=== PATIENT | female | born 1980 | race Caucasian/White ===

== ENCOUNTER 2020-07-17 11:39 | Inpatient (IN) | payer MEDICARE, MEDICAID, SELFPAY ==
[2020-07-17] VITALS (23 sets, daily range): BP systolic 67–113; BP diastolic 31–71; PULSE 68–106; RESP 12–20; TEMP 36.3–37.2; O2SAT 94–100; BMI 20.5; BMI 22.9
--- NOTE | 2020-07-17 | XR_ITS ---
EXAMINATION: XR CHEST CLINICAL INFORMATION: Central line. COMPARISON: 04/04/2019 TECHNIQUE: Frontal view of the chest was obtained. FINDINGS: Right-sided central line, tip projected over the proximal/mid SVC. Cardiac leads overlie the chest. Cardiomediastinal silhouette is stable, normal. Lungs are clear. No focal consolidation, effusion or edema. No pneumothorax is identified. XR/XR chest 1V IMPRESSION: Right-sided central line, tip projected over the proximal/mid SVC. No pneumothorax is identified. No acute process is otherwise seen.
--- NOTE | 2020-07-17 11:54 | ED_ITS ---
HPI - General Adult General Chief complaint: Weakness Stated complaint: weakness Time Seen by Provider: 07/17/20 11:53 Source: patient Mode of arrival: ambulatory Limitations: no limitations History of Present Illness HPI narrative: Patient with vaginal bleeding and weakness, patient on coumadin, Patient with vaginal bleeding for 10 days. patient states she has been changing a pad an hour for the last 4 days. Patient feels like she going to pass out. Denies chest pain or shortness of breath Onset (ago): day(s) Severity: moderate Exacerbating factors: movement Associated symptoms: weakness Related Data Allergies Allergy/AdvReac Type Severity Reaction Status Date / Time No Known Allergies Allergy Verified 07/17/20 11:58 Review of Systems Constitutional: Constitutional: Reports no additional constitutional complaints Eyes: Eyes: Reports no additional eye complaints ENT: Denies dizziness Cardiovascular: Cardiovascular: Reports no additional cardiovascular complaints Respiratory: Respiratory: Reports as per HPI Gastrointestinal: Gastrointestinal: Reports no additional gastrointestinal complaints Genitourinary: Genitourinary: Reports no additional female genitourinary comp laints Musculoskeletal: Musculoskeletal: Reports no additional musculoskeletal complaints Integumentary/Breasts: Skin/Breast: Denies rash Neurologic: Reports system reviewed and no additional complaints, except as documented, Denies dizziness and Denies Sensory deficit (Neuro) Psychiatric: Psychiatric: Denies anxiety [facility] Past Medical History Medical History (Updated 07/17/20 @ 14:14 by Ludmila Moreland MD) Myocardial infarction Social History Social History Advance Directives: No Advance Directives Information Provided: No Physical Exam Vital Signs: Vital Signs: Last Vital Signs Temp 97.6 F 07/17/20 14:23 Pulse 92 07/17/20 14:23 Resp 18 07/17/20 14:23 BP 72/36 L 07/17/20 14:23 Pulse Ox 98 07/17/20 14:23 Body Mass Index 20.5 Const: Other: Pale ill appearing Nutritional Appearance: average body habitus Orientation/consciousness: oriented to person and patient oriented x3 Limitations: no limitations HENMT: Head: Yes normal to inspection Ears: external ears normal General nose exam: Normal external nose present Mouth: Normal oral and palatal mucosa present and oropharynx normal Throat: Yes posterior oropharynx normal Eyes: Other: very pale conjunctiva General: appearance normal, both eyes and all related structures Neck: Other: supple Neck: Yes normal visual inspection Chest: Chest palpation & inspection: normal inspection of the chest Resp: Auscultation: clear to auscultation bilaterally Cardio: Jugular venous distension: no JVD Rate: regular rate Rhythm: reg ular rhythm Heart sounds: S1 normal heart sound present and S2 normal heart sound present GI: Inspection: Yes normal to inspection Palpation (GI): Soft to palpation, nontender and No hepatosplenomegaly present Auscultation: normal bowel sounds : Other: vaginal exam with small clot removed, old lesion to external os, normal vagina General: Yes no CVA tenderness Back/Spine/Pelvis: Back: no CVA tenderness Skin: General skin exam: no rashes or lesions noted Neuro: General: oriented to person and patient oriented x3 Cranial nerves: Yes CN's II-XII intact bilaterally Motor exam (neuro): 5/5 motor strength present throughout Sensory Exam: No Sensory deficit (Neuro) Extrem: General: Yes normal to inspection Psych: Appearance: grossly normal Course Course Course Narrative: Discussed with Dr. Palafox cardiology would not reverse coumadin at this time, discussed with Dr. Moreland personnel coordinator, starting transfusion Reevaluation(s) Reevaluation #1: Dr. Yap at bedside will place central line will admit to ICU Time: 14:30 Medical Decision Making [facility] Narrative Medical decision making narrative: patient is very anemic, with abnormal EKG, will transfuse and consult literacy teacher Lab Data Result diagrams: 07/17/20 12:25 07/17/20 12:25 Labs: Lab Results 07/17/20 07/17/20 07/17/20 Range/Units 12:25 12:25 12:25 WBC 14.2 H (4.8-10.8) X10*3/uL RBC 1.32 L (4.20-5.50) X10*6/uL Hgb 3.1 L* (12.0-16.0) g/dl Hct 10.7 L* (37-47) % MCV 81.1 (80-98) fL MCH 23.5 L (27.0-33.0) pg MCHC 29.0 L (31.0-35.0) g/dl RDW 21.3 H (11.0-16.0) % Plt Count 283 (160-400) X10*3/uL MPV 10.2 (9.4-12.3) fL Immature Gran % (Auto) 0.8 H (0.0-0.4) % Neut % (Auto) 73.4 H (45-73) % Lymph % (Auto) 16.2 L (20-40) % [place] % (Auto) 8.7 (2-11) % Eos % (Auto) 0.8 (0-4) % Baso % (Auto) 0.1 (0-2) % Lymph # (Auto) 2.3 (1.2-4.9) X10*3/uL [place] # (Auto) 1.2 (0.1-1.2) X10*3/uL Eos # (Auto) 0.1 (0.0-0.4) X10*3/uL Baso # (Auto) 0.0 (0.0-0.2) X10*3/uL Abs Immat Gran (auto) 0.12 H (0.00-0.03) X10*3/uL Absolute Neuts (auto) 10.4 H (2.0-8.3) X10*3/uL Absolute Nucleated RBC 0.020 H (0.0-0.012) X10*3/uL Nucleated RBC % (auto) 0.1 (0.0-0.2) /100WBC PT (10.8-13.0) SEC INR (0.9-1.1) Sodium 134 L (135-145) mmol/L Potassium 3.8 (3.3-5.1) mmol/l Chloride 97 (96-108) mmol/L Carbon Dioxide 23 (22-29) mmol/L Anion Gap 18 (12-20) BUN 11 (9-16) mg/dL Creatinine 0.76 (0.5-1.4) mg/dL Estim Creat Clear Calc 92.2 Estimated GFR > 60 Random Glucose 93 (60-115) mg/dL Calcium 7.1 L (8.4-10.2) mg/dL Troponin I High Sens 9.3 (<3.5-17.0) ng/L Blood Type Antibody Screen Crossmatch 07/17/20 07/17/20 Range/Units 12:25 12:38 WBC (4.8-10.8) X10*3/uL RBC (4.20-5.50) X10*6/uL Hgb (12.0-16.0) g/dl Hct (37-47) % MCV (80-98) fL MCH (27.0-33.0) pg MCHC (31.0-35.0) g/dl RDW (11.0-16.0) % Plt Count (160-400) X10*3/uL MPV (9.4-12.3) fL Immature Gran % (Auto) (0.0-0.4) % Neut % (Auto) (45-73) % Lymph % (Auto) (20-40) % [place] % (Auto) (2-11) % Eos % (Auto) (0-4) % Baso % (Auto) (0-2) % Lymph # (Auto) (1.2-4.9) X10*3/uL [place] # (Auto) (0.1-1.2) X10*3/uL Eos # (Auto) (0.0-0.4) X10*3/uL Baso # (Auto) (0.0-0.2) X10*3/uL Abs Immat Gran (auto) (0.00-0.03) X10*3/uL Absolute Neuts (auto) (2.0-8.3) X10*3/uL Absolute Nucleated RBC (0.0-0.012) X10*3/uL Nucleated RBC % (auto) (0.0-0.2) /100WBC PT 21.6 H (10.8-13.0) SEC INR 1.8 H (0.9-1.1) Sodium (135-145) mmol/L Potassium (3.3-5.1) mmol/l Chloride (96-108) mmol/L Carbon Dioxide (22-29) mmol/L Anion Gap (12-20) BUN (9-16) mg/dL Creatinine (0.5-1.4) mg/dL Estim Creat Clear Calc Estimated GFR Random Glucose (60-115) mg/dL Calcium (8.4-10.2) mg/dL Troponin I High Sens (<3.5-17.0) ng/L Blood Type O Positive Antibody Screen NEGATIVE Crossmatch See Detail ECG Data Attestation: I personally reviewed and interpreted this ECG as follows: Interpretation: sinus 90 old anterior wall NJ, st twave changes V5-V6 Critical Care Time Critical Care Time Critical Care Time: Yes Total Critical Care Time: 40 Attestation: I spent 40 minutes of critical care, with interventions, assessments, speaking to patient, consultants, and family. Discharge Plan Discharge Clinical Impression: Abnormal uterine bleeding, Anemia Patient Disposition: Admitted As Inpatient
--- NOTE | 2020-07-17 11:59 | ECG_ITS ---
Test Reason : WEAKNESS Blood Pressure : / mmHG Vent. Rate : 097 BPM Atrial Rate : 097 BPM P-R Int : 126 ms QRS Dur : 078 ms QT Int : 362 ms P-R-T Axes : 078 062 117 degrees QTc Int : 459 ms Normal sinus rhythm Low voltage QRS Cannot rule out Anterior infarct (cited on or before 11-FEB-2019) Lateral ST depressions - consider ischemia Abnormal ECG When compared with ECG of 04-APR-2019 17:28, Criteria for Inferior infarct are no longer Present Lateral ST depressions present. Referred By: Reji Salmon Electronically Signed By:Petey Flores
[2020-07-17] MEDS: 0.9 % Sodium Chloride 1,000 ML 999 ML IVCONT (12:02)
[2020-07-17 12:30] LABS: MANUAL DIFF FLAG NO
[2020-07-17 12:36] LABS: INTERNATIONAL NORM RATIO 1.8 (0.9-1.1); Prothrombin Time 21.6 SEC (10.8-13.0)
[2020-07-17 12:41] LABS: Basophils Percent Auto 0.1 % (0-2); Eosinophils Absolute Auto 0.1 X10*3/uL (0.0-0.4); Eosinophils Percent Auto 0.8 % (0-4); Imm Gran Abs Auto 0.12 X10*3/uL (0.00-0.03); Imm Gran Pct Auto 0.8 % (0.0-0.4); Lymphocytes Absolute Auto 2.3 X10*3/uL (1.2-4.9); Lymphocytes Percent Auto 16.2 % (20-40); Mean Corpuscular Hemoglobin 23.5 pg (27.0-33.0); Mean Corpuscular Volume 81.1 fL (80-98); Mean Platelet Volume 10.2 fL (9.4-12.3); Monocytes Absolute Auto 1.2 X10*3/uL (0.1-1.2); Monocytes Percent Auto 8.7 % (2-11); NRBC Pct Auto 0.1 /100WBC (0.0-0.2); Neutrophils Absolute Auto 10.4 X10*3/uL (2.0-8.3); Neutrophils Percent Auto 73.4 % (45-73); Platelet Count 283 X10*3/uL (160-400); Red Blood Count 1.32 X10*6/uL (4.20-5.50); Red Cell Distribution Width 21.3 % (11.0-16.0); White Blood Count 14.2 X10*3/uL (4.8-10.8)
[2020-07-17 12:47] LABS: Hemoglobin 3.1 g/dl (12.0-16.0)
[2020-07-17 12:48] LABS: Hematocrit 10.7 % (37-47)
[2020-07-17 13:00] LABS: Anion Gap 18 (12-20); Blood Urea Nitrogen 11 mg/dL (9-16); Calcium 7.1 mg/dL (8.4-10.2); Carbon Dioxide 23 mmol/L (22-29); Chloride 97 mmol/L (96-108); Creatinine Clr Calc Pharmacy 92.2; Estimated Glomerular Filt Rate > 60; Glucose Random 93 mg/dL (60-115); Potassium 3.8 mmol/l (3.3-5.1); Sodium 134 mmol/L (135-145)
[2020-07-17 13:01] LABS: Troponin-I High Sensitivity 9.3 ng/L (<3.5-17.0)
--- NOTE | 2020-07-17 13:17 | US_ITS ---
EXAMINATION: PELVIC ULTRASOUND CLINICAL INFORMATION: Heavy vaginal bleeding COMPARISON: CT abdomen pelvis 04/04/2019 TECHNIQUE: Both transabdominal endovaginal scanning was performed. FINDINGS: The anteverted uterus measuring 8.5 x 4.0 x 4.3 cm is present for a volume of 61 mL. A single mural fibroid is present measuring 8 x 6 x 6 mm in size. The endometrium measures 1 cm in thickness and is unremarkable. Nabothian cysts are present in the cervix. Right ovary measures 3.9 x 2.0 x 2.4 cm for a volume of 9.8 mL and contains 2 cysts measuring 1.2 x 1.0 x 1.5 cm 1.8 x 1.0 x 2.3 cm. Left ovary measures 3.2 x 3.1 x 2.7 cm for a volume of 14 mL and contains 2 cysts, one with a septation measuring 2.3 x 1.8 x 2.4 cm and the other exophytic measuring 1.9 x 1.3 x 1.3 cm. No free fluid is present in the cul-de-sac US/US transvaginal IMPRESSION: 1. Single subcentimeter fibroid is present. 2. Bilateral ovarian cysts.
--- NOTE | 2020-07-17 13:23 | PC.NURSE ---
chaperoned dr dietrich during a pelvic exam, pt tolerated the procedure well
--- NOTE | 2020-07-17 13:34 | US_ITS ---
EXAMINATION: PELVIC ULTRASOUND CLINICAL INFORMATION: Heavy vaginal bleeding COMPARISON: CT abdomen pelvis 04/04/2019 TECHNIQUE: Both transabdominal endovaginal scanning was performed. FINDINGS: The anteverted uterus measuring 8.5 x 4.0 x 4.3 cm is present for a volume of 61 mL. A single mural fibroid is present measuring 8 x 6 x 6 mm in size. The endometrium measures 1 cm in thickness and is unremarkable. Nabothian cysts are present in the cervix. Right ovary measures 3.9 x 2.0 x 2.4 cm for a volume of 9.8 mL and contains 2 cysts measuring 1.2 x 1.0 x 1.5 cm 1.8 x 1.0 x 2.3 cm. Left ovary measures 3.2 x 3.1 x 2.7 cm for a volume of 14 mL and contains 2 cysts, one with a septation measuring 2.3 x 1.8 x 2.4 cm and the other exophytic measuring 1.9 x 1.3 x 1.3 cm. No free fluid is present in the cul-de-sac US/US pelvic complete IMPRESSION: 1. Single subcentimeter fibroid is present. 2. Bilateral ovarian cysts.
--- NOTE | 2020-07-17 14:06 | PM.GYNCN ---
WELDING SPECIALIST - CN: [facility] Data of Consult Consult date: 07/17/20 Primary Care Provider: Hiro Mckeon PA-C Consult Narrative Narrative: Willow Bhatt is a 39 year old female with PMH significant for TX at the age of 38-39yrs, currently on anticoagulation. She presents today with weakness in the setting of ten or more days of heavy vaginal bleeding. She presented today due to feeling weak and short of breath. Bleeding is not currently as heavy as it was two days ago. She reports her bleeding had gotten heavier on Thursday (two days ago). Ms. Bhatt reports that she was previously getting an injection, which she is unsure whether was exactly depo-provera but reports that it was helping a lot with her periods and that she did not have a period for two years. However, she does not remember when her last injection was. She has not followed up with her ObGyn (she has been seen at [facility]) since her last hospitalization. She reports that in that time, bleeding has been irregular. She does not bleed for a month but then bleeds for two months straight. Bleeding is at times heavy with clots, although the amount is variable. She does not desire further childbearing and reports that she previously requested a partial hysterectomy but was told that she was too high risk given her anticoagulation. cc:: CC: GUEST SERVICES MANAGER - Review of Systems Review of Systems ROS Unobtainable: Other (Focused review of systems as reported in the HPI) OB PMFSH Past Medical History Medical History (Updated 07/17/20 @ 14:14 by Ludmila Moreland MD) Myocardial infarction Social History Social History Advance Directives: No Advance Directives Information Provided: No Meds Allergies Allergy/AdvReac Type Severity Reaction Status Date / Time No Known Allergies Allergy Verified 07/17/20 11:58 WELDING SPECIALIST Physical Exam Vitals Vital signs: Temp Pulse Resp BP Pulse Ox 97.4 F 103 H 12 67/31 L 100 07/17/20 13:45 07/17/20 13:45 07/17/20 13:45 07/17/20 13:45 07/17/20 11:48 Body Mass Index 20.5 Constitutional General Appearance: Well-nourished, Well-developed and Other (patient pale appearing, no acute distress) Lungs Respiratory Effort: No intercostal retractions and No accessory muscle usage WELDING SPECIALIST - Results Labs CBC & Chem 7: 07/17/20 12:25 07/17/20 12:25 Labs: Short CBC 07/17/20 Range/Units 12:25 WBC 14.2 H (4.8-10.8) X10*3/uL Hgb 3.1 L* (12.0-16.0) g/dl Hct 10.7 L* (37-47) % Plt Count 283 (160-400) X10*3/uL BMP 07/17/20 12:25 Sodium 134 L Potassium 3.8 Chloride 97 Carbon Dioxide 23 BUN 11 Creatinine 0.76 Calcium 7.1 L Antibody Screen Antibody Screen NEGATIVE 07/17/20 12:38 Assessment and Plan (1) Abnormal uterine bleeding: Status: Acute This patient, who is younger than 45, is not obese and has no other risk factors for endometrial cancer with an obvious explanation for her abnormal uterine bleeding (anticoagulation) does not require uterine sampling. On review of the medical eligibility criteria for contraception, ischemic heart disease is a level 4 contraindication to depo-provera. I advised her that depo-provera is not recommended for her given her history of TX. I explained that options to prevent further abnormal bleeding include levenogestrel IUD, nexplanon implant, and hysteroscopy D&C with endometrial ablation. She then reported that she thinks the injection she was getting was not exactly depo provera. She prefers to follow up with her ObGyn at [facility]. I advised her that if she is unable to follow up with them for any reason, she is of course welcome to follow up with us. During her admission for blood, TVUS may help rule out any structural anomalies contributing to bleeding. I recommend a one time dose of 1,000mg tranexamic acid IV. On reviewing the contraindications, I do not see history of TX or active anticoagulation included; even thromboembolic disease is not a contraindication to IV tranexamic acid (although it is for oral). This patient is not a good candidate for hormonal treatment to stop her bleeding, leaving D&C as the only other option should she start having very heavy bleeding. I recommend that she receive at least 4 units of PRBCs if not 5, especially given that she will likely have ongoing bleeding. She should go home on oral ferrous sulfate 325mg BID to help restore her blood volume, as well. This patient needs to follow up with ObGyn after her discharge and reports that she prefers to follow up with the one she has seen previously. Please re-consult if any new concerns or concern for heavier bleeding requiring D&C.
--- NOTE | 2020-07-17 16:50 | PM.CCHP ---
History of Present Illness Date of Service: 07/17/20 Chief Complaint: Malaise and weakness 39-year-old lady with underlying history of myocardial infarction in later delivery thrombosis on anticoagulation with Coumadin admitted on 07/17/2020 for malaise and weakness associated with 9 day history of significant vaginal bleeding. On ER evaluation patient with hemoglobin of 3.1, hypotensive, and tachycardic secondary to hemorrhagic shock. Started on blood product resuscitation. Gynecology has been consulted by an ER physician and secondary to no ongoing bleeding non operative management has been chosen. Patient has had central venous access for appetite resuscitation placed and has been transferred to intensive care unit for further management. Review of Systems Constitutional: Constitutional: Reports malaise and Reports weakness Eyes: Eyes: Denies change in vision and Denies loss of vision ENT: Denies dizziness Cardiovascular: Cardiovascular: Denies chest pain, Reports lightheadedness and Reports dyspnea Respiratory: Respiratory: Reports no additional respiratory complaints and Reports dyspnea Gastrointestinal: Gastrointestinal: Denies constipation and Denies diarrhea Genitourinary: Genitourinary: Reports abnormal vaginal bleeding Musculoskeletal: Musculoskeletal: Denies myalgias and Denies stiffness Integumentary/Breasts: Skin/Breast: Denies rash Neurologic: Reports system reviewed and no additional complaints, except as documented, Denies dizziness, Denies loss of vision, Denies Sensory deficit (Neuro) and Reports weakness Endocrine: Endocrine: Denies cold intolerance and Denies heat intolerance [facility] Past Medical History Medical History Myocardial infarction Family History Family History Mother Myocardial infarct Social History Social History Advance Directives: No Advance Directives Information Provided: No Meds Allergies Allergy/AdvReac Type Severity Reaction Status Date / Time No Known Allergies Allergy Verified 07/17/20 11:58 Home Medications Medication Instructions Recorded Confirmed Type aspirin 1 tab PO DAILY 07/17/20 07/17/20 History digoxin 1 tab PO DAILY 07/17/20 07/17/20 History duloxetine 1 cap PO DAILY 07/17/20 07/17/20 History folic acid 1 tab PO DAILY 07/17/20 07/17/20 History gabapentin 1 cap PO BID 07/17/20 07/17/20 History nicotine 1 patch TOPICAL DAILY 07/17/20 07/17/20 History nicotine (polacrilex) 1 mg PO Q2H PRN 07/17/20 07/17/20 History potassium chloride 1 tab PO BID 07/17/20 07/17/20 History sacubitril-valsartan [Entresto] 1 tab PO BID 07/17/20 07/17/20 History thiamine HCl (vitamin B1) [Vitamin 1 tab PO DAILY 07/17/20 07/17/20 History B-1] warfarin 0 - 2 tab PO BEDTIME 07/17/20 07/17/20 History Physical Exam Vital Signs: Vital Signs: Last Vital Signs Temp 98.0 F 07/17/20 16:48 Pulse 75 07/17/20 16:48 Resp 12 07/17/20 16:48 BP 110/51 L 07/17/20 16:48 Pulse Ox 100 07/17/20 16:48 Body Mass Index 20.5 Const: General: no acute distress, alert, awake and other (Pale) Eyes: Sclerae: sclerae normal EOM: EOMs intact bilaterally Neck: Neck: Yes no lymphadenopathy, Yes trachea midline and Yes supple Resp: Effort & Inspection: normal respiratory effort and no respiratory distress Auscultation: clear to auscultation bilaterally Cardio: Rate: tachycardic Rhythm: regular rhythm Heart sounds: no gallops, no murmurs and no rubs GI: Palpation (GI): Soft to palpation and Other GI palpation findings present ( Nontender) Auscultation: normal bowel sounds Neuro: Sensory Exam: No Sensory deficit (Neuro) Extrem: General: Yes no pedal edema, No clubbing and No cyanosis Results Labs CBC and Chem 7: 07/17/20 12:25 07/17/20 12:25 Labs: Laboratory Results - last 24 hr 07/17/20 07/17/20 07/17/20 12:25 12:25 12:25 MCV 81.1 MCH 23.5 L MCHC 29.0 L RDW 21.3 H Plt Count 283 MPV 10.2 Immature Gran % (Auto) 0.8 H Neut % (Auto) 73.4 H Lymph % (Auto) 16.2 L [place] % (Auto) 8.7 Eos % (Auto) 0.8 Baso % (Auto) 0.1 Lymph # (Auto) 2.3 [place] # (Auto) 1.2 Eos # (Auto) 0.1 Baso # (Auto) 0.0 Abs Immat Gran (auto) 0.12 H Absolute Neuts (auto) 10.4 H Absolute Nucleated RBC 0.020 H Nucleated RBC % (auto) 0.1 PT INR Anion Gap 18 Estim Creat Clear Calc 92.2 Estimated GFR > 60 Random Glucose 93 Calcium 7.1 L Troponin I High Sens 9.3 Blood Type Antibody Screen Crossmatch 07/17/20 07/17/20 12:25 12:38 MCV MCH MCHC RDW Plt Count MPV Immature Gran % (Auto) Neut % (Auto) Lymph % (Auto) [place] % (Auto) Eos % (Auto) Baso % (Auto) Lymph # (Auto) [place] # (Auto) Eos # (Auto) Baso # (Auto) Abs Immat Gran (auto) Absolute Neuts (auto) Absolute Nucleated RBC Nucleated RBC % (auto) PT 21.6 H INR 1.8 H Anion Gap Estim Creat Clear Calc Estimated GFR Random Glucose Calcium Troponin I High Sens Blood Type O Positive Antibody Screen NEGATIVE Crossmatch See Detail Imaging Radiologist's Impressions: Impressions Chest X-Ray 07/17/20 00:00 IMPRESSION: Right-sided central line, tip projected over the proximal/mid SVC. No pneumothorax is identified. No acute process is otherwise seen. Transvaginal US 07/17/20 13:17 IMPRESSION: 1. Single subcentimeter fibroid is present. 2. Bilateral ovarian cysts. Pelvis Ultrasound 07/17/20 13:34 IMPRESSION: 1. Single subcentimeter fibroid is present. 2. Bilateral ovarian cysts. 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 Plan: Neuro: No acute issues. Cardiac: No acute issues. Underlying history of early FL and LV thrombus. Cardiology evaluation requested. Pulmonary: No acute issues. Renal: No acute issues. Endo: No acute issues. GI: No acute issues. ID: No acute issues Heme/Onc: Hemorrhagic shock secondary to acute blood loss anemia secondary to menorrhagia with underlying history of anticoagulation secondary to LV thrombus. Status post 4 units of packed red blood cells, 1 unit of platelets, and 1 unit of FFP with resolution of hemorrhagic shock. Continue to monitor hemoglobin level. Transfusion threshold of 7. Gynecology service care appreciated. No plans for operative intervention at this time unless re-bleeds significantly. Psych: No acute issues. Miscellaneous: No acute issues. Prophylaxis: Intermittent pneumatic compression Diet: Regular Critical care time spent: 60 minutes excluding separately billable procedures (2) Acute blood loss anemia: Status: Acute (3) Abnormal uterine bleeding: Status: Acute Critical Care Time Critical Care Time (minutes): 60
--- NOTE | 2020-07-17 17:00 | W.PM.CCHP ---
Procedures Central Line Placement Right IJ: Central Line Comments: Right internal jugular Cordis sheath introducer emergently placed for resuscitation of hemorrhagic shock under ultrasound guidance and usual sterile conditions with no immediate complications. Line position verified on chest x-ray.
--- NOTE | 2020-07-17 18:34 | PC.NURSE ---
Patient arrived from the ED. A&Ox4. HR in 80s, SBP in the low to mid 90s, aware. Administered ordered 2 units of PRBC, 1 unit of platelets and 1 unit of FFPs. Patient tolerated well. SBP remains in the mid 90s, MD aware. S/p transfusion H&H ordered for around 2100. At 1830 patient saturated one jason pad and passed two small blood clots in the bedside commode, SHOVEL MECHANIC made aware. Patient has not urinated since arriving to the unit at 1630, SHOVEL MECHANIC made aware.
[2020-07-17] MEDS: Calcium Gluconate/NaCl,Iso-Osm 2 GM/100 ML PLAST..BAG IV (18:57)
[2020-07-17 20:05] LABS: MANUAL DIFF FLAG NO
[2020-07-17 20:07] LABS: Basophils Percent Auto 0.2 % (0-2); Eosinophils Absolute Auto 0.1 X10*3/uL (0.0-0.4); Eosinophils Percent Auto 0.9 % (0-4); Hemoglobin 8.9 g/dl (12.0-16.0); Imm Gran Abs Auto 0.05 X10*3/uL (0.00-0.03); Imm Gran Pct Auto 0.4 % (0.0-0.4); Lymphocytes Absolute Auto 1.7 X10*3/uL (1.2-4.9); Lymphocytes Percent Auto 14.5 % (20-40); Mean Corpuscular HGB Conc 34.2 g/dl (31.0-35.0); Mean Corpuscular Hemoglobin 29.5 pg (27.0-33.0); Mean Corpuscular Volume 86.1 fL (80-98); Mean Platelet Volume 9.3 fL (9.4-12.3); Monocytes Absolute Auto 1.1 X10*3/uL (0.1-1.2); Monocytes Percent Auto 9.4 % (2-11); Neutrophils Absolute Auto 8.8 X10*3/uL (2.0-8.3); Neutrophils Percent Auto 74.6 % (45-73); Platelet Count 191 X10*3/uL (160-400); Red Blood Count 3.02 X10*6/uL (4.20-5.50); Red Cell Distribution Width 15.4 % (11.0-16.0); White Blood Count 11.8 X10*3/uL (4.8-10.8)
[2020-07-17 20:41] LABS: Anion Gap 16 (12-20); Blood Urea Nitrogen 10 mg/dL (9-16); Calcium 6.9 mg/dL (8.4-10.2); Carbon Dioxide 22 mmol/L (22-29); Chloride 104 mmol/L (96-108); Creatinine Clr Calc Pharmacy 119.2; Estimated Glomerular Filt Rate > 60; Glucose Random 70 mg/dL (60-115); Potassium 3.7 mmol/l (3.3-5.1); Sodium 138 mmol/L (135-145)
[2020-07-17] MEDS: Dextrose 5 % and Lactated Ring 1,000 ML 100 ML IVCONT (20:48)
[2020-07-17] MEDS: LORazepam 1 MG TABLET PO (20:52)
[2020-07-17] MEDS: Acetaminophen 325 MG TABLET 650 MG PO (23:44)
[2020-07-18] VITALS (14 sets, daily range): BP systolic 90–104; BP diastolic 51–67; PULSE 64–98; RESP 12–20; TEMP 36.8; O2SAT 91–100; BMI 22.6
[2020-07-18] MEDS: Dextrose 5 % and Lactated Ring 1,000 ML 100 ML IVCONT (06:25)
[2020-07-18 06:55] LABS: MANUAL DIFF FLAG NO
[2020-07-18 07:10] LABS: INTERNATIONAL NORM RATIO 1.4 (0.9-1.1); Prothrombin Time 16.7 SEC (10.8-13.0)
[2020-07-18 07:13] LABS: Basophils Percent Auto 0.4 % (0-2); Eosinophils Absolute Auto 0.1 X10*3/uL (0.0-0.4); Eosinophils Percent Auto 1.3 % (0-4); Hematocrit 24.5 % (37-47); Hemoglobin 8.6 g/dl (12.0-16.0); Imm Gran Abs Auto 0.05 X10*3/uL (0.00-0.03); Imm Gran Pct Auto 0.5 % (0.0-0.4); Lymphocytes Absolute Auto 2.4 X10*3/uL (1.2-4.9); Lymphocytes Percent Auto 24.1 % (20-40); Mean Corpuscular HGB Conc 35.1 g/dl (31.0-35.0); Mean Corpuscular Hemoglobin 30.1 pg (27.0-33.0); Mean Corpuscular Volume 85.7 fL (80-98); Mean Platelet Volume 9.7 fL (9.4-12.3); Neutrophils Absolute Auto 6.4 X10*3/uL (2.0-8.3); Neutrophils Percent Auto 63.7 % (45-73); Platelet Count 198 X10*3/uL (160-400); Red Blood Count 2.86 X10*6/uL (4.20-5.50); Red Cell Distribution Width 15.8 % (11.0-16.0)
--- NOTE | 2020-07-18 07:16 | PC.NURSE ---
PT A&O X3. RESTED IN NAPS OVERNIGHT. HAD REPEAT LABS AT 1999. HGB/HCT 8.9/26. VAGINAL BLEEDING SLOWED AND ALMOST STOPPED. PT CHANGED ESTRELLITA PAD X1 OVERNIGHT FOR A SMALL AMT OF BLOOD ON PAD. OOB TO BEDSIDE COMMODE X2 TO VOID 300-400 ML OF DARK GABRIEL URINE. SMALL FORMED BROWN BM NOTED. PT TAKING PO FLUIDS WELL. INSTRUCTED NOT TO GET OOB TO BEDSIDE COMMODE WITHOUT ASSISTANCE DUE TO BORDERLINE BP. MAPS ARE INTERMITTENTLY 55-65. ARSENIO GARCIA AWARE AND IS TRENDING THE BPS. AT THIS TIME, PT IS MENTATING WELL AND ASYMPTOMATIC WITH LOW BP. PT IS RECEIVING D5LR AT 100 ML/HR.
[2020-07-18 07:44] LABS: Alanine Aminotransferase 21 U/L (0-31); Albumin Level 2.3 g/dL (3.5-5.0); Alkaline Phosphatase 113 U/L (39-117); Anion Gap 11 (12-20); Aspartate Amino Transferase 45 U/L (5-31); Bilirubin Total 2.7 mg/dL (0.0-1.0); Blood Urea Nitrogen 7 mg/dL (9-16); Calcium 6.9 mg/dL (8.4-10.2); Carbon Dioxide 25 mmol/L (22-29); Chloride 103 mmol/L (96-108); Creatinine Clr Calc Pharmacy 121.1; Estimated Glomerular Filt Rate > 60; Glucose Random 98 mg/dL (60-115); Magnesium 1.5 mg/dL (1.6-2.6); Phosphorus 2.5 mg/dL (2.7-4.5); Potassium 3.1 mmol/l (3.3-5.1); Sodium 136 mmol/L (135-145); Total Protein 4.8 g/dL (6.5-8.0)
[2020-07-18] MEDS: Magnesium Sulfate/H2O 2 GM/50 ML PIGGYBACK IV (08:26)
[2020-07-18] MEDS: Albumin Human 25 % 100 ML IV (08:27)
[2020-07-18] MEDS: Potassium Phosphate 30 MMOL in 0.9 % Sodium Chloride 500 ML 85 MMOL IV (09:00)
[2020-07-18 09:11] LABS: UPreg QC Valid YES; Urine Pregnancy NEGATIVE (NEGATIVE)
--- NOTE | 2020-07-18 10:53 | MHC.CM.PN ---
Met with pt in ICU. Per MD rounds will [place] [facility] however pt is considering leaving AMA. Spoke to pt at length about staying in hospital to receive proper care. Barriers to staying in hospital per pt include her job and her daughter. 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 Again stressed need for pt to stay in hospital for care. Stressed seriousness of her condition. Also stressed to patient that if she leaves AMA, we cannot provide any discharge services if necessary. Pt understands, but is still considering AMA. IMM reviewed and signed. Transportation home would be by daughter. Pt to arrange transportation home.
--- NOTE | 2020-07-18 11:17 | PM.CNCAR ---
History of Present Illness History of Present Illness Date of Service: 07/18/20 Requesting physician: Mark Anthony Yap Chief complaint: Hemorrhagic shock Narrative: 39-year-old female with background history of anterior wall MS for which she presented late and no intervention was done. She had severely reduced ejection fraction with apical thrombus for which she was started on Coumadin. She has background of genitourinary bleeding in the past and previously had blood transfusions. She is now presenting again with the significant bleeding and hemoglobin of 3. We have been asked to help the management because she was on Coumadin for apical thrombus. Discussing with her she has no chest discomfort shortness of breath. She has been getting blood transfusions and her blood pressure is improving. Last echo was done in 03/2018 which showed EF of 35-40% with akinesis and thinning of the mid to distal inferoseptal anteroseptal wall that and the distal anterior wall that. [place] was aneurysmal and dyskinetic and there was a large apical thrombus. Review of Systems Review of Systems: Weakness Yes all other systems are reviewed and are negative Constitutional: Constitutional: Reports weakness Eyes: Eyes: Denies loss of vision ENT: Denies dizziness Neurologic: Reports system reviewed and no additional complaints, except as documented, Denies dizziness, Denies loss of vision and Reports weakness PMFSH Past Medical History Medical History Myocardial infarction Family History Family History Mother Myocardial infarct Social History Social History Currently Displaying Signs/Symptoms of Drug Intoxication Withdrawal: No Advance Directives: No Advance Directives Information Provided: No Do you have thoughts of harming others: None Do you have a plan to hurt others: No Plan service: No Current occupational status: employed Meds Allergies Allergy/AdvReac Type Severity Reaction Status Date / Time No Known Allergies Allergy Verified 07/17/20 11:58 Home Medications Medication Instructions Recorded Confirmed Type aspirin 1 tab PO DAILY 07/17/20 07/17/20 History digoxin 1 tab PO DAILY 07/17/20 07/17/20 History duloxetine 1 cap PO DAILY 07/17/20 07/17/20 History folic acid 1 tab PO DAILY 07/17/20 07/17/20 History gabapentin 1 cap PO BID 07/17/20 07/17/20 History nicotine 1 patch TOPICAL DAILY 07/17/20 07/17/20 History nicotine (polacrilex) 1 mg PO Q2H PRN 07/17/20 07/17/20 History potassium chloride 1 tab PO BID 07/17/20 07/17/20 History sacubitril-valsartan [Entresto] 1 tab PO BID 07/17/20 07/17/20 History thiamine HCl (vitamin B1) [Vitamin 1 tab PO DAILY 07/17/20 07/17/20 History B-1] warfarin 0 - 2 tab PO BEDTIME 07/17/20 07/17/20 History Physical Exam Vital Signs: Vital Signs: Last Vital Signs Temp 98.3 F 07/18/20 04:00 Pulse 81 07/18/20 11:00 Resp 12 07/18/20 11:00 BP 94/54 L 07/18/20 11:00 Pulse Ox 99 07/18/20 11:00 Body Mass Index 22.6 GENERAL APPEARANCE: in no acute distress, well developed, well nourished. HEENT: unremarkable. HEAD: normocephalic, atraumatic. NECK/THYROID: no carotid bruit, no jugular venous distention. SKIN: no suspicious lesions, warm and dry. HEART: no murmurs, regular rate and rhythm, S1, S2 normal. LUNGS: clear to auscultation bilaterally. ABDOMEN: normal, bowel sounds present, soft, nontender, nondistended. EXTREMITIES: no clubbing, cyanosis, or edema. PERIPHERAL PULSES: equal. NEUROLOGIC: nonfocal, alert and oriented. PSYCH: mood/affect full range. Results Labs and Meds Result diagrams: 07/18/20 06:20 07/18/20 06:20 Lab results: Laboratory Results - last 24 hr 07/17/20 07/17/20 07/17/20 12:25 12:25 12:25 WBC 14.2 H RBC 1.32 L Hgb 3.1 L* Hct 10.7 L* MCV 81.1 MCH 23.5 L MCHC 29.0 L RDW 21.3 H Plt Count 283 MPV 10.2 Immature Gran % (Auto) 0.8 H Neut % (Auto) 73.4 H Lymph % (Auto) 16.2 L [place] % (Auto) 8.7 Eos % (Auto) 0.8 Baso % (Auto) 0.1 Lymph # (Auto) 2.3 [place] # (Auto) 1.2 Eos # (Auto) 0.1 Baso # (Auto) 0.0 Abs Immat Gran (auto) 0.12 H Absolute Neuts (auto) 10.4 H Absolute Nucleated RBC 0.020 H Nucleated RBC % (auto) 0.1 Smear Path Review SEE NOTE PT INR Sodium 134 L Potassium 3.8 Chloride 97 Carbon Dioxide 23 Anion Gap 18 BUN 11 Creatinine 0.76 Estim Creat Clear Calc 92.2 Estimated GFR > 60 Random Glucose 93 Calcium 7.1 L Phosphorus Magnesium Total Bilirubin AST ALT Alkaline Phosphatase Troponin I High Sens 9.3 Total Protein Albumin Urine Test Blood Type Antibody Screen Crossmatch 07/17/20 07/17/20 07/17/20 12:25 12:38 19:56 WBC 11.8 H RBC 3.02 L D Hgb 8.9 L D Hct 26.0 L D MCV 86.1 D MCH 29.5 MCHC 34.2 RDW 15.4 Plt Count 191 D MPV 9.3 L Immature Gran % (Auto) 0.4 Neut % (Auto) 74.6 H Lymph % (Auto) 14.5 L [place] % (Auto) 9.4 Eos % (Auto) 0.9 Baso % (Auto) 0.2 Lymph # (Auto) 1.7 [place] # (Auto) 1.1 Eos # (Auto) 0.1 Baso # (Auto) 0.0 Abs Immat Gran (auto) 0.05 H Absolute Neuts (auto) 8.8 H Absolute Nucleated RBC 0.000 Nucleated RBC % (auto) 0.0 Smear Path Review PT 21.6 H INR 1.8 H Sodium Potassium Chloride Carbon Dioxide Anion Gap BUN Creatinine Estim Creat Clear Calc Estimated GFR Random Glucose Calcium Phosphorus Magnesium Total Bilirubin AST ALT Alkaline Phosphatase Troponin I High Sens Total Protein Albumin Urine Test Blood Type O Positive Antibody Screen NEGATIVE Crossmatch See Detail 07/17/20 07/18/20 07/18/20 19:56 06:20 06:20 WBC 10.0 RBC 2.86 L Hgb 8.6 L Hct 24.5 L MCV 85.7 MCH 30.1 MCHC 35.1 H RDW 15.8 Plt Count 198 MPV 9.7 Immature Gran % (Auto) 0.5 H Neut % (Auto) 63.7 Lymph % (Auto) 24.1 [place] % (Auto) 10.0 Eos % (Auto) 1.3 Baso % (Auto) 0.4 Lymph # (Auto) 2.4 [place] # (Auto) 1.0 Eos # (Auto) 0.1 Baso # (Auto) 0.0 Abs Immat Gran (auto) 0.05 H Absolute Neuts (auto) 6.4 Absolute Nucleated RBC 0.000 Nucleated RBC % (auto) 0.0 Smear Path Review PT 16.7 H D INR 1.4 H Sodium 138 Potassium 3.7 Chloride 104 Carbon Dioxide 22 Anion Gap 16 BUN 10 Creatinine 0.61 Estim Creat Clear Calc 119.2 Estimated GFR > 60 Random Glucose 70 Calcium 6.9 L Phosphorus Magnesium Total Bilirubin AST ALT Alkaline Phosphatase Troponin I High Sens Total Protein Albumin Urine Test Blood Type Antibody Screen Crossmatch 07/18/20 07/18/20 06:20 08:46 WBC RBC Hgb Hct MCV MCH MCHC RDW Plt Count MPV Immature Gran % (Auto) Neut % (Auto) Lymph % (Auto) [place] % (Auto) Eos % (Auto) Baso % (Auto) Lymph # (Auto) [place] # (Auto) Eos # (Auto) Baso # (Auto) Abs Immat Gran (auto) Absolute Neuts (auto) Absolute Nucleated RBC Nucleated RBC % (auto) Smear Path Review PT INR Sodium 136 Potassium 3.1 L Chloride 103 Carbon Dioxide 25 Anion Gap 11 L BUN 7 L Creatinine 0.60 Estim Creat Clear Calc 121.1 Estimated GFR > 60 Random Glucose 98 D Calcium 6.9 L Phosphorus 2.5 L Magnesium 1.5 L Total Bilirubin 2.7 H AST 45 H ALT 21 Alkaline Phosphatase 113 Troponin I High Sens Total Protein 4.8 L Albumin 2.3 L Urine Test NEGATIVE Blood Type Antibody Screen Crossmatch Assessment and Plan (1) Acute blood loss anemia: Status: Acute (2) Hemorrhagic shock: Status: Acute (3) Abnormal uterine bleeding: Status: Acute (4) Apical mural thrombus: Status: Acute (5) Old anterior wall myocardial infarction: Status: Acute (6) Ischemic cardiomyopathy: Status: Acute Pleasant 39-year-old female who is presenting with hemorrhagic shock due to uterine bleeding. She has been transfused and is hemodynamically stable at this point. She has background history of myocardial infarction 2 years ago when she presented late for an anterior wall MS and unfortunately had ischemic cardiomyopathy and apical mural thrombus. She was on aspirin and Coumadin. She has been experiencing uterine bleeding for many years. Previously she discussed about hysterectomy with her lathe sander but she was told that it was not indicated. We will check echocardiogram to assess for the mural thrombus. There is a possibility that will be present. In most cases the thrombus organized his over time and the risk of thromboembolism goes down but obviously the risk does not go way. I think right now this was a right strategy to hold Coumadin and to transfuse her. We will follow along with you. I think the best scenario will be that she gets a definitive treatment for her uterine bleeding. She is open to the idea of hysterectomy because she is perimenopausal by report and she has completed her family. Clinically not in heart failure right now. With blood transfusions please monitor closely and give Lasix as required. Thank you for allowing me to participate in the care of your patient. Please feel free to contact me if you have any questions.
--- NOTE | 2020-07-18 14:42 | P.PNCC_ITS ---
Subjective Subjective Date of Service: 07/18/20 Interval History: 39-year-old lady with underlying history of myocardial infarction in later delivery thrombosis on anticoagulation with Coumadin admitted on 07/17/2020 for malaise and weakness associated with 9 day history of significant vaginal bleeding. On ER evaluation patient with hemoglobin of 3.1, hypotensive, and tachycardic secondary to hemorrhagic shock. Started on blood product resuscitation. Gynecology has been consulted by an ER physician and secondary to no ongoing bleeding non operative management has been chosen. Kourtney ient has had central venous access for appropriate volume resuscitation placed and has been transferred to intensive care unit for further management. No events overnight. Only minor bleeding. Hemoglobin stabilized. Physical Exam Vital Signs: Vital Signs: Last Vital Signs Temp 98.2 F 07/18/20 11:54 Pulse 85 07/18/20 13:00 Resp 19 07/18/20 13:00 BP 94/55 L 07/18/20 13:00 Pulse Ox 91 L 07/18/20 13:00 Body Mass Index 22.6 Const: General: no acute distress, alert and awake Eyes: Sclerae: sclerae normal EOM: EOMs intact bilaterally Neck: Neck: Yes no lymphadenopathy, Yes trachea midline and Yes supple Resp: Effort & Inspection: normal respiratory effort and no respiratory distress Auscultation: clear to auscultation bilaterally Cardio: Rate: regular rate Rhythm: regular rhythm Heart sounds: no gallops, no murmurs and no rubs GI: Palpation (GI): Soft to palpation and Other GI palpation findings present ( Nontender) Auscultation: normal bowel sounds Extrem: General: Yes no pedal edema, No clubbing and No cyanosis Objective Data Labs CBC & Chem 7: 07/18/20 06:20 07/18/20 06:20 Labs: Laboratory Results - last 24 hr 07/17/20 07/17/20 07/17/20 12:25 12:38 19:56 WBC 11.8 H RBC 3.02 L D Hgb 8.9 L D Hct 26.0 L D MCV 86.1 D MCH 29.5 MCHC 34.2 RDW 15.4 Plt Count 191 D MPV 9.3 L Immature Gran % (Auto) 0.4 Neut % (Auto) 74.6 H Lymph % (Auto) 14.5 L [place] % (Auto) 9.4 Eos % (Auto) 0.9 Baso % (Auto) 0.2 Lymph # (Auto) 1.7 [place] # (Auto) 1.1 Eos # (Auto) 0.1 Baso # (Auto) 0.0 Abs Immat Gran (auto) 0.05 H Absolute Neuts (auto) 8.8 H Absolute Nucleated RBC 0.000 Nucleated RBC % (auto) 0.0 Smear Path Review SEE NOTE PT INR Sodium Potassium Chloride Carbon Dioxide Anion Gap BUN Creatinine Estim Creat Clear Calc Estimated GFR Random Glucose Calcium Phosphorus Magnesium Total Bilirubin AST ALT Alkaline Phosphatase Total Protein Albumin Urine Test Blood Type O Positive Antibody Screen NEGATIVE Crossmatch See Detail 07/17/20 07/18/20 07/18/20 19:56 06:20 06:20 WBC 10.0 RBC 2.86 L Hgb 8.6 L Hct 24.5 L MCV 85.7 MCH 30.1 MCHC 35.1 H RDW 15.8 Plt Count 198 MPV 9.7 Immature Gran % (Auto) 0.5 H Neut % (Auto) 63.7 Lymph % (Auto) 24.1 [place] % (Auto) 10.0 Eos % (Auto) 1.3 Baso % (Auto) 0.4 Lymph # (Auto) 2.4 [place] # (Auto) 1.0 Eos # (Auto) 0.1 Baso # (Auto) 0.0 Abs Immat Gran (auto) 0.05 H Absolute Neuts (auto) 6.4 Absolute Nucleated RBC 0.000 Nucleated RBC % (auto) 0.0 Smear Path Review PT 16.7 H D INR 1.4 H Sodium 138 Potassium 3.7 Chloride 104 Carbon Dioxide 22 Anion Gap 16 BUN 10 Creatinine 0.61 Estim Creat Clear Calc 119.2 Estimated GFR > 60 Random Glucose 70 Calcium 6.9 L Phosphorus Magnesium Total Bilirubin AST ALT Alkaline Phosphatase Total Protein Albumin Urine Test Blood Type Antibody Screen Crossmatch 07/18/20 07/18/20 06:20 08:46 WBC RBC Hgb Hct MCV MCH MCHC RDW Plt Count MPV Immature Gran % (Auto) Neut % (Auto) Lymph % (Auto) [place] % (Auto) Eos % (Auto) Baso % (Auto) Lymph # (Auto) [place] # (Auto) Eos # (Auto) Baso # (Auto) Abs Immat Gran (auto) Absolute Neuts (auto) Absolute Nucleated RBC Nucleated RBC % (auto) Smear Path Review PT INR Sodium 136 Potassium 3.1 L Chloride 103 Carbon Dioxide 25 Anion Gap 11 L BUN 7 L Creatinine 0.60 Estim Creat Clear Calc 121.1 Estimated GFR > 60 Random Glucose 98 D Calcium 6.9 L Phosphorus 2.5 L Magnesium 1.5 L Total Bilirubin 2.7 H AST 45 H ALT 21 Alkaline Phosphatase 113 Total Protein 4.8 L Albumin 2.3 L Urine Test NEGATIVE Blood Type Antibody Screen Crossmatch Progress Note: A&P Assessment and plan (1) Acute blood loss anemia: Status: Acute Assessment and Plan: Assessment: 39-year-old lady with underlying history of early MO and LV thrombus anticoagulated with Coumadin presenting with hemorrhagic shock secondary to acute loss anemia secondary to menorrhagia. Plan: Neuro: No acute issues. Cardiac: No acute issues. Underlying history of early MO and LV thrombus. Cardiology service care appreciated. 2D echocardiogram with no evidence of LV thrombus. Discussed with cardiology (Dr. Flores) - secondary to no LV thrombus visualized 80s okay to hold patient Coumadin at this time and continue on aspirin. Patient would need outpatient cardiology follow-up (currently seen at [facility] cardiology). Pulmonary: No acute issues. Renal: No acute issues. Endo: No acute issues. GI: No acute issues. ID: No acute issues Heme/Onc: Hemorrhagic shock secondary to acute blood loss anemia secondary to uterine bleeding with an underlying fibroid and history of anticoagulation secondary to LV thrombus history, resolved. Status post 4 units of packed red blood cells, 1 unit of platelets, and 1 unit of FFP with resolution of hemorrhagic shock. Hemoglobin level stabilized. Psych: No acute issues. Miscellaneous: No acute issues. Prophylaxis: Intermittent pneumatic compression Diet: Regular Critical care time spent: 45 minutes (2) Hemorrhagic shock: Status: Acute (3) Abnormal uterine bleeding: Status: Acute Time Spent With Patient Total time spent with greater than 50% in coordination of care (as documented) at patient's floor/unit and/or counseling patient:: 0 Critical Care Time 45
--- NOTE | 2020-07-18 15:00 | CA_ITS ---
Transthoracic Echocardiogram Patient (Last, First, Middle): Willow Bhatt L Gender: Female Date of : 1980 Age: 39 Procedure Date: 07/18/2020 Procedure Type: Transthoracic Echocardiogram Location: ICU Height: 170.18 cm Weight: 66.23 kg BSA: 1.77 m2 Heart Rate: bpm BP: 100 / 54 mmHg Box Attacher: Referring MD: Mark Anthony Yap MD Symptoms: nstemi, cad, evaluate for LV thrombus Study Quality: Good ECG Rhythm: Sinus Conclusions: - Normal left ventricular cavity size. There is mildly increased left ventricular wall thickness. The left ventricular systolic function is mild to moderately decreased. The visually estimated ejection fraction is between 35-40%. - Normal left ventricular filling pressures. - There is no evidence of apical thrombus. - The apex, apical anterior, mid anterior, apical septum, mid inferoseptal, and mid anteroseptal segments are akinetic. - No significant valvular or pericardial pathology. Findings Procedure Information Contrast agent, definity, is being given per protocol without apparent complications. Left Ventricle Normal left ventricular cavity size. There is mildly increased left ventricular wall thickness. The left ventricular systolic function is mild to moderately decreased. The visually estimated ejection fraction is between 35-40%. There is evidence of regional wall motion abnormalities. Abnormal diastolic function is noted. Spectral Doppler is indicative of a pseudonormal filling pattern. Normal left ventricular filling pressures. There is no evidence of apical thrombus. Wall Motion Rest Echo Findings The apex, apical anterior, mid anterior, apical septum, mid inferoseptal, and mid anteroseptal segments are akinetic. Right Ventricle Normal right ventricular cavity size and systolic function. Atria The left atrium is moderately dilated. Aortic Valve Normal aortic valve structure and function. There is severe aortic valve stenosis. There is no aortic valve regurgitation. Mitral Valve Normal mitral valve structure and function. There is trace mitral valve regurgitation. There is no mitral valve stenosis. Pulmonic Valve Normal pulmonic valve structure and function. There is trace pulmonic valve regurgitation. Tricuspid Valve Normal tricuspid valve structure and function. There is mild tricuspid valve regurgitation. Normal right atrial pressure. There is no evidence of pulmonary hypertension. Great Vessels All visible segments of the aorta are normal in size. The visualized portions of the pulmonary artery and branches are normal. Venous The inferior vena cava is normal in size and collapses greater than 50% with inspiration. Pericardium/Pleural There is no evidence of pericardial effusion. Measurements 2D Linear Measurements IVSd: 0.99 0.6-0.9/0.6-1.0 cm LVIDd: 5.55 3.9-5.3/4.2-5.9 cm LVIDd Index: 3.14 2.4-3.2/2.2-3.1 cm/m2 LVIDs: 4.18 2.0-3.6 cm LVPWd: 0.89 0.7-1.1 cm Ao Root: 2.60 2.1-3.5 cm LA Diam: 3.40 2.7-3.8/3.0-4.0 cm LAIDs Index: 1.92 1.5-2.3 cm/m2 LV Mass: 249.13 67-162/88-224 g LV Mass Index: 140.75 43-95/49-115 g/m2 LVOT Diam: 2.20 3.0+(-)1.3 cm 2D Systolic Function EF 4C: 41.60 >55% EF 2C: 40.20 >55% EF BiP: 39.20 >55% Mitral Valve MV Pk E: 0.83 MV PK A: 0.83 MV Decel Time: 173.00 E/A: 1.00 E'Lateral: 13.80 E'Medial: 9.19 E/E' Med: 9.00 E/E' Lat: 6.00 PHT: 51.00 MVA PHT: 4.31 Decel [place]: 4.81 Aortic Valve AoV Pk Mohinder: 1.26 AoV Mn Mohinder: 0.84 AoV VTI: 0.33 AoV Pk Grad: 6.00 Aov Mn Grad: 3.00 BRITTNEY Cont.VTI: 2.74 LVOT LVOT Pk Mohinder: 1.09 LVOT Mn Mohinder: 0.70 LVOT VTI: 0.24 LVOT Pk Grad: 5.00 LVOT Mn Grad: 2.00 LVOT Diam: 2.20 LVOT Area: 3.80 Diastolic Function MV Pk E: 0.83 MV Pk A: 0.83 E/A: 1.00 E'Medial: 9.19 E/E' Med: 9.00 E' Laterial: 13.80 E/E' Lat: 6.00 Tricuspid Valve TR Pk Mohinder: 2.44 TR Pk Grad: 24.00 RA Press: 3.00 RVSP: 27.00 Great Vessels Aorta Ao Root-2D: 2.60 2.0-3.7 cm Ao Asc: 2.50 2.1-3.4 cm Pulmonary Valve PV Pk Mohinder: 0.81 Peak PV Grad: 3.00 Updated in Other Vendor System with Status of Final Petey Flores MD electronically signed on 07/18/2020 2:29:49 PM with status of Final
--- NOTE | 2020-07-18 15:28 | PC.NURSE ---
Addendum entered by Arti Freire RN 07/18/20 15:42: MD at bedside and discussed with patient risks of leaving AMA - patient instructed to not take coumadin and followup with PCP and ship scraper per. IVs removed. Original Note: Patient requesting to leave AMA - this RN discussed current health status and risks of leaving AMA - patient A&O X3, verbally understands risks of leaving. MD notified. Cortis line removed without complications.
--- NOTE | 2020-07-18 17:01 | PM.EVENT ---
Event Note Date of Service: 07/18/20 Event Note: Pt admitted to ICU for hemorrhagic shock. Was stabilized and plan was for the patient to be transitioned out of ICU. Patient apparently left AMA from the ICU and was not physically transferred to the floor. AMA paperwork completed by ICU team.
--- NOTE | 2020-07-20 15:20 | P.DS_ITS ---
DS: Providers Provider Date of admission: 07/17/20 14:20 Primary care physician: Hiro Mckeon PA-C Consults: 07/17/20 17:01 Consult to Cardiology Routine Consulting Provider: [facility] [place] Cardiovascular Services Reason for consultation: History of LV thrombus, now on anticoagulation, presenting with hemorrhage DS: Diagnosis Discharge Diagnosis (1) Acute blood loss anemia: Status: Acute (2) Hemorrhagic shock: Status: Acute (3) Abnormal uterine bleeding: Status: Acute DS: Medications Discharge Medications Home Medications: Home Medications Medication Instructions Recorded Confirmed aspirin 1 tab PO DAILY 07/17/20 07/17/20 digoxin 1 tab PO DAILY 07/17/20 07/17/20 duloxetine 1 cap PO DAILY 07/17/20 07/17/20 folic acid 1 tab PO DAILY 07/17/20 07/17/20 gabapentin 1 cap PO BID 07/17/20 07/17/20 nicotine 1 patch TOPICAL DAILY 07/17/20 07/17/20 nicotine (polacrilex) 1 mg PO Q2H PRN 07/17/20 07/17/20 potassium chloride 1 tab PO BID 07/17/20 07/17/20 sacubitril-valsartan [Entresto] 1 tab PO BID 07/17/20 07/17/20 thiamine HCl (vitamin B1) [Vitamin 1 tab PO DAILY 07/17/20 07/17/20 B-1] warfarin 0 - 2 tab PO BEDTIME 07/17/20 07/17/20 DS: Summary Hospital Course Hospital Course: 39-year-old lady with underlying history of early OK and LUE thrombus on anticoagulation with Coumadin, and also on aspirin approximately 1 year prior admitted with malaise and weakness secondary to hemorrhagic shock secondary to abnormal uterine bleeding for approximately 9 days prior to ER evaluation. Patient required placement of central venous access for appropriate blood product resuscitation. She has received 4 units of packed red blood cells, 1 unit of fresh frozen plasma, and 1 unit of platelets with resolution of a hemorrhagic shock. Her uterine bleeding has improved. Patient has been evaluated by Cardiology in Gynecology Services. 2D echocardiogram was obtained that showed resolution of her LV thrombus. Patient has been advised to stop using Coumadin and discuss further anticoagulation with her outpatient surgical appliances salesperson at [facility]. Patient signed out against medical advise on day 2 of her hospitalization. Time Spent with Patient Time attestation: Total time spent providing and/or coordinating discharge services: Under 30 minutes, patient left against medical advise Discharge coordination time: Less than 30 minutes Physical Exam Vital Signs: Vital Signs: Last Vital Signs Temp 98.2 F 07/18/20 11:54 Pulse 85 07/18/20 13:00 Resp 19 07/18/20 13:00 BP 94/55 L 07/18/20 13:00 Pulse Ox 91 L 07/18/20 13:00 Body Mass Index 22.6 Const: General: no acute distress, alert and awake Eyes: Sclerae: sclerae normal EOM: EOMs intact bilaterally Neck: Neck: Yes no lymphadenopathy, Yes trachea midline and Yes supple Resp: Effort & Inspection: normal respiratory effort and no respiratory distress Auscultation: clear to auscultation bilaterally Cardio: Rate: regular rate Rhythm: regular rhythm Heart sounds: no gallops, no murmurs and no rubs GI: Palpation (GI): Soft to palpation and Other GI palpation findings present ( Nontender) Auscultation: normal bowel sounds Extrem: General: Yes no pedal edema, No clubbing and No cyanosis DS: Data Data Completed and Pending Completed studies during hospitalization [Text1]: Procedures Insertion of Infusion Device into Right Internal Jugular Vein, Percutaneous Approach (07/17/20) Transfusion of Nonautologous Frozen Plasma into Central Vein, Percutaneous Approach (07/17/20) Transfusion of Nonautologous Platelets into Central Vein, Percutaneous Approach (07/17/20) Transfusion of Nonautologous Red Blood Cells into Central Vein, Percutaneous Approach (07/17/20) Ultrasonography of Right Jugular Veins, Guidance (07/17/20) Labs on day of discharge: 07/17/20 XR chest 1V Stat 07/17/20 06:00 Weight DAILY 07/17/20 11:48 EKG Documentation DIRECTED 07/17/20 11:59 ECG 12 lead EKG Stat EKG Documentation DIRECTED 07/17/20 12:00 0.9 % Sodium Chloride [Ns] 1,000 ml IVCONT 999 mls/hr 07/17/20 12:25 Basic Metabolic Panel Stat Complete Blood Count Auto Diff Stat Prothrombin Time INR Stat Troponin-I High Sensitivity Stat 07/17/20 12:38 Fresh Frozen Plasma Stat Pheresis Platelets Stat Red Blood Cells Stat Type and Screen Stat 07/17/20 13:17 US transvaginal Stat 07/17/20 13:34 US pelvic complete Stat 07/17/20 14:20 Bedrest ONGOING Compression Therapy QSHIFT Cont. Telemetry w/Vital Sign limit ICU Q4HR Continuous pulse oximetry ONCE Head of bed elevation ONGOING Insert/maintain urinary catheter NOW Intake and Output Q8HR Vital Signs Q4HR Code Status Routine 07/17/20 14:23 Transfer Order Routine 07/17/20 14:30 Dextrose 5 % [D5w] 1,000 ml IVCONT 100 mls/hr 07/17/20 16:50 Calcium Gluconate/NaCl,Iso-Osm [Calcium Gluconate] 2 gm in 100 ml IV ONCE 07/17/20 19:15 Dextrose 5 % and Lactated Ring [D5lr] 1,000 ml IVCONT 100 mls/hr 07/17/20 19:56 Basic Metabolic Panel Routine Complete Blood Count Auto Diff Routine 07/17/20 20:03 LORazepam [Ativan] 1 mg PO ONCE ONE 07/17/20 23:05 Acetaminophen [Tylenol] 650 mg PO Q6H PRN 07/18/20 06:20 Complete Blood Count Auto Diff DAILY@0600 Comprehensive Met. Panel DAILY@0600 Magnesium DAILY@0600 Phosphorus DAILY@0600 Prothrombin Time INR DAILY@0600 07/18/20 08:08 Magnesium Sulfate/H2O 2 gm in 50 ml IV ONCE Potassium Phosphate [KPhos] 30 mmol 0.9 % Sodium Chloride [Ns] 500 ml IV ONCE 07/18/20 08:46 Ur Preg Test Stat 07/18/20 09:00 Albumin Human 25 % [Kedbumin 25 %] 100 ml IV Q6H 07/18/20 11:56 Perflutren Lipid Microspheres [Definity] 2.2 mg IVPUSH .STK-MED ONE 07/18/20 15:00 CA echo transthorac w con Routine Laboratory Last Values WBC 10.0 X10*3/uL (4.8-10.8) 07/18/20 06:20 RBC 2.86 X10*6/uL (4.20-5.50) L 07/18/20 06:20 Hgb 8.6 g/dl (12.0-16.0) L 07/18/20 06:20 Hct 24.5 % (37-47) L 07/18/20 06:20 MCV 85.7 fL (80-98) 07/18/20 06:20 MCH 30.1 pg (27.0-33.0) 07/18/20 06:20 MCHC 35.1 g/dl (31.0-35.0) H 07/18/20 06:20 RDW 15.8 % (11.0-16.0) 07/18/20 06:20 Plt Count 198 X10*3/uL (160-400) 07/18/20 06:20 MPV 9.7 fL (9.4-12.3) 07/18/20 06:20 Immature Gran % (Auto) 0.5 % (0.0-0.4) H 07/18/20 06:20 Neut % (Auto) 63.7 % (45-73) 07/18/20 06:20 Lymph % (Auto) 24.1 % (20-40) 07/18/20 06:20 [place] % (Auto) 10.0 % (2-11) 07/18/20 06:20 Eos % (Auto) 1.3 % (0-4) 07/18/20 06:20 Baso % (Auto) 0.4 % (0-2) 07/18/20 06:20 Lymph # (Auto) 2.4 X10*3/uL (1.2-4.9) 07/18/20 06:20 [place] # (Auto) 1.0 X10*3/uL (0.1-1.2) 07/18/20 06:20 Eos # (Auto) 0.1 X10*3/uL (0.0-0.4) 07/18/20 06:20 Baso # (Auto) 0.0 X10*3/uL (0.0-0.2) 07/18/20 06:20 Abs Immat Gran (auto) 0.05 X10*3/uL (0.00-0.03) H 07/18/20 06:20 Absolute Neuts (auto) 6.4 X10*3/uL (2.0-8.3) 07/18/20 06:20 Absolute Nucleated RBC 0.000 X10*3/uL (0.0-0.012) 07/18/20 06:20 Nucleated RBC % (auto) 0.0 /100WBC (0.0-0.2) 07/18/20 06:20 Smear Path Review SEE NOTE 07/17/20 12:25 PT 16.7 SEC (10.8-13.0) H D 07/18/20 06:20 INR 1.4 (0.9-1.1) H 07/18/20 06:20 Sodium 136 mmol/L (135-145) 07/18/20 06:20 Potassium 3.1 mmol/l (3.3-5.1) L 07/18/20 06:20 Chloride 103 mmol/L (96-108) 07/18/20 06:20 Carbon Dioxide 25 mmol/L (22-29) 07/18/20 06:20 Anion Gap 11 (12-20) L 07/18/20 06:20 BUN 7 mg/dL (9-16) L 07/18/20 06:20 Creatinine 0.60 mg/dL (0.5-1.4) 07/18/20 06:20 Estim Creat Clear Calc 121.1 07/18/20 06:20 Estimated GFR > 60 07/18/20 06:20 Random Glucose 98 mg/dL (60-115) D 07/18/20 06:20 Calcium 6.9 mg/dL (8.4-10.2) L 07/18/20 06:20 Phosphorus 2.5 mg/dL (2.7-4.5) L 07/18/20 06:20 Magnesium 1.5 mg/dL (1.6-2.6) L 07/18/20 06:20 Total Bilirubin 2.7 mg/dL (0.0-1.0) H 07/18/20 06:20 AST 45 U/L (5-31) H 07/18/20 06:20 ALT 21 U/L (0-31) 07/18/20 06:20 Alkaline Phosphatase 113 U/L (39-117) 07/18/20 06:20 Troponin I High Sens 9.3 ng/L (<3.5-17.0) 07/17/20 12:25 Total Protein 4.8 g/dL (6.5-8.0) L 07/18/20 06:20 Albumin 2.3 g/dL (3.5-5.0) L 07/18/20 06:20 Urine Test NEGATIVE (NEGATIVE) 07/18/20 08:46 Blood Type O Positive 07/17/20 12:38 Antibody Screen NEGATIVE 07/17/20 12:38 Crossmatch See Detail 07/17/20 12:38 Discharge Plan Discharge Patient Disposition: Left Against Medical Advice Referrals: Hiro Mckeon PA-C [Primary Care Provider] - Discharge Medications: No Action nicotine (polacrilex) 2 mg gum 1 mg PO Q2H PRN (Reason: Nicotine Cravings) RF: 0 thiamine HCl (vitamin B1) [Vitamin B-1] 100 mg tablet 1 tab PO DAILY RF: 0 warfarin 2.5 mg tablet 0 - 2 tab PO BEDTIME RF: 0 aspirin 81 mg tablet,delayed release (DR/EC) 1 tab PO DAILY RF: 0 nicotine 21 mg/24 hr patch 24 hour 1 patch topical DAILY RF: 0 folic acid 1 mg tablet 1 tab PO DAILY RF: 0 digoxin 125 mcg (0.125 mg) tablet 1 tab PO DAILY RF: 0 gabapentin 100 mg capsule 1 cap PO BID RF: 0 duloxetine 20 mg capsule,delayed release(DR/EC) 1 cap PO DAILY RF: 0 potassium chloride 20 mEq tablet extended release 1 tab PO BID RF: 0 Entresto 24-26 mg tablet 1 tab PO BID RF: 0 Discharge Orders: Discharge Order (Routine); Ordered 07/19/20 Ordered By: Mark Anthony Yap Discharge Date/Time: 07/18/20 16:29 Care Plan Goals: Comply with treatment plan Health Concerns: Patient to discuss further anticoagulation with her surgical appliances salesperson. Plan of Treatment: Patient to follow-up with her surgical appliances salesperson within 1 week.
== END 2020-07-18 16:29 | disposition left against medical advice (07) | DRG 760 ==
LOC: HO.ED 14:33 → HO.ICU 15:00
PROVIDERS: Admitting Provider Internal Medicine Pulmonary Disease; Emergency Provider Emergency Medicine; PCP Registered Nurse; Visit Provider Family Medicine
DX: N92.1 Excessive and frequent menstruation with irregular cycle (principal); R57.8 Other shock; D62 Acute posthemorrhagic anemia; I25.2 Old myocardial infarction; Z79.01 Long term (current) use of anticoagulants; Z79.82 Long term (current) use of aspirin; Z79.899 Other long term (current) drug therapy
CPT/HCPCS: 36415; 36430; 71045; 76830; 76856; 80048; 80053; 81025; 83735; 84100; 84484; 85025; 85060; 85610; 86850; 86900; 86901; 86920; 86923; 93005; 93306; 96360; 99283; 99285; 99291; J0610; J3475; P9016; P9017; P9035; P9047

== ENCOUNTER 2020-11-12 16:26 | Inpatient (IN) | payer MEDICARE, MEDICAID, SELFPAY ==
[2020-11-12] VITALS (21 sets, daily range): BP systolic 66–111; BP diastolic 30–63; PULSE 84–116; RESP 11–21; TEMP 36.8–37.2; O2SAT 97–100; BMI 18.7
--- NOTE | ~2020-11-12 | XR_ITS ---
EXAMINATION: XR CHEST CLINICAL INFORMATION: Weakness COMPARISON: 07/17/2020 TECHNIQUE: Frontal view of the chest was obtained. FINDINGS: No significant abnormality is noted involving the heart, lungs, mediastinum, bony thorax or soft tissues. XR/XR chest 1V IMPRESSION: Unremarkable examination.
--- NOTE | ~2020-11-12 | XR_ITS ---
EXAMINATION: XR CHEST CLINICAL INFORMATION: Newly intubated, TLC an OG place. COMPARISON: Chest 11/12/2020 TECHNIQUE: Frontal view of the chest was obtained. FINDINGS: There is a new right subclavian catheter tip in the proximal SVC. There is a new endotracheal tube with its tip 1.8 cm above the lance. The enteric tube tip is in the fundus and the sidehole above the GE junction junction. It needs be advanced at least by 10 cm. The lung are hypoexpanded with patchy airspace opacity in both lower lobes and left upper lobe likely developing infiltrates. Size and the great vessels are normal caliber. No gross bony abnormality seen. XR/XR chest 1V IMPRESSION: New support lines and catheters as described above. Advanced enteric tube by 10 cm. No change in bilateral infiltrates.
--- NOTE | ~2020-11-12 | XR_ITS ---
EXAMINATION: XR CHEST CLINICAL INFORMATION: Leukocytosis, hypoxemia COMPARISON: Chest 11/12/2020 TECHNIQUE: Frontal view of the chest was obtained. FINDINGS: The lungs are well-expanded with bibasilar and left upper lobe patchy haziness question developing infiltrate. Heart size and vascularity appears normal. No gross bony abnormality. XR/XR chest 1V IMPRESSION: New likely developing infiltrates in both lung bases and left upper lobe.
--- NOTE | ~2020-11-12 | CT_ITS ---
EXAMINATION: CT ABDOMEN AND PELVIS WITHOUT CONTRAST CLINICAL INFORMATION: Shock with question of ischemic bowel COMPARISON: 04/04/2019 TECHNIQUE: Multidetector volumetric imaging was performed from the superior aspect of the liver through the pubic symphysis. Sagittal and coronal reformatted images were obtained on the technologist's workstation. This CT examination was performed using dose optimization techniques as appropriate, variously including the following: *Automated exposure control *Adjustment of mA and/or kV according to patient size (this includes techniques or standardized protocols for targeted exams where dose is matched to indication/reason for exam; i.e. extremities or head) *Use of iterative reconstruction technique DLP: 704 mGy-cm FINDINGS: LUNG BASES: Bilateral lower lobe atelectasis/collapse is present effusions. Similar findings were present previously LIVER, GALLBLADDER, AND BILIARY TREE: The liver is enlarged and demonstrates hepatic steatosis. Maximal AP dimension on the right is about 18 cm with maximal dimension of the left lobe just over 16 cm. No definite focal liver mass is seen on this noncontrast CT scan no bile duct dilatation is seen. Status post cholecystectomy. PERITONEUM: Ascites is present with most fluid in the pelvis. At the time of the prior study, significantly more ascites is present. PANCREAS: Unremarkable. SPLEEN: Unremarkable. ADRENAL GLANDS: The adrenal glands appear thickened thickened since the prior study with some surrounding stranding and the possibility of an adrenal hemorrhage with adrenal insufficiency should be considered. KIDNEYS AND URETERS: The kidneys are normal in size, shape, and attenuation. No hydronephrosis, hydroureter, or calculi seen. No perinephric stranding. BLADDER: A Hernandez catheter is present in the decompressed bladder. GASTROINTESTINAL TRACT: Mucosal edema is seen involving a large portion of the colon suggesting colitis. This finding appears worse on the current study when compared to the prior exam. Again seen is subcutaneous mucosal fat infiltration in the ascending colon which can be indicative of prior inflammation. No evidence of bowel obstruction is seen.The small bowel and appendix appear unremarkable. ABDOMINAL WALL: No significant hernia is appreciated. LYMPH NODES: Small shotty retroperitoneal lymph nodes are again seen but there is no adenopathy. VASCULAR: A right-sided femoral arterial line is present. PELVIC VISCERA: An anteverted retroflexed uterus is present. An abnormal adnexal mass is not seen. OSSEOUS STRUCTURES: Degenerative changes present at L4-L5. CT/CT abdomen pelvis wo con IMPRESSION: 1. Enlarged fatty liver 2. Abnormal colon with mucosal thickening throughout suggesting colitis, possibly C. difficile. This findings appears worse than at the time of the prior study. 3. A small to moderate amount of ascites is present, decreased in amount when compared to the prior exam. 4. New thickening of adrenal glands. Could this patient have adrenal hemorrhage and adrenal insufficiency? This critical result was discussed with Galdino Cueva MD@8:08pm and it was ascertained that the content and urgency of the report was understood at the time of direct communication.
--- NOTE | 2020-11-12 16:35 | ECG_ITS ---
Test Reason : HYPOTENSION Blood Pressure : / mmHG Vent. Rate : 106 BPM Atrial Rate : 106 BPM P-R Int : 122 ms QRS Dur : 080 ms QT Int : 394 ms P-R-T Axes : 087 072 060 degrees QTc Int : 523 ms Sinus tachycardia with occasional Premature ventricular complexes Anterior infarct (cited on or before 11-FEB-2019) Prolonged QT Abnormal ECG When compared with ECG of 17-JUL-2020 11:47, Premature ventricular complexes are now Present QT has lengthened Referred By: Laura Simpson Electronically Signed By:CHARLEY SCALES
[2020-11-12 16:40] LABS: Glucose, Whole Blood 80 mg/dL (60-115)
[2020-11-12] MEDS: SODIUM CHLORIDE 1629 ML IVCONT (17:00)
--- NOTE | 2020-11-12 17:09 | ED.WEAKNESS ---
HPI - Weakness General Chief complaint: Weakness Stated complaint: weakness Time Seen by Provider: 11/12/20 17:04 Source: patient and EMS Mode of arrival: EMS Limitations: no limitations History of Present Illness HPI Narrative: 39-year-old female came in with complaint of generalized weakness, decreased p.o. intake, and vomiting. Patient emergency department declined any abdominal pain, no diarrhea. Also had a history of NV at age of 39, patient declined any chest pain at this point. Patient also had a recent ICU admission for hemorrhagic shock due to vaginal excessive bleeding and patient was on Coumadin and bag than (Coumadin has been held). patient found to be hypotensive and tachycardic in the emergency department. Related Data Home Medications Medication Instructions Recorded Confirmed aspirin 1 tab PO DAILY 07/17/20 11/12/20 digoxin 1 tab PO DAILY 07/17/20 11/12/20 folic acid 1 tab PO DAILY 07/17/20 11/12/20 gabapentin 1 cap PO BID 07/17/20 11/12/20 potassium chloride 1 tab PO BID 07/17/20 11/12/20 sacubitril-valsartan [Entresto] 1 tab PO BID 07/17/20 11/12/20 thiamine HCl (vitamin B1) [Vitamin 1 tab PO DAILY 07/17/20 11/12/20 B-1] Allergies Allergy/AdvReac Type Severity Reaction Status Date / Time No Known Allergies Allergy Verified 11/12/20 16:36 Review of Systems Review of Systems: All other systems are reviewed and are negative Constitutional: Reports as per HPI and Reports no additional constitutional complaints Eyes: Reports as per HPI and Reports no additional eye complaints Reports system reviewed and no additional complaints, except as documented Cardiovascular: Reports as per HPI and Reports no additional cardiovascular complaints Respiratory: Reports as per HPI and Reports no additional respiratory complaints Gastrointestinal: Reports as per HPI and Reports no additional gastrointestinal complaints Genitourinary: Reports no additional female genitourinary complaints Musculoskeletal: Reports no additional musculoskeletal complaints Skin/Breast: Reports system reviewed and no additional complaints, except as docu Psychiatric: Reports no additional psychiatric complaints Endocrine: Reports no additional endocrine complaints Hematologic/Lymphatic: Reports no additional hematologic/lymphatic complaints Allergic/Immunologic: Reports no additional allergic/immunologic complaints Reports system reviewed and no additional complaints, except as documented and Reports Abnormal speech present [facility] Past Medical History Medical History Ischemic cardiomyopathy Myocardial infarction Old anterior wall myocardial infarction Surgical History History of cholecystectomy Family History Family History Mother Myocardial infarct Social History Social History Alcohol intake: current Smoking Status: Heavy tobacco smoker Use of substances other than those prescribed or required for medical reasons: No Advance Directives: No Advance Directives Information Provided: Yes service: No Current occupational status: employed Physical Exam Vital Signs: Vital Signs: Last Vital Signs Temp 98.4 F 11/12/20 20:48 Pulse 90 11/12/20 20:48 Resp 15 11/12/20 20:48 BP 76/43 L 11/12/20 20:48 Pulse Ox 100 11/12/20 20:38 Body Mass Index 18.7 Vital signs have been reviewed as appeared to be correct. Blood pressure is low. Heart rate is elevated. Respiration rate normal. Temperature normal. Oxygen saturation normal. Appearance: Scattered ectatic, pale, no acute distress. Head: Normal external exam. Normocephalic. Atraumatic. No Lopes signs noted. No raccoon eyes noted Eyes: PERRLA. EOMI. Conjunctiva and sclera normal. Eyelids normal. ENT: TM's Normal. Pharynx normal. Uvula midline. Dry mucous membranes. No trismus noted. No drooling noted. No muffled voice noted. Neck: Normal inspection. Neck supple. FROM. No adenopathy. Thyroid Normal. No meningeal signs. No neck mass noted. CVS: Normal heart rate and rhythm. Heart sound normal. No murmurs noted. Pulses normal throughout. Respiratory: No respiratory distress. Painless inspiration. Breath sounds normal. No wheezes/rales/rhonchi noted. Chest nontender. No accessory muscle usage noted or decreased air movement noted. Abdomen: Soft and nontender. Bowel sounds normal in all 4 quadrants. No distention noted. No organomegaly noted. No visible injury noted. Rectal: Good rectal tone, stool is brown and negative for blood. Back: No CVA tenderness. Full range of motion noted. Skin: Skin warm and dry. Normal skin color. Normal skin turgor. No rashes/lesions/lacerations noted. Extremities: No lower extremity edema. Extremities exhibit normal range of motion. Extremities nontender. Neuro: Oriented X 3. No motor deficit. No sensory deficit. Reflexes normal. Course Course Course Narrative: Assessment and plan. 39-year-old female came in with decreased p.o. intake and vomiting for the last few days, patient was initially hypotensive and dehydrated with Yony, patient received multiple L of IV fluid which improved patient condition and blood pressure. Lactic acidosis is due to severe and prolonged dehydration, no source of infection as of yet, awaiting for patient to give urine. We will cover with empirical broad-spectrum antibiotics ceftriaxone. Anemia with no source of bleeding will transfuse 1 unit of blood to help keep intravascular volume and blood pressure. Reevaluation(s) Reevaluation #1: Because the persistence of hypotension the case discussed with ICU team Dr. morse patient was accepted to ICU for further intravascular resuscitation fluids. Time: 20:56 MDM - Weakness Lab Data Attestation: I reviewed the patient's lab results. Result diagrams: 11/12/20 17:41 11/12/20 17:41 Labs: Lab Results 11/12/20 11/12/20 11/12/20 Range/Units 16:37 17:03 17:41 WBC 13.6 H (4.8-10.8) X10*3/uL RBC 2.13 L D (4.20-5.50) X10*6/uL Hgb 7.8 L (12.0-16.0) g/dl Hct 23.4 L (37-47) % MCV 109.9 H (80-98) fL MCH 36.6 H (27.0-33.0) pg MCHC 33.3 (31.0-35.0) g/dl RDW 17.1 H (11.0-16.0) % Plt Count 195 (160-400) X10*3/uL MPV 10.6 (9.4-12.3) fL Immature Gran % (Auto) 0.6 H (0.0-0.4) % Neut % (Auto) 70.6 (45-73) % Lymph % (Auto) 18.9 L (20-40) % Granite % (Auto) 7.8 (2-11) % Eos % (Auto) 1.8 (0-4) % Baso % (Auto) 0.3 (0-2) % Lymph # (Auto) 2.6 (1.2-4.9) X10*3/uL Granite # (Auto) 1.1 (0.1-1.2) X10*3/uL Eos # (Auto) 0.2 (0.0-0.4) X10*3/uL Baso # (Auto) 0.0 (0.0-0.2) X10*3/uL Abs Immat Gran (auto) 0.08 H (0.00-0.03) X10*3/uL Absolute Neuts (auto) 9.6 H (2.0-8.3) X10*3/uL Absolute Nucleated RBC 0.000 (0.0-0.012) X10*3/uL Nucleated RBC % (auto) 0.0 (0.0-0.2) /100WBC PT INR APTT (24.1-38.0) SEC Sodium Potassium Chloride Carbon Dioxide Anion Gap BUN Creatinine Estim Creat Clear Calc Estimated GFR POC Glucose 80 (60-115) mg/dL Random Glucose Lactic Acid 6.2 H* (0.5-2.0) mmol/L Calcium Total Bilirubin (0.0-1.0) mg/dL Direct Bilirubin (0.0-0.5) mg/dL AST (5-31) U/L ALT (0-31) U/L Alkaline Phosphatase (39-117) U/L Troponin I High Sens (<3.5-17.0) ng/L B-Natriuretic Peptide (<100) pg/mL Total Protein (6.5-8.0) g/dL Albumin (3.5-5.0) g/dL Lipase (8-78) U/L Stool Occult Blood (NEGATIVE) COVID-19 (SJ) (Negative) COVID-19 Clin Com Blood Type Antibody Screen Crossmatch 11/12/20 11/12/20 11/12/20 Range/Units 17:41 17:41 17:42 WBC (4.8-10.8) X10*3/uL RBC (4.20-5.50) X10*6/uL Hgb (12.0-16.0) g/dl Hct (37-47) % MCV (80-98) fL MCH (27.0-33.0) pg MCHC (31.0-35.0) g/dl RDW (11.0-16.0) % Plt Count (160-400) X10*3/uL MPV (9.4-12.3) fL Immature Gran % (Auto) (0.0-0.4) % Neut % (Auto) (45-73) % Lymph % (Auto) (20-40) % Granite % (Auto) (2-11) % Eos % (Auto) (0-4) % Baso % (Auto) (0-2) % Lymph # (Auto) (1.2-4.9) X10*3/uL Granite # (Auto) (0.1-1.2) X10*3/uL Eos # (Auto) (0.0-0.4) X10*3/uL Baso # (Auto) (0.0-0.2) X10*3/uL Abs Immat Gran (auto) (0.00-0.03) X10*3/uL Absolute Neuts (auto) (2.0-8.3) X10*3/uL Absolute Nucleated RBC (0.0-0.012) X10*3/uL Nucleated RBC % (auto) (0.0-0.2) /100WBC PT INR APTT (24.1-38.0) SEC Sodium Cancelled 141 Potassium Cancelled 2.8 L Chloride Cancelled 90 L Carbon Dioxide Cancelled 28 Anion Gap Cancelled 26 H BUN Cancelled 33 H D Creatinine Cancelled 3.76 H Estim Creat Clear Calc Cancelled 17.0 Estimated GFR Cancelled 13 POC Glucose (60-115) mg/dL Random Glucose Cancelled 69 Lactic Acid (0.5-2.0) mmol/L Calcium Cancelled 7.6 L D Total Bilirubin 2.3 H (0.0-1.0) mg/dL Direct Bilirubin 1.4 H (0.0-0.5) mg/dL AST 73 H (5-31) U/L ALT 26 (0-31) U/L Alkaline Phosphatase 199 H D (39-117) U/L Troponin I High Sens (<3.5-17.0) ng/L B-Natriuretic Peptide (<100) pg/mL Total Protein 6.8 D (6.5-8.0) g/dL Albumin 2.1 L (3.5-5.0) g/dL Lipase 27 (8-78) U/L Stool Occult Blood (NEGATIVE) COVID-19 (SJ) Negative (Negative) COVID-19 Clin Com See Note Blood Type Antibody Screen Crossmatch 11/12/20 11/12/20 11/12/20 Range/Units 18:08 18:08 18:08 WBC (4.8-10.8) X10*3/uL RBC (4.20-5.50) X10*6/uL Hgb (12.0-16.0) g/dl Hct (37-47) % MCV (80-98) fL MCH (27.0-33.0) pg MCHC (31.0-35.0) g/dl RDW (11.0-16.0) % Plt Count (160-400) X10*3/uL MPV (9.4-12.3) fL Immature Gran % (Auto) (0.0-0.4) % Neut % (Auto) (45-73) % Lymph % (Auto) (20-40) % Granite % (Auto) (2-11) % Eos % (Auto) (0-4) % Baso % (Auto) (0-2) % Lymph # (Auto) (1.2-4.9) X10*3/uL Granite # (Auto) (0.1-1.2) X10*3/uL Eos # (Auto) (0.0-0.4) X10*3/uL Baso # (Auto) (0.0-0.2) X10*3/uL Abs Immat Gran (auto) (0.00-0.03) X10*3/uL Absolute Neuts (auto) (2.0-8.3) X10*3/uL Absolute Nucleated RBC (0.0-0.012) X10*3/uL Nucleated RBC % (auto) (0.0-0.2) /100WBC PT Cancelled 20.7 H D INR Cancelled 1.7 H APTT 37.0 (24.1-38.0) SEC Sodium Potassium Chloride Carbon Dioxide Anion Gap BUN Creatinine Estim Creat Clear Calc Estimated GFR POC Glucose (60-115) mg/dL Random Glucose Lactic Acid (0.5-2.0) mmol/L Calcium Total Bilirubin 2.3 H (0.0-1.0) mg/dL Direct Bilirubin (0.0-0.5) mg/dL AST (5-31) U/L ALT (0-31) U/L Alkaline Phosphatase (39-117) U/L Troponin I High Sens (<3.5-17.0) ng/L B-Natriuretic Peptide (<100) pg/mL Total Protein (6.5-8.0) g/dL Albumin (3.5-5.0) g/dL Lipase (8-78) U/L Stool Occult Blood (NEGATIVE) COVID-19 (SJ) (Negative) COVID-19 Clin Com Blood Type Antibody Screen Crossmatch 11/12/20 11/12/20 11/12/20 Range/Units 18:08 18:54 19:47 WBC (4.8-10.8) X10*3/uL RBC (4.20-5.50) X10*6/uL Hgb (12.0-16.0) g/dl Hct (37-47) % MCV (80-98) fL MCH (27.0-33.0) pg MCHC (31.0-35.0) g/dl RDW (11.0-16.0) % Plt Count (160-400) X10*3/uL MPV (9.4-12.3) fL Immature Gran % (Auto) (0.0-0.4) % Neut % (Auto) (45-73) % Lymph % (Auto) (20-40) % Granite % (Auto) (2-11) % Eos % (Auto) (0-4) % Baso % (Auto) (0-2) % Lymph # (Auto) (1.2-4.9) X10*3/uL Granite # (Auto) (0.1-1.2) X10*3/uL Eos # (Auto) (0.0-0.4) X10*3/uL Baso # (Auto) (0.0-0.2) X10*3/uL Abs Immat Gran (auto) (0.00-0.03) X10*3/uL Absolute Neuts (auto) (2.0-8.3) X10*3/uL Absolute Nucleated RBC (0.0-0.012) X10*3/uL Nucleated RBC % (auto) (0.0-0.2) /100WBC PT INR APTT (24.1-38.0) SEC Sodium Potassium Chloride Carbon Dioxide Anion Gap BUN Creatinine Estim Creat Clear Calc Estimated GFR POC Glucose (60-115) mg/dL Random Glucose Lactic Acid (0.5-2.0) mmol/L Calcium Total Bilirubin (0.0-1.0) mg/dL Direct Bilirubin (0.0-0.5) mg/dL AST (5-31) U/L ALT (0-31) U/L Alkaline Phosphatase (39-117) U/L Troponin I High Sens 25.0 H D (<3.5-17.0) ng/L B-Natriuretic Peptide 109 H (<100) pg/mL Total Protein (6.5-8.0) g/dL Albumin (3.5-5.0) g/dL Lipase (8-78) U/L Stool Occult Blood NEGATIVE (NEGATIVE) COVID-19 (SJ) (Negative) COVID-19 Clin Com Blood Type O Positive Antibody Screen NEGATIVE Crossmatch See Detail Imaging Data Chest x-ray: Radiologist's impression: Unremarkable chest x-ray. Critical Care Time Critical Care Time Critical Care Time: Yes Total Critical Care Time: 60 Attestation: I spent 60 minutes providing critical care service to the patient, this including time spent at the bedside to evaluate the patient, reassess the patient, monitoring vital signs, review labs, and radiographic studies, counseling the patient/family, discussing the case with consultants, disposition the patient. Discharge Plan Discharge Clinical Impression: Acute dehydration, Anemia, Acute renal injury, Acute hypokalemia Patient Disposition: Admitted As Inpatient
--- NOTE | 2020-11-12 17:29 | PC.NURSE ---
mentation waxes and wanes. pt answers questions with inconsistency, is vomiting/dry heaving on and off. remains alert and able to follow commands but confuse at times mult failed attempts for 2nd iv acess. md to attempt EJ.
[2020-11-12 17:34] LABS: Lactic Acid 6.2 mmol/L (0.5-2.0)
[2020-11-12 17:47] LABS: MANUAL DIFF FLAG NO
[2020-11-12] MEDS: ondansetron HCL 4 MG/2 ML VIAL IVPUSH (18:09)
[2020-11-12 18:13] LABS: COVID-19 Test Negative (Negative); IDNOW Serial# 9DD0AD1C
[2020-11-12 18:15] LABS: Basophils Percent Auto 0.3 % (0-2); Eosinophils Absolute Auto 0.2 X10*3/uL (0.0-0.4); Eosinophils Percent Auto 1.8 % (0-4); Hematocrit 23.4 % (37-47); Hemoglobin 7.8 g/dl (12.0-16.0); Imm Gran Abs Auto 0.08 X10*3/uL (0.00-0.03); Imm Gran Pct Auto 0.6 % (0.0-0.4); Lymphocytes Absolute Auto 2.6 X10*3/uL (1.2-4.9); Lymphocytes Percent Auto 18.9 % (20-40); Mean Corpuscular HGB Conc 33.3 g/dl (31.0-35.0); Mean Corpuscular Hemoglobin 36.6 pg (27.0-33.0); Mean Corpuscular Volume 109.9 fL (80-98); Mean Platelet Volume 10.6 fL (9.4-12.3); Monocytes Absolute Auto 1.1 X10*3/uL (0.1-1.2); Monocytes Percent Auto 7.8 % (2-11); Neutrophils Absolute Auto 9.6 X10*3/uL (2.0-8.3); Neutrophils Percent Auto 70.6 % (45-73); Platelet Count 195 X10*3/uL (160-400); Red Blood Count 2.13 X10*6/uL (4.20-5.50); Red Cell Distribution Width 17.1 % (11.0-16.0); White Blood Count 13.6 X10*3/uL (4.8-10.8)
[2020-11-12 18:21] LABS: Alanine Aminotransferase 26 U/L (0-31); Albumin Level 2.1 g/dL (3.5-5.0); Alkaline Phosphatase 199 U/L (39-117); Anion Gap 26 (12-20); Aspartate Amino Transferase 73 U/L (5-31); Bilirubin Direct 1.4 mg/dL (0.0-0.5); Bilirubin Total 2.3 mg/dL (0.0-1.0); Blood Urea Nitrogen 33 mg/dL (9-16); Calcium 7.6 mg/dL (8.4-10.2); Carbon Dioxide 28 mmol/L (22-29); Chloride 90 mmol/L (96-108); Estimated Glomerular Filt Rate 13; Glucose Random 69 mg/dL (60-115); Lipase 27 U/L (8-78); Potassium 2.8 mmol/L (3.3-5.1); Sodium 141 mmol/L (135-145); Total Protein 6.8 g/dL (6.5-8.0)
[2020-11-12 18:42] LABS: INTERNATIONAL NORM RATIO 1.7 (0.9-1.1); Prothrombin Time 20.7 SEC (10.8-13.0)
[2020-11-12 18:44] LABS: Bilirubin Total 2.3 mg/dL (0.0-1.0)
--- NOTE | 2020-11-12 19:04 | PC.NURSE ---
mother calling with info. states she had period 2 weeks ago, increased weakness and falls, slurred speech at times, pt has been encouraged to get help but has been resistant. erratic behaviour and irritable. [phone]
[2020-11-12 19:06] LABS: B Type Natriuretic Peptide 109 pg/mL (<100)
[2020-11-12 19:09] LABS: Reflex Lactate? Lactic Acid Added
--- NOTE | 2020-11-12 19:31 | PC.NURSE ---
Pt requesting an antacid or something . Aware of plan for repeat lactic acid level, urine collection, and blood transfusion when ready.
[2020-11-12 19:57] LABS: OBS Int Ctl Valid YES; OBS1 NEGATIVE (NEGATIVE)
[2020-11-12] MEDS: cefTRIAXone sodium 1 GM in 0.9 % Sodium Chloride 50 ML IV (19:58)
[2020-11-12] MEDS: Pantoprazole Sodium 40 MG/10 ML VIAL IVPUSH (19:58)
[2020-11-12] MEDS: Potassium Chloride Packet 20 MEQ PACKET 40 MEQ PO (19:58)
--- NOTE | 2020-11-12 20:03 | PM.IMHP ---
History of Present Illness Date of Service: 11/12/20 Chief Complaint: Generalized weakness 39-year-old female with a past medical history of coronary artery disease/ischemic cardiomyopathy, history of anemia, history of hemorrhagic shock secondary to menorrhagia in July of 2020; presented to the hospital today with a chief complaint of generalized weakness. Per family patient has not been eating or drinking for the past 3-4 days. Patient denies any abdominal pain chest pain. Denies any numbness tingling fever chills cough. Denies any blood in the stool. Review of all other systems is negative except mentioned above ER course: Per ER team patient was initially noted to be mildly confused and severely dehydrated. Patient's blood pressure on presentation was 66/30-> lactic acid elevated to 6.5; hemoglobin of 7.8; patient was given IV fluids at 30 cc/kg body weight with improvement in blood pressure to 101/48. On the last patient also noted to have AK of 3.6. Stool guaiac was negative. Empirically given ceftriaxone. Urinalysis pending. Admitted to the hospital for further management. ER physician mentioned that patient's mental status significantly improved and patient is more coherent [facility] Medical History Ischemic cardiomyopathy Myocardial infarction Old anterior wall myocardial infarction Family History Mother Myocardial infarct Surgical History History of cholecystectomy Social History Alcohol intake: current Smoking Status: Heavy tobacco smoker Use of substances other than those prescribed or required for medical reasons: No Advance Directives: No Advance Directives Information Provided: Yes service: No Current occupational status: employed Meds Allergies Allergy/AdvReac Type Severity Reaction Status Date / Time No Known Allergies Allergy Verified 11/12/20 16:36 Active Medications: Current Medications Generic Name Dose Route Start Last Admin Trade Name Freq PRN Reason Stop Dose Admin Acetaminophen 650 mg 11/12/20 19:57 Acetaminophen 325 Mg Tablet PO Q6H PRN Pain, Mild (Pain Scale 1-3) Digoxin mg 11/13/20 09:00 Digoxin 0.125 Mg Tablet PO DAILY LOC Folic Acid 1 mg 11/13/20 09:00 Folic Acid 1 Mg Tablet PO DAILY [facility] Gabapentin 100 mg 11/12/20 21:00 Gabapentin 100 Mg Capsule PO BID [facility] Sodium Chloride 1,000 mls @ 100 mls/hr 11/12/20 20:00 Ns IVCONT .Q10H [facility] Pharmacy Consult 1 each 11/12/20 17:06 Consult Rx Perform Med Rec MISCELLANE ONCE PRN Consult order Sodium Chloride 3 ml 11/13/20 00:00 0.9 % Sodium Chloride Flush 3 Ml Syringe IVFLUSH QSHIFT [facility] Thiamine HCl 100 mg 11/13/20 09:00 Thiamine Hcl 100 Mg Tablet PO DAILY [facility] Home Medications Medication Instructions Recorded Confirmed Last Taken Type aspirin 1 tab PO DAILY 07/17/20 11/12/20 Unknown History digoxin 1 tab PO DAILY 07/17/20 11/12/20 Unknown History folic acid 1 tab PO DAILY 07/17/20 11/12/20 Unknown History gabapentin 1 cap PO BID 07/17/20 11/12/20 Unknown History potassium chloride 1 tab PO BID 07/17/20 11/12/20 Unknown History sacubitril-valsartan [Entresto] 1 tab PO BID 07/17/20 11/12/20 Unknown History thiamine HCl (vitamin B1) [Vitamin 1 tab PO DAILY 07/17/20 11/12/20 Unknown History B-1] Physical Exam Vital Signs and Narrative: Vital Signs: Last Vital Signs Temp 98.8 F 11/12/20 16:43 Pulse 92 11/12/20 19:24 Resp 14 11/12/20 19:24 BP 101/48 L 11/12/20 19:24 Pulse Ox 100 11/12/20 19:24 Body Mass Index 18.7 Gen: Appears be in no acute distress HEENT: NCAT, Moist mucosa. Pulmonary: Vesicular breath sounds, fair air entry CVS: Normal S1-S2 Abdomen: BS+, Soft, Nontender Extremities: Warm well perfused Neuro: Alert and awake. Results Labs CBC and Chem 7: 11/12/20 17:41 11/12/20 17:41 Labs: Laboratory Results - last 24 hr 11/12/20 11/12/20 11/12/20 16:37 17:03 17:41 MCV 109.9 H MCH 36.6 H MCHC 33.3 RDW 17.1 H Plt Count 195 MPV 10.6 Immature Gran % (Auto) 0.6 H Neut % (Auto) 70.6 Lymph % (Auto) 18.9 L Sebastian % (Auto) 7.8 Eos % (Auto) 1.8 Baso % (Auto) 0.3 Lymph # (Auto) 2.6 Sebastian # (Auto) 1.1 Eos # (Auto) 0.2 Baso # (Auto) 0.0 Abs Immat Gran (auto) 0.08 H Absolute Neuts (auto) 9.6 H Absolute Nucleated RBC 0.000 Nucleated RBC % (auto) 0.0 PT INR APTT Anion Gap Estim Creat Clear Calc Estimated GFR POC Glucose 80 Random Glucose Lactic Acid 6.2 H* Calcium Total Bilirubin Direct Bilirubin AST ALT Alkaline Phosphatase Troponin I High Sens B-Natriuretic Peptide Total Protein Albumin Lipase Stool Occult Blood COVID-19 ([facility]) COVID-[facility] Blood Type Antibody Screen Crossmatch 11/12/20 11/12/20 11/12/20 17:41 17:41 17:42 MCV MCH MCHC RDW Plt Count MPV Immature Gran % (Auto) Neut % (Auto) Lymph % (Auto) Sebastian % (Auto) Eos % (Auto) Baso % (Auto) Lymph # (Auto) Sebastian # (Auto) Eos # (Auto) Baso # (Auto) Abs Immat Gran (auto) Absolute Neuts (auto) Absolute Nucleated RBC Nucleated RBC % (auto) PT INR APTT Anion Gap Cancelled 26 H Estim Creat Clear Calc Cancelled 17.0 Estimated GFR Cancelled 13 POC Glucose Random Glucose Cancelled 69 Lactic Acid Calcium Cancelled 7.6 L D Total Bilirubin 2.3 H Direct Bilirubin 1.4 H AST 73 H ALT 26 Alkaline Phosphatase 199 H D Troponin I High Sens B-Natriuretic Peptide Total Protein 6.8 D Albumin 2.1 L Lipase 27 Stool Occult Blood COVID-19 ([facility]) Negative COVID-[facility] See Note Blood Type Antibody Screen Crossmatch 11/12/20 11/12/20 11/12/20 18:08 18:08 18:08 MCV MCH MCHC RDW Plt Count MPV Immature Gran % (Auto) Neut % (Auto) Lymph % (Auto) Sebastian % (Auto) Eos % (Auto) Baso % (Auto) Lymph # (Auto) Sebastian # (Auto) Eos # (Auto) Baso # (Auto) Abs Immat Gran (auto) Absolute Neuts (auto) Absolute Nucleated RBC Nucleated RBC % (auto) PT Cancelled 20.7 H D INR Cancelled 1.7 H APTT 37.0 Anion Gap Estim Creat Clear Calc Estimated GFR POC Glucose Random Glucose Lactic Acid Calcium Total Bilirubin 2.3 H Direct Bilirubin AST ALT Alkaline Phosphatase Troponin I High Sens B-Natriuretic Peptide Total Protein Albumin Lipase Stool Occult Blood COVID-19 ([facility]) COVID-19 Clin Com Blood Type Antibody Screen Crossmatch 11/12/20 11/12/20 11/12/20 18:08 18:54 19:47 MCV MCH MCHC RDW Plt Count MPV Immature Gran % (Auto) Neut % (Auto) Lymph % (Auto) Sebastian % (Auto) Eos % (Auto) Baso % (Auto) Lymph # (Auto) Sebastian # (Auto) Eos # (Auto) Baso # (Auto) Abs Immat Gran (auto) Absolute Neuts (auto) Absolute Nucleated RBC Nucleated RBC % (auto) PT INR APTT Anion Gap Estim Creat Clear Calc Estimated GFR POC Glucose Random Glucose Lactic Acid Calcium Total Bilirubin Direct Bilirubin AST ALT Alkaline Phosphatase Troponin I High Sens 25.0 H D B-Natriuretic Peptide 109 H Total Protein Albumin Lipase Stool Occult Blood NEGATIVE COVID-19 ([facility]) COVID-19 Clin Com Blood Type O Positive Antibody Screen NEGATIVE Crossmatch See Detail Imaging Radiologist's Impressions: Impressions Chest X-Ray 11/12/20 17:10 IMPRESSION: Unremarkable examination. Assessment and Plan (1) Acute renal injury: Status: Acute 39-year-old female with a past medical history of coronary artery disease, ischemic cardiomyopathy, history of anemia presented to the hospital with a chief complaint of generalized weakness and poor oral intake. Initially noted to be confused but improving mental status. Toxic metabolic encephalopathy: Mental status improving. CANDICE: Likely in the setting of dehydration/ATN from low blood pressure. Patient was given IV fluids. Will repeat chemistry. Nephrology consult. Avoid nephrotoxins. Hold home digoxin for now. Will also hold home Entresto. Hypotension: In the setting of dehydration. Improving. Will continue maintenance IV fluids. Lactic acidosis: In the setting of dehydration. Urinalysis pending. Patient empirically given ceftriaxone. Blood cultures have been sent. History of left upper extremity DVT: Patient had hemorrhagic shock in July 2020. Coumadin has been discontinued. Anemia: Patient hemoglobin on presentation was 7.6. Close to her baseline. Patient being transfused 1 unit of blood in the ER. Will follow up hemoglobin levels. Stool guaiac was negative per ER team. DVT prophylaxis: SCD boots Code status: Full code
[2020-11-12 20:29] LABS: ~Lactic Acid-LAB USE ONLY 1.7 mmol/L (0.5-2.0)
--- NOTE | 2020-11-12 21:04 | P.CONCC_ITS ---
History of Present Illness Data of Consult Service Date: 11/12/20 Requesting physician: Jacob Barnett Primary Care Provider: Unknown Physician HPI Reason for consult: Hypovolemic shock /CANDICE HPI: Patient is a 39-year-old female with underlying history of abnormal uterine bleeding, coronary artery disease status post STEMI 2018; post cath but no stents known to me; without any surgical intervention, echo from 2019 revealed ischemic cardiomyopathy and an apical thrombi, she was treated with Coumadin, reportedly in July of last year, while on Coumadin she had abnormal uterine bleeding therefore this was discontinued, chronic hypotension, chronic anemia looks macrocytic, alcohol consumption and abuse without given diagnosis of cirrhosis. Patient presented to the emergency room with weakness, confusion, nausea and vomit x several days. Patient states that sometimes she will get nauseous mostly retching and then acid reflux will promote further retching. Patient is not sure of why she is in the hospital. According to emergency records, patient was confused, appear to be significantly volume depleted, her initial workup reveal a blood pressure of 70/40, lactic acid of 6.0, H&H of 7.8 and 23 respectively. No signs of infection although her white count was slightly elevated at 13,000 thousand, patient is anuric, chest x-ray was negative. Her creatinine is 3.7 and her baseline 0.6. It is known that the patient is taking losartan at home. Patient was given 30 mL/kilos of crystalloids, given her anemia stool guaiac was done and was negative. COVID negative. Patient's blood pressure improved slightly but subsequently continued to decr ease, for a quick period of time, reportedly patient's mental status improved but during my interview the patient is not able to give appropriate answers to my questions. Given that the patient's improvement was transient, the patient was initially admitted to the hospitalist service but quickly transferred to the ICU given the ongoing hypovolemic shock and risk of deterioration. She was treated empirically with Rocephin given the lack of urine output however she is not febrile, repeat lactic acid is 1.7, she is no longer tachycardic and chest x-rays negative, I doubt that she has sepsis. ROS: Unable to obtain, patient clearly confused Past Medical History: Abnormal Uterine Bleeding Chronic Hypotension Chronic Macrocytic anemia Past Surgical History: Appendectomy Cholecystectomy Family history: Noncontributory Social History: Lives at home with her daughter ; Devices: None Smoker: Half pack a day ? years ; Etoh hx: Heavy drinker in the past, admits to recent alcohol ingestion, not clear when, beer and hard liquor, unable to quantify, Drug hx: Denies CODE STATUS: FULL CODE Allergies: NKDA Home Medications: Please see Med Rec PHYSICAL EXAM: Dedicated sepsis exam done at 9:00 p.m. VS: 70/30 ; 93; 21; 96 % ?General: Alert oriented x1; unable to determine the time or place, clearly confused; no acute distress, . Speaking full sentences. Speech is well articulated. Following all commands. ?Skin: Pale ? slightly jaundice but no icteric. Intact, no lesions, edema, er ythema, clubbing or cyanosis. No ulcers. ?HEENT: Head is normocephalic, atraumatic, pupils equal round reactive to light accommodation bilaterally. Extraocular movements appear intact. Buccal mucosa is dry, Neck is supple without lymphadenopathy. ?Cardiac: Clear S1-S2, no murmurs rubs or gallops. ?Pulmonary: Clear to auscultation, no wheezes, rales or rhonchi. ?Abdomen: Protuberant, positive bowel sounds in all 4 quadrants. Soft, nontender, no rebound or guarding. ?Musculoskeletal: Moving all 4 extremities upon request a major joints, there is no crepitus or tenderness. The strength is 5/5 bilaterally and throughout all 4 extremities. Gait not assessed at this point. ?Neurologic: As above, cranial nerves 2-12 are grossly intact. No focal deficits noted. Motor strength as above. ?Vascular: 2+ pulses upper and lower extremities distally. SIGNIFICANT LABORATORY DATA: as above REVIEW OF IMAGES: CXR NAD Echo review from 02/17/2019 revealed [id number] LV systolic dysfunction with regional wall motion abnormality in LAD territory with the layered apical thrombi out as. The apical anterior, mid anterior and apical septum and mid anteroseptal segments are akinetic. The AP cuts segment is dyskinetic. Estimated ejection fraction between 40-45%. Review of ultrasound of the abdomen and subsequently of the liver reveal acute cholecystitis for which she had a cholecystectomy. On 03/02/2019 this revealed hepatic steatosis. EKG REVIEW: ST [address] elevation ? age undetermined changes. QTc 523. No comparison. ASSESSMENT AND PLAN: 1. Hypovolemic Shock; NO EVIDENCE OF SEPSIS 2. Severe Dehydration (poor po intake and vol depletion) 3. CANDICE due to vol depletion/losses (ATN driven by losartan) 4. Lactic Acidosis due to the above (ractive) NO SEPSIS 5. Hypoalbumenemia 6. ? underlying Cirrhosis (high bili, low albumin and SAT to ALT mismacth) 7. Chronic Macrocytic Anemia likely Etoh r/o Folate vs B12 (non GI related ) 8. Chronic hypotension (ussual 80 to 90 sbp) 9. prolongued QTc likely related to retained Digoxin in the setting of CANDICE 10. Confussion (not much improved) multifactorial due to vol depletion, gabapentin 11. Anuria due to CANDICE and volume depletion 12. Hypophosphatemia 13. Chronic hypokalemia 14. Borderline hypomagnesemia Transfer to ICU, likely pt is both hypovolemic and hypoalbumenenic, resucitation with Crystaloids dropped her Oncotic pressure even more, will give 4 doses of Albumin salt, obtain UA, dc Entresto (losartan), recheck labs and lactic acid, check dig level, add folate and b12 levels, mag, phos, cpk, recheck labs in am. Add beta hCG qualitative. Bladder scan reveal no retention. Potassium phosphate replacement, magnesium 2 g IV. LR at 100 cc an hour, continue to monitor urine output. GI PROPHYLAXIS: PPI IV DVT PROPHYLAXIS: Pneumatic boots risk of bleeding Critical care time used for critical evaluation of this patient, diagnosis, treatment and coordination of care, review her records and documentation TOTAL CRITICAL CARE TIME 120 MIN . Patient's care was discussed in detail with Dr. Cueva. He is aware of all the above as well as the plan of care for this patient. [facility] Past Medical History Medical History Ischemic cardiomyopathy Myocardial infarction Old anterior wall myocardial infarction Family History Family History Mother Myocardial infarct Surgical History Surgical History History of cholecystectomy Social History Social History Alcohol intake: current Smoking Status: Heavy tobacco smoker Use of substances other than those prescribed or required for medical reasons: No Currently Displaying Signs/Symptoms of Drug Intoxication Withdrawal: No Advance Directives: No Advance Directives Information Provided: Yes Do you have thoughts of harming others: None Do you have a plan to hurt others: No Plan service: No Current occupational status: previously employed Meds Allergies Allergy/AdvReac Type Severity Reaction Status Date / Time No Known Allergies Allergy Verified 11/12/20 16:36 Active Medications: Current Medications Generic Name Dose Route Start Last Admin Trade Name Freq PRN Reason Stop Dose Admin Acetaminophen 650 mg 11/12/20 19:57 Acetaminophen 325 Mg Tablet PO Q6H PRN Pain, Mild (Pain Scale 1-3) Digoxin 0.125 mg 11/13/20 09:00 Digoxin 0.125 Mg Tablet PO DAILY [facility] Folic Acid 1 mg 11/13/20 09:00 Folic Acid 1 Mg Tablet PO DAILY [facility] Gabapentin 100 mg 11/12/20 21:00 Gabapentin 100 Mg Capsule PO BID [facility] Sodium Chloride 1,000 mls @ 100 mls/hr 11/12/20 20:00 Ns IVCONT .Q10H [facility] Ceftriaxone Sodium 1 gm/ 50 mls @ 100 mls/hr 11/13/20 21:00 Sodium Chloride IV Q24H [facility] Pharmacy Consult 1 each 11/12/20 17:06 Consult Rx Perform Med Rec MISCELLANE ONCE PRN Consult order Sodium Chloride 3 ml 11/13/20 00:00 0.9 % Sodium Chloride Flush 3 Ml Syringe IVFLUSH QSHIFT [facility] Thiamine HCl 100 mg 11/13/20 09:00 Thiamine Hcl 100 Mg Tablet PO DAILY [facility] Home Medications Medication Instructions Recorded Confirmed Last Taken Type aspirin 1 tab PO DAILY 07/17/20 11/12/20 Unknown History digoxin 1 tab PO DAILY 07/17/20 11/12/20 Unknown History folic acid 1 tab PO DAILY 07/17/20 11/12/20 Unknown History gabapentin 1 cap PO BID 07/17/20 11/12/20 Unknown History potassium chloride 1 tab PO BID 07/17/20 11/12/20 Unknown History sacubitril-valsartan [Entresto] 1 tab PO BID 07/17/20 11/12/20 Unknown History thiamine HCl (vitamin B1) [Vitamin 1 tab PO DAILY 07/17/20 11/12/20 Unknown History B-1] Physical Exam Vital Signs: Vital Signs: Last Vital Signs Temp 98.4 F 11/12/20 20:48 Pulse 93 11/12/20 20:57 Resp 21 H 11/12/20 20:57 BP 70/39 L 11/12/20 20:57 Pulse Ox 100 11/12/20 20:38 Body Mass Index 18.7 Results Labs CBC & Chem 7: 11/13/20 05:35 11/13/20 15:20 Labs: Short CBC 11/12/20 Range/Units 17:41 WBC 13.6 H (4.8-10.8) X10*3/uL Hgb 7.8 L (12.0-16.0) g/dl Hct 23.4 L (37-47) % Plt Count 195 (160-400) X10*3/uL BMP 11/12/20 11/12/20 17:41 17:41 Sodium Cancelled 141 Potassium Cancelled 2.8 L Chloride Cancelled 90 L Carbon Dioxide Cancelled 28 BUN Cancelled 33 H D Creatinine Cancelled 3.76 H Calcium Cancelled 7.6 L D Liver Function 11/12/20 11/12/20 Range/Units 17:41 18:08 Total Bilirubin 2.3 H 2.3 H (0.0-1.0) mg/dL Direct Bilirubin 1.4 H (0.0-0.5) mg/dL AST 73 H (5-31) U/L ALT 26 (0-31) U/L Alkaline Phosphatase 199 H D (39-117) U/L Albumin 2.1 L (3.5-5.0) g/dL
--- NOTE | 2020-11-12 21:31 | PM.EVENT ---
Event Note Date of Service: 11/12/20 Event Note: Briefly: ER team called in for an admission for Willow Bhatt to the general medical fluids as her blood pressure improved. Following the discussion with the ER doctors few minutes later the patient's blood pressure started dropping again; subsequently ER team spoke to ICU and patient has been accepted by ICU team.
--- NOTE | 2020-11-12 21:33 | PC.NURSE ---
Patient received 1 unit RBC - bp running SBP as low as 69 sytolic, but generally running 70's systolic, patient reports feeling tired, but otherwise alert and oriented. Dr Simpson aware of BP's - ordered albumin in addition to blood. BP up to 80's systolic after receiving blood. Plan for ICU admit.
[2020-11-12 21:35] LABS: Anion Gap 24 (12-20); Blood Urea Nitrogen 31 mg/dL (9-16); Calcium 6.7 mg/dL (8.4-10.2); Carbon Dioxide 23 mmol/L (22-29); Chloride 98 mmol/L (96-108); Creatinine Clr Calc Pharmacy 20.1; Estimated Glomerular Filt Rate 16; Glucose Random 86 mg/dL (60-115); Potassium 2.9 mmol/L (3.3-5.1); Sodium 142 mmol/L (135-145)
[2020-11-12] MEDS: Albumin Human 25 % 100 ML IV ×3 (21:49→23:49)
--- NOTE | 2020-11-12 22:31 | MHC.CM.PN ---
Addendum entered by Ericka Zhou 11/12/20 22:43: Pt. lives with her 17 year old daughter. Unsure if pt will need help at home when discharged. CM to follow for d/c needs. Original Note: CM met with pt. IMM reviewed and signed per protocol. Pt orientated to person, place, time and situation, but answers slowly and seems to have some difficulty answering simple questions, such as who her PCP is. Per pt, PCP is at [facility], but she is unsure who exactly is her PCP. Pt with medical hx of SD, hemorrhagic shock, ischemic cardiomyopathy and many hospitalizations. Pt does not have a HCP on file and after explanation, does not want to complete one at this time. Pt lives with 17 year old daughter. Is close with sister, Judith Bhatt ([phone]). Has no services. D/C plan is pending hospital course, but may be home without services. Per pt, transportation home by daughter. CM to follow for d/c needs.
[2020-11-12 22:34] LABS: Magnesium 1.6 mg/dL (1.6-2.6); Phosphorus 2.5 mg/dL (2.7-4.5)
--- NOTE | 2020-11-12 22:34 | PC.NURSE ---
Per lab, Digoxin unable to be obtained from add on labs . Separate digoxin order required and ordered. Lab to be drawn and sent for analysis.
--- NOTE | 2020-11-12 22:53 | PC.NURSE ---
Arturo LOPEZ came to bedside - ordered additional labs and more albumin. Question need lofton - bladder scanned patient for 38ml - plan to hold off on lofton for this time. Patient made aware when needing to void, we do need urine sample. Patient agreeable to plan of care. SBP still running now in the 80's. Patient still mentating well.
[2020-11-12 22:56] LABS: HCG Quantitative < 2 mIU/mL
[2020-11-12] MEDS: 0.9 % Sodium Chloride 1,000 ML 100 ML IVCONT (23:05)
[2020-11-13] VITALS (22 sets, daily range): BP systolic 74–96; BP diastolic 38–54; PULSE 93–114; RESP 13–96; TEMP 36.6–37.7; O2SAT 94–99; BMI 19.1
[2020-11-13] LABS: Digoxin 0.3 ng/mL (0.8-2.0)
[2020-11-13] MEDS: Magnesium Sulfate/H2O 2 GM/50 ML PIGGYBACK IV
--- NOTE | 2020-11-13 00:15 | PC.NURSE ---
RN to RN report given to ABDELRAHMAN Yeboah in ICU. Preparing to admit to room 259.
[2020-11-13] MEDS: 0.9 % Sodium Chloride Flush 3 ML SYRINGE IVFLUSH ×4 (00:54→21:46)
[2020-11-13] MEDS: Albumin Human 25 % 100 ML IV (01:03)
[2020-11-13] MEDS: Melatonin 3 MG TABLET 6 MG PO (01:14)
[2020-11-13] MEDS: Lactated Ringers 1,000 ML 100 ML IVCONT ×2 (01:14→13:46)
[2020-11-13] MEDS: Metoclopramide HCl 10 MG/2 ML VIAL 5 MG IVPUSH (02:25)
[2020-11-13] MEDS: Sodium,Potassium Phosphates POWD.PACK 2 PACKET PO (02:26)
--- NOTE | 2020-11-13 04:51 | PC.NURSE ---
ADMIT TO 259-1 FROM ER DEPT...ALERT..ORIENTED X3..RESPIRATIONS EASY..NO DISTRESS...SAO2 98-99% ON ROOM AIR....ALBUMEN INFUSED PER OCT...IV FLUIDS CHANGED TO LR 100 CC/HR...NSR/S.TACH HR 90'S-100'S...SBP 80'S-90'S...ASYMPTOMATIC...PATIENT STATES SBP NORMALLY UPPER 80'S-90'S AT HOME AT BASE-LINE...ICU PA PRESENT AND AWARE...IV K-PO4 UNAVAILABLE 11PM-6AM---PA AWARE---REGLAN GIVEN FOLLOWED BY [facility]---TO ASSESS AM PO4 LEVEL PER PA AND GIVE IV K-PO4 WHEN AVAILABLE FROM PHARMACY IN AM PER PA
[2020-11-13 06:05] LABS: MANUAL DIFF FLAG NO
[2020-11-13 06:09] LABS: Basophils Percent Auto 0.3 % (0-2); Eosinophils Absolute Auto 0.1 X10*3/uL (0.0-0.4); Eosinophils Percent Auto 0.5 % (0-4); Hematocrit 24.1 % (37-47); Imm Gran Abs Auto 0.07 X10*3/uL (0.00-0.03); Imm Gran Pct Auto 0.5 % (0.0-0.4); Lymphocytes Absolute Auto 1.6 X10*3/uL (1.2-4.9); Lymphocytes Percent Auto 12.5 % (20-40); Mean Corpuscular HGB Conc 33.2 g/dl (31.0-35.0); Mean Corpuscular Hemoglobin 35.1 pg (27.0-33.0); Mean Corpuscular Volume 105.7 fL (80-98); Mean Platelet Volume 10.7 fL (9.4-12.3); Monocytes Absolute Auto 0.8 X10*3/uL (0.1-1.2); Monocytes Percent Auto 6.2 % (2-11); Neutrophils Absolute Auto 10.4 X10*3/uL (2.0-8.3); Platelet Count 152 X10*3/uL (160-400); Red Blood Count 2.28 X10*6/uL (4.20-5.50); Red Cell Distribution Width 18.5 % (11.0-16.0)
[2020-11-13 06:10] LABS: Glucose Urine UA NEG (NEG); Leukocyte Esterase Urine NEG (NEG); Nitrite Urine NEG (NEG); Specific Gravity - Urine <= 1.005 (1.005-1.025); Urine Blood NEG (NEG); Urine Ketones NEG (NEG); Urine Protein NEG (NEG-TRACE)
[2020-11-13 06:11] LABS: Appearance Urine CLEAR; Color Urine YELLOW; UACC Culture Trigger NO
[2020-11-13 06:13] LABS: UPreg QC Valid YES
[2020-11-13 06:14] LABS: Urine Pregnancy NEGATIVE (NEGATIVE)
[2020-11-13 06:51] LABS: Alanine Aminotransferase 16 U/L (0-31); Albumin Level 3.5 g/dL (3.5-5.0); Alkaline Phosphatase 142 U/L (39-117); Anion Gap 20 (12-20); Aspartate Amino Transferase 51 U/L (5-31); Blood Urea Nitrogen 28 mg/dL (9-16); Calcium 7.3 mg/dL (8.4-10.2); Carbon Dioxide 31 mmol/L (22-29); Chloride 97 mmol/L (96-108); Estimated Glomerular Filt Rate 21; Glucose Random 72 mg/dL (60-115); Magnesium 2.7 mg/dL (1.6-2.6); Potassium 2.5 mmol/L (3.3-5.1); Sodium 145 mmol/L (135-145); Total Protein 6.6 g/dL (6.5-8.0)
--- NOTE | 2020-11-13 07:01 | CA_ITS ---
Transthoracic Echocardiogram Patient (Last, First, Middle): Willow Bhatt L Gender: Female Date of : 1980 Age: 39 Procedure Date: 11/13/2020 Procedure Type: Transthoracic Echocardiogram Location: ICU Height: 170.18 cm Weight: 55.34 kg BSA: 1.64 m2 Heart Rate: bpm BP: 91 / 41 mmHg Imaging Assistant: VH Referring MD: Arturo LOPEZ Symptoms: hypotension Study Quality: Fair ECG Rhythm: Sinus Conclusions: - The left ventricular systolic function is moderately decreased. The visually estimated ejection fraction is between 35-40%. - Wall motion abnormalities from coronary disease. - No obvious valvular pathology seen on this study. Findings Left Ventricle Normal left ventricular cavity size. There is normal left ventricular wall thickness. The left ventricular systolic function is moderately decreased. The visually estimated ejection fraction is between 35-40%. The calculated ejection fraction is 36% by biplane method. There is evidence of regional wall motion abnormalities. Diastolic function is normal for age. E/E prime ratio is <8, consistent with normal filling pressures. No definitive thrombus noted. Wall Motion Rest Echo Findings The apical septum, mid inferoseptal, and mid anteroseptal segments are akinetic. 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 Right Ventricle Normal right ventricular cavity size and systolic function. Atria The left atrium is normal in size. The right atrium is normal in size. Aortic Valve There is a normal trileaflet aortic valve. There is no aortic valve stenosis. There is no aortic valve regurgitation. Mitral Valve The mitral valve appears normal. There is mild mitral valve regurgitation. There is no mitral valve stenosis. Pulmonic Valve The pulmonic valve was not well visualized. Tricuspid Valve Normal tricuspid valve structure. There is mild tricuspid valve regurgitation. The pulmonary artery systolic pressure is normal. Great Vessels The aortic annulus, sinuses of valsalva, and asc aorta are normal in size. Venous The inferior vena cava is normal in size and collapses greater than 50% with inspiration. Pericardium/Pleural There is no evidence of pericardial effusion. Prior Study Comparison No significant change compared to prior study dated: 07/18/2020. Recommendations, Care & Conclusions No obvious valvular pathology seen on this study. Measurements 2D Linear Measurements IVSd: 0.79 0.6-0.9/0.6-1.0 cm LVIDd: 5.21 3.9-5.3/4.2-5.9 cm LVIDd Index: 3.18 2.4-3.2/2.2-3.1 cm/m2 LVIDs: 4.06 2.0-3.6 cm LVPWd: 0.71 0.7-1.1 cm Ao Root: 2.60 2.1-3.5 cm LA Diam: 3.40 2.7-3.8/3.0-4.0 cm LAIDs Index: 2.07 1.5-2.3 cm/m2 LV Mass: 167.26 67-162/88-224 g LV Mass Index: 101.99 43-95/49-115 g/m2 LVOT Diam: 2.10 3.0+(-)1.3 cm 2D Systolic Function EF 4C: 35.50 >55% EF 2C: 37.00 >55% EF BiP: 36.00 >55% Mitral Valve MV Pk E: 1.53 MV PK A: 0.76 MV Decel Time: 137.00 E/A: 2.00 E'Lateral: 13.10 E'Medial: 12.90 E/E' Med: 11.90 E/E' Lat: 11.70 PHT: 40.00 MVA PHT: 5.50 Decel Letcher: 7.17 Aortic Valve AoV Pk Mohinder: 1.67 AoV Mn Mohinedr: 1.10 AoV VTI: 0.28 AoV Pk Grad: 11.00 Aov Mn Grad: 6.00 BRITTNEY Cont.VTI: 2.50 LVOT LVOT Pk Mohinder: 1.14 LVOT Mn Mohinder: 0.77 LVOT VTI: 0.20 LVOT Pk Grad: 5.00 LVOT Mn Grad: 3.00 LVOT Diam: 2.10 LVOT Area: 3.46 Diastolic Function MV Pk E: 1.53 MV Pk A: 0.76 E/A: 2.00 E'Medial: 12.90 E/E' Med: 11.90 E' Laterial: 13.10 E/E' Lat: 11.70 Tricuspid Valve TR Pk Mohinder: 2.47 TR Pk Grad: 24.00 RA Press: 3.00 RVSP: 27.00 Great Vessels Aorta Ao Root-2D: 2.60 2.0-3.7 cm Ao Asc: 2.30 2.1-3.4 cm Pulmonary Valve PV Pk Mohinder: 1.13 Peak PV Grad: 5.00 Updated in Other Vendor System with Status of Final Rashad Castaneda MD electronically signed on 11/13/2020 5:24:23 PM with status of Final
[2020-11-13 07:19] LABS: Phosphorus 3.5 mg/dL (2.7-4.5)
[2020-11-13] MEDS: Potassium Chloride/H20 10 MEQ/100 ML PIGGYBACK 100 MEQ IV ×4 (07:19→10:53)
[2020-11-13] MEDS: Folic Acid 1 MG TABLET PO (08:27)
[2020-11-13] MEDS: Thiamine HCL 100 MG TABLET PO (08:27)
--- NOTE | 2020-11-13 08:43 | MHC.CDI.CONC ---
CDI Concurrent Query Service Date: 11/13/20 Documentation Clarification: THIS IS METABOLIC ENCEPHALOPATHY, 2? SEVERE HYPOVOLEMIC/HYPOVOLEMIC SHOCK. Please clarify if you are treating a probable/suspected/likely or confirmed: Metabolic encephalopathy, poa, resolved Metabolic/toxic encephalopathy Acute encephalopathy Please specify if known or undertermined Provider Response: Metabolic Encephalopathy PLEASE DO NOT DELETE/MODIFY EXISTING CONTENT Additional information is needed in order to code to the highest accuracy and appropriate Severity of Illness (SOI). Please clarify the information noted below in your progress notes and discharge summary. Risk Factors/Clinical Indicators/Treatments Confused, unable to give appropriate response, unsure why she is in hospital, volume depleted, hypophosphatemia, hypomagnesemia, chronic hypokalemia, IV fluids weakness, nausea and vomiting for 2 days, not much improvement w confusion. hypovolemic shock CDS: Edwina Chanel CCS, CDIS Contact Number: [phone] Please Review the information above and exercise your independent professional judgment in responding to the query. If you concur, pleas document in the PROGRESS NOTES and DISCHARGE SUMMARY. If you do not agree with the query, please document in the query above. THIS QUERY IS PART OF THE PERMANENT MEDICAL RECORD
[2020-11-13 09:07] LABS: Folate 2.4 ng/mL (> or = 4.0); Vitamin B12 > 2000 pg/mL (200-900)
--- NOTE | 2020-11-13 10:31 | MHC.CLN ---
PT IS SEVERELY MALNOURISHED PT WITH MODERATELY DEPLETED SUBCUTANEOUS FAT AND MUSCLE MASS, BMI 19, AND POOR PO X 5DAYS WITH N/V PREVIOUS WT HX REVEALS UBW 144# (07/18/20) TRIGGERS FOR 15% SIGNIFICANT WT LOSS X 4 MONTHS RECOMMEND ADDING ENSURE CLEAR TO INCREASE KCALS SUPPLEMENT WILL PROVIDE 720KCALS, 24G PROTEIN WILL ADVANCE SUPPLEMENT TO ENSURE ENLIVE IF N/V RESOLVES CONSIDER CHECKING AMMONIA LEVELS INCREASE IN PO PROTEIN WILL AFFECT NH3 LEVELS SEE ALSO CLINICAL NUTRITION ASSESSMENT
--- NOTE | 2020-11-13 13:05 | PM.CCPN ---
Subjective Subjective Date of Service: 11/13/20 Interval History: Ms. Bhatt was admitted to ICU last night with hypovolemic shock. The patient is a 39-year-old female with history of coronary artery disease status post STEMI 2018; post cath but no stents. Echo from 2019 revealed ischemic cardiomyopathy and an apical thrombus. She was treated with Coumadin. In July of last year, while on Coumadin, she had abnormal uterine bleeding, and the Coumadin was therefore discontinued. She also has chronic hypotension, chronic macrocytic anemia, h/o alcohol consumption and abuse without given diagnosis of cirrhosis. The patient presented to the emergency room yesterday with weakness, confusion, nausea and vomit x several days. Patient states that sometimes she will get nauseous mostly retching and then acid reflux will promote further retching. No clear etiology for her N&v. In the ED, she was confused and grossly dehydrated, with initial blood pressure about 70/40, Sat 100% on RA. Lactic acid was 6.0, Hb 7.8, guiac neg. No signs of infection although her white count was slightly elevated at 13K. she was anuric, chest x-ray was negative. Her creatinine was 3.7 (baseline is 0.6). Albumin was 2.1. Covid negative. The patient was given 30 mL/kg crystalloids, one unit of RBCs, and empiric abx. After the fluids, her mental status improved markedly. She had a transient increase in BP. She was admitted to ICU. Vol resusc continued with albumin. Repeat lactic acid was 1.7, and she was no longer tachycardic. She started making urine. U/a was negative. Abx were not continued. This morning she was fully A&O and asking to go home to take care of her daughter. She?s been afebrile thruout. c/o being thirsty. HR 105, SR. BP about 90/50. (She usually runs 90?s). Breathing easy w Sat 99% RA. No JVD. Chest clear. Abdomen nondistended, nontender. No edema. LABORATORY DATA: As below. Notably, hemoglobin this morning 8.0 after 1 unit RBCs. Sodium 145, potassium down to 2.5, BUN and creatinine down to 828/2.5, phosphorus 3.5, T bili up to 5.0. BNP is 990. INR was 1.7 yesterday. ECHOCARDIOGRAM done at the bedside by the tech, interpreted by me: 1. Moderate LV dysfunction, with overall EF about 35%. Notable septal and apical akinesis. 2. LV cavity size is upper limits of normal. 3. RV cavity size is normal. 4. Tricuspid jet measured 2.3 m/sec; gradient 21mm 5. IVC normal with minimal insp collapse. CVP estimate 8mm. RVSP estimate 29mm. IMPRESSION: 1. Underlying CMOP. I?m guessing that her echo now is basically the same as in last year. Needs afterload reduction. Given her BNP, I would be judicious with continued vol resuscitation. As long as her BUN/creat are moving towards baseline, would not be aggressive with fluids. Cardiology might be helpful. 2. Severe Dehydration (poor po intake and vomiting). Vol resuscitation is mostly complete. 3. Hypovolemic Shock. No evidence of sepsis. 4. CANDICE due to hypovolemia and hypotension. Improving post-resuscitation 5. Lactic Acidosis due to above. 6. Hypoalbuminemia and probably at least mild protein calorie malnutrition. 7. ? underlying cirrhosis (elevated bili, elevated INR, low albumin). GI consult might be helpful. 8. Chronic hypotension. ? multifactorial (CMOP, low oncotic pressure, liver dz). Optimal SBP for her is probably about 90mm. 9. Chronic macrocytic anemia - ? Etoh related. r/o Folate or B12 deficiency 10. AMS 2? hypovolemic shock. Resolved. Stable for transfer to regular medical [facility]. Will sign out to hospitalists. Time: . Physical Exam Vital Signs: Vital Signs: Last Vital Signs Temp 98.3 F 11/13/20 12:00 Pulse 105 H 11/13/20 12:00 Resp 16 11/13/20 12:00 BP 93/51 L 11/13/20 11:00 Pulse Ox 95 11/13/20 12:00 Body Mass Index 19.1 Objective Data Labs CBC & Chem 7: 11/13/20 05:35 11/13/20 05:35 Labs: Laboratory Results - last 24 hr 11/12/20 11/12/20 11/12/20 05:45 16:37 17:03 WBC RBC Hgb Hct MCV MCH MCHC RDW Plt Count MPV Immature Gran % (Auto) Neut % (Auto) Lymph % (Auto) Spink % (Auto) Eos % (Auto) Baso % (Auto) Lymph # (Auto) Spink # (Auto) Eos # (Auto) Baso # (Auto) Abs Immat Gran (auto) Absolute Neuts (auto) Absolute Nucleated RBC Nucleated RBC % (auto) PT INR APTT Sodium Potassium Chloride Carbon Dioxide Anion Gap BUN Creatinine Estim Creat Clear Calc Estimated GFR POC Glucose 80 Random Glucose Lactic Acid 6.2 H* Lactic Acid Fup @ 2Hr Calcium Phosphorus Magnesium Total Bilirubin Direct Bilirubin AST ALT Alkaline Phosphatase Total Creatine Kinase Troponin I High Sens B-Natriuretic Peptide Total Protein Albumin Lipase Vitamin B12 Folate Beta HCG, Quant Urine Color YELLOW Urine Appearance CLEAR Urine pH 6.0 Ur Specific Cornucopia <= 1.005 Urine Protein NEG Urine Glucose (UA) NEG Urine Ketones NEG Urine Blood NEG Urine Nitrite NEG Ur Leukocyte Esterase NEG Urine Test Stool Occult Blood Digoxin COVID-19 ([facility]) COVID-19 Clin Com Blood Type Antibody Screen Crossmatch 11/12/20 11/12/20 11/12/20 17:41 17:41 17:41 WBC 13.6 H RBC 2.13 L D Hgb 7.8 L Hct 23.4 L MCV 109.9 H MCH 36.6 H MCHC 33.3 RDW 17.1 H Plt Count 195 MPV 10.6 Immature Gran % (Auto) 0.6 H Neut % (Auto) 70.6 Lymph % (Auto) 18.9 L Spink % (Auto) 7.8 Eos % (Auto) 1.8 Baso % (Auto) 0.3 Lymph # (Auto) 2.6 Spink # (Auto) 1.1 Eos # (Auto) 0.2 Baso # (Auto) 0.0 Abs Immat Gran (auto) 0.08 H Absolute Neuts (auto) 9.6 H Absolute Nucleated RBC 0.000 Nucleated RBC % (auto) 0.0 PT INR APTT Sodium Cancelled 141 Potassium Cancelled 2.8 L Chloride Cancelled 90 L Carbon Dioxide Cancelled 28 Anion Gap Cancelled 26 H BUN Cancelled 33 H D Creatinine Cancelled 3.76 H Estim Creat Clear Calc Cancelled 17.0 Estimated GFR Cancelled 13 POC Glucose Random Glucose Cancelled 69 Lactic Acid Lactic Acid Fup @ 2Hr Calcium Cancelled 7.6 L D Phosphorus Magnesium Total Bilirubin 2.3 H Direct Bilirubin 1.4 H AST 73 H ALT 26 Alkaline Phosphatase 199 H D Total Creatine Kinase Troponin I High Sens B-Natriuretic Peptide Total Protein 6.8 D Albumin 2.1 L Lipase 27 Vitamin B12 Folate Beta HCG, Quant Urine Color Urine Appearance Urine pH Ur Specific Cornucopia Urine Protein Urine Glucose (UA) Urine Ketones Urine Blood Urine Nitrite Ur Leukocyte Esterase Urine Test Stool Occult Blood Digoxin COVID-19 ([facility]) COVID-19 Clin Com Blood Type Antibody Screen Crossmatch 11/12/20 11/12/20 11/12/20 17:42 18:08 18:08 WBC RBC Hgb Hct MCV MCH MCHC RDW Plt Count MPV Immature Gran % (Auto) Neut % (Auto) Lymph % (Auto) Spink % (Auto) Eos % (Auto) Baso % (Auto) Lymph # (Auto) Spink # (Auto) Eos # (Auto) Baso # (Auto) Abs Immat Gran (auto) Absolute Neuts (auto) Absolute Nucleated RBC Nucleated RBC % (auto) PT Cancelled INR Cancelled APTT Sodium Potassium Chloride Carbon Dioxide Anion Gap BUN Creatinine Estim Creat Clear Calc Estimated GFR POC Glucose Random Glucose Lactic Acid Lactic Acid Fup @ 2Hr Calcium Phosphorus Magnesium Total Bilirubin 2.3 H Direct Bilirubin AST ALT Alkaline Phosphatase Total Creatine Kinase Troponin I High Sens B-Natriuretic Peptide Total Protein Albumin Lipase Vitamin B12 Folate Beta HCG, Quant Urine Color Urine Appearance Urine pH Ur Specific Cornucopia Urine Protein Urine Glucose (UA) Urine Ketones Urine Blood Urine Nitrite Ur Leukocyte Esterase Urine Test Stool Occult Blood Digoxin COVID-19 ([facility]) Negative COVID-19 Clin Com See Note Blood Type Antibody Screen Crossmatch 11/12/20 11/12/20 11/12/20 18:08 18:08 18:08 WBC RBC Hgb Hct MCV MCH MCHC RDW Plt Count MPV Immature Gran % (Auto) Neut % (Auto) Lymph % (Auto) Spink % (Auto) Eos % (Auto) Baso % (Auto) Lymph # (Auto) Spink # (Auto) Eos # (Auto) Baso # (Auto) Abs Immat Gran (auto) Absolute Neuts (auto) Absolute Nucleated RBC Nucleated RBC % (auto) PT 20.7 H D INR 1.7 H APTT 37.0 Sodium Potassium Chloride Carbon Dioxide Anion Gap BUN Creatinine Estim Creat Clear Calc Estimated GFR POC Glucose Random Glucose Lactic Acid Lactic Acid Fup @ 2Hr Calcium Phosphorus 2.5 L Magnesium 1.6 Total Bilirubin Direct Bilirubin AST ALT Alkaline Phosphatase Total Creatine Kinase 113 Troponin I High Sens 25.0 H D B-Natriuretic Peptide 109 H Total Protein Albumin Lipase Vitamin B12 Folate Beta HCG, Quant < 2 Urine Color Urine Appearance Urine pH Ur Specific Cornucopia Urine Protein Urine Glucose (UA) Urine Ketones Urine Blood Urine Nitrite Ur Leukocyte Esterase Urine Test Stool Occult Blood Digoxin COVID-19 ([facility]) COVID-19 [facility] Blood Type Antibody Screen Crossmatch 11/12/20 11/12/20 11/12/20 18:08 18:54 19:47 WBC RBC Hgb Hct MCV MCH MCHC RDW Plt Count MPV Immature Gran % (Auto) Neut % (Auto) Lymph % (Auto) Spink % (Auto) Eos % (Auto) Baso % (Auto) Lymph # (Auto) Spink # (Auto) Eos # (Auto) Baso # (Auto) Abs Immat Gran (auto) Absolute Neuts (auto) Absolute Nucleated RBC Nucleated RBC % (auto) PT INR APTT Sodium Potassium Chloride Carbon Dioxide Anion Gap BUN Creatinine Estim Creat Clear Calc Estimated GFR POC Glucose Random Glucose Lactic Acid Lactic Acid Fup @ 2Hr Calcium Phosphorus Magnesium Total Bilirubin Direct Bilirubin AST ALT Alkaline Phosphatase Total Creatine Kinase Troponin I High Sens B-Natriuretic Peptide Total Protein Albumin Lipase Vitamin B12 > 2000 H Folate 2.4 L Beta HCG, Quant Urine Color Urine Appearance Urine pH Ur Specific Cornucopia Urine Protein Urine Glucose (UA) Urine Ketones Urine Blood Urine Nitrite Ur Leukocyte Esterase Urine Test Stool Occult Blood NEGATIVE Digoxin COVID-19 ([facility]) COVID-19 [facility] Blood Type O Positive Antibody Screen NEGATIVE Crossmatch See Detail 11/12/20 11/12/20 11/12/20 20:04 20:54 23:02 WBC RBC Hgb Hct MCV MCH MCHC RDW Plt Count MPV Immature Gran % (Auto) Neut % (Auto) Lymph % (Auto) Spink % (Auto) Eos % (Auto) Baso % (Auto) Lymph # (Auto) Spink # (Auto) Eos # (Auto) Baso # (Auto) Abs Immat Gran (auto) Absolute Neuts (auto) Absolute Nucleated RBC Nucleated RBC % (auto) PT INR APTT Sodium 142 Potassium 2.9 L Chloride 98 Carbon Dioxide 23 Anion Gap 24 H BUN 31 H Creatinine 3.19 H Estim Creat Clear Calc 20.1 Estimated GFR 16 POC Glucose Random Glucose 86 Lactic Acid Lactic Acid Fup @ 2Hr 1.7 Calcium 6.7 L D Phosphorus Magnesium Total Bilirubin Direct Bilirubin AST ALT Alkaline Phosphatase Total Creatine Kinase Troponin I High Sens B-Natriuretic Peptide Total Protein Albumin Lipase Vitamin B12 Folate Beta HCG, Quant Urine Color Urine Appearance Urine pH Ur Specific Cornucopia Urine Protein Urine Glucose (UA) Urine Ketones Urine Blood Urine Nitrite Ur Leukocyte Esterase Urine Test Stool Occult Blood Digoxin 0.3 L COVID-19 ([facility]) COVID-19 Clin Com Blood Type Antibody Screen Crossmatch 11/13/20 11/13/20 11/13/20 05:35 05:35 05:45 WBC 13.0 H RBC 2.28 L Hgb 8.0 L Hct 24.1 L MCV 105.7 H MCH 35.1 H MCHC 33.2 RDW 18.5 H Plt Count 152 L MPV 10.7 Immature Gran % (Auto) 0.5 H Neut % (Auto) 80.0 H Lymph % (Auto) 12.5 L Spink % (Auto) 6.2 Eos % (Auto) 0.5 Baso % (Auto) 0.3 Lymph # (Auto) 1.6 Spink # (Auto) 0.8 Eos # (Auto) 0.1 Baso # (Auto) 0.0 Abs Immat Gran (auto) 0.07 H Absolute Neuts (auto) 10.4 H Absolute Nucleated RBC 0.000 Nucleated RBC % (auto) 0.0 PT INR APTT Sodium 145 Potassium 2.5 L* Chloride 97 Carbon Dioxide 31 H Anion Gap 20 BUN 28 H Creatinine 2.51 H Estim Creat Clear Calc 26.0 Estimated GFR 21 POC Glucose Random Glucose 72 Lactic Acid Lactic Acid Fup @ 2Hr Calcium 7.3 L D Phosphorus 3.5 Magnesium 2.7 H Total Bilirubin 5.0 H Direct Bilirubin AST 51 H ALT 16 Alkaline Phosphatase 142 H D Total Creatine Kinase Troponin I High Sens B-Natriuretic Peptide Total Protein 6.6 Albumin 3.5 D Lipase Vitamin B12 Folate Beta HCG, Quant Urine Color Urine Appearance Urine pH Ur Specific Cornucopia Urine Protein Urine Glucose (UA) Urine Ketones Urine Blood Urine Nitrite Ur Leukocyte Esterase Urine Test NEGATIVE Stool Occult Blood Digoxin COVID-19 ([facility]) COVID-19 Clin Com Blood Type Antibody Screen Crossmatch Progress Note: A&P Time Spent With Patient Time: Total time spent is greater than 50% in coordination of care (as documented) at patient's floor/unit and/or counseling patient: Total time spent with greater than 50% in coordination of care (as documented) at patient's floor/unit and/or counseling patient:: 0
[2020-11-13 15:12] LABS: B Type Natriuretic Peptide 990 pg/mL (<100)
--- NOTE | 2020-11-13 15:23 | PC.NURSE ---
pt alert, sleeping in bed on and off throughout day, pt OOB to commode 1 assist, pt wobbly on feet, high fall risk measures in place, pt on RA, LR running at 100%, SR in 90's, potassium IV replacement in am, repeat BMP in afternoon, pt occasionally nauseous, [place] [facility] [place] to monitor
[2020-11-13 15:56] LABS: Blood Urea Nitrogen 26 mg/dL (9-16); Calcium 7.4 mg/dL (8.4-10.2); Creatinine Clr Calc Pharmacy 27.8; Estimated Glomerular Filt Rate 23; Glucose Random 61 mg/dL (60-115)
[2020-11-13 16:07] LABS: Anion Gap 25 (12-20); Carbon Dioxide 21 mmol/L (22-29); Chloride 98 mmol/L (96-108); Potassium 3.3 mmol/L (3.3-5.1); Sodium 141 mmol/L (135-145)
[2020-11-13] MEDS: 0.9 % Sodium Chloride 500 ML IVCONT (18:02)
--- NOTE | 2020-11-13 18:40 | PM.EVENT ---
Event Note Date of Service: 11/13/20 Event Note: Low BP this is chronic. She says she has no symptoms. She is getting fluid bolus and will continue to monitor.
--- NOTE | 2020-11-13 19:29 | PC.NURSE ---
1715- Pt BP ranging from 74/40 to 68/32 manually. Pt remaining vitals temp 99.8, pulse 100. Pt states she feels fine, but is sleepy. Dr. Thompson made aware. 500ml bolus ordered. Given as per EMAR. 1740- Pt BP rechecked and was 74/38. Dr. Gifford at bedside. Both Dr. Gifford and Dr. Thompson made aware of new BP. Additional 500ml bolus ordered. Oncoming nurse updated on situation.
[2020-11-13] MEDS: 0.9 % Sodium Chloride 500 ML IV (19:37)
[2020-11-13] MEDS: Albumin Human 25 % 50 ML 100 ML IV (19:58)
--- NOTE | 2020-11-13 20:41 | PM.EVENT ---
Event Note Date of Service: 11/14/20 Event Note: Hypotension: Around 7:30PM 11/30/2020-on mention the patient's blood pressure is on the so 38-patient on received 100 cc of normal saline bolus. I went in and examined the patient, patient is asymptomatic, denies any lightheadedness dizziness. Extremities are warm well perfused. Patient was transferred from the ICU today to the general medical floors. Spoke with ICU attending Dr. morse-> who mentioned that patient has hypertension on presentation was likely secondary to the hypovolemia-given fluid resuscitation; as the patient is clinically doing stable less concern for any acute shock like picture. Suggested midodrine. Patient's echocardiogram showed EF of 35-40%. No signs of fluid overload at the moment. Ordered albumin x1. Blood pressure improved to 82 or 38. Patient remained asymptomatic. Will continue to monitor. Cardiology consulted for cardiomyopathy. Spoke to . CANDICE: Creatinine improving. Nephrology consulted Update: Around 6:00 a.m. on 11/14/2020: Patient had a blood pressure of 64/36. Patient exam is completely benign. Extremities are warm and well perfused. Patient has good capillary refill. Patient denies any lightheadedness dizziness. Completely asymptomatic. Patient's midodrine dose has been increased to 10 mg t.i.d. Ordered an extra dose of albumin x1 Will also obtain a random cortisol And will start the patient on hydrocortisone 50 mg IV t.i.d.
[2020-11-13] MEDS: Midodrine HCl 5 MG TABLET PO (21:40)
--- NOTE | 2020-11-13 21:48 | PC.NURSE ---
Addendum entered by Fannie Claire RN 11/14/20 06:31: BP at 0615 64/36 manually, pt sitting. BP reading on both arms. BP on leg 78/37. Pt asymptomatic. Dr Barnett to bedside. 5 mg midodrine and albumin ordered and administered. Cortisol ordered to be collected by phlebotomy. Po intake encouraged per md, pt refusing snack at this time. Addendum entered by Fannie Claire RN 11/14/20 04:55: At 0430 BP 70/40, pt remains asymptomatic. Dr Barnett notified. 0800 scheduled midodrine given early per . Original Note: NS bolus stopped per Dr Barnett. MD at bedside to assess pt. BP 80/38. Albumin ordered and administered. BP after administration 82/40. Midodrine ordered for now, administered to pt. Pt remains asymptomatic, sinus on tele rate low 100s.
[2020-11-14] VITALS (31 sets, daily range): BP systolic 59–148; BP diastolic 19–86; PULSE 87–124; RESP 14–39; TEMP 36.2–37.7; O2SAT 88–100
[2020-11-14] MEDS: Midodrine HCl 5 MG TABLET PO ×2 (04:51→06:16)
[2020-11-14] MEDS: Albumin Human 25 % 100 ML IV ×3 (06:15→13:38)
--- NOTE | 2020-11-14 10:08 | P.CONCA_ITS ---
History of Present Illness History of Present Illness Date of Service: 11/14/20 Consult reason: hypotension Chief complaint: CANDICE Narrative: This is a cardiology consultation regarding hypotension. Patient has a history of ischemic cardiomyopathy. In 2018, it appears that she had a large LAD infarct in apical LV thrombus with severe LV dysfunction. At that time found to have 100% mid LAD stenosis but no significant disease elsewhere. However, due to delayed presentation, she was not revascularized. She states that currently she is not having any chest pain or shortness of breath or dizzy spells or syncopal episodes or in fact any cardiac symptoms at all. Current admission is for weakness, nausea, vomiting. In this instance, she was found to have hypotension and renal insufficiency. She was then in the ICU initially and then transferred to the floor. We have been asked to see her with regard to hypotension. It appears that she has had chronically low blood pressures. Patient herself denies any presyncopal symptoms or any prior syncope although she gets occasional dizziness. Review of Systems Review of Systems: Yes all other systems are reviewed and are negative Cardiovascular: Cardiovascular: Reports as per HPI, Reports no additional cardiovascular complaints, Denies acrocyanosis, Denies cool extremities, Denies painful fingertips, Denies chest pain, Denies chest pain at rest, Denies diaphoresis, Denies syncope, Denies irregular heart rhythm, Denies claudication, Denies leg edema, Denies lightheadedness, Denies palpitations and Denies dyspnea Respiratory: Respiratory: Denies dyspnea Neurologic: Denies syncope Endocrine: Endocrine: Denies palpitations [facility] Past Medical History Medical History (Updated 11/14/20 @ 10:13 by Rashad Castaneda MD) Ischemic cardiomyopathy Myocardial infarction Old anterior wall myocardial infarction Family History Family History Mother Myocardial infarct Surgical History Surgical History History of cholecystectomy Social History Social History Alcohol intake: current Smoking Status: Heavy tobacco smoker Use of substances other than those prescribed or required for medical reasons: No Currently Displaying Signs/Symptoms of Drug Intoxication Withdrawal: No Advance Directives: No Advance Directives Information Provided: Yes Do you have thoughts of harming others: None Do you have a plan to hurt others: No Plan service: No Current occupational status: previously employed Meds Allergies Allergy/AdvReac Type Severity Reaction Status Date / Time No Known Allergies Allergy Verified 11/12/20 16:36 Active Medications: Current Medications Generic Name Dose Route Start Last Admin Trade Name Freq PRN Reason Stop Dose Admin Acetaminophen 650 mg 11/12/20 19:57 Acetaminophen 325 Mg Tablet PO Q6H PRN Pain, Mild (Pain Scale 1-3) Aspirin 81 mg 11/14/20 09:00 Aspirin Enteric Coated 81 Mg Tablet.Dr PO DAILY LOC Folic Acid 1 mg 11/13/20 09:00 11/13/20 08:27 Folic Acid 1 Mg Tablet PO 1 mg DAILY LOC Administration Hydrocortisone Sodium Succinate 50 mg 11/14/20 07:00 Hydrocortisone Sod Succ/Pf 100 Mg Vial IVPUSH Q8H LOC Midodrine 10 mg 11/14/20 12:00 Midodrine Hcl 5 Mg Tablet PO TIDWM LOC Potassium Chloride 20 meq 11/13/20 21:00 11/13/20 21:44 Potassium Chloride Er 20 Meq Tab.Er.Prt PO Not Given BID LOC Sodium Chloride 3 ml 11/13/20 00:00 11/13/20 21:46 0.9 % Sodium Chloride Flush 3 Ml Syringe IVFLUSH 3 ml QSHIFT [facility] Administration Thiamine HCl 100 mg 11/13/20 09:00 11/13/20 08:27 Thiamine Hcl 100 Mg Tablet PO 100 mg DAILY LOC Administration Home Medications Medication Instructions Recorded Confirmed Last Taken Type aspirin 1 tab PO DAILY 07/17/20 11/12/20 Unknown History digoxin 1 tab PO DAILY 07/17/20 11/12/20 Unknown History folic acid 1 tab PO DAILY 07/17/20 11/12/20 Unknown History gabapentin 1 cap PO BID 07/17/20 11/12/20 Unknown History potassium chloride 1 tab PO BID 07/17/20 11/12/20 Unknown History sacubitril-valsartan [Entresto] 1 tab PO BID 07/17/20 11/12/20 Unknown History thiamine HCl (vitamin B1) [Vitamin 1 tab PO DAILY 07/17/20 11/12/20 Unknown History B-1] Physical Exam Vital Signs: Vital Signs: Last Vital Signs Temp 97.2 F 11/14/20 07:48 Pulse 108 H 11/14/20 07:48 Resp 18 11/14/20 07:48 BP 80/42 L 11/14/20 07:48 Pulse Ox 93 11/14/20 07:48 Body Mass Index 19.1 Const: General: cooperative, comfortable and no acute distress Orientation/consciousness: patient oriented x3 HENMT: Other: Unremarkable Neck: Neck: Yes normal visual inspection Chest: Chest palpation & inspection: normal inspection of the chest Resp: Auscultation: clear to auscultation bilaterally, no crackles and no wheezes Cardio: Jugular venous distension: no JVD Palpation: normal PMI Heart sounds: S1 normal heart sound present, S2 normal heart sound present, no gallops, no murmurs and no rubs GI: Palpation (GI): Soft to palpation Back/Spine/Pelvis: Other: unremarkable Skin: General skin exam: no rashes or lesions noted Neuro: General: patient oriented x3 Extrem: General: Yes no clubbing, cyanosis or edema Psych: Mental Status: mental status grossly normal Results Labs and Meds Result diagrams: 11/13/20 05:35 11/13/20 15:20 Lab results: Laboratory Results - last 24 hr 11/13/20 11/13/20 14:14 15:20 Sodium 141 Potassium 3.3 D Chloride 98 Carbon Dioxide 21 L Anion Gap 25 H BUN 26 H Creatinine 2.35 H Estim Creat Clear Calc 27.8 Estimated GFR 23 Random Glucose 61 Calcium 7.4 L B-Natriuretic Peptide 990 H ECG Attestation: I personally reviewed and interpreted this ECG as follows: Interpretation: EKG with sinus tachycardia and old anterior infarct. Telemetry shows sinus tachycardia at 110/Min with PACs and PVCs. Assessment and Plan (1) Arterial hypotension: Qualifiers: Hypotension type: idiopathic hypotension Qualified Code(s): I95.0 - Idiopathic hypotension Status: Acute (2) Ischemic cardiomyopathy: Status: Inactive (3) ST elevation myocardial infarction (STEMI) of anterior wall: Status: Acute (4) Apical mural thrombus: Status: Resolved (5) Acute hypokalemia: Status: Acute (6) Acute dehydration: Status: Acute (7) Acute renal injury: Status: Acute Her blood pressures are quite low but this has been seen in the past as well. Clinically, she does not have any evidence of shock. She seems well perfused. She does not have any dizziness or presyncopal type symptoms. Low cardiac function may play some role but do not believe that is a primary etiology. Agree with using midodrine. May need workup for adrenal insufficiency. Hydration plus correct electrolytes. Discussed with nephrology. Otherwise echocardiogram with LAD territory infarction. There is no clear apical thrombus visualized in this study. She has been on Coumadin in the past but it appears that due to uterine bleeding and low hemoglobins in the past-low as 3.1g/dl, that was stopped. Need not resume at this time. Due to low blood pressure, she will not be able tolerate neurohormonals or other medication to treat cardiomyopathy.
--- NOTE | 2020-11-14 10:36 | HO.PM.IMPN ---
Subjective Subjective Date of Service: 11/14/20 Interval History: I saw and examind this patient and discussed with Dr. Cueva who has been following the patient. Patient's blood pressure througout the night has been very low in the 60s and 80s, however has been feeling fine warm, and mentation intact..She was started on Midodrine and BP is persistently low, in fact the last record from doppler was 60s systolic and as such Dr. Cueva and I agree patient maybe better monitored in ICU until blood pressure numbers are acceptable for the floor. Review of Systems Gen: no fever Resp: no sob, no cough CV: no chest, no DE LA CRUZ, no leg edema GI: No n/v, no abd pain Neuro: No confusion Physical Exam Vital Signs: Vital Signs: Last Vital Signs Temp 97.2 F 11/14/20 07:48 Pulse 108 H 11/14/20 07:48 Resp 18 11/14/20 07:48 BP 80/42 L 11/14/20 07:48 Pulse Ox 93 11/14/20 07:48 Body Mass Index 19.1 Constitutional Awake and Alert, No apparent distress Neck Supple, No lymphadenopathy Cardiovascular RRR, No M/R/G, S1 S2, No S3 S4, No pedal edema Respiratory Lungs clear, No respiratory distress Gastrointestinal Non tender, Non-distended Skin No rash Neurological Alert & oriented x3 Psychological Appropriate affect Objective Data Current Medications Generic Name Dose Route Start Last Admin Trade Name Freq PRN Reason Stop Dose Admin Acetaminophen 650 mg 11/12/20 19:57 Acetaminophen 325 Mg Tablet PO Q6H PRN Pain, Mild (Pain Scale 1-3) Aspirin 81 mg 11/14/20 09:00 Aspirin Enteric Coated 81 Mg Tablet.Dr PO DAILY LOC Fludrocortisone Acetate 0.2 mg 11/14/20 10:35 Fludrocortisone Acetate 0.1 Mg Tablet PO QAM LOC Folic Acid 1 mg 11/13/20 09:00 11/13/20 08:27 Folic Acid 1 Mg Tablet PO 1 mg DAILY LOC Administration Hydrocortisone Sodium Succinate 50 mg 11/14/20 07:00 Hydrocortisone Sod Succ/Pf 100 Mg Vial IVPUSH Q8H LOC Midodrine 10 mg 11/14/20 12:00 Midodrine Hcl 5 Mg Tablet PO TIDWM LOC Potassium Chloride 20 meq 11/13/20 21:00 11/13/20 21:44 Potassium Chloride Er 20 Meq Tab.Er.Prt PO Not Given BID LOC Sodium Chloride 3 ml 11/13/20 00:00 11/13/20 21:46 0.9 % Sodium Chloride Flush 3 Ml Syringe IVFLUSH 3 ml QSHIFT LOC Administration Thiamine HCl 100 mg 11/13/20 09:00 11/13/20 08:27 Thiamine Hcl 100 Mg Tablet PO 100 mg DAILY LOC Administration Labs CBC & Chem 7: 11/13/20 05:35 11/13/20 15:20 Microbiology Microbiology Results: Microbiology 11/12/20 17:41 Blood - Venous Blood Culture - Preliminary No growth after 24 hours. 11/12/20 17:03 Blood - Venous Blood Culture - Preliminary No growth after 24 hours. Assessment and Plan (1) Hypotension: Status: Acute Assessment and Plan: ICU course 11/13 The patient is a 39-year-old female with history of coronary artery disease status post STEMI 2017; post cath but no stents. Echo from 2018 revealed ischemic cardiomyopathy and an apical thrombus. She was treated with Coumadin. In July of last year, while on Coumadin, she had abnormal uterine bleeding, and the Coumadin was therefore discontinued. She also has chronic hypotension, chronic macrocytic anemia, h/o alcohol consumption and abuse without given diagnosis of cirrhosis. The patient presented to the emergency room yesterday with weakness, confusion, nausea and vomit x several days. Patient states that sometimes she will get nauseous mostly retching and then acid reflux will promote further retching. No clear etiology for her N&v. In the ED, she was confused and grossly dehydrated, with initial blood pressure about 70/40, Sat 100% on RA. Lactic acid was 6.0, Hb 7.8, guiac neg. No signs of infection although her white count was slightly elevated at 13K. she was anuric, chest x-ray was negative. Her creatinine was 3.7 (baseline is 0.6). Albumin was 2.1. Covid negative. The patient was given 30 mL/kg crystalloids, one unit of RBCs, and empiric abx. After the fluids, her mental status improved markedly. She had a transient increase in BP. She was admitted to ICU. Vol resusc continued with albumin. Repeat lactic acid was 1.7, and she was no longer tachycardic. She started making urine. U/a was negative. Abx were not continued. On the morning of 11/13, she was fully A&O and asking to go home to take care of her daughter. She?s been afebrile thruout. c/o being thirsty. HR 105, SR. BP about 90/50. (She usually runs 90?s). Breathing easy w Sat 99% RA. No JVD. Chest clear. Abdomen nondistended, nontender. No edema. So she was transfered to the medical floor under the Care of Hospitalist Hospitalist course Overnight 11/13 to 11/14.. Blood pressure has been low through the night --with systeolic as low as 60 but mostly in the 80s and patient has been fully alert and oriented, warm on exam and doesn't feel dizzy or otherwise. She was given doses of Midodrine and yet BP remains low. I discussed the case with Dr. Cueva we agree that despite patient been asymptomatic HYPOTENSION that is not responsive to fluid and oral pressores, she is best serve by been monitored closely in ICU. She will be evaluated by Nephrology service, will have AI work up and may need additional fluid. There is no evidence that low BP is due t sepsis. She is afebrile Ohter Underlying issues: CMP EF 35 chronic hypotension with acute worsening CANDICE on CKD Cirrhosis of liver lactic acidosis Chronic anemia .
--- NOTE | 2020-11-14 10:38 | P.PNCC_ITS ---
Subjective Subjective Date of Service: 11/14/20 Interval History: Ms. Bhatt was admitted to ICU on the night of November 12 after presenting to the ED bec of hypovolemic shock, 2? poor po intake and vomiting. No evidence of sepsis. She was vol resuscitated and her BP celeste to her usual level. I transferred her to [facility] yest afternoon. I was following up via chart review this morning and noticed BP reading in the 60s at 6am this morning. No labs were drawn this morning. I called Dr. Gifford and he told me it was again in the 60s. I went up to see the patient. On my brief exam, she looked the same as yesterday, fully A&O, talking easily, no distress, nontoxic. She had no edema, and her belly was soft, nontender. I told her that we would bring her back down to the ICU to watch her. She frowned, but agreed. Physical Exam Vital Signs: Vital Signs: Last Vital Signs Temp 97.2 F 11/14/20 07:48 Pulse 108 H 11/14/20 07:48 Resp 18 11/14/20 07:48 BP 80/42 L 11/14/20 07:48 Pulse Ox 93 11/14/20 07:48 Body Mass Index 19.1 Objective Data Labs CBC & Chem 7: 11/14/20 18:08 11/14/20 12:29 Labs: Laboratory Results - last 24 hr 11/13/20 11/13/20 14:14 15:20 Sodium 141 Potassium 3.3 D Chloride 98 Carbon Dioxide 21 L Anion Gap 25 H BUN 26 H Creatinine 2.35 H Estim Creat Clear Calc 27.8 Estimated GFR 23 Random Glucose 61 Calcium 7.4 L B-Natriuretic Peptide 990 H Microbiology Microbiology Results: Microbiology 11/12/20 17:41 Blood - Venous Blood Culture - Preliminary No growth after 24 hours. 11/12/20 17:03 Blood - Venous Blood Culture - Preliminary No growth after 24 hours. Progress Note: A&P Time Spent With Patient Time: Total time spent is greater than 50% in coordination of care (as documented) at patient's floor/unit and/or counseling patient: Total time spent with greater than 50% in coordination of care (as documented) at patient's floor/unit and/or counseling patient:: 0
[2020-11-14] MEDS: Phenylephrine HCL 20 MG in 0.9 % Sodium Chloride 250 ML 41.88 MG IVCONT (13:00)
[2020-11-14 13:19] LABS: Basophils Absolute Auto 0.1 X10*3/uL (0.0-0.2); Basophils Percent Auto 0.2 % (0-2); Eosinophils Percent Auto 0.1 % (0-4); Hematocrit 21.3 % (37-47); Hemoglobin 7.1 g/dl (12.0-16.0); Imm Gran Pct Auto 4.2 % (0.0-0.4); Lymphocytes Absolute Auto 1.8 X10*3/uL (1.2-4.9); Lymphocytes Percent Auto 5.8 % (20-40); MANUAL DIFF FLAG SCAN; Mean Corpuscular HGB Conc 33.3 g/dl (31.0-35.0); Mean Corpuscular Hemoglobin 35.9 pg (27.0-33.0); Mean Corpuscular Volume 107.6 fL (80-98); Monocytes Absolute Auto 2.6 X10*3/uL (0.1-1.2); Monocytes Percent Auto 8.2 % (2-11); Neutrophils Absolute Auto 25.4 X10*3/uL (2.0-8.3); Neutrophils Percent Auto 81.5 % (45-73); Platelet Count 133 X10*3/uL (160-400); Red Blood Count 1.98 X10*6/uL (4.20-5.50); Red Cell Distribution Width 18.9 % (11.0-16.0); SCAN SMEAR FLAG 1
[2020-11-14 13:26] LABS: INTERNATIONAL NORM RATIO 2.6 (0.9-1.1); Prothrombin Time 31.6 SEC (10.8-13.0)
[2020-11-14] MEDS: Midodrine HCl 5 MG TABLET 10 MG PO (13:32)
[2020-11-14] MEDS: Aspirin Enteric Coated 81 MG TABLET.DR PO (13:33)
[2020-11-14] MEDS: Folic Acid 1 MG TABLET PO (13:34)
[2020-11-14] MEDS: Fludrocortisone Acetate 0.1 MG TABLET 0.2 MG PO (13:34)
[2020-11-14] MEDS: Hydrocortisone Sod Succ/PF 100 MG VIAL 50 MG IVPUSH (13:35)
[2020-11-14 13:38] LABS: White Blood Count 31.2 X10*3/uL (4.8-10.8)
[2020-11-14 13:46] LABS: Lactic Acid 9.4 mmol/L (0.5-2.0)
[2020-11-14 13:48] LABS: Alanine Aminotransferase 22 U/L (0-31); Albumin Level 3.3 g/dL (3.5-5.0); Alkaline Phosphatase 113 U/L (39-117); Anion Gap 28 (12-20); Aspartate Amino Transferase 85 U/L (5-31); Bilirubin Total 4.5 mg/dL (0.0-1.0); Blood Urea Nitrogen 29 mg/dL (9-16); C Reactive Protein 10.01 mg/dL (< or = 0.50); Calcium 7.3 mg/dL (8.4-10.2); Carbon Dioxide 17 mmol/L (22-29); Chloride 98 mmol/L (96-108); Creatinine Clr Calc Pharmacy 15.3; Estimated Glomerular Filt Rate 12; Glucose Random 20 mg/dL (60-115); Phosphorus 3.2 mg/dL (2.7-4.5); Potassium 2.9 mmol/L (3.3-5.1); Sodium 140 mmol/L (135-145); Total Protein 5.9 g/dL (6.5-8.0)
[2020-11-14 13:51] LABS: SLIDE REVIEW VERIFIED
[2020-11-14 13:56] LABS: B Type Natriuretic Peptide 2524 pg/mL (<100)
--- NOTE | 2020-11-14 13:58 | ECG_ITS ---
Test Reason : ELEVATED TROP Blood Pressure : / mmHG Vent. Rate : 104 BPM Atrial Rate : 104 BPM P-R Int : 114 ms QRS Dur : 072 ms QT Int : 344 ms P-R-T Axes : 077 043 202 degrees QTc Int : 452 ms Sinus tachycardia Low voltage QRS Septal infarct (cited on or before 11-FEB-2019) ST & T wave abnormality, consider inferolateral ischemia Abnormal ECG When compared with ECG of 12-NOV-2020 16:50, Lateral ST depression more prominent Referred By: Galdino Cueva Electronically Signed By:CHARLEY SCALES
--- NOTE | 2020-11-14 14:00 | CA_ITS ---
Transthoracic Echocardiogram Patient (Last, First, Middle): Willow Bhatt L Gender: Female Date of : 1980 Age: 39 Procedure Date: 11/14/2020 Procedure Type: Transthoracic Echocardiogram Location: ICU Height: 170.18 cm Weight: 55.34 kg BSA: 1.64 m2 Heart Rate: bpm BP: 91 / 41 mmHg [employer] Record Clerk: RACHEL Referring MD: Galdino Cueva Symptoms: Refractory hypotension with troponin bump Study Quality: Fair ECG Rhythm: Sinus Conclusions: - The left ventricular systolic function is severely decreased. The visually estimated ejection fraction is between 25-30%. - Wall motion abnormalities in the LAD territory. Findings Left Ventricle Normal left ventricular cavity size. The left ventricular systolic function is severely decreased. The visually estimated ejection fraction is between 25-30%. There is evidence of regional wall motion abnormalities. Wall Motion Rest Echo Findings The apical septum, mid inferoseptal, and mid anteroseptal segments are akinetic. 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 Prior Study Comparison No significant change compared to prior study dated: 11/13/2020. LVEF could be different due to difference in study quality as well as use of contrast in prior study with better endocardial definition. Measurements 2D Systolic Function EF 4C: 27.40 >55% EF 2C: 25.80 >55% EF BiP: 27.10 >55% Tricuspid Valve TR Pk Mohinder: 2.40 TR Pk Grad: 23.00 RA Press: 3.00 RVSP: 26.00 Updated in Other Vendor System with Status of Final Rashad Castaneda MD electronically signed on 11/14/2020 4:51:33 PM with status of Final
[2020-11-14 14:13] LABS: Glucose, Whole Blood 128 mg/dL (60-115)
[2020-11-14] MEDS: Midazolam HCl/PF 2 MG/2 ML VIAL IVPUSH (14:44)
[2020-11-14] MEDS: Ketamine HCl/NS 50 MG/5 ML SYRINGE IVPUSH (14:51)
[2020-11-14] MEDS: Rocuronium Bromide 50 MG/5 ML VIAL IVPUSH (14:52)
[2020-11-14 15:11] LABS: Reflex Lactate? Lactic Acid Added
[2020-11-14] MEDS: cefTRIAXone sodium 1 GM in 0.9 % Sodium Chloride 50 ML IV (15:38)
[2020-11-14] MEDS: 0.9 % Sodium Chloride Flush 3 ML SYRINGE IVFLUSH ×2 (15:45→21:28)
--- NOTE | 2020-11-14 16:01 | PC.NURSE ---
Pt transfered from I[facility] to ICU without incident, BP 62/36, pt alert and oriented, drowsy, MD aware, pt reports she has not voided all day, attempted to place lofton catheter, pt refused, md aware, bladder scanned for 094, md aware/ bps continue to trend 60s systollically, o2 sat trending 88-89%, pt reports she feels like she is going to pass out , aware, placed on 2l via nasal cannula, albumin x1 order recieved and hung, jojo drip stat ordered and hung, pt with poor iv access, md aware, jojo drip running through 20 in left EJ line, site monitored frequently, lab at bedside for lab draws, stat chest xray ordered/ critical labs reported to MD, stat dextrose given for glucose of 20, repeat blood sugar 120s, MD aware/ Critical troponin reported to MD, stat EKG ordered and done/ pt continues to be alert and oriented, drowsy, resistant to care, continues to refuse lofton catheter even after numerous attempts of education, md aware, critical lactic and creatinine reported to md lynn at bedside, bps continue to trend 50s-60s systollically/ decision made to intubate patient/levophed drip ordered and titrated per MD at bedside, levophed going through eg left ij for bps 50s, jojo turned off/ Versed, ketamine, noelle given prior to intubation, pt intuabted at 1454 with 7.5 et tube at 25 at the lip, started on propofol drip for sedation, restraints placed for patient safety, TLC placed to right SC , all drips changed to tlc, abx given late due to no IV access, hung once tlc placed.
[2020-11-14] MEDS: propofoL 1,000 MG/100 ML VIAL 6.65 MG IVCONT (16:15)
--- NOTE | 2020-11-14 16:29 | W.PM.CCHP ---
Procedures Intubation Intubation Comments: PROCEDURE NOTE: Emergent tracheal intubation. INDICATIONS: Hemodynamic collapse, procedural sedation. Anesthesia: Versed 2mg, ketamine 50 mg, Zemuron 50 mg, with Levophed running. Ms. Bhatt was brought down to the ICU because of hypotension. She would not let us place a Hernandez catheter or achieve IV access. She appeared severely ill and I was concerned that she was about to arrest. The patient agreed to let me put her to sleep to do what we needed to do. PROCEDURE: The patient was preoxygenated with a non-rebreather face mask on flush. RSI with the medications above. Direct laryngoscopy with a MAC 3 showed a clear view of the cords. She was intubated directly and atraumatically with a 7.5 endotracheal tube on the 1st attempt. There was good quantitative end-tidal CO2. Sat never dropped below 100%. No bradycardia or hypotension occurred. Follow-up chest x-ray showed the tube 1.8 cm above the lance , with the tube set at 25 cm at the upper lip. The patient paul the procedure well with no complications.
[2020-11-14 16:37] LABS: ABG Base Excess -12.7 mmol/L; ABG HCO3 16 mmol/L (22-26); ABG O2 % Saturation < 30.0 %; ABG pCO2 54 mmHg (32-45); ABG pCO2 TC 55 mmHg (32-45); ABG pH 7.09 (7.35-7.45); ABG pH TC 7.08 (7.35-7.45); ABG pO2 23 mmHg (83-108); ABG pO2 TC 24 (83-108)
[2020-11-14 16:40] LABS: VBG HCO3 14 mmol/L (22-26); VBG pCO2 38 mmHg; VBG pH 7.17 (7.32-7.43); VBG pO2 51 mmHg
[2020-11-14 16:55] LABS: ABG Base Excess -12.4 mmol/L; ABG HCO3 13 mmol/L (22-26); ABG pCO2 30 mmHg (32-45); ABG pCO2 TC 31 mmHg (32-45); ABG pH 7.24 (7.35-7.45); ABG pH TC 7.23 (7.35-7.45); ABG pO2 66 mmHg (83-108); ABG pO2 TC 70 (83-108)
[2020-11-14 17:01] LABS: Venous Blood Gas Refer to POC result
[2020-11-14 17:03] LABS: VBG Base Excess -12.4 mmol/L; VBG HCO3 14 mmol/L (22-26); VBG pCO2 35 mmHg; VBG pO2 45 mmHg
[2020-11-14 17:21] LABS: Glucose Urine UA NEG (NEG); Leukocyte Esterase Urine NEG (NEG); Nitrite Urine NEG (NEG); PH 5.5 (5.0-8.0); Specific Gravity - Urine 1.025 (1.005-1.025); Urine Blood TRACE (NEG); Urine Ketones NEG (NEG); Urine Protein 2+ MG/DL (NEG-TRACE)
[2020-11-14 17:22] LABS: Appearance Urine HAZY; Color Urine AMBER
[2020-11-14 17:42] LABS: Bacteria Urine 1+ /LPF; Squamous Epithelial Cell Urine 2+ /LPF; UACC CULT YES
[2020-11-14 17:45] LABS: Lactic Acid 12.2 mmol/L (0.5-2.0)
--- NOTE | 2020-11-14 18:03 | P.PNCC_ITS ---
Subjective Subjective Date of Service: 11/14/20 Interval History: Ms. Bhatt was admitted to ICU on the night of November 12 bec of hypovolemic shock. No evidence of sepsis. She was vol resuscitated and her BP celeste to her usual level. Her renal indices improved. (Note that she?d refused mult requests to allow a Hernandez catheter.) I transferred her [place] [facility] [place]. See my note from yesterday. The patient is a 39-year-old female with history of coronary artery disease status post STEMI 2018; post cath but no stents. Echo from 2019 revealed ischemic cardiomyopathy and an apical thrombus. She was treated with Coumadin. In July of last year, while on Coumadin, she had abnormal uterine bleeding, and the Coumadin was therefore discontinued. She also has chronic hypotension, chronic macrocytic anemia, h/o alcohol consumption and abuse without given diagnosis of cirrhosis. She is s/p cholecystectomy. Of note, I just spoke with her sister who told me that the patient drinks a lot, and doesn?t take care of herself. Two years ago, she had a similar episode where she was deathly ill. I was following up via chart review this morning. Her BP had dropped into the 60s this morning. I wrote for transfer back to the ICU. On arrival to the ICU a bit after noon, initial BP was 62/36. She was still fully A&O. She was tachypneic but nonlabored, Sat 90% on room air. Temp 99.5. Maybe 2cm JVD at 30?. Chest CTA. Abdomen soft, benign. No edema. We gave her a bolus of albumin and lakia labs. She was given 50mg hydrocortisone. Mult requests to allow a Hernandez catheter were refused. LABORATORY DATA: As below. Notably, white count came back 31, hemoglobin was down to 7.1, INR up to 2.6, BUN and creatinine up to 29/4.2, bicarb down to 17, potassium still low, phosphorus 3.2, glucose 20, T bili steady at 4.5, AST up to 85, CRP up to 10, PCT up to 8.8, troponin 1730, BNP 2500, and lactic acid 9.4. EKG showed Q-waves in V1 and V2 an ST T-wave depression in leads V4-V6 (NSCFPT). CXR shows new hazy opacification in both LLs, with loss of left hemidiaph contour. Could be pneumonia, could be CHF, altho I don?t see PVRD. I wrote her for ceftriaxone and 1 unit RBCs. Repeat ECHOCARDIOGRAM done at the bedside by the tech, interpreted by me: 1. Moderate LV dysfunction, with overall EF about 30%, looks slightly worse than yesterday. LV cavity looks slightly larger. Apical and septal akinesis, no change from yest. 2. RV cavity size is normal. ICU COURSE. I spent the entirety of over six hours with the patient. When it became clear that her condition was deteriorated, I told her that we would put her to sleep in order to do what we needed to do. She agreed to that. Marshall- Synephrine, and Levophed was started. The trachea was intubated (see separate procedure), without complications or hemodynamic deterioration. A central venous line was then placed. I echo?d the patient again after intubation. EF about 30%, right ventricle probably normal. Tricuspid jet measured 2 m/sec; gradient 16mm. IVC measured 2.28cm, with no insp collapse. CVP estimate 15mm (same as from CVL insertion). RVSP estimate 31mm. Mitral valve flow looks slow, with bubbles. Post intubation CXR showed no infiltrate on the right, but loss of the hemidiaphr contour on the left, w a hint of air bronchograms. She put out a brown diarrheal stool mixed with blood. Repeat lactate was 12. I discussed and examined the patient at the bedside with Dr. Hanna. With the patient up to Levophed 0.4 ug, an arterial line was placed (see separate procedure), an abd ominal CT was arranged for, and stool sent for Cdiff. IMPRESSION: 1. Severe shock. Cause remains unclear. UTI unlikely based on earlier u/a. Pneumonia unlikely based on lack of sx and CXR. Bacteremia certainly possible. Unlikely to be Staph. I?m covering her with ceftriaxone. CDiff is possible. CT abdomen pending, altho an intraabdom catastrophe is unlikely, based on exam. 2. Underlying CMOP, with new troponin bump, suggestive of NSTEMI. Discussed at length with Dr. Castaneda, who looked at the echos from today and yest. In his opinion, she has LAD occlusion and prob has new demand and low flow ischemia, but not a new lesion. She?s not a candidate for anticoagulation, aspirin, or statin. icious with continued vol resuscitation. As long as her BUN/creat are moving towards baseline, would not be aggressive with fluids. Cardiology might be helpful. 3. R/o adrenal insufficiency. Cortisol level sent, will take days to come back. Started on empiric hydrocortisone. 4. CANDICE, now worse 2? shock. She?s volume replete, based on echo. 5. Hypoalbuminemia and probably at least mild protein calorie malnutrition. 6. Probably underlying cirrhosis (elevated bili, elevated INR, low albumin). Hyperlactatemia is undoubtedly partly due to this, as is her chronic hypotension. 7. Anemia - r/o GI bleeding. OG aspirate is negative for any gross blood or coffee grounds. I?m not going to send her for a bleeding scan at this point. Transfuse 1 unit RBCs and follow. Critical care time (excluding procedures): 4+ hours. Physical Exam Vital Signs: Vital Signs: Last Vital Signs Temp 99.7 F 11/14/20 17:43 Pulse 109 H 11/14/20 18:01 Resp 33 H 11/14/20 17:43 BP 81/52 L 11/14/20 18:01 Pulse Ox 90 L 11/14/20 17:43 Body Mass Index 19.1 Objective Data Labs CBC & Chem 7: 11/14/20 19:55 11/14/20 19:55 Labs: Laboratory Results - last 24 hr 11/12/20 11/14/20 11/14/20 18:54 12:29 13:05 WBC 31.2 H* RBC 1.98 L Hgb 7.1 L Hct 21.3 L MCV 107.6 H MCH 35.9 H MCHC 33.3 RDW 18.9 H Plt Count 133 L MPV 11.0 Immature Gran % (Auto) 4.2 H Neut % (Auto) 81.5 H Lymph % (Auto) 5.8 L Jessamine % (Auto) 8.2 Eos % (Auto) 0.1 Baso % (Auto) 0.2 Lymph # (Auto) 1.8 Jessamine # (Auto) 2.6 H Eos # (Auto) 0.0 Baso # (Auto) 0.1 Abs Immat Gran (auto) 1.30 H Absolute Neuts (auto) 25.4 H Absolute Nucleated RBC 0.000 Nucleated RBC % (auto) 0.0 Smear Tech's Comments VERIFIED PT INR O2 Saturation ABG pH at Pt Temp ABG pH (Temp Correct) ABG pCO2 at Pt Temp ABG pCO2 (Temp Corrct ABG pO2 at Pt Temp ABG pO2 (Temp Correct ABG HCO3 ABG Base Excess (Actual) VBG pH VBG pCO2 VBG pO2 VBG HCO3 VBG O2 Saturation VBG Base Excess Sodium 140 Potassium 2.9 L Chloride 98 Carbon Dioxide 17 L Anion Gap 28 H BUN 29 H Creatinine 4.26 H* Estim Creat Clear Calc 15.3 Estimated GFR 12 POC Glucose Random Glucose 20 L* Lactic Acid Calcium 7.3 L Phosphorus 3.2 Magnesium 2.0 Total Bilirubin 4.5 H AST 85 H ALT 22 Alkaline Phosphatase 113 D Troponin I High Sens C-Reactive Protein 10.01 H B-Natriuretic Peptide Total Protein 5.9 L Albumin 3.3 L Procalcitonin Urine Color Urine Appearance Urine pH Ur Specific Frederick Urine Protein Urine Glucose (UA) Urine Ketones Urine Blood Urine Nitrite Ur Leukocyte Esterase Urine RBC Urine WBC Ur Squamous Epith Cells Urine Bacteria Blood Type O Positive Antibody Screen NEGATIVE Crossmatch See Detail 11/14/20 11/14/20 11/14/20 13:05 13:05 13:06 WBC RBC Hgb Hct MCV MCH MCHC RDW Plt Count MPV Immature Gran % (Auto) Neut % (Auto) Lymph % (Auto) Jessamine % (Auto) Eos % (Auto) Baso % (Auto) Lymph # (Auto) Jessamine # (Auto) Eos # (Auto) Baso # (Auto) Abs Immat Gran (auto) Absolute Neuts (auto) Absolute Nucleated RBC Nucleated RBC % (auto) Smear Tech's Comments PT 31.6 H D INR 2.6 H O2 Saturation ABG pH at Pt Temp ABG pH (Temp Correct) ABG pCO2 at Pt Temp ABG pCO2 (Temp Corrct ABG pO2 at Pt Temp ABG pO2 (Temp Correct ABG HCO3 ABG Base Excess (Actual) VBG pH VBG pCO2 VBG pO2 VBG HCO3 VBG O2 Saturation VBG Base Excess Sodium Potassium Chloride Carbon Dioxide Anion Gap BUN Creatinine Estim Creat Clear Calc Estimated GFR POC Glucose Random Glucose Lactic Acid 9.4 H* Calcium Phosphorus Magnesium Total Bilirubin AST ALT Alkaline Phosphatase Troponin I High Sens 1734.1 H D C-Reactive Protein B-Natriuretic Peptide 2524 H Total Protein Albumin Procalcitonin Urine Color Urine Appearance Urine pH Ur Specific Frederick Urine Protein Urine Glucose (UA) Urine Ketones Urine Blood Urine Nitrite Ur Leukocyte Esterase Urine RBC Urine WBC Ur Squamous Epith Cells Urine Bacteria Blood Type Antibody Screen Crossmatch 11/14/20 11/14/20 11/14/20 13:06 14:08 16:29 WBC RBC Hgb Hct MCV MCH MCHC RDW Plt Count MPV Immature Gran % (Auto) Neut % (Auto) Lymph % (Auto) Jess[place] % (Auto) Eos % (Auto) Baso % (Auto) Lymph # (Auto) Jess[place] # (Auto) Eos # (Auto) Baso # (Auto) Abs Immat Gran (auto) Absolute Neuts (auto) Absolute Nucleated RBC Nucleated RBC % (auto) Smear Tech's Comments PT INR O2 Saturation < 30.0 ABG pH at Pt Temp 7.09 L* ABG pH (Temp Correct) 7.08 L* ABG pCO2 at Pt Temp 54 H ABG pCO2 (Temp Corrct 55 H ABG pO2 at Pt Temp 23 L* ABG pO2 (Temp Correct 24 L* ABG HCO3 16 L ABG Base Excess (Actual) -12.7 VBG pH VBG pCO2 VBG pO2 VBG HCO3 VBG O2 Saturation VBG Base Excess Sodium Potassium Chloride Carbon Dioxide Anion Gap BUN Creatinine Estim Creat Clear Calc Estimated GFR POC Glucose 128 H Random Glucose Lactic Acid Calcium Phosphorus Magnesium Total Bilirubin AST ALT Alkaline Phosphatase Troponin I High Sens C-Reactive Protein B-Natriuretic Peptide Total Protein Albumin Procalcitonin 8.80 Urine Color Urine Appearance Urine pH Ur Specific Frederick Urine Protein Urine Glucose (UA) Urine Ketones Urine Blood Urine Nitrite Ur Leukocyte Esterase Urine RBC Urine WBC Ur Squamous Epith Cells Urine Bacteria Blood Type Antibody Screen Crossmatch 11/14/20 11/14/20 11/14/20 16:33 16:34 16:34 WBC RBC Hgb Hct MCV MCH MCHC RDW Plt Count MPV Immature Gran % (Auto) Neut % (Auto) Lymph % (Auto) Jessamine % (Auto) Eos % (Auto) Baso % (Auto) Lymph # (Auto) Jess[place] # (Auto) Eos # (Auto) Baso # (Auto) Abs Immat Gran (auto) Absolute Neuts (auto) Absolute Nucleated RBC Nucleated RBC % (auto) Smear Tech's Comments PT INR O2 Saturation ABG pH at Pt Temp ABG pH (Temp Correct) ABG pCO2 at Pt Temp ABG pCO2 (Temp Corrct ABG pO2 at Pt Temp ABG pO2 (Temp Correct ABG HCO3 ABG Base Excess (Actual) VBG pH 7.17 L* VBG pCO2 38 VBG pO2 51 VBG HCO3 14 L VBG O2 Saturation 67.0 VBG Base Excess -13.0 Sodium Potassium Chloride Carbon Dioxide Anion Gap BUN Creatinine Estim Creat Clear Calc Estimated GFR POC Glucose Random Glucose Lactic Acid 12.2 H* Calcium Phosphorus Magnesium Total Bilirubin AST ALT Alkaline Phosphatase Troponin I High Sens 3635.0 H D C-Reactive Protein B-Natriuretic Peptide Total Protein Albumin Procalcitonin Urine Color Urine Appearance Urine pH Ur Specific Frederick Urine Protein Urine Glucose (UA) Urine Ketones Urine Blood Urine Nitrite Ur Leukocyte Esterase Urine RBC Urine WBC Ur Squamous Epith Cells Urine Bacteria Blood Type Antibody Screen Crossmatch 11/14/20 11/14/20 11/14/20 16:48 16:56 17:03 WBC RBC Hgb Hct MCV MCH MCHC RDW Plt Count MPV Immature Gran % (Auto) Neut % (Auto) Lymph % (Auto) Jess[place] % (Auto) Eos % (Auto) Baso % (Auto) Lymph # (Auto) [place] # (Auto) Eos # (Auto) Baso # (Auto) Abs Immat Gran (auto) Absolute Neuts (auto) Absolute Nucleated RBC Nucleated RBC % (auto) Smear Tech's Comments PT INR O2 Saturation 85.0 ABG pH at Pt Temp 7.24 L ABG pH (Temp Correct) 7.23 L ABG pCO2 at Pt Temp 30 L ABG pCO2 (Temp Corrct 31 L ABG pO2 at Pt Temp 66 L ABG pO2 (Temp Correct 70 L ABG HCO3 13 L ABG Base Excess (Actual) -12.4 VBG pH 7.20 L* VBG pCO2 35 VBG pO2 45 VBG HCO3 14 L VBG O2 Saturation 59.0 VBG Base Excess -12.4 Sodium Potassium Chloride Carbon Dioxide Anion Gap BUN Creatinine Estim Creat Clear Calc Estimated GFR POC Glucose Random Glucose Lactic Acid Calcium Phosphorus Magnesium Total Bilirubin AST ALT Alkaline Phosphatase Troponin I High Sens C-Reactive Protein B-Natriuretic Peptide Total Protein Albumin Procalcitonin Urine Color GABRIEL Urine Appearance HAZY Urine pH 5.5 Ur Specific Frederick 1.025 Urine Protein 2+ H Urine Glucose (UA) NEG Urine Ketones NEG Urine Blood TRACE Urine Nitrite NEG Ur Leukocyte Esterase NEG Urine RBC 5-9 H Urine WBC 10-14 H Ur Squamous Epith Cells 2+ Urine Bacteria 1+ Blood Type Antibody Screen Crossmatch Microbiology Microbiology Results: Microbiology 11/12/20 17:41 Blood - Venous Blood Culture - Preliminary No growth after 24 hours. 11/12/20 17:03 Blood - Venous Blood Culture - Preliminary No growth after 24 hours. Progress Note: A&P Time Spent With Patient Time: Total time spent is greater than 50% in coordination of care (as documented) at patient's floor/unit and/or counseling patient: Total time spent with greater than 50% in coordination of care (as documented) at patient's floor/unit and/or counseling patient:: 0
--- NOTE | 2020-11-14 18:03 | W.PM.CCHP ---
Procedures Central Line Placement Right SC: Central Line Comments: PROCEDURE: Insertion right subclavian central venous line. INDICATION: Shock. For IV access; blood draws, respiratory monitoring. ANESTHESIA: Local plus propofol infusion. PROCEDURE: Vascular ultrasound was used to examine the right side. A large compressible SCL vein was noted and confirmed by color alfred Doppler. The right subclavian area was widely prepped and draped in full sterile fashion. Local anesthesia was applied to the entrance site. The right subclavian vein was again identified by sterile US, and cannulated on the 1st pass of the 18 gauge thin wall under direct US guidance. The wire was threaded without incident. A 7 [place] by 16 cm triple-lumen catheter was advanced into the vein up to the hub via the Seldinger technique without incident. There was good blood return x3. The catheter was sutured x3 and a Biopatch and dry sterile dressing were applied. Postop chest x-ray showed the line in good position with no pneumothorax. The patient tolerated the procedure well w no complications. Consent for Procedure: Emergent-no informed consent obtained
[2020-11-14] MEDS: Sodium Bicarbonate 8.4% 50 MEQ/50 ML VIAL IVPUSH ×2 (18:22→18:30)
--- NOTE | 2020-11-14 18:27 | P.CONGS_ITS ---
History of Present Illness Consult details Consult date: 11/14/20 Narrative: 39-year-old female referred to me because of lactic acidosis. She was admitted to the hospital on November 12, 2020 because of hypotension, altered mental status with a lactate of 6. Apparently, she had stated she has had some dry heaving, nausea no obvious vomiting and has had poor oral intake. It was thought that her acidosis was likely secondary to recent so she was aggressively hydrated with IV fluids. Her lactate went down to 1.7. However, this morning, she was again noted to be very hypotensive. She was transferred back to the intensive care unit. She eventually required intubation for hypertension with altered mental status. Her lactate has been coming back up again this is now. Her kidney kidney function has been worsening as well. In the absence of any obvious etiology for her lactic acidosis by the trimming department blocker to evaluate her. She is currently on high-dose pressors and remains hypotensive. She now has mottling of her skin. She did not complain of any abdominal pain earlier today nor on admission. Her abdominal exam was also seemed to be very benign according to the trimming department blocker. Review of Systems Review of Systems: Yes Unobtainable due to mental condition [facility] Past Medical History Medical History (Updated 11/14/20 @ 18:31 by Franky Hanna MD) Hypotension Ischemic cardiomyopathy Lactic acidosis Myocardial infarction Old anterior wall myocardial infarction Family History Family History Mother Myocardial infarct Surgical History Surgical History History of cholecystectomy Social History Social History Alcohol intake: current Smoking Status: Heavy tobacco smoker Use of substances other than those prescribed or required for medical reasons: No Currently Displaying Signs/Symptoms of Drug Intoxication Withdrawal: No Advance Directives: No Advance Directives Information Provided: Yes Do you have thoughts of harming others: None Do you have a plan to hurt others: No Plan service: No Current occupational status: previously employed Meds Allergies Allergy/AdvReac Type Severity Reaction Status Date / Time No Known Allergies Allergy Verified 11/12/20 16:36 Active Medications: Current Medications Generic Name Dose Route Start Last Admin Trade Name Freq PRN Reason Stop Dose Admin Fludrocortisone Acetate 0.2 mg 11/14/20 10:35 11/14/20 13:34 Fludrocortisone Acetate 0.1 Mg Tablet PO 0.2 mg DAILY LOC Administration Epinephrine 5 mg/ Dextrose 255 mls @ 0 mls/hr 11/14/20 14:30 IVCONT .Q0M LOC Protocol Per Protocol Norepinephrine Bitartrate 8 mg in 250 mls @ 0 mls/hr 11/14/20 14:48 11/14/20 18:01 Levophed IVCONT 0.4 mcg/kg/min .Q0M LOC 41.55 mls/hr Titration Protocol Per Protocol Propofol 1,000 mg in 100 mls @ 0 mls/hr 11/14/20 15:00 11/14/20 16:15 Diprivan IVCONT 20 mcg/kg/min .Q0M LOC 6.65 mls/hr Administration Protocol Per Protocol Sodium Chloride 3 ml 11/13/20 00:00 11/14/20 15:45 0.9 % Sodium Chloride Flush 3 Ml Syringe IVFLUSH 3 ml QSHIFT LOC Administration Thiamine HCl 100 mg 11/15/20 09:00 Thiamine Hcl 200 Mg/2 Ml Vial IVPUSH DAILY [facility] Home Medications Medication Instructions Recorded Confirmed Last Taken Type aspirin 1 tab PO DAILY 07/17/20 11/12/20 Unknown History digoxin 1 tab PO DAILY 07/17/20 11/12/20 Unknown History folic acid 1 tab PO DAILY 07/17/20 11/12/20 Unknown History gabapentin 1 cap PO BID 07/17/20 11/12/20 Unknown History potassium chloride 1 tab PO BID 07/17/20 11/12/20 Unknown History sacubitril-valsartan [Entresto] 1 tab PO BID 07/17/20 11/12/20 Unknown History thiamine HCl (vitamin B1) [Vitamin 1 tab PO DAILY 07/17/20 11/12/20 Unknown History B-1] Physical Exam Vital Signs: Vital Signs: Last Vital Signs Temp 99.7 F 11/14/20 18:26 Pulse 120 H 11/14/20 18:26 Resp 28 H 11/14/20 18:26 BP 81/54 L 11/14/20 18:26 Pulse Ox 90 L 11/14/20 17:43 Body Mass Index 19.1 Const: Other: Intubated Resp: Other: On the ventilator, appears to have good air entry bilaterally Cardio: Rhythm: regular rhythm GI: Inspection: No distended Palpation (GI): Soft to palpation, not firm and no guarding Results Labs Result diagrams: 11/15/20 05:23 11/15/20 05:23 Labs: Abnormal lab results 11/12/20 11/14/20 11/14/20 Range/Units 18:54 12:29 13:05 WBC 31.2 H* (4.8-10.8) X10*3/uL RBC 1.98 L (4.20-5.50) X10*6/uL Hgb 7.1 L (12.0-16.0) g/dl Hct 21.3 L (37-47) % MCV 107.6 H (80-98) fL MCH 35.9 H (27.0-33.0) pg RDW 18.9 H (11.0-16.0) % Plt Count 133 L (160-400) X10*3/uL Immature Gran % (Auto) 4.2 H (0.0-0.4) % Neut % (Auto) 81.5 H (45-73) % Lymph % (Auto) 5.8 L (20-40) % [place] # (Auto) 2.6 H (0.1-1.2) X10*3/uL Abs Immat Gran (auto) 1.30 H (0.00-0.03) X10*3/uL Absolute Neuts (auto) 25.4 H (2.0-8.3) X10*3/uL PT (10.8-13.0) SEC INR (0.9-1.1) ABG pH at Pt Temp (7.35-7.45) ABG pH (Temp Correct) (7.35-7.45) ABG pCO2 at Pt Temp (32-45) mmHg ABG pCO2 (Temp Corrct (32-45) mmHg ABG pO2 at Pt Temp (83-108) mmHg ABG pO2 (Temp Correct (83-108) ABG HCO3 (22-26) mmol/L VBG pH (7.32-7.43) VBG HCO3 (22-26) mmol/L Potassium 2.9 L (3.3-5.1) mmol/L Carbon Dioxide 17 L (22-29) mmol/L Anion Gap 28 H (12-20) BUN 29 H (9-16) mg/dL Creatinine 4.26 H* (0.5-1.4) mg/dL POC Glucose (60-115) mg/dL Random Glucose 20 L* (60-115) mg/dL Lactic Acid (0.5-2.0) mmol/L Calcium 7.3 L (8.4-10.2) mg/dL Total Bilirubin 4.5 H (0.0-1.0) mg/dL AST 85 H (5-31) U/L Troponin I High Sens (<3.5-17.0) ng/L C-Reactive Protein 10.01 H (< or = 0.50) mg/dL B-Natriuretic Peptide (<100) pg/mL Total Protein 5.9 L (6.5-8.0) g/dL Albumin 3.3 L (3.5-5.0) g/dL Urine Protein (NEG-TRACE) MG/DL Urine RBC (0) /HPF Urine WBC (0-4) /HPF Crossmatch See Detail 11/14/20 11/14/20 11/14/20 Range/Units 13:05 13:05 13:06 WBC (4.8-10.8) X10*3/uL RBC (4.20-5.50) X10*6/uL Hgb (12.0-16.0) g/dl Hct (37-47) % MCV (80-98) fL MCH (27.0-33.0) pg RDW (11.0-16.0) % Plt Count (160-400) X10*3/uL Immature Gran % (Auto) (0.0-0.4) % Neut % (Auto) (45-73) % Lymph % (Auto) (20-40) % [place] # (Auto) (0.1-1.2) X10*3/uL Abs Immat Gran (auto) (0.00-0.03) X10*3/uL Absolute Neuts (auto) (2.0-8.3) X10*3/uL PT 31.6 H D (10.8-13.0) SEC INR 2.6 H (0.9-1.1) ABG pH at Pt Temp (7.35-7.45) ABG pH (Temp Correct) (7.35-7.45) ABG pCO2 at Pt Temp (32-45) mmHg ABG pCO2 (Temp Corrct (32-45) mmHg ABG pO2 at Pt Temp (83-108) mmHg ABG pO2 (Temp Correct (83-108) ABG HCO3 (22-26) mmol/L VBG pH (7.32-7.43) VBG HCO3 (22-26) mmol/L Potassium (3.3-5.1) mmol/L Carbon Dioxide (22-29) mmol/L Anion Gap (12-20) BUN (9-16) mg/dL Creatinine (0.5-1.4) mg/dL POC Glucose (60-115) mg/dL Random Glucose (60-115) mg/dL Lactic Acid 9.4 H* (0.5-2.0) mmol/L Calcium (8.4-10.2) mg/dL Total Bilirubin (0.0-1.0) mg/dL AST (5-31) U/L Troponin I High Sens 1734.1 H D (<3.5-17.0) ng/L C-Reactive Protein (< or = 0.50) mg/dL B-Natriuretic Peptide 2524 H (<100) pg/mL Total Protein (6.5-8.0) g/dL Albumin (3.5-5.0) g/dL Urine Protein (NEG-TRACE) MG/DL Urine RBC (0) /HPF Urine WBC (0-4) /HPF Crossmatch 11/14/20 11/14/20 11/14/20 Range/Units 14:08 16:29 16:33 WBC (4.8-10.8) X10*3/uL RBC (4.20-5.50) X10*6/uL Hgb (12.0-16.0) g/dl Hct (37-47) % MCV (80-98) fL MCH (27.0-33.0) pg RDW (11.0-16.0) % Plt Count (160-400) X10*3/uL Immature Gran % (Auto) (0.0-0.4) % Neut % (Auto) (45-73) % Lymph % (Auto) (20-40) % [place] # (Auto) (0.1-1.2) X10*3/uL Abs Immat Gran (auto) (0.00-0.03) X10*3/uL Absolute Neuts (auto) (2.0-8.3) X10*3/uL PT (10.8-13.0) SEC INR (0.9-1.1) ABG pH at Pt Temp 7.09 L* (7.35-7.45) ABG pH (Temp Correct) 7.08 L* (7.35-7.45) ABG pCO2 at Pt Temp 54 H (32-45) mmHg ABG pCO2 (Temp Corrct 55 H (32-45) mmHg ABG pO2 at Pt Temp 23 L* (83-108) mmHg ABG pO2 (Temp Correct 24 L* (83-108) ABG HCO3 16 L (22-26) mmol/L VBG pH 7.17 L* (7.32-7.43) VBG HCO3 14 L (22-26) mmol/L Potassium (3.3-5.1) mmol/L Carbon Dioxide (22-29) mmol/L Anion Gap (12-20) BUN (9-16) mg/dL Creatinine (0.5-1.4) mg/dL POC Glucose 128 H (60-115) mg/dL Random Glucose (60-115) mg/dL Lactic Acid (0.5-2.0) mmol/L Calcium (8.4-10.2) mg/dL Total Bilirubin (0.0-1.0) mg/dL AST (5-31) U/L Troponin I High Sens (<3.5-17.0) ng/L C-Reactive Protein (< or = 0.50) mg/dL B-Natriuretic Peptide (<100) pg/mL Total Protein (6.5-8.0) g/dL Albumin (3.5-5.0) g/dL Urine Protein (NEG-TRACE) MG/DL Urine RBC (0) /HPF Urine WBC (0-4) /HPF Crossmatch 11/14/20 11/14/20 11/14/20 Range/Units 16:34 16:34 16:48 WBC (4.8-10.8) X10*3/uL RBC (4.20-5.50) X10*6/uL Hgb (12.0-16.0) g/dl Hct (37-47) % MCV (80-98) fL MCH (27.0-33.0) pg RDW (11.0-16.0) % Plt Count (160-400) X10*3/uL Immature Gran % (Auto) (0.0-0.4) % Neut % (Auto) (45-73) % Lymph % (Auto) (20-40) % [place] # (Auto) (0.1-1.2) X10*3/uL Abs Immat Gran (auto) (0.00-0.03) X10*3/uL Absolute Neuts (auto) (2.0-8.3) X10*3/uL PT (10.8-13.0) SEC INR (0.9-1.1) ABG pH at Pt Temp 7.24 L (7.35-7.45) ABG pH (Temp Correct) 7.23 L (7.35-7.45) ABG pCO2 at Pt Temp 30 L (32-45) mmHg ABG pCO2 (Temp Corrct 31 L (32-45) mmHg ABG pO2 at Pt Temp 66 L (83-108) mmHg ABG pO2 (Temp Correct 70 L (83-108) ABG HCO3 13 L (22-26) mmol/L VBG pH (7.32-7.43) VBG HCO3 (22-26) mmol/L Potassium (3.3-5.1) mmol/L Carbon Dioxide (22-29) mmol/L Anion Gap (12-20) BUN (9-16) mg/dL Creatinine (0.5-1.4) mg/dL POC Glucose (60-115) mg/dL Random Glucose (60-115) mg/dL Lactic Acid 12.2 H* (0.5-2.0) mmol/L Calcium (8.4-10.2) mg/dL Total Bilirubin (0.0-1.0) mg/dL AST (5-31) U/L Troponin I High Sens 3635.0 H D (<3.5-17.0) ng/L C-Reactive Protein (< or = 0.50) mg/dL B-Natriuretic Peptide (<100) pg/mL Total Protein (6.5-8.0) g/dL Albumin (3.5-5.0) g/dL Urine Protein (NEG-TRACE) MG/DL Urine RBC (0) /HPF Urine WBC (0-4) /HPF Crossmatch 11/14/20 11/14/20 Range/Units 16:56 17:03 WBC (4.8-10.8) X10*3/uL RBC (4.20-5.50) X10*6/uL Hgb (12.0-16.0) g/dl Hct (37-47) % MCV (80-98) fL MCH (27.0-33.0) pg RDW (11.0-16.0) % Plt Count (160-400) X10*3/uL Immature Gran % (Auto) (0.0-0.4) % Neut % (Auto) (45-73) % Lymph % (Auto) (20-40) % [place] # (Auto) (0.1-1.2) X10*3/uL Abs Immat Gran (auto) (0.00-0.03) X10*3/uL Absolute Neuts (auto) (2.0-8.3) X10*3/uL PT (10.8-13.0) SEC INR (0.9-1.1) ABG pH at Pt Temp (7.35-7.45) ABG pH (Temp Correct) (7.35-7.45) ABG pCO2 at Pt Temp (32-45) mmHg ABG pCO2 (Temp Corrct (32-45) mmHg ABG pO2 at Pt Temp (83-108) mmHg ABG pO2 (Temp Correct (83-108) ABG HCO3 (22-26) mmol/L VBG pH 7.20 L* (7.32-7.43) VBG HCO3 14 L (22-26) mmol/L Potassium (3.3-5.1) mmol/L Carbon Dioxide (22-29) mmol/L Anion Gap (12-20) BUN (9-16) mg/dL Creatinine (0.5-1.4) mg/dL POC Glucose (60-115) mg/dL Random Glucose (60-115) mg/dL Lactic Acid (0.5-2.0) mmol/L Calcium (8.4-10.2) mg/dL Total Bilirubin (0.0-1.0) mg/dL AST (5-31) U/L Troponin I High Sens (<3.5-17.0) ng/L C-Reactive Protein (< or = 0.50) mg/dL B-Natriuretic Peptide (<100) pg/mL Total Protein (6.5-8.0) g/dL Albumin (3.5-5.0) g/dL Urine Protein 2+ H (NEG-TRACE) MG/DL Urine RBC 5-9 H (0) /HPF Urine WBC 10-14 H (0-4) /HPF Crossmatch Short CBC 11/14/20 Range/Units 13:05 WBC 31.2 H* (4.8-10.8) X10*3/uL Hgb 7.1 L (12.0-16.0) g/dl Hct 21.3 L (37-47) % Plt Count 133 L (160-400) X10*3/uL BMP 11/14/20 12:29 Sodium 140 Potassium 2.9 L Chloride 98 Carbon Dioxide 17 L BUN 29 H Creatinine 4.26 H* Calcium 7.3 L Liver Function 11/14/20 Range/Units 12:29 Total Bilirubin 4.5 H (0.0-1.0) mg/dL AST 85 H (5-31) U/L ALT 22 (0-31) U/L Alkaline Phosphatase 113 D (39-117) U/L Albumin 3.3 L (3.5-5.0) g/dL Urine 11/12/20 11/13/20 11/14/20 Range/Units 05:45 05:45 17:03 Urine Color YELLOW GABRIEL Urine Appearance CLEAR HAZY Urine pH 6.0 5.5 (5.0-8.0) Ur Specific [place] <= 1.005 1.025 (1.005-1.025) Urine Protein NEG 2+ H (NEG-TRACE) MG/DL Urine Glucose (UA) NEG NEG (NEG) MG/DL Urine Test NEGATIVE (NEGATIVE) All other labs normal. Assessment and Plan (1) Lactic acidosis: Status: Acute She has had worsening lactic acidosis. She does not present with any significant abdominal tenderness or pain. Her abdominal exam this morning was benign. Current exam shows that her abdomen is soft and nondistended that any guarding. In the absence of any other obvious etiology for her lactic acidosis, I recommended to the trimming department blocker to go ahead with a CAT scan even without contrast . She has worsening renal function so she is unable to take IV contrast. She has multi organ failure at this time. He creatinine is now at 4, and her bilirubin is up to 4 as well. She is also in respiratory failure. She does have a significant cardiac history as well. She is currently requiring pressors although her EF seems to be at 35%. She does have significant mottling of the skin. Her prognosis appears to be grim at this time.
[2020-11-14 18:30] LABS: Cancel Lactic Acid Canceled
--- NOTE | 2020-11-14 18:32 | PM.CNNEP ---
History of Present Illness Reason for Consult Consult date: 11/14/20 Reason for consult: CANDICE Chief Complaint Chief complaint: CANDICE History of Present Illness Narrative: Renal Consult Initially I was called to c 11/13/20 to see by the hospitalist but ICU cancelled the cons as her CANDICE and UOP were repsonding to IVF c/w dehydration and ARB cauing CANDICE. She was then transferred to the floor and she was doing better but remained with the low blood pressures. Reviewing the records she tends to run low blood pressure supposed to start opening the 90s. 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 On the floor she was noted again to have worsening low blood pressure's Despite majored in having been added to her medication's on the floor. She was noted to have a persistent low blood pressures and was transferred back to the ICU this afternoon. When I saw her earlier this morning she had no specific complaints. She tells me that she was doing OK and the time she feels worse than she does right now. She tells me she's been making urine. and feeling better than yesterday. In addition to midridine she was started on florinf and after getting a random cortisol she was given iv hydrocortisne x 1. No CP/SOB. No GH/dysuria. Her CANDICE actually was improving btn adm and 11/13 but now after xfer to ICU she has severely decompensated and has severe CANDICE, lactic acidosis, resp failure. Review of Systems Review of Systems Gen: no fever Resp: no sob, no cough CV: no chest, no [place] CRUZ, no leg edema GI: No n/v, no abd pain Neuro: No confusion Yes all other systems are reviewed and are negative Cardiovascular: Reports as per HPI, Reports no additional cardiovascular complaints, Denies acrocyanosis, Denies cool extremities, Denies painful fingertips, Denies chest pain, Denies chest pain at rest, Denies diaphoresis, Denies syncope, Denies irregular heart rhythm, Denies claudication, Denies leg edema, Denies lightheadedness, Denies palpitations and Denies dyspnea Respiratory: Denies dyspnea Denies syncope Endocrine: Denies palpitations [facility] Past Medical History Medical History (Updated 11/14/20 @ 18:31 by Franky Hanna MD) Hypotension Ischemic cardiomyopathy Lactic acidosis Myocardial infarction Old anterior wall myocardial infarction Family History Family History Mother Myocardial infarct Surgical History Surgical History History of cholecystectomy Social History Social History Alcohol intake: current Smoking Status: Heavy tobacco smoker Use of substances other than those prescribed or required for medical reasons: No Currently Displaying Signs/Symptoms of Drug Intoxication Withdrawal: No Advance Directives: No Advance Directives Information Provided: Yes Do you have thoughts of harming others: None Do you have a plan to hurt others: No Plan service: No Current occupational status: previously employed Meds Allergies Allergy/AdvReac Type Severity Reaction Status Date / Time No Known Allergies Allergy Verified 11/12/20 16:36 Active Medications: Current Medications Generic Name Dose Route Start Last Admin Trade Name Freq PRN Reason Stop Dose Admin Fludrocortisone Acetate 0.2 mg 11/14/20 10:35 11/14/20 13:34 Fludrocortisone Acetate 0.1 Mg Tablet PO 0.2 mg DAILY LOC Administration Epinephrine 5 mg/ Dextrose 255 mls @ 0 mls/hr 11/14/20 14:30 IVCONT .Q0M LOC Protocol Per Protocol Norepinephrine Bitartrate 8 mg in 250 mls @ 0 mls/hr 11/14/20 14:48 11/14/20 18:01 Levophed IVCONT 0.4 mcg/kg/min .Q0M LOC 41.55 mls/hr Titration Protocol Per Protocol Propofol 1,000 mg in 100 mls @ 0 mls/hr 11/14/20 15:00 11/14/20 16:15 Diprivan IVCONT 20 mcg/kg/min .Q0M LOC 6.65 mls/hr Administration Protocol Per Protocol Sodium Bicarbonate 50 meq 11/14/20 18:31 Sodium Bicarbonate 8.4% 50 Meq/50 Ml Vial IVPUSH 11/14/20 18:32 ONCE ONE Sodium Chloride 3 ml 11/13/20 00:00 11/14/20 15:45 0.9 % Sodium Chloride Flush 3 Ml Syringe IVFLUSH 3 ml QSHIFT LOC Administration Thiamine HCl 100 mg 11/15/20 09:00 Thiamine Hcl 200 Mg/2 Ml Vial IVPUSH DAILY [facility] Home Medications Medication Instructions Recorded Confirmed Last Taken Type aspirin 1 tab PO DAILY 07/17/20 11/12/20 Unknown History digoxin 1 tab PO DAILY 07/17/20 11/12/20 Unknown History folic acid 1 tab PO DAILY 07/17/20 11/12/20 Unknown History gabapentin 1 cap PO BID 07/17/20 11/12/20 Unknown History potassium chloride 1 tab PO BID 07/17/20 11/12/20 Unknown History sacubitril-valsartan [Entresto] 1 tab PO BID 07/17/20 11/12/20 Unknown History thiamine HCl (vitamin B1) [Vitamin 1 tab PO DAILY 07/17/20 11/12/20 Unknown History B-1] Physical Exam Vital Signs: Last Vital Signs Temp 99.7 F 11/14/20 18:26 Pulse 120 H 11/14/20 18:26 Resp 28 H 11/14/20 18:26 BP 81/54 L 11/14/20 18:26 Pulse Ox 90 L 11/14/20 17:43 Body Mass Index 19.1 Const General: cooperative, comfortable and no acute distress Orientation/consciousness: patient oriented x3 HENMT Other: Unremarkable Neck Neck: Yes normal visual inspection Chest Chest palpation & inspection: normal inspection of the chest Resp Auscultation: clear to auscultation bilaterally, no crackles and no wheezes Cardio Jugular venous distension: no JVD Palpation: normal PMI Heart sounds: S1 normal heart sound present, S2 normal heart sound present, no gallops, no murmurs and no rubs GI Palpation (GI): Soft to palpation Back/Spine/Pelvis Other: unremarkable Skin General skin exam: no rashes or lesions noted Neuro General: patient oriented x3 Extrem General: Yes no clubbing, cyanosis or edema Psych Mental Status: mental status grossly normal Results Lab Results Result Diagrams: 11/14/20 13:05 11/14/20 12:29 Lab results: Chemistry 11/12/20 11/12/20 11/12/20 17:41 17:41 18:08 Sodium Cancelled 141 Potassium Cancelled 2.8 L Carbon Dioxide Cancelled 28 BUN Cancelled 33 H D Creatinine Cancelled 3.76 H Calcium Cancelled 7.6 L D Phosphorus 2.5 L 11/12/20 11/13/20 11/13/20 20:54 05:35 15:20 Sodium 142 145 141 Potassium 2.9 L 2.5 L* 3.3 D Carbon Dioxide 23 31 H 21 L BUN 31 H 28 H 26 H Creatinine 3.19 H 2.51 H 2.35 H Calcium 6.7 L D 7.3 L D 7.4 L Phosphorus 3.5 11/14/20 12:29 Sodium 140 Potassium 2.9 L Carbon Dioxide 17 L BUN 29 H Creatinine 4.26 H* Calcium 7.3 L Phosphorus 3.2 Hematology 11/12/20 11/13/20 11/14/20 17:41 05:35 13:05 WBC 13.6 H 13.0 H 31.2 H* Hgb 7.8 L 8.0 L 7.1 L Plt Count 195 152 L 133 L Urinalysis 11/12/20 11/14/20 05:45 17:03 Urine Color YELLOW GABRIEL Urine Appearance CLEAR HAZY Urine pH 6.0 5.5 Ur Specific [place] <= 1.005 1.025 Urine Protein NEG 2+ H Urine Glucose (UA) NEG NEG Urine Ketones NEG NEG Urine Blood NEG TRACE Urine Nitrite NEG NEG Ur Leukocyte Esterase NEG NEG Urine RBC 5-9 H Urine WBC 10-14 H Ur Squamous Epith Cells 2+ Assessment and Plan (1) Hypotension: Status: Acute The patient is a 39-year-old female with history of coronary artery disease status post STEMI 2018; post cath but no stents. Echo from 2019 revealed ischemic cardiomyopathy and an apical thrombus. She was treated with Coumadin. In July of last year, while on Coumadin, she had abnormal uterine bleeding, and the Coumadin was therefore discontinued. She also has chronic hypotension, chronic macrocytic anemia, h/o alcohol consumption and abuse without given diagnosis of cirrhosis. Adm 11/12 with hypotension, anemia, CANDICE and initially responded to IVF and xfer to floor 11/13 and this am progressive severe hypotension refractory to midridne, ivf, florinef and iv hydrocortison and xfer to ICU severe decomp with severe lactic acidoiss, hypoxia, CANDICE 1. CANDICE: most c/w renal hypoperfusin/ischemic ATN and rsik for cortical necrosis; acute renal vein thrombosis or renal infarction a possibility but given INR 2.o makes the latter two possibilities unlikely; UA unimpressive but still given the severity of her state an underlyig RPGN/vasculitis should be r/o Acte Obs uropathy unlkely as she has a lofton but still needs imaging studies of kidneys ( U/S or CT) 2. Lactic acidosis: tissue hypoperfusion 3. Severe Hypotension of ? etoiol on chronically low BPs: clinically behaving as vasoplegic but has not been overtly septic on admission; card dysfunction or cardiac tamponade have been r/o by ECHO; severe RH failure/ massive PE again seems unliikely given INR 1.7-2.6 REC: check LDH level; cont aggressive TX to mainatin SBP > 90; track UOP; repeat urine studies; image kidneys ( abd CT vs renal U/S); no indication for HD yet but may need in next 12 to 24 hrs but may not tolerate intermittent HD; will follow morgan with team .
[2020-11-14 18:43] LABS: Hematocrit 18.8 % (37-47); Hemoglobin 6.2 g/dl (12.0-16.0)
[2020-11-14 18:45] LABS: Reflex Lactate? Lactic Acid Added
--- NOTE | 2020-11-14 18:55 | P.PCNCC_ITS ---
Procedures Arterial Line Arterial Line Comments: PROCEDURE: Insertion right femoral arterial line. Indications: Severe shock. Anesthesia: Local, plus propofol sedation. The right femoral artery was easily palp in the groin. The area was prepped and draped. The femoral artery was cannulated directly on the first pass with the 20 gauge thin wall and the wire advanced without incident. The arrow 20g x 12cm femoral arterial cannula was inserted via Seldinger technique without c omplications and sutured in place with 3-0 silk x 3. There was an excellent wave form. A biopatch and dry sterile dressing were applied. The patient tolerated the procedure well with no complications.
[2020-11-14] MEDS: Cisatracurium Besylate 20 MG/10 ML VIAL 10 MG IVPUSH (19:01)
[2020-11-14 19:45] LABS: CDIFF Ag Positive (Negative); CDiff Toxin Positive (Negative)
[2020-11-14 19:46] LABS: CDIFF Internal ctrl Dots and bkg OK (V)
--- NOTE | 2020-11-14 20:04 | PC.NURSE ---
TMAX 100.0 CORE RIVERA TEMP. SEDATED WITH PROPOFOL. PUPILS LARGE - 5MM AND REACTIVE, SCLERA YELLOW IN CORNERS (MD NOTIFIED), VERY WEAK COUGH AND GAG. DOES NOT FOLLOW COMMANDS. LEVOPHED GTT SET AT 0.4 MCG/KG/MIN PER MD FOR BP SUPPORT. DOMITILA PLACED IN RIGHT FEMORAL, INITALLY READING WAS SIGNIFICANTLY HIGHER IN DOMITILA (SBP 140S) VS MANUAL BP (SBP 80-90S). MD AWARE. EVENTUALLY BOTH DOMITILA AND MANUAL READINGS WERE SIMILAR. MD AWARE. SODIUM BICARB 50 MEQ X 2 ADMINISTERED DURING DOMITILA PLACEMENT PER MD. VENT FI02 INCREASED TO 60% TO MAINTAIN 02 > 90%. OG TUBE ADVANCED PER MD. STAT ABD CT ORDERED. NIMBEX PER OCT GIVEN PRIOR TO TRANSPORT. PA, RT, RN, AND TECH USED TO TRANSPORT FOR SAFETY. SURGEON CONSULTED DIRECTLY BY MD AND ARRIVED BEDSIDE. ABDOMEN SOFT WITH HYPOACTIVE BOWEL SOUNDS UPON ASSESSMENT. RBC X 1 ADMINISTERED. NOT REACTION NOTED. STOOL NOTED TO HAVE SLIGHT BLOOD TINGE AND STRONG ODOR. MD NOTIFIED. STOOL AND URINE SAMPLE COLLECTED AND SENT TO LAB. NO INLINE SECRETIONS AT THIS TIME FOR SAMPLE. URINE OUTPUT FROM 3PM - 7PM WAS 95 ML OR DARK GABRIEL URINE. BATHED, Q2HR REPO, PREVALON INITIATED, BARRIER CREAM APPLIED, AIRLOSS BED IN PLACE. FAMILY UPDATED BY MD ON CRITICAL STATUS.
[2020-11-14 20:06] LABS: ABG Base Excess -13.5 mmol/L; ABG HCO3 14 mmol/L (22-26); ABG pCO2 37 mmHg (32-45); ABG pCO2 TC 38 mmHg (32-45); ABG pH 7.16 (7.35-7.45); ABG pH TC 7.16 (7.35-7.45); ABG pO2 99 mmHg (83-108); ABG pO2 TC 101 (83-108)
[2020-11-14 20:11] LABS: Hematocrit 27.6 % (37-47); Hemoglobin 9.2 g/dl (12.0-16.0); Mean Corpuscular HGB Conc 33.3 g/dl (31.0-35.0); Mean Corpuscular Hemoglobin 35.9 pg (27.0-33.0); Mean Corpuscular Volume 107.8 fL (80-98); Mean Platelet Volume 11.5 fL (9.4-12.3); NRBC Pct Auto 0.5 /100WBC (0.0-0.2); Platelet Count 134 X10*3/uL (160-400); Red Blood Count 2.56 X10*6/uL (4.20-5.50); Red Cell Distribution Width 18.5 % (11.0-16.0)
[2020-11-14 20:31] LABS: White Blood Count 42.9 X10*3/uL (4.8-10.8)
[2020-11-14] MEDS: Phytonadione (Vit K1) 10 MG in 0.9 % Sodium Chloride 50 ML 51 MG IV (20:34)
[2020-11-14] MEDS: Sodium Bicarbonate 8.4% 50 MEQ/50 ML VIAL 100 MEQ IVPUSH (20:34)
[2020-11-14] MEDS: Hydrocortisone Sod Succ/PF 100 MG VIAL IVPUSH (20:34)
[2020-11-14 20:45] LABS: ~Lactic Acid-LAB USE ONLY 13.9 mmol/L (0.5-2.0)
[2020-11-14 20:47] LABS: Alanine Aminotransferase 37 U/L (0-31); Albumin Level 3.5 g/dL (3.5-5.0); Alkaline Phosphatase 120 U/L (39-117); Aspartate Amino Transferase 180 U/L (5-31); Bilirubin Total 4.4 mg/dL (0.0-1.0); Blood Urea Nitrogen 30 mg/dL (9-16); Calcium 7.1 mg/dL (8.4-10.2); Creatinine Clr Calc Pharmacy 14.3; Estimated Glomerular Filt Rate 11; Glucose Random 32 mg/dL (60-115); Total Protein 6.4 g/dL (6.5-8.0)
[2020-11-14 20:51] LABS: Cancel Lactic Acid Canceled
[2020-11-14 20:51] LABS: Reflex Lactate? 2 N
[2020-11-14 20:53] LABS: Anion Gap 34 (12-20); Carbon Dioxide 15 mmol/L (22-29); Chloride 98 mmol/L (96-108); Sodium 143 mmol/L (135-145)
[2020-11-14 21:01] LABS: Band Neutrophils Percent 17 % (3-5); Lymphocytes Absolute Manual 1.7 X10*3/uL (0.6-4.8); Lymphocytes Percent Manual 4 % (20-40); Metamyelocytes Absolute 1.7 X10*3/uL; Metamyelocytes Percent 4 %; Monocytes Absolute Manual 1.3 X10*3/uL (0.0-1.2); Monocytes Percent Manual 3 % (2-11); Myelocytes Absolute 0.4 X10*/uL; Myelocytes Percent 1 %; Neutrophils Absolute Manual 37.8 X10*3/uL (2.2-7.9); Neutrophils Percent Manual 71 % (45-73); Nucleated Red Blood Cells 1 /100WBC (0-0)
[2020-11-14 21:02] LABS: Hypochromasia 1+ (5-14) /OIF; Macrocytosis 1+ (5-14) /OIF; Target Cells 1+ (5-14) /OIF
[2020-11-14 21:03] LABS: Dohle Bodies PRESENT; Polychromasia 1+ (0-2) /OIF; Toxic Vacuolation PRESENT
[2020-11-14 21:07] LABS: Burr Cells 1+ (0-2) /OIF
[2020-11-14 21:09] LABS: Large Platelet PRESENT; RBC Morphology NOTED
[2020-11-14 21:11] LABS: Platelet Estimate SLIGHTLY DECREASED (NORMAL); Platelet Morphology Comment NOTE
--- NOTE | 2020-11-14 21:30 | P.EN_ITS ---
Event Note Date of Service: 11/14/20 Event Note: CT images reviewed - suggestion of bowel ischemia colon with diffuse thickening c/w colitis - pt positive for C diff in stools hypotension not adequately explained by colitis ?adrenal insufficiency - pt already started on steroids treat C diff abd benign dw Plasma Processing Technician
[2020-11-14 21:43] LABS: Glucose, Whole Blood 90 mg/dL (60-115)
[2020-11-14] MEDS: vancomycin HCL Oral Solution 125 MG/5 ML SOLN.RECON 250 MG PO (22:20)
[2020-11-15] VITALS (18 sets, daily range): BP systolic 78–112; BP diastolic 32–59; PULSE 99–110; RESP 20–33; TEMP 37.3–38.6; O2SAT 90–98; BMI 19.1
[2020-11-15 00:29] LABS: Hematocrit 29.6 % (37-47); Hemoglobin 9.6 g/dl (12.0-16.0)
[2020-11-15 00:29] LABS: Glucose, Whole Blood 70 mg/dL (60-115)
[2020-11-15 00:37] LABS: ABG Base Excess -15.7 mmol/L; ABG HCO3 9 mmol/L (22-26); ABG pCO2 21 mmHg (32-45); ABG pCO2 TC 22 mmHg (32-45); ABG pH 7.24 (7.35-7.45); ABG pH TC 7.23 (7.35-7.45); ABG pO2 92 mmHg (83-108); ABG pO2 TC 93 (83-108)
--- NOTE | 2020-11-15 00:48 | PC.NURSE ---
Pt lethargic at start of shift. Remains hypertensive 60s systolic. Instructor Business Education assessed pt at bedside and ordered pt for transfer to ICU for further care monitoring. Report called to nurse. Pt transported in bed.
[2020-11-15] MEDS: fentaNYL citrate/NS 1,000 MCG/100 ML PLAST..BAG 20 MCG IVCONT ×3 (01:08→11:03)
[2020-11-15] MEDS: Phytonadione (Vit K1) 10 MG in 0.9 % Sodium Chloride 50 ML 51 MG IV ×2 (02:08→10:43)
[2020-11-15] MEDS: propofoL 1,000 MG/100 ML VIAL 9.97 MG IVCONT (02:22)
[2020-11-15] MEDS: Hydrocortisone Sod Succ/PF 100 MG VIAL IVPUSH (03:13)
[2020-11-15] MEDS: vancomycin HCL Oral Solution 125 MG/5 ML SOLN.RECON 250 MG PO (06:00)
--- NOTE | 2020-11-15 06:00 | ECG_ITS ---
Test Reason : EKG CHANGES Blood Pressure : / mmHG Vent. 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
[2020-11-15 06:15] LABS: Glucose, Whole Blood 155 mg/dL (60-115)
[2020-11-15 06:15] LABS: ABG Base Excess -17.6 mmol/L; ABG HCO3 9 mmol/L (22-26); ABG pCO2 26 mmHg (32-45); ABG pCO2 TC 27 mmHg (32-45); ABG pH 7.15 (7.35-7.45); ABG pH TC 7.14 (7.35-7.45); ABG pO2 129 mmHg (83-108); ABG pO2 TC 134 (83-108)
[2020-11-15 06:20] LABS: Prothrombin Time 35.7 SEC (10.8-13.0)
[2020-11-15 06:22] LABS: ABG HCO3 12 mmol/L (22-26); ABG pCO2 27 mmHg (32-45); ABG pCO2 TC 28 mmHg (32-45); ABG pH 7.26 (7.35-7.45); ABG pH TC 7.25 (7.35-7.45); ABG pO2 127 mmHg (83-108); ABG pO2 TC 132 (83-108)
[2020-11-15 06:24] LABS: Hematocrit 25.7 % (37-47); Hemoglobin 8.4 g/dl (12.0-16.0); Mean Corpuscular HGB Conc 32.7 g/dl (31.0-35.0); Mean Corpuscular Hemoglobin 36.4 pg (27.0-33.0); Mean Platelet Volume 11.9 fL (9.4-12.3); NRBC Pct Auto 0.8 /100WBC (0.0-0.2); Platelet Count 125 X10*3/uL (160-400); Red Blood Count 2.31 X10*6/uL (4.20-5.50); Red Cell Distribution Width 19.6 % (11.0-16.0)
[2020-11-15 06:26] LABS: B Type Natriuretic Peptide 3532 pg/mL (<100)
[2020-11-15 06:34] LABS: Mean Corpuscular Volume 111.3 fL (80-98); WBC ABN SCTR FOR CBC 1
[2020-11-15 06:35] LABS: White Blood Count 41.8 X10*3/uL (4.8-10.8)
--- NOTE | 2020-11-15 06:56 | PC.NURSE ---
TMAX 101.1 VIA CORE PROBE. NSR/ST ON TELE, HR 90-110s. PT SEDATE ON PROPOFOL GTT- UNAROUSABLE, PUPILS 4 MM, REACTIVE. FENTANYL GTT ADDED FOR TACHYPNEA- RR 30, ETCO2 21. ETT #7.5, 25 CM LACY. VENT SETTINGS- AC 12/300/5/60%. SBP 80s, MAP 50s VIA DOMITILA TO R FEM. NEW ORDERS FOR LEVOPHED GTT AND VASOPRESSIN GTT, SEE DRUG TITRATION. MANUAL BP < 20 PA AWARE OF VBG AND CRITICAL RESULTS- ORDER FOR D5 W/ 300 MEQ BICARB, SEE EMAR. PT OLIGUIRC, UOP 30 ML TOTAL FROM [id number]. NO BM. EXTREMITIES COOL, CAP REFILL >3 SEC, MOTTLED UP TO CHEST.
[2020-11-15] MEDS: 0.9 % Sodium Chloride Flush 3 ML SYRINGE IVFLUSH (07:03)
[2020-11-15 07:14] LABS: Alanine Aminotransferase 145 U/L (0-31); Albumin Level 2.9 g/dL (3.5-5.0); Alkaline Phosphatase 112 U/L (39-117); Anion Gap 52 (12-20); Aspartate Amino Transferase 690 U/L (5-31); Blood Urea Nitrogen 31 mg/dL (9-16); C Reactive Protein 14.93 mg/dL (< or = 0.50); Calcium 6.4 mg/dL (8.4-10.2); Carbon Dioxide 13 mmol/L (22-29); Chloride 92 mmol/L (96-108); Creatinine Clr Calc Pharmacy 13.4; Estimated Glomerular Filt Rate 10; Glucose Random 99 mg/dL (60-115); Potassium 4.1 mmol/L (3.3-5.1); Sodium 153 mmol/L (135-145); Total Protein 5.2 g/dL (6.5-8.0)
[2020-11-15 07:26] LABS: ABG Refer to POC result
[2020-11-15 07:26] LABS: ABG Refer to POC result
[2020-11-15 07:27] LABS: ABG Refer to POC result
[2020-11-15 07:27] LABS: ABG Refer to POC result
[2020-11-15 08:29] LABS: Band Neutrophils Percent 20 % (3-5); Lymphocytes Absolute Manual 4.2 X10*3/uL (0.6-4.8); Lymphocytes Percent Manual 10 % (20-40); Monocytes Absolute Manual 1.7 X10*3/uL (0.0-1.2); Monocytes Percent Manual 4 % (2-11); Neutrophils Absolute Manual 35.9 X10*3/uL (2.2-7.9); Neutrophils Percent Manual 66 % (45-73)
[2020-11-15 08:30] LABS: Acanthocytes 2+ (3-5) /OIF; Macrocytosis 2+ (15-30) /OIF; RBC Morphology NOTED
[2020-11-15 08:31] LABS: Hypochromasia 1+ (5-14) /OIF; Platelet Estimate SLIGHTLY DECREASED (NORMAL); Platelet Morphology Comment NORMAL; Toxic Vacuolation PRESENT
[2020-11-15 08:32] LABS: Polychromasia 1+ (0-2) /OIF
--- NOTE | 2020-11-15 08:47 | PM.PNGS ---
Subjective Subjective Date of Service: 11/15/20 Interval history: Remains intubated Continues to be severely acidotic In multiorgan failure Physical Exam Vital Signs: Vital Signs: Last Vital Signs Temp 100.9 F H 11/15/20 08:00 Pulse 105 H 11/15/20 08:00 Resp 21 H 11/15/20 08:00 BP 109/43 L 11/15/20 08:00 Pulse Ox 90 L 11/15/20 08:00 Body Mass Index 19.1 Const: Other: On ventilator Resp: Other: Intubated, apparent good air entry bilaterally Cardio: Rate: tachycardic Rhythm: regular rhythm GI: Inspection: No distended Palpation (GI): Soft to palpation, not firm, no guarding and not rigid Skin: Other: Has diffuse significant skin mottling Progress Note: A&P Assessment and plan (1) Lactic acidosis: Status: Acute Assessment and Plan: Continues to have worsening lactic acidosis Etiology uncertain She has chronic hypotension - normally in the 80s Has skin mottling now from vaso constriction CT from last night I reviewed extensively - thickening of the colon consistent with Cdiff colitis but no evidence of bowel ischemia or acidosis any intra-abdominal catastrophe I explained P.o. vanco started Possibility of adrenal insufficiency considered - patient has been on fludrocortisone since yesterday without significant response Discussions with Cardiology, Renal, and coding coordinator due to uncertainty of etiology of hypotension and acidosis - consider dropping down on pressors as she normally is hypotensive Patient remains critically ill Fall Risk Details Current Medications: Current Medications Generic Name Dose Route Start Last Admin Trade Name Freq PRN Reason Stop Dose Admin Fludrocortisone Acetate 0.2 mg 11/14/20 10:35 11/14/20 13:34 Fludrocortisone Acetate 0.1 Mg Tablet PO 0.2 mg DAILY LOC Administration Hydrocortisone Sodium Succinate 100 mg 11/14/20 20:15 11/15/20 03:13 Hydrocortisone Sod Succ/Pf 100 Mg Vial IVPUSH 100 mg Q8H LOC Administration Epinephrine 5 mg/ Dextrose 255 mls @ 0 mls/hr 11/14/20 14:30 IVCONT .Q0M LOC Protocol Per Protocol Norepinephrine Bitartrate 8 mg in 250 mls @ 0 mls/hr 11/14/20 14:48 11/15/20 07:03 Levophed IVCONT 0.4 mcg/kg/min .Q0M LOC 41.55 mls/hr Administration Protocol Per Protocol Propofol 1,000 mg in 100 mls @ 0 mls/hr 11/14/20 15:00 11/15/20 06:28 Diprivan IVCONT 20 mcg/kg/min .Q0M LOC 6.65 mls/hr Titration Protocol Per Protocol Phytonadione 10 mg/ Sodium 51 mls @ 51 mls/hr 11/14/20 21:00 11/15/20 02:22 Chloride IV 11/15/20 15:59 Infused Q6H LOC Infusion Sodium Bicarbonate 300 meq/ 1,150 mls @ 100 mls/hr 11/15/20 00:45 11/15/20 01:20 Dextrose IV 100 mls/hr .[id number] LOC Administration Fentanyl 1,000 mcg in 100 mls @ 0 mls/hr 11/15/20 00:45 11/15/20 06:10 Sublimaze/Ns IVCONT 200 mcg/hr .Q0M LOC 20 mls/hr Administration Protocol Per Protocol Vasopressin 20 unit/ Sodium 101 mls @ 3.03 mls/hr 11/15/20 00:45 11/15/20 02:37 Chloride IVCONT 0.02 unit/min .Q24H LOC 6.06 mls/hr Infusion 0.01 UNIT/MIN Naloxone HCl 0.2 mg 11/15/20 00:41 Naloxone Hcl 0.4 Mg/Ml Vial IVPUSH Q2M PRN Excessive sedation or RR < 8 Sodium Chloride 3 ml 11/13/20 00:00 11/15/20 07:03 0.9 % Sodium Chloride Flush 3 Ml Syringe IVFLUSH 3 ml QSHIFT LOC Administration Thiamine HCl 100 mg 11/15/20 09:00 Thiamine Hcl 200 Mg/2 Ml Vial IVPUSH DAILY LOC Vancomycin HCl 250 mg 11/15/20 00:00 11/15/20 06:00 Vancomycin Hcl Oral Solution 125 Mg/5 Ml Soln.Recon PO 250 mg Q6H LOC Administration Time Spent With Patient Time: Total time spent is greater than 50% in coordination of care (as documented) at patient's floor/unit and/or counseling patient: Time with patient: 25 - 35 minutes
[2020-11-15] MEDS: Sodium Bicarbonate 8.4% 150 MEQ in Dextrose 5 % 850 ML 100 MEQ IV (09:30)
--- NOTE | 2020-11-15 09:51 | MHC.CLN ---
F/U PT IS NOW INTUBATED AND SEDATED PT IS SEVERELY MALNOURISHED PT WITH MODERATELY DEPLETED SUBCUTANEOUS FAT AND MUSCLE MASS, BMI 19, AND POOR PO X 5DAYS WITH N/V PREVIOUS WT HX REVEALS UBW 144# (07/18/20) TRIGGERS FOR 15% SIGNIFICANT WT LOSS X 4 MONTHS RECOMMEND JEVITY AT MAX GOAL RATE 60CC/HR WITH 120CC FREE WATER FLUSHES Q6HRS TO PROVIDE 1526KCALS (1701KCALS WITH SEDATION; 30.9KCALS/KG), 64G PROTEIN (1.1G/KG), 1682CC TOTAL WATER FROM FORMULA AND FLUSHES (30CC/KG) CONSIDER CHECKING AMMONIA LEVELS INCREASE IN PO PROTEIN WILL AFFECT NH3 LEVELS MONITOR TOLERANCE, RESIDUALS AND LYTES SEE ALSO CLINICAL NUTRITION ASSESSMENT
[2020-11-15 10:03] LABS: Phosphorus 11.2 mg/dL (2.7-4.5)
--- NOTE | 2020-11-15 10:06 | P.PNNP_ITS ---
Subjective Subjective Date of Service: 11/15/20 Interval history: Seen and examined. Events noted. Case d/w ICU, Card, Surg all present in ICU this am REmains critically ill on high does pressors with impressive mottling of slin and cool hands/feet..very clamped down Anuric overnight Physical Exam Vital Signs: Vital Signs: Last Vital Signs Temp 101.5 F H 11/15/20 09:00 Pulse 99 11/15/20 09:00 Resp 20 11/15/20 09:00 BP 87/34 L 11/15/20 09:22 Pulse Ox 96 11/15/20 09:00 Body Mass Index 19.1 Const: General: cooperative, comfortable and no acute distress Orientation/consciousness: patient oriented x3 HENMT: Other: Unremarkable Neck: Neck: Yes normal visual inspection Chest: Chest palpation & inspection: normal inspection of the chest Resp: Auscultation: clear to auscultation bilaterally, no crackles and no wheezes Cardio: Jugular venous distension: no JVD Palpation: normal PMI Heart sounds: S1 normal heart sound present, S2 normal heart sound present, no gallops, no murmurs and no rubs GI: Palpation (GI): Soft to palpation Back/Spine/Pelvis: Other: unremarkable Skin: General skin exam: no rashes or lesions noted Neuro: General: patient oriented x3 Extrem: General: Yes no clubbing, cyanosis or edema Psych: Mental Status: mental status grossly normal Objective Data Labs CBC & Chem 7: 11/15/20 05:23 11/15/20 05:23 Labs: Laboratory Results - last 24 hr 11/12/20 11/14/20 11/14/20 18:54 08:15 12:29 WBC RBC Hgb Hct MCV MCH MCHC RDW Plt Count MPV Immature Gran % (Auto) Neut % (Auto) Lymph % (Auto) [place] % (Auto) Eos % (Auto) Baso % (Auto) Lymph # (Auto) [place] # (Auto) Eos # (Auto) Baso # (Auto) Abs Immat Gran (auto) Absolute Neuts (auto) Absolute Nucleated RBC Nucleated RBC % (auto) Neutrophils % (Manual) Band Neutrophils % Lymphocytes % (Manual) Monocytes % (Manual) Metamyelocytes % Myelocytes % Abs Neuts (Manual) Lymphocytes # (Manual) Monocytes # (Manual) Metamyelocytes # Myelocytes # Nucleated RBCs Toxic Vacuolation Dohle Bodies Platelet Estimate Large Platelets Plt Morphology Comment RBC Morphology Polychromasia Hypochromasia Macrocytosis Target Cells Dina Cells Acanthocytes (Spur) Smear Tech's Comments PT INR O2 Saturation ABG pH at Pt Temp ABG pH (Temp Correct) ABG pCO2 at Pt Temp ABG pCO2 (Temp Corrct ABG pO2 at Pt Temp ABG pO2 (Temp Correct ABG HCO3 ABG Base Excess (Actual) VBG pH VBG pCO2 VBG pO2 VBG HCO3 VBG O2 Saturation VBG Base Excess Sodium 140 Potassium 2.9 L Chloride 98 Carbon Dioxide 17 L Anion Gap 28 H BUN 29 H Creatinine 4.26 H* Estim Creat Clear Calc 15.3 Estimated GFR 12 POC Glucose Random Glucose 20 L* Lactic Acid Lactic Acid Fup @ 2Hr Calcium 7.3 L Phosphorus 3.2 Magnesium 2.0 Total Bilirubin 4.5 H AST 85 H ALT 22 Alkaline Phosphatase 113 D Troponin I High Sens C-Reactive Protein 10.01 H B-Natriuretic Peptide Total Protein 5.9 L Albumin 3.3 L Procalcitonin Cortisol 39.0 H Urine Color Urine Appearance Urine pH Ur Specific [place] Urine Protein Urine Glucose (UA) Urine Ketones Urine Blood Urine Nitrite Ur Leukocyte Esterase Urine RBC Urine WBC Ur Squamous Epith Cells Urine Bacteria C. difficile Toxin A&B C. difficile Antigen C. difficile Interpret Blood Type O Positive Antibody Screen NEGATIVE Crossmatch See Detail 11/14/20 11/14/20 11/14/20 13:05 13:05 13:05 WBC 31.2 H* RBC 1.98 L Hgb 7.1 L Hct 21.3 L MCV 107.6 H MCH 35.9 H MCHC 33.3 RDW 18.9 H Plt Count 133 L MPV 11.0 Immature Gran % (Auto) 4.2 H Neut % (Auto) 81.5 H Lymph % (Auto) 5.8 L [place] % (Auto) 8.2 Eos % (Auto) 0.1 Baso % (Auto) 0.2 Lymph # (Auto) 1.8 [place] # (Auto) 2.6 H Eos # (Auto) 0.0 Baso # (Auto) 0.1 Abs Immat Gran (auto) 1.30 H Absolute Neuts (auto) 25.4 H Absolute Nucleated RBC 0.000 Nucleated RBC % (auto) 0.0 Neutrophils % (Manual) Band Neutrophils % Lymphocytes % (Manual) Monocytes % (Manual) Metamyelocytes % Myelocytes % Abs Neuts (Manual) Lymphocytes # (Manual) Monocytes # (Manual) Metamyelocytes # Myelocytes # Nucleated RBCs Toxic Vacuolation Dohle Bodies Platelet Estimate Large Platelets Plt Morphology Comment RBC Morphology Polychromasia Hypochromasia Macrocytosis Target Cells [place] Cells Acanthocytes (Spur) Smear Tech's Comments VERIFIED PT 31.6 H D INR 2.6 H O2 Saturation ABG pH at Pt Temp ABG pH (Temp Correct) ABG pCO2 at Pt Temp ABG pCO2 (Temp Corrct ABG pO2 at Pt Temp ABG pO2 (Temp Correct ABG HCO3 ABG Base Excess (Actual) VBG pH VBG pCO2 VBG pO2 VBG HCO3 VBG O2 Saturation VBG Base Excess Sodium Potassium Chloride Carbon Dioxide Anion Gap BUN Creatinine Estim Creat Clear Calc Estimated GFR POC Glucose Random Glucose Lactic Acid 9.4 H* Lactic Acid Fup @ 2Hr Calcium Phosphorus Magnesium Total Bilirubin AST ALT Alkaline Phosphatase Troponin I High Sens C-Reactive Protein B-Natriuretic Peptide Total Protein Albumin Procalcitonin Cortisol Urine Color Urine Appearance Urine pH Ur Specific [place] Urine Protein Urine Glucose (UA) Urine Ketones Urine Blood Urine Nitrite Ur Leukocyte Esterase Urine RBC Urine WBC Ur Squamous Epith Cells Urine Bacteria C. difficile Toxin A&B C. difficile Antigen C. difficile Interpret Blood Type Antibody Screen Crossmatch 11/14/20 11/14/20 11/14/20 13:06 13:06 14:08 WBC RBC Hgb Hct MCV MCH MCHC RDW Plt Count MPV Immature Gran % (Auto) Neut % (Auto) Lymph % (Auto) [place] % (Auto) Eos % (Auto) Baso % (Auto) Lymph # (Auto) [place] # (Auto) Eos # (Auto) Baso # (Auto) Abs Immat Gran (auto) Absolute Neuts (auto) Absolute Nucleated RBC Nucleated RBC % (auto) Neutrophils % (Manual) Band Neutrophils % Lymphocytes % (Manual) Monocytes % (Manual) Metamyelocytes % Myelocytes % Abs Neuts (Manual) Lymphocytes # (Manual) Monocytes # (Manual) Metamyelocytes # Myelocytes # Nucleated RBCs Toxic Vacuolation Dohle Bodies Platelet Estimate Large Platelets Plt Morphology Comment RBC Morphology Polychromasia Hypochromasia Macrocytosis Target Cells [place] Cells Acanthocytes (Spur) Smear Tech's Comments PT INR O2 Saturation ABG pH at Pt Temp ABG pH (Temp Correct) ABG pCO2 at Pt Temp ABG pCO2 (Temp Corrct ABG pO2 at Pt Temp ABG pO2 (Temp Correct ABG HCO3 ABG Base Excess (Actual) VBG pH VBG pCO2 VBG pO2 VBG HCO3 VBG O2 Saturation VBG Base Excess Sodium Potassium Chloride Carbon Dioxide Anion Gap BUN Creatinine Estim Creat Clear Calc Estimated GFR POC Glucose 128 H Random Glucose Lactic Acid Lactic Acid Fup @ 2Hr Calcium Phosphorus Magnesium Total Bilirubin AST ALT Alkaline Phosphatase Troponin I High Sens 1734.1 H D C-Reactive Protein B-Natriuretic Peptide 2524 H Total Protein Albumin Procalcitonin 8.80 Cortisol Urine Color Urine Appearance Urine pH Ur Specific [place] Urine Protein Urine Glucose (UA) Urine Ketones Urine Blood Urine Nitrite Ur Leukocyte Esterase Urine RBC Urine WBC Ur Squamous Epith Cells Urine Bacteria C. difficile Toxin A&B C. difficile Antigen C. difficile Interpret Blood Type Antibody Screen Crossmatch 11/14/20 11/14/20 11/14/20 16:29 16:33 16:34 WBC RBC Hgb Hct MCV MCH MCHC RDW Plt Count MPV Immature Gran % (Auto) Neut % (Auto) Lymph % (Auto) [place] % (Auto) Eos % (Auto) Baso % (Auto) Lymph # (Auto) [place] # (Auto) Eos # (Auto) Baso # (Auto) Abs Immat Gran (auto) Absolute Neuts (auto) Absolute Nucleated RBC Nucleated RBC % (auto) Neutrophils % (Manual) Band Neutrophils % Lymphocytes % (Manual) Monocytes % (Manual) Metamyelocytes % Myelocytes % Abs Neuts (Manual) Lymphocytes # (Manual) Monocytes # (Manual) Metamyelocytes # Myelocytes # Nucleated RBCs Toxic Vacuolation Dohle Bodies Platelet Estimate Large Platelets Plt Morphology Comment RBC Morphology Polychromasia Hypochromasia Macrocytosis Target Cells Dina Cells Acanthocytes (Spur) Smear Tech's Comments PT INR O2 Saturation < 30.0 ABG pH at Pt Temp 7.09 L* ABG pH (Temp Correct) 7.08 L* ABG pCO2 at Pt Temp 54 H ABG pCO2 (Temp Corrct 55 H ABG pO2 at Pt Temp 23 L* ABG pO2 (Temp Correct 24 L* ABG HCO3 16 L ABG Base Excess (Actual) -12.7 VBG pH 7.17 L* VBG pCO2 38 VBG pO2 51 VBG HCO3 14 L VBG O2 Saturation 67.0 VBG Base Excess -13.0 Sodium Potassium Chloride Carbon Dioxide Anion Gap BUN Creatinine Estim Creat Clear Calc Estimated GFR POC Glucose Random Glucose Lactic Acid 12.2 H* Lactic Acid Fup @ 2Hr Calcium Phosphorus Magnesium Total Bilirubin AST ALT Alkaline Phosphatase Troponin I High Sens C-Reactive Protein B-Natriuretic Peptide Total Protein Albumin Procalcitonin Cortisol Urine Color Urine Appearance Urine pH Ur Specific [place] Urine Protein Urine Glucose (UA) Urine Ketones Urine Blood Urine Nitrite Ur Leukocyte Esterase Urine RBC Urine WBC Ur Squamous Epith Cells Urine Bacteria C. difficile Toxin A&B C. difficile Antigen C. difficile Interpret Blood Type Antibody Screen Crossmatch 11/14/20 11/14/20 11/14/20 16:34 16:48 16:56 WBC RBC Hgb Hct MCV MCH MCHC RDW Plt Count MPV Immature Gran % (Auto) Neut % (Auto) Lymph % (Auto) [place] % (Auto) Eos % (Auto) Baso % (Auto) Lymph # (Auto) [place] # (Auto) Eos # (Auto) Baso # (Auto) Abs Immat Gran (auto) Absolute Neuts (auto) Absolute Nucleated RBC Nucleated RBC % (auto) Neutrophils % (Manual) Band Neutrophils % Lymphocytes % (Manual) Monocytes % (Manual) Metamyelocytes % Myelocytes % Abs Neuts (Manual) Lymphocytes # (Manual) Monocytes # (Manual) Metamyelocytes # Myelocytes # Nucleated RBCs Toxic Vacuolation Dohle Bodies Platelet Estimate Large Platelets Plt Morphology Comment RBC Morphology Polychromasia Hypochromasia Macrocytosis Target Cells [place] Cells Acanthocytes (Spur) Smear Tech's Comments PT INR O2 Saturation 85.0 ABG pH at Pt Temp 7.24 L ABG pH (Temp Correct) 7.23 L ABG pCO2 at Pt Temp 30 L ABG pCO2 (Temp Corrct 31 L ABG pO2 at Pt Temp 66 L ABG pO2 (Temp Correct 70 L ABG HCO3 13 L ABG Base Excess (Actual) -12.4 VBG pH 7.20 L* VBG pCO2 35 VBG pO2 45 VBG HCO3 14 L VBG O2 Saturation 59.0 VBG Base Excess -12.4 Sodium Potassium Chloride Carbon Dioxide Anion Gap BUN Creatinine Estim Creat Clear Calc Estimated GFR POC Glucose Random Glucose Lactic Acid Lactic Acid Fup @ 2Hr Calcium Phosphorus Magnesium Total Bilirubin AST ALT Alkaline Phosphatase Troponin I High Sens 3635.0 H D C-Reactive Protein B-Natriuretic Peptide Total Protein Albumin Procalcitonin Cortisol Urine Color Urine Appearance Urine pH Ur Specific [place] Urine Protein Urine Glucose (UA) Urine Ketones Urine Blood Urine Nitrite Ur Leukocyte Esterase Urine RBC Urine WBC Ur Squamous Epith Cells Urine Bacteria C. difficile Toxin A&B C. difficile Antigen C. difficile Interpret Blood Type Antibody Screen Crossmatch 11/14/20 11/14/20 11/14/20 17:03 18:08 18:08 WBC RBC Hgb 6.2 L* Hct 18.8 L* MCV MCH MCHC RDW Plt Count MPV Immature Gran % (Auto) Neut % (Auto) Lymph % (Auto) [place] % (Auto) Eos % (Auto) Baso % (Auto) Lymph # (Auto) [place] # (Auto) Eos # (Auto) Baso # (Auto) Abs Immat Gran (auto) Absolute Neuts (auto) Absolute Nucleated RBC Nucleated RBC % (auto) Neutrophils % (Manual) Band Neutrophils % Lymphocytes % (Manual) Monocytes % (Manual) Metamyelocytes % Myelocytes % Abs Neuts (Manual) Lymphocytes # (Manual) Monocytes # (Manual) Metamyelocytes # Myelocytes # Nucleated RBCs Toxic Vacuolation Dohle Bodies Platelet Estimate Large Platelets Plt Morphology Comment RBC Morphology Polychromasia Hypochromasia Macrocytosis Target Cells Dina Cells Acanthocytes (Spur) Smear Tech's Comments PT INR O2 Saturation ABG pH at Pt Temp ABG pH (Temp Correct) ABG pCO2 at Pt Temp ABG pCO2 (Temp Corrct ABG pO2 at Pt Temp ABG pO2 (Temp Correct ABG HCO3 ABG Base Excess (Actual) VBG pH VBG pCO2 VBG pO2 VBG HCO3 VBG O2 Saturation VBG Base Excess Sodium Potassium Chloride Carbon Dioxide Anion Gap BUN Creatinine Estim Creat Clear Calc Estimated GFR POC Glucose Random Glucose Lactic Acid Lactic Acid Fup @ 2Hr Calcium Phosphorus Magnesium Total Bilirubin AST ALT Alkaline Phosphatase Troponin I High Sens C-Reactive Protein B-Natriuretic Peptide Total Protein Albumin Procalcitonin Cortisol Urine Color GABRIEL Urine Appearance HAZY Urine pH 5.5 Ur Specific [place] 1.025 Urine Protein 2+ H Urine Glucose (UA) NEG Urine Ketones NEG Urine Blood TRACE Urine Nitrite NEG Ur Leukocyte Esterase NEG Urine RBC 5-9 H Urine WBC 10-14 H Ur Squamous Epith Cells 2+ Urine Bacteria 1+ C. difficile Toxin A&B Positive A C. difficile Antigen Positive A C. difficile Interpret SEE NOTE Blood Type Antibody Screen Crossmatch 11/14/20 11/14/20 11/14/20 19:32 19:55 19:55 WBC 42.9 H* RBC 2.56 L D Hgb 9.2 L D Hct 27.6 L D MCV 107.8 H MCH 35.9 H MCHC 33.3 RDW 18.5 H Plt Count 134 L MPV 11.5 Immature Gran % (Auto) Cancelled Neut % (Auto) Cancelled Lymph % (Auto) Cancelled [place] % (Auto) Cancelled Eos % (Auto) Cancelled Baso % (Auto) Cancelled Lymph # (Auto) Cancelled [place] # (Auto) Cancelled Eos # (Auto) Cancelled Baso # (Auto) Cancelled Abs Immat Gran (auto) Cancelled Absolute Neuts (auto) Cancelled Absolute Nucleated RBC 0.230 H Nucleated RBC % (auto) 0.5 H Neutrophils % (Manual) 71 Band Neutrophils % 17 H Lymphocytes % (Manual) 4 L Monocytes % (Manual) 3 Metamyelocytes % 4 Myelocytes % 1 Abs Neuts (Manual) 37.8 H Lymphocytes # (Manual) 1.7 Monocytes # (Manual) 1.3 H Metamyelocytes # 1.7 Myelocytes # 0.4 Nucleated RBCs 1 H Toxic Vacuolation PRESENT Dohle Bodies PRESENT Platelet Estimate SLIGHTLY DECREASED Large Platelets PRESENT Plt Morphology Comment NOTE RBC Morphology NOTED Polychromasia 1+ (0-2) Hypochromasia 1+ (5-14) Macrocytosis 1+ (5-14) Target Cells 1+ (5-14) Dina Cells 1+ (0-2) Acanthocytes (Spur) Smear Tech's Comments PT INR O2 Saturation ABG pH at Pt Temp ABG pH (Temp Correct) ABG pCO2 at Pt Temp ABG pCO2 (Temp Corrct ABG pO2 at Pt Temp ABG pO2 (Temp Correct ABG HCO3 ABG Base Excess (Actual) VBG pH VBG pCO2 VBG pO2 VBG HCO3 VBG O2 Saturation VBG Base Excess Sodium 143 Potassium 4.0 D Chloride 98 Carbon Dioxide 15 L Anion Gap 34 H BUN 30 H Creatinine 4.58 H* Estim Creat Clear Calc 14.3 Estimated GFR 11 POC Glucose Random Glucose 32 L* Lactic Acid Lactic Acid Fup @ 2Hr 13.9 H* Calcium 7.1 L Phosphorus Magnesium Total Bilirubin 4.4 H AST 180 H ALT 37 H Alkaline Phosphatase 120 H Troponin I High Sens C-Reactive Protein B-Natriuretic Peptide Total Protein 6.4 L Albumin 3.5 Procalcitonin Cortisol Urine Color Urine Appearance Urine pH Ur Specific [place] Urine Protein Urine Glucose (UA) Urine Ketones Urine Blood Urine Nitrite Ur Leukocyte Esterase Urine RBC Urine WBC Ur Squamous Epith Cells Urine Bacteria C. difficile Toxin A&B C. difficile Antigen C. difficile Interpret Blood Type Antibody Screen Crossmatch 11/14/20 11/14/20 11/15/20 19:59 21:38 00:23 WBC RBC Hgb 9.6 L Hct 29.6 L MCV MCH MCHC RDW Plt Count MPV Immature Gran % (Auto) Neut % (Auto) Lymph % (Auto) [place] % (Auto) Eos % (Auto) Baso % (Auto) Lymph # (Auto) [place] # (Auto) Eos # (Auto) Baso # (Auto) Abs Immat Gran (auto) Absolute Neuts (auto) Absolute Nucleated RBC Nucleated RBC % (auto) Neutrophils % (Manual) Band Neutrophils % Lymphocytes % (Manual) Monocytes % (Manual) Metamyelocytes % Myelocytes % Abs Neuts (Manual) Lymphocytes # (Manual) Monocytes # (Manual) Metamyelocytes # Myelocytes # Nucleated RBCs Toxic Vacuolation Dohle Bodies Platelet Estimate Large Platelets Plt Morphology Comment RBC Morphology Polychromasia Hypochromasia Macrocytosis Target Cells Dina Cells Acanthocytes (Spur) Smear Tech's Comments PT INR O2 Saturation 94.0 ABG pH at Pt Temp 7.16 L* ABG pH (Temp Correct) 7.16 L* ABG pCO2 at Pt Temp 37 ABG pCO2 (Temp Corrct 38 ABG pO2 at Pt Temp 99 ABG pO2 (Temp Correct 101 ABG HCO3 14 L ABG Base Excess (Actual) -13.5 VBG pH VBG pCO2 VBG pO2 VBG HCO3 VBG O2 Saturation VBG Base Excess Sodium Potassium Chloride Carbon Dioxide Anion Gap BUN Creatinine Estim Creat Clear Calc Estimated GFR POC Glucose 90 Random Glucose Lactic Acid Lactic Acid Fup @ 2Hr Calcium Phosphorus Magnesium Total Bilirubin AST ALT Alkaline Phosphatase Troponin I High Sens C-Reactive Protein B-Natriuretic Peptide Total Protein Albumin Procalcitonin Cortisol Urine Color Urine Appearance Urine pH Ur Specific [place] Urine Protein Urine Glucose (UA) Urine Ketones Urine Blood Urine Nitrite Ur Leukocyte Esterase Urine RBC Urine WBC Ur Squamous Epith Cells Urine Bacteria C. difficile Toxin A&B C. difficile Antigen C. difficile Interpret Blood Type Antibody Screen Crossmatch 11/15/20 11/15/20 11/15/20 00:25 00:30 01:55 WBC RBC Hgb Hct MCV MCH MCHC RDW Plt Count MPV Immature Gran % (Auto) Neut % (Auto) Lymph % (Auto) [place] % (Auto) Eos % (Auto) Baso % (Auto) Lymph # (Auto) [place] # (Auto) Eos # (Auto) Baso # (Auto) Abs Immat Gran (auto) Absolute Neuts (auto) Absolute Nucleated RBC Nucleated RBC % (auto) Neutrophils % (Manual) Band Neutrophils % Lymphocytes % (Manual) Monocytes % (Manual) Metamyelocytes % Myelocytes % Abs Neuts (Manual) Lymphocytes # (Manual) Monocytes # (Manual) Metamyelocytes # Myelocytes # Nucleated RBCs Toxic Vacuolation Dohle Bodies Platelet Estimate Large Platelets Plt Morphology Comment RBC Morphology Polychromasia Hypochromasia Macrocytosis Target Cells Dina Cells Acanthocytes (Spur) Smear Tech's Comments PT INR O2 Saturation 96.0 ABG pH at Pt Temp 7.24 L ABG pH (Temp Correct) 7.23 L ABG pCO2 at Pt Temp 21 L ABG pCO2 (Temp Corrct 22 L ABG pO2 at Pt Temp 92 ABG pO2 (Temp Correct 93 ABG HCO3 9 L ABG Base Excess (Actual) -15.7 VBG pH VBG pCO2 VBG pO2 VBG HCO3 VBG O2 Saturation VBG Base Excess Sodium Potassium Chloride Carbon Dioxide Anion Gap BUN Creatinine Estim Creat Clear Calc Estimated GFR POC Glucose 70 155 H Random Glucose Lactic Acid Lactic Acid Fup @ 2Hr Calcium Phosphorus Magnesium Total Bilirubin AST ALT Alkaline Phosphatase Troponin I High Sens C-Reactive Protein B-Natriuretic Peptide Total Protein Albumin Procalcitonin Cortisol Urine Color Urine Appearance Urine pH Ur Specific [place] Urine Protein Urine Glucose (UA) Urine Ketones Urine Blood Urine Nitrite Ur Leukocyte Esterase Urine RBC Urine WBC Ur Squamous Epith Cells Urine Bacteria C. difficile Toxin A&B C. difficile Antigen C. difficile Interpret Blood Type Antibody Screen Crossmatch 11/15/20 11/15/20 11/15/20 04:34 05:23 05:23 WBC 41.8 H* RBC 2.31 L Hgb 8.4 L Hct 25.7 L MCV 111.3 H MCH 36.4 H MCHC 32.7 RDW 19.6 H Plt Count 125 L MPV 11.9 Immature Gran % (Auto) Neut % (Auto) Lymph % (Auto) [place] % (Auto) Eos % (Auto) Baso % (Auto) Lymph # (Auto) [place] # (Auto) Eos # (Auto) Baso # (Auto) Abs Immat Gran (auto) Absolute Neuts (auto) Absolute Nucleated RBC 0.320 H Nucleated RBC % (auto) 0.8 H Neutrophils % (Manual) 66 Band Neutrophils % 20 H Lymphocytes % (Manual) 10 L Monocytes % (Manual) 4 Metamyelocytes % Myelocytes % Abs Neuts (Manual) 35.9 H Lymphocytes # (Manual) 4.2 Monocytes # (Manual) 1.7 H Metamyelocytes # Myelocytes # Nucleated RBCs Toxic Vacuolation PRESENT Dohle Bodies Platelet Estimate SLIGHTLY DECREASED Large Platelets Plt Morphology Comment NORMAL RBC Morphology NOTED Polychromasia 1+ (0-2) Hypochromasia 1+ (5-14) Macrocytosis 2+ (15-30) Target Cells Dina Cells Acanthocytes (Spur) 2+ (3-5) Smear Tech's Comments PT 35.7 H INR 3.0 H O2 Saturation 98.0 ABG pH at Pt Temp 7.15 L* ABG pH (Temp Correct) 7.14 L* ABG pCO2 at Pt Temp 26 L ABG pCO2 (Temp Corrct 27 L ABG pO2 at Pt Temp 129 H ABG pO2 (Temp Correct 134 H ABG HCO3 9 L ABG Base Excess (Actual) -17.6 VBG pH VBG pCO2 VBG pO2 VBG HCO3 VBG O2 Saturation VBG Base Excess Sodium Potassium Chloride Carbon Dioxide Anion Gap BUN Creatinine Estim Creat Clear Calc Estimated GFR POC Glucose Random Glucose Lactic Acid Lactic Acid Fup @ 2Hr Calcium Phosphorus Magnesium Total Bilirubin AST ALT Alkaline Phosphatase Troponin I High Sens C-Reactive Protein B-Natriuretic Peptide Total Protein Albumin Procalcitonin Cortisol Urine Color Urine Appearance Urine pH Ur Specific [place] Urine Protein Urine Glucose (UA) Urine Ketones Urine Blood Urine Nitrite Ur Leukocyte Esterase Urine RBC Urine WBC Ur Squamous Epith Cells Urine Bacteria C. difficile Toxin A&B C. difficile Antigen C. difficile Interpret Blood Type Antibody Screen Crossmatch 11/15/20 11/15/20 11/15/20 05:23 05:23 06:16 WBC RBC Hgb Hct MCV MCH MCHC RDW Plt Count MPV Immature Gran % (Auto) Neut % (Auto) Lymph % (Auto) [place] % (Auto) Eos % (Auto) Baso % (Auto) Lymph # (Auto) [place] # (Auto) Eos # (Auto) Baso # (Auto) Abs Immat Gran (auto) Absolute Neuts (auto) Absolute Nucleated RBC Nucleated RBC % (auto) Neutrophils % (Manual) Band Neutrophils % Lymphocytes % (Manual) Monocytes % (Manual) Metamyelocytes % Myelocytes % Abs Neuts (Manual) Lymphocytes # (Manual) Monocytes # (Manual) Metamyelocytes # Myelocytes # Nucleated RBCs Toxic Vacuolation Dohle Bodies Platelet Estimate Large Platelets Plt Morphology Comment RBC Morphology Polychromasia Hypochromasia Macrocytosis Target Cells [place] Cells Acanthocytes (Spur) Smear Tech's Comments PT INR O2 Saturation 98.0 ABG pH at Pt Temp 7.26 L ABG pH (Temp Correct) 7.25 L ABG pCO2 at Pt Temp 27 L ABG pCO2 (Temp Corrct 28 L ABG pO2 at Pt Temp 127 H ABG pO2 (Temp Correct 132 H ABG HCO3 12 L ABG Base Excess (Actual) -13.0 VBG pH VBG pCO2 VBG pO2 VBG HCO3 VBG O2 Saturation VBG Base Excess Sodium 153 H Potassium 4.1 Chloride 92 L Carbon Dioxide 13 L Anion Gap 52 H BUN 31 H Creatinine 4.86 H* Estim Creat Clear Calc 13.4 Estimated GFR 10 POC Glucose Random Glucose 99 D Lactic Acid Lactic Acid Fup @ 2Hr Calcium 6.4 L D Phosphorus 11.2 H Magnesium Total Bilirubin 4.0 H AST 690 H ALT 145 H Alkaline Phosphatase 112 Troponin I High Sens 57356.5 H D C-Reactive Protein 14.93 H B-Natriuretic Peptide 3532 H Total Protein 5.2 L Albumin 2.9 L Procalcitonin Cortisol Urine Color Urine Appearance Urine pH Ur Specific [place] Urine Protein Urine Glucose (UA) Urine Ketones Urine Blood Urine Nitrite Ur Leukocyte Esterase Urine RBC Urine WBC Ur Squamous Epith Cells Urine Bacteria C. difficile Toxin A&B C. difficile Antigen C. difficile Interpret Blood Type Antibody Screen Crossmatch Microbiology Microbiology Results: Microbiology 11/12/20 17:41 Blood - Venous Blood Culture - Preliminary No growth after 48 hours. 11/12/20 17:03 Blood - Venous Blood Culture - Preliminary No growth after 48 hours. Assessment & Plan Assessment and plan (1) Hypotension: Status: Acute Assessment and Plan: The patient is a 39-year-old female with history of coronary artery disease status post STEMI 2018; post cath but no stents. Echo from 2019 revealed ischemic cardiomyopathy and an apical thrombus. She was treated with Coumadin. In July of last year, while on Coumadin, she had abnormal uterine bleeding, and the Coumadin was therefore discontinued. She also has chronic hypotension, chronic macrocytic anemia, h/o alcohol consumption and abuse without given diagnosis of cirrhosis. Adm 11/12 with hypotension, anemia, CANDICE and initially responded to IVF and xfer to floor 11/13 and this am progressive severe hypotension refractory to midridne, ivf, florinef and iv hydrocortison and xfer to ICU severe decomp with severe lactic acidoiss, hypoxia, CANDICE and remains in very CRITICAL conditon now with imporessive mottling, persistent high lac level, anuric CANDICE,hypoerphos bedside echo by Dr Cueva does not show dramatic changes Incr wbc 40 k and c.diff positive Surg does not feel she has acute abd CT revealed ques ankita adrenal hemmorhage 1. CANDICE: most c/w renal hypoperfusin/ischemic ATN and risk for cortical necrosis; acute renal vein thrombosis or renal infarction a possibility but given INR 2.o makes the latter two possibilities unlikely; UA unimpressive but still given the severity of her state an underlyig RPGN/vasculitis should be r/o ques of cvatastophic anti cardiolipin ab syn, DIC need to be consider as well 2. Lactic acidosis: tissue hypoperfusion 3. Severe Hypotension of ? etoiol on chronically low BPs: clinically behaving as vasoplegic but has not been overtly septic on admission; card dysfunction or cardiac tamponade have been r/o by ECHO; severe RH failure/ massive PE again seems unliikely given INR 1.7-2.6 now on pressors her SBP is in 120s and perhaps this is too high for her and the pressors are contributing ot over aggressive vasc vasoconstriction 4. Ques adrenal Hemm and adrenal crisis 5. HyperNa Disc: will likely need HD in next 12-24 hrs and CRRT would be our preference but not avial at [facility] so will reassess later today for reg HD REC: check LDH level; check anitphos lipid ab sero and cryo; cont aggressive TX to mainatin SBP > 80-90's; place SWG to assess fluid/pressor management; consider xfer to [facility] for CRRT; track UOP; will need HD in next 12 to 24 hrs but may not tolerate intermittent HD; start phos bidner; recheck CPK ( was nl on 11/12); consider xfer to [facility] for CRRT will follow morgan with team . Time Spent With Patient Time: Total time spent is greater than 50% in coordination of care (as documented) at patient's floor/unit and/or counseling patient:
[2020-11-15 10:40] LABS: Lactate Dehydrogenase 1597 U/L (122-220); Uric Acid 17.2 mg/dL (2.4-5.7)
[2020-11-15] MEDS: Thiamine HCL 200 MG/2 ML VIAL 100 MG IVPUSH (10:50)
[2020-11-15 10:53] LABS: Lactic Acid 34.7 mmol/L (0.5-2.0)
[2020-11-15 10:55] LABS: ABG HCO3 7 mmol/L (22-26); ABG pCO2 19 mmHg (32-45); ABG pCO2 TC 21 mmHg (32-45); ABG pH 7.17 (7.35-7.45); ABG pH TC 7.15 (7.35-7.45); ABG pO2 137 mmHg (83-108); ABG pO2 TC 147 (83-108)
[2020-11-15] MEDS: Fludrocortisone Acetate 0.1 MG TABLET 0.2 MG PO (11:30)
[2020-11-15 11:31] LABS: Glucose, Whole Blood 25 mg/dL (60-115)
--- NOTE | 2020-11-15 11:33 | P.PNCC_ITS ---
Subjective Subjective Date of Service: 11/15/20 Interval History: ICU DAILY PROGRESS NOTE AND TRANSFER SUMMARY Ms. Bhatt was admitted to the hospital and the ICU on the night of November 12 bec of hypovolemic shock. No evidence of sepsis. The patient is a 39-year-old female with history of coronary artery disease status post STEMI 12/2017 at [facility]. Catheterization showed single-vessel LAD disease. Echo showed a large LAD infarct with apical LV thrombus. The patient was put on Coumadin. Follow-up echo March, showed normal LV size, LV EF 40-45%, apical thrombus, RV normal size and function, no significant valvular disease. In July of last year, while on Coumadin, she had abnormal uterine bleeding, and the Coumadin was therefore discontinued. She also has chronic hypotension, chronic macrocytic anemia, h/o alcohol abuse without given diagnosis of cirrhosis. She is s/p cholecystectomy in November,. At that time, liver biopsy showed hepatic steatosis. I spoke with the patient's sister who told me that the patient drinks a lot, and doesn?t take care of herself. Two years ago, she had a similar episode where she was deathly ill. The patient lives w her 17 yo daughter. The patient presented to the emergency room at [facility] on November 12 with weakness, co nfusion, nausea and vomit x several days. No diarrhea. Patient stated that sometimes she will get nauseous mostly retching and then acid reflux will promote further retching. No clear etiology for her N&V. In the ED, she was confused and grossly dehydrated, with initial blood pressure about 70/40 (usual BP per our chart records is in the 90?s), Sat 100% on RA. Lactic acid was 6.0, Hb 7.8, stool guiac neg. No signs of infection although her white count was slightly elevated at 13K. She was anuric, chest x-ray was negative. Her creatinine was 3.7 (baseline is 0.6). Albumin was 2.1. Trop 25, BNP 109. Covid negative. The patient was given 30 mL/kg crystalloids, one unit of RBCs, and empiric abx. After the fluids, her mental status improved markedly. She had a transient increase in BP. She was admitted to ICU. She refused a Hernandez catheter. Vol resusc continued with albumin. Repeat lactic acid was 1.7, and she was no longer tachycardic. She started making urine. U/a was negative. Abx were not continued. The next morning 11/13, she was fully A&O and asking to go home to take care of her daughter. She was afebrile thruout. c/o being thirsty. BP running 90?s. (She usually runs 90?s). Breathing easy w Sat 99% RA. No JVD. Chest clear. Abdomen nondistended, nontender. No edema. F/u labs showed WBC 13, Hb 8.0, BUN/creat down to 28/2.5, tbili up to 5.0, BNP up to 990. K was 2.5. She was given potassium replacement. Follow-up chemistries later that afternoon showed BUN and creatinine down to 26/2.3, with potassium up to 3.3. ECHOCARDIOGRAM: 1. Moderate LV dysfunction, with overall EF about 35%. Notable septal and apical akinesis. 2. LV cavity size is upper limits of normal. 3. RV cavity size is normal. 4. Tricuspid jet measured 2.3 m/sec; gradient 21mm 5. IVC normal with minimal insp collapse. CVP estimate 8mm. RVSP estimate 29mm. The patient was transferred to the intermediate care unit. Early the next morning, November 14, she had a blood pressure of 70/40 and then repeat 64/34. She was given an albumin bolus. Blood pressure came up to 80/40. I want up to see her on IMC. She was fully awake and oriented, still look fine and nontoxic. Abdomen was benign. I arranged for transfer back to ICU because of the hypotension. On arrival to the ICU a bit after noon, initial BP was 62/36. She was still fully A&O. She was tachypneic but nonlabored, Sat 90% on room air. Temp 99.5. 2cm JVD at 30?. Chest CTA. Abdomen soft, benign. No edema. We gave her a bolus of albumin and lakia labs. She was given 50mg hydrocortisone. Mult requ ests to allow a Hernandez catheter were refused. LABORATORY DATA: Notably, white count 31, hemoglobin was down to 7.1, INR up to 2.6, BUN and creatinine up to 29/4.2, bicarb down to 17, potassium still low, phosphorus 3.2, glucose 20, T bili steady at 4.5, AST up to 85, CRP up to 10, PCT up to 8.8, troponin 1730, BNP 2500, and lactic acid 9.4. EKG showed Q-waves in V1 and V2 an ST T-wave depression in leads V4-V6 (no significant change from previous tracing). CXR showed new hazy opacification in both LLs, with loss of left hemidiaph contour. Could be pneumonia, could be CHF, altho I don?t see PVRD. I wrote her for ceftriaxone and 1 unit RBCs. Repeat ECHOCARDIOGRAM: 1. Moderate LV dysfunction, with overall EF about 30%, looks slightly worse than yesterday. LV cavity looks slightly larger. Apical and septal akinesis, no change from yest. 2. RV cavity size is normal. ICU COURSE. I spent the entirety of over six hours with the patient. She was given D50 and a unit of blood. When it became clear that her condition was deteriorating, I told her that we would put her to sleep in order to do what we needed to do. She agreed to that. Marshall-Synephrine, and then Levophed were started. The trachea was intubated, without complications or hemodynamic deterioration. A central venous line was placed. I echo?d the patient again after intubation. EF about 30%, right ventricle prob ably normal. Tricuspid jet measured 2 m/sec; gradient 16mm. IVC measured 2.28cm, with no insp collapse. (CVP estimate from CVL insertion was 15mm.) RVSP estimate 31mm. Mitral valve flow looked slow, with bubbles. Post intubation CXR showed no infiltrate on the right, but loss of the hemidiaphr contour on the left, w a hint of air bronchograms. She put out a brown diarrheal stool mixed with blood. Repeat lactate was 12. I discussed and examined the patient at the bedside with Dr. Hanna from Surgery. With the patient up to Levophed 0.4 ug, an arterial line was placed (see separate p rocedure), an abdominal CT was arranged for, and stool sent for Cdiff. Stool came back positive for CDiff toxin and antigen. The patient was started on oral vanco. CT abdomen (noncontrast) showed: 1. Enlarged fatty liver 2. Abnormal colon with mucosal thickening throughout suggesting colitis, possibly C. difficile. This findings appears worse than at the time of the prior study. 3. A small to moderate amount of ascites is present, decreased in amount when compared to the prior exam. 4. New thickening of adrenal glands. Could this patient have adrenal hemorrhage and adrenal insufficiency? Hydrocortisone was bumped up to 100mg tid. She continued to be acidotic, with high lactates, troponin up to 3600. She became mottled. Started on a bicarb drip overnight. This morning, she?s mottled up to her upper abdomen. Sedated on prop and fentanyl, overbreathing the ventilator. Temp 100.9. HR 105, BP 109/43 on vasopressin 0.02u, Levophed at 0.4ug. On assist control 14/10 100/50%/+10, respiratory rate is 20, sat is 96%. Bicarb drip at 100cc/hr (3 amps in D5W). 2cm JVD. Chest w few light crackles. Abd slightly rotund, no different than previously. Few bowel sounds if any (definitely hypoactive). Otherwise soft; upper part of her abdomen with the large liver is more firm. No edema. Repeat ECHOCARDIOGRAM: - Overall LVEF looks about 25%. Apical and septal akinesis unchanged. LV size unchanged. - RV size unchanged. - IVC dilated at 2.2 cm and non collapsing. LABORATORY DATA: Below. Notably, white count is 41.8. Hemoglobin is 8.4, platelet count is [id number]. INR is 3.0. Last arterial blood gas after changing the ventilator to AC rate of 30/300/50%/+10 showed 7.17/19/137/-19. Lactic acid at 10:15 was 34. Sodium 153, potassium 4.1, BUN/creatinine 31/4.8, uric acid 17, calcium 6.4, phosphorus 11, total bili 4.0, AST 690, ALT 145, troponin 18,000, EKG this morning notable for maybe 1mm ST seg elevation in leads V1 and V2 new from yesterday. IMPRESSION: 1. Severe shock. Cause remains unclear. Urine cult negative. Pneumonia unlikely based on lack of sx and CXR. Bacteremia certainly possible, but four sets of BCs are negative.. Unlikely to be Staph. I?m covering her with ceftriaxone. CDiff is positive, but she is asymptomatic, except for one episode of minor bloody diarrhea yesterday. She?s on oral vanco. Worsening shock, met acidosis, and extreme hyperlactatemia now could also be 2? rafaela hepatic failure. 2. Underlying CMOP, with new troponin bump, suggestive of NSTEMI. Discussed at length with Dr. Castaneda, who looked at the echos from today and yest. In his opinion, she has LAD occlusion and prob has new demand and low flow ischemi a, but not a new lesion. She?s not a candidate for anticoagulation or aspirin bec of Gi bleeding, or statin bec of liver disease. 3. CANDICE 2? shock. Echo indicates that she?s volume replete. No indication for further fluids. 4. ? adrenal insufficiency. Cortisol level sent, will take days to come back. Started on empiric hydrocortisone. 5. Hypoalbuminemia and probably at least mild protein calorie malnutrition. 6. Probably underlying cirrhosis (elevated bili, elevated INR, low albumin). The hyperlactatemia is undoubtedly exaggerated due to this, as is her chronic hypotension. 7. Anemia - r/o GI bleeding. OG aspirate is negative for any gross blood or coffee grounds. No further blood in her stool since yesterday. Hb is stable. Discussed this morning at length at the bedside with Dr. Castaneda, Dr. Quesada, and Dr. Hanna, along with the nurses. Will transfer to [facility] ICU for further mx. Spoke at length with [facility] Fellow, Dr. Patricia. Transfer to Dr. Gonzales?s service. [facility] transfer nurse. Critical care time: 2+ hours. Physical Exam Vital Signs: Vital Signs: Last Vital Signs Temp 101.5 F H 11/15/20 09:00 Pulse 99 11/15/20 09:00 Resp 20 11/15/20 09:00 BP 78/32 L 11/15/20 10:09 Pulse Ox 96 11/15/20 09:00 Body Mass Index 19.1 Objective Data Labs CBC & Chem 7: 11/15/20 05:23 11/15/20 05:23 Labs: Laboratory Results - last 24 hr 11/12/20 11/14/20 11/14/20 18:54 08:15 12:29 WBC RBC Hgb Hct MCV MCH MCHC RDW Plt Count MPV Immature Gran % (Auto) Neut % (Auto) Lymph % (Auto) [place] % (Auto) Eos % (Auto) Baso % (Auto) Lymph # (Auto) [place] # (Auto) Eos # (Auto) Baso # (Auto) Abs Immat Gran (auto) Absolute Neuts (auto) Absolute Nucleated RBC Nucleated RBC % (auto) Neutrophils % (Manual) Band Neutrophils % Lymphocytes % (Manual) Monocytes % (Manual) Metamyelocytes % Myelocytes % Abs Neuts (Manual) Lymphocytes # (Manual) Monocytes # (Manual) Metamyelocytes # Myelocytes # Nucleated RBCs Toxic Vacuolation Dohle Bodies Platelet Estimate Large Platelets Plt Morphology Comment RBC Morphology Polychromasia Hypochromasia Macrocytosis Target Cells Montara Cells Acanthocytes (Spur) Smear Tech's Comments PT INR O2 Saturation ABG pH at Pt Temp ABG pH (Temp Correct) ABG pCO2 at Pt Temp ABG pCO2 (Temp Corrct ABG pO2 at Pt Temp ABG pO2 (Temp Correct ABG HCO3 ABG Base Excess (Actual) VBG pH VBG pCO2 VBG pO2 VBG HCO3 VBG O2 Saturation VBG Base Excess Sodium 140 Potassium 2.9 L Chloride 98 Carbon Dioxide 17 L Anion Gap 28 H BUN 29 H Creatinine 4.26 H* Estim Creat Clear Calc 15.3 Estimated GFR 12 POC Glucose Random Glucose 20 L* Lactic Acid Lactic Acid Fup @ 2Hr Uric Acid Calcium 7.3 L Phosphorus 3.2 Magnesium 2.0 Total Bilirubin 4.5 H AST 85 H ALT 22 Alkaline Phosphatase 113 D Lactate Dehydrogenase Total Creatine Kinase Troponin I High Sens C-Reactive Protein 10.01 H B-Natriuretic Peptide Total Protein 5.9 L Albumin 3.3 L Procalcitonin Cortisol 39.0 H Urine Color Urine Appearance Urine pH Ur Specific [place] Urine Protein Urine Glucose (UA) Urine Ketones Urine Blood Urine Nitrite Ur Leukocyte Esterase Urine RBC Urine WBC Ur Squamous Epith Cells Urine Bacteria C. difficile Toxin A&B C. difficile Antigen C. difficile Interpret Blood Type O Positive Antibody Screen NEGATIVE Crossmatch See Detail 11/14/20 11/14/20 11/14/20 13:05 13:05 13:05 WBC 31.2 H* RBC 1.98 L Hgb 7.1 L Hct 21.3 L MCV 107.6 H MCH 35.9 H MCHC 33.3 RDW 18.9 H Plt Count 133 L MPV 11.0 Immature Gran % (Auto) 4.2 H Neut % (Auto) 81.5 H Lymph % (Auto) 5.8 L [place] % (Auto) 8.2 Eos % (Auto) 0.1 Baso % (Auto) 0.2 Lymph # (Auto) 1.8 [place] # (Auto) 2.6 H Eos # (Auto) 0.0 Baso # (Auto) 0.1 Abs Immat Gran (auto) 1.30 H Absolute Neuts (auto) 25.4 H Absolute Nucleated RBC 0.000 Nucleated RBC % (auto) 0.0 Neutrophils % (Manual) Band Neutrophils % Lymphocytes % (Manual) Monocytes % (Manual) Metamyelocytes % Myelocytes % Abs Neuts (Manual) Lymphocytes # (Manual) Monocytes # (Manual) Metamyelocytes # Myelocytes # Nucleated RBCs Toxic Vacuolation Dohle Bodies Platelet Estimate Large Platelets Plt Morphology Comment RBC Morphology Polychromasia Hypochromasia Macrocytosis Target Cells Montara Cells Acanthocytes (Spur) Smear Tech's Comments VERIFIED PT 31.6 H D INR 2.6 H O2 Saturation ABG pH at Pt Temp ABG pH (Temp Correct) ABG pCO2 at Pt Temp ABG pCO2 (Temp Corrct ABG pO2 at Pt Temp ABG pO2 (Temp Correct ABG HCO3 ABG Base Excess (Actual) VBG pH VBG pCO2 VBG pO2 VBG HCO3 VBG O2 Saturation VBG Base Excess Sodium Potassium Chloride Carbon Dioxide Anion Gap BUN Creatinine Estim Creat Clear Calc Estimated GFR POC Glucose Random Glucose Lactic Acid 9.4 H* Lactic Acid Fup @ 2Hr Uric Acid Calcium Phosphorus Magnesium Total Bilirubin AST ALT Alkaline Phosphatase Lactate Dehydrogenase Total Creatine Kinase Troponin I High Sens C-Reactive Protein B-Natriuretic Peptide Total Protein Albumin Procalcitonin Cortisol Urine Color Urine Appearance Urine pH Ur Specific [place] Urine Protein Urine Glucose (UA) Urine Ketones Urine Blood Urine Nitrite Ur Leukocyte Esterase Urine RBC Urine WBC Ur Squamous Epith Cells Urine Bacteria C. difficile Toxin A&B C. difficile Antigen C. difficile Interpret Blood Type Antibody Screen Crossmatch 11/14/20 11/14/20 11/14/20 13:06 13:06 14:08 WBC RBC Hgb Hct MCV MCH MCHC RDW Plt Count MPV Immature Gran % (Auto) Neut % (Auto) Lymph % (Auto) [place] % (Auto) Eos % (Auto) Baso % (Auto) Lymph # (Auto) [place] # (Auto) Eos # (Auto) Baso # (Auto) Abs Immat Gran (auto) Absolute Neuts (auto) Absolute Nucleated RBC Nucleated RBC % (auto) Neutrophils % (Manual) Band Neutrophils % Lymphocytes % (Manual) Monocytes % (Manual) Metamyelocytes % Myelocytes % Abs Neuts (Manual) Lymphocytes # (Manual) Monocytes # (Manual) Metamyelocytes # Myelocytes # Nucleated RBCs Toxic Vacuolation Dohle Bodies Platelet Estimate Large Platelets Plt Morphology Comment RBC Morphology Polychromasia Hypochromasia Macrocytosis Target Cells Dina Cells Acanthocytes (Spur) Smear Tech's Comments PT INR O2 Saturation ABG pH at Pt Temp ABG pH (Temp Correct) ABG pCO2 at Pt Temp ABG pCO2 (Temp Corrct ABG pO2 at Pt Temp ABG pO2 (Temp Correct ABG HCO3 ABG Base Excess (Actual) VBG pH VBG pCO2 VBG pO2 VBG HCO3 VBG O2 Saturation VBG Base Excess Sodium Potassium Chloride Carbon Dioxide Anion Gap BUN Creatinine Estim Creat Clear Calc Estimated GFR POC Glucose 128 H Random Glucose Lactic Acid Lactic Acid Fup @ 2Hr Uric Acid Calcium Phosphorus Magnesium Total Bilirubin AST ALT Alkaline Phosphatase Lactate Dehydrogenase Total Creatine Kinase Troponin I High Sens 1734.1 H D C-Reactive Protein B-Natriuretic Peptide 2524 H Total Protein Albumin Procalcitonin 8.80 Cortisol Urine Color Urine Appearance Urine pH Ur Specific [place] Urine Protein Urine Glucose (UA) Urine Ketones Urine Blood Urine Nitrite Ur Leukocyte Esterase Urine RBC Urine WBC Ur Squamous Epith Cells Urine Bacteria C. difficile Toxin A&B C. difficile Antigen C. difficile Interpret Blood Type Antibody Screen Crossmatch 11/14/20 11/14/20 11/14/20 16:29 16:33 16:34 WBC RBC Hgb Hct MCV MCH MCHC RDW Plt Count MPV Immature Gran % (Auto) Neut % (Auto) Lymph % (Auto) [place] % (Auto) Eos % (Auto) Baso % (Auto) Lymph # (Auto) [place] # (Auto) Eos # (Auto) Baso # (Auto) Abs Immat Gran (auto) Absolute Neuts (auto) Absolute Nucleated RBC Nucleated RBC % (auto) Neutrophils % (Manual) Band Neutrophils % Lymphocytes % (Manual) Monocytes % (Manual) Metamyelocytes % Myelocytes % Abs Neuts (Manual) Lymphocytes # (Manual) Monocytes # (Manual) Metamyelocytes # Myelocytes # Nucleated RBCs Toxic Vacuolation Dohle Bodies Platelet Estimate Large Platelets Plt Morphology Comment RBC Morphology Polychromasia Hypochromasia Macrocytosis Target Cells Dina Cells Acanthocytes (Spur) Smear Tech's Comments PT INR O2 Saturation < 30.0 ABG pH at Pt Temp 7.09 L* ABG pH (Temp Correct) 7.08 L* ABG pCO2 at Pt Temp 54 H ABG pCO2 (Temp Corrct 55 H ABG pO2 at Pt Temp 23 L* ABG pO2 (Temp Correct 24 L* ABG HCO3 16 L ABG Base Excess (Actual) -12.7 VBG pH 7.17 L* VBG pCO2 38 VBG pO2 51 VBG HCO3 14 L VBG O2 Saturation 67.0 VBG Base Excess -13.0 Sodium Potassium Chloride Carbon Dioxide Anion Gap BUN Creatinine Estim Creat Clear Calc Estimated GFR POC Glucose Random Glucose Lactic Acid 12.2 H* Lactic Acid Fup @ 2Hr Uric Acid Calcium Phosphorus Magnesium Total Bilirubin AST ALT Alkaline Phosphatase Lactate Dehydrogenase Total Creatine Kinase Troponin I High Sens C-Reactive Protein B-Natriuretic Peptide Total Protein Albumin Procalcitonin Cortisol Urine Color Urine Appearance Urine pH Ur Specific [place] Urine Protein Urine Glucose (UA) Urine Ketones Urine Blood Urine Nitrite Ur Leukocyte Esterase Urine RBC Urine WBC Ur Squamous Epith Cells Urine Bacteria C. difficile Toxin A&B C. difficile Antigen C. difficile Interpret Blood Type Antibody Screen Crossmatch 11/14/20 11/14/20 11/14/20 16:34 16:48 16:56 WBC RBC Hgb Hct MCV MCH MCHC RDW Plt Count MPV Immature Gran % (Auto) Neut % (Auto) Lymph % (Auto) [place] % (Auto) Eos % (Auto) Baso % (Auto) Lymph # (Auto) [place] # (Auto) Eos # (Auto) Baso # (Auto) Abs Immat Gran (auto) Absolute Neuts (auto) Absolute Nucleated RBC Nucleated RBC % (auto) Neutrophils % (Manual) Band Neutrophils % Lymphocytes % (Manual) Monocytes % (Manual) Metamyelocytes % Myelocytes % Abs Neuts (Manual) Lymphocytes # (Manual) Monocytes # (Manual) Metamyelocytes # Myelocytes # Nucleated RBCs Toxic Vacuolation Dohle Bodies Platelet Estimate Large Platelets Plt Morphology Comment RBC Morphology Polychromasia Hypochromasia Macrocytosis Target Cells Montara Cells Acanthocytes (Spur) Smear Tech's Comments PT INR O2 Saturation 85.0 ABG pH at Pt Temp 7.24 L ABG pH (Temp Correct) 7.23 L ABG pCO2 at Pt Temp 30 L ABG pCO2 (Temp Corrct 31 L ABG pO2 at Pt Temp 66 L ABG pO2 (Temp Correct 70 L ABG HCO3 13 L ABG Base Excess (Actual) -12.4 VBG pH 7.20 L* VBG pCO2 35 VBG pO2 45 VBG HCO3 14 L VBG O2 Saturation 59.0 VBG Base Excess -12.4 Sodium Potassium Chloride Carbon Dioxide Anion Gap BUN Creatinine Estim Creat Clear Calc Estimated GFR POC Glucose Random Glucose Lactic Acid Lactic Acid Fup @ 2Hr Uric Acid Calcium Phosphorus Magnesium Total Bilirubin AST ALT Alkaline Phosphatase Lactate Dehydrogenase Total Creatine Kinase Troponin I High Sens 3635.0 H D C-Reactive Protein B-Natriuretic Peptide Total Protein Albumin Procalcitonin Cortisol Urine Color Urine Appearance Urine pH Ur Specific [place] Urine Protein Urine Glucose (UA) Urine Ketones Urine Blood Urine Nitrite Ur Leukocyte Esterase Urine RBC Urine WBC Ur Squamous Epith Cells Urine Bacteria C. difficile Toxin A&B C. difficile Antigen C. difficile Interpret Blood Type Antibody Screen Crossmatch 11/14/20 11/14/20 11/14/20 17:03 18:08 18:08 WBC RBC Hgb 6.2 L* Hct 18.8 L* MCV MCH MCHC RDW Plt Count MPV Immature Gran % (Auto) Neut % (Auto) Lymph % (Auto) [place] % (Auto) Eos % (Auto) Baso % (Auto) Lymph # (Auto) [place] # (Auto) Eos # (Auto) Baso # (Auto) Abs Immat Gran (auto) Absolute Neuts (auto) Absolute Nucleated RBC Nucleated RBC % (auto) Neutrophils % (Manual) Band Neutrophils % Lymphocytes % (Manual) Monocytes % (Manual) Metamyelocytes % Myelocytes % Abs Neuts (Manual) Lymphocytes # (Manual) Monocytes # (Manual) Metamyelocytes # Myelocytes # Nucleated RBCs Toxic Vacuolation Dohle Bodies Platelet Estimate Large Platelets Plt Morphology Comment RBC Morphology Polychromasia Hypochromasia Macrocytosis Target Cells Montara Cells Acanthocytes (Spur) Smear Tech's Comments PT INR O2 Saturation ABG pH at Pt Temp ABG pH (Temp Correct) ABG pCO2 at Pt Temp ABG pCO2 (Temp Corrct ABG pO2 at Pt Temp ABG pO2 (Temp Correct ABG HCO3 ABG Base Excess (Actual) VBG pH VBG pCO2 VBG pO2 VBG HCO3 VBG O2 Saturation VBG Base Excess Sodium Potassium Chloride Carbon Dioxide Anion Gap BUN Creatinine Estim Creat Clear Calc Estimated GFR POC Glucose Random Glucose Lactic Acid Lactic Acid Fup @ 2Hr Uric Acid Calcium Phosphorus Magnesium Total Bilirubin AST ALT Alkaline Phosphatase Lactate Dehydrogenase Total Creatine Kinase Troponin I High Sens C-Reactive Protein B-Natriuretic Peptide Total Protein Albumin Procalcitonin Cortisol Urine Color GABRIEL Urine Appearance HAZY Urine pH 5.5 Ur Specific [place] 1.025 Urine Protein 2+ H Urine Glucose (UA) NEG Urine Ketones NEG Urine Blood TRACE Urine Nitrite NEG Ur Leukocyte Esterase NEG Urine RBC 5-9 H Urine WBC 10-14 H Ur Squamous Epith Cells 2+ Urine Bacteria 1+ C. difficile Toxin A&B Positive A C. difficile Antigen Positive A C. difficile Interpret SEE NOTE Blood Type Antibody Screen Crossmatch 11/14/20 11/14/20 11/14/20 19:32 19:55 19:55 WBC 42.9 H* RBC 2.56 L D Hgb 9.2 L D Hct 27.6 L D MCV 107.8 H MCH 35.9 H MCHC 33.3 RDW 18.5 H Plt Count 134 L MPV 11.5 Immature Gran % (Auto) Cancelled Neut % (Auto) Cancelled Lymph % (Auto) Cancelled [place] % (Auto) Cancelled Eos % (Auto) Cancelled Baso % (Auto) Cancelled Lymph # (Auto) Cancelled [place] # (Auto) Cancelled Eos # (Auto) Cancelled Baso # (Auto) Cancelled Abs Immat Gran (auto) Cancelled Absolute Neuts (auto) Cancelled Absolute Nucleated RBC 0.230 H Nucleated RBC % (auto) 0.5 H Neutrophils % (Manual) 71 Band Neutrophils % 17 H Lymphocytes % (Manual) 4 L Monocytes % (Manual) 3 Metamyelocytes % 4 Myelocytes % 1 Abs Neuts (Manual) 37.8 H Lymphocytes # (Manual) 1.7 Monocytes # (Manual) 1.3 H Metamyelocytes # 1.7 Myelocytes # 0.4 Nucleated RBCs 1 H Toxic Vacuolation PRESENT Dohle Bodies PRESENT Platelet Estimate SLIGHTLY DECREASED Large Platelets PRESENT Plt Morphology Comment NOTE RBC Morphology NOTED Polychromasia 1+ (0-2) Hypochromasia 1+ (5-14) Macrocytosis 1+ (5-14) Target Cells 1+ (5-14) Montara Cells 1+ (0-2) Acanthocytes (Spur) Smear Tech's Comments PT INR O2 Saturation ABG pH at Pt Temp ABG pH (Temp Correct) ABG pCO2 at Pt Temp ABG pCO2 (Temp Corrct ABG pO2 at Pt Temp ABG pO2 (Temp Correct ABG HCO3 ABG Base Excess (Actual) VBG pH VBG pCO2 VBG pO2 VBG HCO3 VBG O2 Saturation VBG Base Excess Sodium 143 Potassium 4.0 D Chloride 98 Carbon Dioxide 15 L Anion Gap 34 H BUN 30 H Creatinine 4.58 H* Estim Creat Clear Calc 14.3 Estimated GFR 11 POC Glucose Random Glucose 32 L* Lactic Acid Lactic Acid Fup @ 2Hr 13.9 H* Uric Acid Calcium 7.1 L Phosphorus Magnesium Total Bilirubin 4.4 H AST 180 H ALT 37 H Alkaline Phosphatase 120 H Lactate Dehydrogenase Total Creatine Kinase Troponin I High Sens C-Reactive Protein B-Natriuretic Peptide Total Protein 6.4 L Albumin 3.5 Procalcitonin Cortisol Urine Color Urine Appearance Urine pH Ur Specific [place] Urine Protein Urine Glucose (UA) Urine Ketones Urine Blood Urine Nitrite Ur Leukocyte Esterase Urine RBC Urine WBC Ur Squamous Epith Cells Urine Bacteria C. difficile Toxin A&B C. difficile Antigen C. difficile Interpret Blood Type Antibody Screen Crossmatch 11/14/20 11/14/20 11/15/20 19:59 21:38 00:23 WBC RBC Hgb 9.6 L Hct 29.6 L MCV MCH MCHC RDW Plt Count MPV Immature Gran % (Auto) Neut % (Auto) Lymph % (Auto) [place] % (Auto) Eos % (Auto) Baso % (Auto) Lymph # (Auto) [place] # (Auto) Eos # (Auto) Baso # (Auto) Abs Immat Gran (auto) Absolute Neuts (auto) Absolute Nucleated RBC Nucleated RBC % (auto) Neutrophils % (Manual) Band Neutrophils % Lymphocytes % (Manual) Monocytes % (Manual) Metamyelocytes % Myelocytes % Abs Neuts (Manual) Lymphocytes # (Manual) Monocytes # (Manual) Metamyelocytes # Myelocytes # Nucleated RBCs Toxic Vacuolation Dohle Bodies Platelet Estimate Large Platelets Plt Morphology Comment RBC Morphology Polychromasia Hypochromasia Macrocytosis Target Cells Dina Cells Acanthocytes (Spur) Smear Tech's Comments PT INR O2 Saturation 94.0 ABG pH at Pt Temp 7.16 L* ABG pH (Temp Correct) 7.16 L* ABG pCO2 at Pt Temp 37 ABG pCO2 (Temp Corrct 38 ABG pO2 at Pt Temp 99 ABG pO2 (Temp Correct 101 ABG HCO3 14 L ABG Base Excess (Actual) -13.5 VBG pH VBG pCO2 VBG pO2 VBG HCO3 VBG O2 Saturation VBG Base Excess Sodium Potassium Chloride Carbon Dioxide Anion Gap BUN Creatinine Estim Creat Clear Calc Estimated GFR POC Glucose 90 Random Glucose Lactic Acid Lactic Acid Fup @ 2Hr Uric Acid Calcium Phosphorus Magnesium Total Bilirubin AST ALT Alkaline Phosphatase Lactate Dehydrogenase Total Creatine Kinase Troponin I High Sens C-Reactive Protein B-Natriuretic Peptide Total Protein Albumin Procalcitonin Cortisol Urine Color Urine Appearance Urine pH Ur Specific [place] Urine Protein Urine Glucose (UA) Urine Ketones Urine Blood Urine Nitrite Ur Leukocyte Esterase Urine RBC Urine WBC Ur Squamous Epith Cells Urine Bacteria C. difficile Toxin A&B C. difficile Antigen C. difficile Interpret Blood Type Antibody Screen Crossmatch 11/15/20 11/15/20 11/15/20 00:25 00:30 01:55 WBC RBC Hgb Hct MCV MCH MCHC RDW Plt Count MPV Immature Gran % (Auto) Neut % (Auto) Lymph % (Auto) [place] % (Auto) Eos % (Auto) Baso % (Auto) Lymph # (Auto) [place] # (Auto) Eos # (Auto) Baso # (Auto) Abs Immat Gran (auto) Absolute Neuts (auto) Absolute Nucleated RBC Nucleated RBC % (auto) Neutrophils % (Manual) Band Neutrophils % Lymphocytes % (Manual) Monocytes % (Manual) Metamyelocytes % Myelocytes % Abs Neuts (Manual) Lymphocytes # (Manual) Monocytes # (Manual) Metamyelocytes # Myelocytes # Nucleated RBCs Toxic Vacuolation Dohle Bodies Platelet Estimate Large Platelets Plt Morphology Comment RBC Morphology Polychromasia Hypochromasia Macrocytosis Target Cells Dina Cells Acanthocytes (Spur) Smear Tech's Comments PT INR O2 Saturation 96.0 ABG pH at Pt Temp 7.24 L ABG pH (Temp Correct) 7.23 L ABG pCO2 at Pt Temp 21 L ABG pCO2 (Temp Corrct 22 L ABG pO2 at Pt Temp 92 ABG pO2 (Temp Correct 93 ABG HCO3 9 L ABG Base Excess (Actual) -15.7 VBG pH VBG pCO2 VBG pO2 VBG HCO3 VBG O2 Saturation VBG Base Excess Sodium Potassium Chloride Carbon Dioxide Anion Gap BUN Creatinine Estim Creat Clear Calc Estimated GFR POC Glucose 70 155 H Random Glucose Lactic Acid Lactic Acid Fup @ 2Hr Uric Acid Calcium Phosphorus Magnesium Total Bilirubin AST ALT Alkaline Phosphatase Lactate Dehydrogenase Total Creatine Kinase Troponin I High Sens C-Reactive Protein B-Natriuretic Peptide Total Protein Albumin Procalcitonin Cortisol Urine Color Urine Appearance Urine pH Ur Specific [place] Urine Protein Urine Glucose (UA) Urine Ketones Urine Blood Urine Nitrite Ur Leukocyte Esterase Urine RBC Urine WBC Ur Squamous Epith Cells Urine Bacteria C. difficile Toxin A&B C. difficile Antigen C. difficile Interpret Blood Type Antibody Screen Crossmatch 11/15/20 11/15/20 11/15/20 04:34 05:23 05:23 WBC 41.8 H* RBC 2.31 L Hgb 8.4 L Hct 25.7 L MCV 111.3 H MCH 36.4 H MCHC 32.7 RDW 19.6 H Plt Count 125 L MPV 11.9 Immature Gran % (Auto) Neut % (Auto) Lymph % (Auto) [place] % (Auto) Eos % (Auto) Baso % (Auto) Lymph # (Auto) [place] # (Auto) Eos # (Auto) Baso # (Auto) Abs Immat Gran (auto) Absolute Neuts (auto) Absolute Nucleated RBC 0.320 H Nucleated RBC % (auto) 0.8 H Neutrophils % (Manual) 66 Band Neutrophils % 20 H Lymphocytes % (Manual) 10 L Monocytes % (Manual) 4 Metamyelocytes % Myelocytes % Abs Neuts (Manual) 35.9 H Lymphocytes # (Manual) 4.2 Monocytes # (Manual) 1.7 H Metamyelocytes # Myelocytes # Nucleated RBCs Toxic Vacuolation PRESENT Dohle Bodies Platelet Estimate SLIGHTLY DECREASED Large Platelets Plt Morphology Comment NORMAL RBC Morphology NOTED Polychromasia 1+ (0-2) Hypochromasia 1+ (5-14) Macrocytosis 2+ (15-30) Target Cells Dina Cells Acanthocytes (Spur) 2+ (3-5) Smear Tech's Comments PT 35.7 H INR 3.0 H O2 Saturation 98.0 ABG pH at Pt Temp 7.15 L* ABG pH (Temp Correct) 7.14 L* ABG pCO2 at Pt Temp 26 L ABG pCO2 (Temp Corrct 27 L ABG pO2 at Pt Temp 129 H ABG pO2 (Temp Correct 134 H ABG HCO3 9 L ABG Base Excess (Actual) -17.6 VBG pH VBG pCO2 VBG pO2 VBG HCO3 VBG O2 Saturation VBG Base Excess Sodium Potassium Chloride Carbon Dioxide Anion Gap BUN Creatinine Estim Creat Clear Calc Estimated GFR POC Glucose Random Glucose Lactic Acid Lactic Acid Fup @ 2Hr Uric Acid Calcium Phosphorus Magnesium Total Bilirubin AST ALT Alkaline Phosphatase Lactate Dehydrogenase Total Creatine Kinase Troponin I High Sens C-Reactive Protein B-Natriuretic Peptide Total Protein Albumin Procalcitonin Cortisol Urine Color Urine Appearance Urine pH Ur Specific [place] Urine Protein Urine Glucose (UA) Urine Ketones Urine Blood Urine Nitrite Ur Leukocyte Esterase Urine RBC Urine WBC Ur Squamous Epith Cells Urine Bacteria C. difficile Toxin A&B C. difficile Antigen C. difficile Interpret Blood Type Antibody Screen Crossmatch 11/15/20 11/15/20 11/15/20 05:23 05:23 06:16 WBC RBC Hgb Hct MCV MCH MCHC RDW Plt Count MPV Immature Gran % (Auto) Neut % (Auto) Lymph % (Auto) [place] % (Auto) Eos % (Auto) Baso % (Auto) Lymph # (Auto) [place] # (Auto) Eos # (Auto) Baso # (Auto) Abs Immat Gran (auto) Absolute Neuts (auto) Absolute Nucleated RBC Nucleated RBC % (auto) Neutrophils % (Manual) Band Neutrophils % Lymphocytes % (Manual) Monocytes % (Manual) Metamyelocytes % Myelocytes % Abs Neuts (Manual) Lymphocytes # (Manual) Monocytes # (Manual) Metamyelocytes # Myelocytes # Nucleated RBCs Toxic Vacuolation Dohle Bodies Platelet Estimate Large Platelets Plt Morphology Comment RBC Morphology Polychromasia Hypochromasia Macrocytosis Target Cells [place] Cells Acanthocytes (Spur) Smear Tech's Comments PT INR O2 Saturation 98.0 ABG pH at Pt Temp 7.26 L ABG pH (Temp Correct) 7.25 L ABG pCO2 at Pt Temp 27 L ABG pCO2 (Temp Corrct 28 L ABG pO2 at Pt Temp 127 H ABG pO2 (Temp Correct 132 H ABG HCO3 12 L ABG Base Excess (Actual) -13.0 VBG pH VBG pCO2 VBG pO2 VBG HCO3 VBG O2 Saturation VBG Base Excess Sodium 153 H Potassium 4.1 Chloride 92 L Carbon Dioxide 13 L Anion Gap 52 H BUN 31 H Creatinine 4.86 H* Estim Creat Clear Calc 13.4 Estimated GFR 10 POC Glucose Random Glucose 99 D Lactic Acid Lactic Acid Fup @ 2Hr Uric Acid 17.2 H Calcium 6.4 L D Phosphorus 11.2 H Magnesium Total Bilirubin 4.0 H AST 690 H ALT 145 H Alkaline Phosphatase 112 Lactate Dehydrogenase 1597 H Total Creatine Kinase 2396 H D Troponin I High Sens 92904.5 H D C-Reactive Protein 14.93 H B-Natriuretic Peptide 3532 H Total Protein 5.2 L Albumin 2.9 L Procalcitonin Cortisol Urine Color Urine Appearance Urine pH Ur Specific [place] Urine Protein Urine Glucose (UA) Urine Ketones Urine Blood Urine Nitrite Ur Leukocyte Esterase Urine RBC Urine WBC Ur Squamous Epith Cells Urine Bacteria C. difficile Toxin A&B C. difficile Antigen C. difficile Interpret Blood Type Antibody Screen Crossmatch 11/15/20 11/15/20 11/15/20 10:15 10:49 11:23 WBC RBC Hgb Hct MCV MCH MCHC RDW Plt Count MPV Immature Gran % (Auto) Neut % (Auto) Lymph % (Auto) [place] % (Auto) Eos % (Auto) Baso % (Auto) Lymph # (Auto) [place] # (Auto) Eos # (Auto) Baso # (Auto) Abs Immat Gran (auto) Absolute Neuts (auto) Absolute Nucleated RBC Nucleated RBC % (auto) Neutrophils % (Manual) Band Neutrophils % Lymphocytes % (Manual) Monocytes % (Manual) Metamyelocytes % Myelocytes % Abs Neuts (Manual) Lymphocytes # (Manual) Monocytes # (Manual) Metamyelocytes # Myelocytes # Nucleated RBCs Toxic Vacuolation Dohle Bodies Platelet Estimate Large Platelets Plt Morphology Comment RBC Morphology Polychromasia Hypochromasia Macrocytosis Target Cells [place] Cells Acanthocytes (Spur) Smear Tech's Comments PT INR O2 Saturation 98.0 ABG pH at Pt Temp 7.17 L* ABG pH (Temp Correct) 7.15 L* ABG pCO2 at Pt Temp 19 L* ABG pCO2 (Temp Corrct 21 L ABG pO2 at Pt Temp 137 H ABG pO2 (Temp Correct 147 H ABG HCO3 7 L ABG Base Excess (Actual) -19.0 VBG pH VBG pCO2 VBG pO2 VBG HCO3 VBG O2 Saturation VBG Base Excess Sodium Potassium Chloride Carbon Dioxide Anion Gap BUN Creatinine Estim Creat Clear Calc Estimated GFR POC Glucose 25 L* Random Glucose Lactic Acid 34.7 H* Lactic Acid Fup @ 2Hr Uric Acid Calcium Phosphorus Magnesium Total Bilirubin AST ALT Alkaline Phosphatase Lactate Dehydrogenase Total Creatine Kinase Troponin I High Sens C-Reactive Protein B-Natriuretic Peptide Total Protein Albumin Procalcitonin Cortisol Urine Color Urine Appearance Urine pH Ur Specific [place] Urine Protein Urine Glucose (UA) Urine Ketones Urine Blood Urine Nitrite Ur Leukocyte Esterase Urine RBC Urine WBC Ur Squamous Epith Cells Urine Bacteria C. difficile Toxin A&B C. difficile Antigen C. difficile Interpret Blood Type Antibody Screen Crossmatch Microbiology Microbiology Results: Microbiology 11/14/20 17:03 Urine [place] Urine Culture - Preliminary No growth to date. 11/13/20 05:45 Urine clean catch - Clean Catch Midstream Urine Culture - Final 11/12/20 17:41 Blood - Venous Blood Culture - Preliminary No growth after 48 hours. 11/12/20 17:03 Blood - Venous Blood Culture - Preliminary No growth after 48 hours. Critical Care Time Critical Care Time (minutes): 120
--- NOTE | 2020-11-15 11:35 | PM.PNCARD ---
Subjective Subjective Date of Service: 11/15/20 Interval history: She was in C as today but then she decompensated and then moved to the ICU. She also got intubated. Blood pressure was going further down and then she got put on pressors. Review of Systems Review of Systems Yes unobtainable due to endotracheal tube Physical Exam Vital Signs: Last Vital Signs Temp 101.5 F H 11/15/20 09:00 Pulse 99 11/15/20 09:00 Resp 20 11/15/20 09:00 BP 78/32 L 11/15/20 10:09 Pulse Ox 96 11/15/20 09:00 Body Mass Index 19.1 Const Other: She is intubated General: ill appearing HENMT Head: Yes normal to inspection Neck Neck: Yes normal visual inspection Resp Auscultation: diminished lung sounds Cardio Heart sounds: S1 normal heart sound present, S2 normal heart sound present, no gallops and no murmurs GI Inspection: Yes normal to inspection and Yes abdominal wall ecchymosis Skin General skin exam: mottling Neuro Cognition (Neuro): abnormal cognition ([place]) Psych Appearance: other Results Labs and Meds Result diagrams: 11/15/20 05:23 11/15/20 05:23 Lab results: Laboratory Results - last 24 hr 11/12/20 11/14/20 11/14/20 18:54 08:15 12:29 WBC RBC Hgb Hct MCV MCH MCHC RDW Plt Count MPV Immature Gran % (Auto) Neut % (Auto) Lymph % (Auto) [place] % (Auto) Eos % (Auto) Baso % (Auto) Lymph # (Auto) [place] # (Auto) Eos # (Auto) Baso # (Auto) Abs Immat Gran (auto) Absolute Neuts (auto) Absolute Nucleated RBC Nucleated RBC % (auto) Neutrophils % (Manual) Band Neutrophils % Lymphocytes % (Manual) Monocytes % (Manual) Metamyelocytes % Myelocytes % Abs Neuts (Manual) Lymphocytes # (Manual) Monocytes # (Manual) Metamyelocytes # Myelocytes # Nucleated RBCs Toxic Vacuolation Dohle Bodies Platelet Estimate Large Platelets Plt Morphology Comment RBC Morphology Polychromasia Hypochromasia Macrocytosis Target Cells [place] Cells Acanthocytes (Spur) Smear Tech's Comments PT INR O2 Saturation ABG pH at Pt Temp ABG pH (Temp Correct) ABG pCO2 at Pt Temp ABG pCO2 (Temp Corrct ABG pO2 at Pt Temp ABG pO2 (Temp Correct ABG HCO3 ABG Base Excess (Actual) VBG pH VBG pCO2 VBG pO2 VBG HCO3 VBG O2 Saturation VBG Base Excess Sodium 140 Potassium 2.9 L Chloride 98 Carbon Dioxide 17 L Anion Gap 28 H BUN 29 H Creatinine 4.26 H* Estim Creat Clear Calc 15.3 Estimated GFR 12 POC Glucose Random Glucose 20 L* Lactic Acid Lactic Acid Fup @ 2Hr Uric Acid Calcium 7.3 L Phosphorus 3.2 Magnesium 2.0 Total Bilirubin 4.5 H AST 85 H ALT 22 Alkaline Phosphatase 113 D Lactate Dehydrogenase Total Creatine Kinase Troponin I High Sens C-Reactive Protein 10.01 H B-Natriuretic Peptide Total Protein 5.9 L Albumin 3.3 L Procalcitonin Cortisol 39.0 H Urine Color Urine Appearance Urine pH Ur Specific [place] Urine Protein Urine Glucose (UA) Urine Ketones Urine Blood Urine Nitrite Ur Leukocyte Esterase Urine RBC Urine WBC Ur Squamous Epith Cells Urine Bacteria C. difficile Toxin A&B C. difficile Antigen C. difficile Interpret Blood Type O Positive Antibody Screen NEGATIVE Crossmatch See Detail 11/14/20 11/14/20 11/14/20 13:05 13:05 13:05 WBC 31.2 H* RBC 1.98 L Hgb 7.1 L Hct 21.3 L MCV 107.6 H MCH 35.9 H MCHC 33.3 RDW 18.9 H Plt Count 133 L MPV 11.0 Immature Gran % (Auto) 4.2 H Neut % (Auto) 81.5 H Lymph % (Auto) 5.8 L [place] % (Auto) 8.2 Eos % (Auto) 0.1 Baso % (Auto) 0.2 Lymph # (Auto) 1.8 [place] # (Auto) 2.6 H Eos # (Auto) 0.0 Baso # (Auto) 0.1 Abs Immat Gran (auto) 1.30 H Absolute Neuts (auto) 25.4 H Absolute Nucleated RBC 0.000 Nucleated RBC % (auto) 0.0 Neutrophils % (Manual) Band Neutrophils % Lymphocytes % (Manual) Monocytes % (Manual) Metamyelocytes % Myelocytes % Abs Neuts (Manual) Lymphocytes # (Manual) Monocytes # (Manual) Metamyelocytes # Myelocytes # Nucleated RBCs Toxic Vacuolation Dohle Bodies Platelet Estimate Large Platelets Plt Morphology Comment RBC Morphology Polychromasia Hypochromasia Macrocytosis Target Cells [place] Cells Acanthocytes (Spur) Smear Tech's Comments VERIFIED PT 31.6 H D INR 2.6 H O2 Saturation ABG pH at Pt Temp ABG pH (Temp Correct) ABG pCO2 at Pt Temp ABG pCO2 (Temp Corrct ABG pO2 at Pt Temp ABG pO2 (Temp Correct ABG HCO3 ABG Base Excess (Actual) VBG pH VBG pCO2 VBG pO2 VBG HCO3 VBG O2 Saturation VBG Base Excess Sodium Potassium Chloride Carbon Dioxide Anion Gap BUN Creatinine Estim Creat Clear Calc Estimated GFR POC Glucose Random Glucose Lactic Acid 9.4 H* Lactic Acid Fup @ 2Hr Uric Acid Calcium Phosphorus Magnesium Total Bilirubin AST ALT Alkaline Phosphatase Lactate Dehydrogenase Total Creatine Kinase Troponin I High Sens C-Reactive Protein B-Natriuretic Peptide Total Protein Albumin Procalcitonin Cortisol Urine Color Urine Appearance Urine pH Ur Specific [place] Urine Protein Urine Glucose (UA) Urine Ketones Urine Blood Urine Nitrite Ur Leukocyte Esterase Urine RBC Urine WBC Ur Squamous Epith Cells Urine Bacteria C. difficile Toxin A&B C. difficile Antigen C. difficile Interpret Blood Type Antibody Screen Crossmatch 11/14/20 11/14/20 11/14/20 13:06 13:06 14:08 WBC RBC Hgb Hct MCV MCH MCHC RDW Plt Count MPV Immature Gran % (Auto) Neut % (Auto) Lymph % (Auto) [place] % (Auto) Eos % (Auto) Baso % (Auto) Lymph # (Auto) [place] # (Auto) Eos # (Auto) Baso # (Auto) Abs Immat Gran (auto) Absolute Neuts (auto) Absolute Nucleated RBC Nucleated RBC % (auto) Neutrophils % (Manual) Band Neutrophils % Lymphocytes % (Manual) Monocytes % (Manual) Metamyelocytes % Myelocytes % Abs Neuts (Manual) Lymphocytes # (Manual) Monocytes # (Manual) Metamyelocytes # Myelocytes # Nucleated RBCs Toxic Vacuolation Dohle Bodies Platelet Estimate Large Platelets Plt Morphology Comment RBC Morphology Polychromasia Hypochromasia Macrocytosis Target Cells [place] Cells Acanthocytes (Spur) Smear Tech's Comments PT INR O2 Saturation ABG pH at Pt Temp ABG pH (Temp Correct) ABG pCO2 at Pt Temp ABG pCO2 (Temp Corrct ABG pO2 at Pt Temp ABG pO2 (Temp Correct ABG HCO3 ABG Base Excess (Actual) VBG pH VBG pCO2 VBG pO2 VBG HCO3 VBG O2 Saturation VBG Base Excess Sodium Potassium Chloride Carbon Dioxide Anion Gap BUN Creatinine Estim Creat Clear Calc Estimated GFR POC Glucose 128 H Random Glucose Lactic Acid Lactic Acid Fup @ 2Hr Uric Acid Calcium Phosphorus Magnesium Total Bilirubin AST ALT Alkaline Phosphatase Lactate Dehydrogenase Total Creatine Kinase Troponin I High Sens 1734.1 H D C-Reactive Protein B-Natriuretic Peptide 2524 H Total Protein Albumin Procalcitonin 8.80 Cortisol Urine Color Urine Appearance Urine pH Ur Specific [place] Urine Protein Urine Glucose (UA) Urine Ketones Urine Blood Urine Nitrite Ur Leukocyte Esterase Urine RBC Urine WBC Ur Squamous Epith Cells Urine Bacteria C. difficile Toxin A&B C. difficile Antigen C. difficile Interpret Blood Type Antibody Screen Crossmatch 11/14/20 11/14/20 11/14/20 16:29 16:33 16:34 WBC RBC Hgb Hct MCV MCH MCHC RDW Plt Count MPV Immature Gran % (Auto) Neut % (Auto) Lymph % (Auto) [place] % (Auto) Eos % (Auto) Baso % (Auto) Lymph # (Auto) [place] # (Auto) Eos # (Auto) Baso # (Auto) Abs Immat Gran (auto) Absolute Neuts (auto) Absolute Nucleated RBC Nucleated RBC % (auto) Neutrophils % (Manual) Band Neutrophils % Lymphocytes % (Manual) Monocytes % (Manual) Metamyelocytes % Myelocytes % Abs Neuts (Manual) Lymphocytes # (Manual) Monocytes # (Manual) Metamyelocytes # Myelocytes # Nucleated RBCs Toxic Vacuolation Dohle Bodies Platelet Estimate Large Platelets Plt Morphology Comment RBC Morphology Polychromasia Hypochromasia Macrocytosis Target Cells [place] Cells Acanthocytes (Spur) Smear Tech's Comments PT INR O2 Saturation < 30.0 ABG pH at Pt Temp 7.09 L* ABG pH (Temp Correct) 7.08 L* ABG pCO2 at Pt Temp 54 H ABG pCO2 (Temp Corrct 55 H ABG pO2 at Pt Temp 23 L* ABG pO2 (Temp Correct 24 L* ABG HCO3 16 L ABG Base Excess (Actual) -12.7 VBG pH 7.17 L* VBG pCO2 38 VBG pO2 51 VBG HCO3 14 L VBG O2 Saturation 67.0 VBG Base Excess -13.0 Sodium Potassium Chloride Carbon Dioxide Anion Gap BUN Creatinine Estim Creat Clear Calc Estimated GFR POC Glucose Random Glucose Lactic Acid 12.2 H* Lactic Acid Fup @ 2Hr Uric Acid Calcium Phosphorus Magnesium Total Bilirubin AST ALT Alkaline Phosphatase Lactate Dehydrogenase Total Creatine Kinase Troponin I High Sens C-Reactive Protein B-Natriuretic Peptide Total Protein Albumin Procalcitonin Cortisol Urine Color Urine Appearance Urine pH Ur Specific [place] Urine Protein Urine Glucose (UA) Urine Ketones Urine Blood Urine Nitrite Ur Leukocyte Esterase Urine RBC Urine WBC Ur Squamous Epith Cells Urine Bacteria C. difficile Toxin A&B C. difficile Antigen C. difficile Interpret Blood Type Antibody Screen Crossmatch 11/14/20 11/14/20 11/14/20 16:34 16:48 16:56 WBC RBC Hgb Hct MCV MCH MCHC RDW Plt Count MPV Immature Gran % (Auto) Neut % (Auto) Lymph % (Auto) [place] % (Auto) Eos % (Auto) Baso % (Auto) Lymph # (Auto) [place] # (Auto) Eos # (Auto) Baso # (Auto) Abs Immat Gran (auto) Absolute Neuts (auto) Absolute Nucleated RBC Nucleated RBC % (auto) Neutrophils % (Manual) Band Neutrophils % Lymphocytes % (Manual) Monocytes % (Manual) Metamyelocytes % Myelocytes % Abs Neuts (Manual) Lymphocytes # (Manual) Monocytes # (Manual) Metamyelocytes # Myelocytes # Nucleated RBCs Toxic Vacuolation Dohle Bodies Platelet Estimate Large Platelets Plt Morphology Comment RBC Morphology Polychromasia Hypochromasia Macrocytosis Target Cells [place] Cells Acanthocytes (Spur) Smear Tech's Comments PT INR O2 Saturation 85.0 ABG pH at Pt Temp 7.24 L ABG pH (Temp Correct) 7.23 L ABG pCO2 at Pt Temp 30 L ABG pCO2 (Temp Corrct 31 L ABG pO2 at Pt Temp 66 L ABG pO2 (Temp Correct 70 L ABG HCO3 13 L ABG Base Excess (Actual) -12.4 VBG pH 7.20 L* VBG pCO2 35 VBG pO2 45 VBG HCO3 14 L VBG O2 Saturation 59.0 VBG Base Excess -12.4 Sodium Potassium Chloride Carbon Dioxide Anion Gap BUN Creatinine Estim Creat Clear Calc Estimated GFR POC Glucose Random Glucose Lactic Acid Lactic Acid Fup @ 2Hr Uric Acid Calcium Phosphorus Magnesium Total Bilirubin AST ALT Alkaline Phosphatase Lactate Dehydrogenase Total Creatine Kinase Troponin I High Sens 3635.0 H D C-Reactive Protein B-Natriuretic Peptide Total Protein Albumin Procalcitonin Cortisol Urine Color Urine Appearance Urine pH Ur Specific [place] Urine Protein Urine Glucose (UA) Urine Ketones Urine Blood Urine Nitrite Ur Leukocyte Esterase Urine RBC Urine WBC Ur Squamous Epith Cells Urine Bacteria C. difficile Toxin A&B C. difficile Antigen C. difficile Interpret Blood Type Antibody Screen Crossmatch 11/14/20 11/14/20 11/14/20 17:03 18:08 18:08 WBC RBC Hgb 6.2 L* Hct 18.8 L* MCV MCH MCHC RDW Plt Count MPV Immature Gran % (Auto) Neut % (Auto) Lymph % (Auto) [place] % (Auto) Eos % (Auto) Baso % (Auto) Lymph # (Auto) [place] # (Auto) Eos # (Auto) Baso # (Auto) Abs Immat Gran (auto) Absolute Neuts (auto) Absolute Nucleated RBC Nucleated RBC % (auto) Neutrophils % (Manual) Band Neutrophils % Lymphocytes % (Manual) Monocytes % (Manual) Metamyelocytes % Myelocytes % Abs Neuts (Manual) Lymphocytes # (Manual) Monocytes # (Manual) Metamyelocytes # Myelocytes # Nucleated RBCs Toxic Vacuolation Dohle Bodies Platelet Estimate Large Platelets Plt Morphology Comment RBC Morphology Polychromasia Hypochromasia Macrocytosis Target Cells [place] Cells Acanthocytes (Spur) Smear Tech's Comments PT INR O2 Saturation ABG pH at Pt Temp ABG pH (Temp Correct) ABG pCO2 at Pt Temp ABG pCO2 (Temp Corrct ABG pO2 at Pt Temp ABG pO2 (Temp Correct ABG HCO3 ABG Base Excess (Actual) VBG pH VBG pCO2 VBG pO2 VBG HCO3 VBG O2 Saturation VBG Base Excess Sodium Potassium Chloride Carbon Dioxide Anion Gap BUN Creatinine Estim Creat Clear Calc Estimated GFR POC Glucose Random Glucose Lactic Acid Lactic Acid Fup @ 2Hr Uric Acid Calcium Phosphorus Magnesium Total Bilirubin AST ALT Alkaline Phosphatase Lactate Dehydrogenase Total Creatine Kinase Troponin I High Sens C-Reactive Protein B-Natriuretic Peptide Total Protein Albumin Procalcitonin Cortisol Urine Color [place]AB[place]EL Urine Appearance HAZY Urine pH 5.5 Ur Specific [place] 1.025 Urine Protein 2+ H Urine Glucose (UA) NEG Urine Ketones NEG Urine Blood TRACE Urine Nitrite NEG Ur Leukocyte Esterase NEG Urine RBC 5-9 H Urine WBC 10-14 H Ur Squamous Epith Cells 2+ Urine Bacteria 1+ C. difficile Toxin A&B Positive A C. difficile Antigen Positive A C. difficile Interpret SEE NOTE Blood Type Antibody Screen Crossmatch 11/14/20 11/14/20 11/14/20 19:32 19:55 19:55 WBC 42.9 H* RBC 2.56 L D Hgb 9.2 L D Hct 27.6 L D MCV 107.8 H MCH 35.9 H MCHC 33.3 RDW 18.5 H Plt Count 134 L MPV 11.5 Immature Gran % (Auto) Cancelled Neut % (Auto) Cancelled Lymph % (Auto) Cancelled [place] % (Auto) Cancelled Eos % (Auto) Cancelled Baso % (Auto) Cancelled Lymph # (Auto) Cancelled [place] # (Auto) Cancelled Eos # (Auto) Cancelled Baso # (Auto) Cancelled Abs Immat Gran (auto) Cancelled Absolute Neuts (auto) Cancelled Absolute Nucleated RBC 0.230 H Nucleated RBC % (auto) 0.5 H Neutrophils % (Manual) 71 Band Neutrophils % 17 H Lymphocytes % (Manual) 4 L Monocytes % (Manual) 3 Metamyelocytes % 4 Myelocytes % 1 Abs Neuts (Manual) 37.8 H Lymphocytes # (Manual) 1.7 Monocytes # (Manual) 1.3 H Metamyelocytes # 1.7 Myelocytes # 0.4 Nucleated RBCs 1 H Toxic Vacuolation PRESENT Dohle Bodies PRESENT Platelet Estimate SLIGHTLY DECREASED Large Platelets PRESENT Plt Morphology Comment NOTE RBC Morphology NOTED Polychromasia 1+ (0-2) Hypochromasia 1+ (5-14) Macrocytosis 1+ (5-14) Target Cells 1+ (5-14) [place] Cells 1+ (0-2) Acanthocytes (Spur) Smear Tech's Comments PT INR O2 Saturation ABG pH at Pt Temp ABG pH (Temp Correct) ABG pCO2 at Pt Temp ABG pCO2 (Temp Corrct ABG pO2 at Pt Temp ABG pO2 (Temp Correct ABG HCO3 ABG Base Excess (Actual) VBG pH VBG pCO2 VBG pO2 VBG HCO3 VBG O2 Saturation VBG Base Excess Sodium 143 Potassium 4.0 D Chloride 98 Carbon Dioxide 15 L Anion Gap 34 H BUN 30 H Creatinine 4.58 H* Estim Creat Clear Calc 14.3 Estimated GFR 11 POC Glucose Random Glucose 32 L* Lactic Acid Lactic Acid Fup @ 2Hr 13.9 H* Uric Acid Calcium 7.1 L Phosphorus Magnesium Total Bilirubin 4.4 H AST 180 H ALT 37 H Alkaline Phosphatase 120 H Lactate Dehydrogenase Total Creatine Kinase Troponin I High Sens C-Reactive Protein B-Natriuretic Peptide Total Protein 6.4 L Albumin 3.5 Procalcitonin Cortisol Urine Color Urine Appearance Urine pH Ur Specific [place] Urine Protein Urine Glucose (UA) Urine Ketones Urine Blood Urine Nitrite Ur Leukocyte Esterase Urine RBC Urine WBC Ur Squamous Epith Cells Urine Bacteria C. difficile Toxin A&B C. difficile Antigen C. difficile Interpret Blood Type Antibody Screen Crossmatch 11/14/20 11/14/20 11/15/20 19:59 21:38 00:23 WBC RBC Hgb 9.6 L Hct 29.6 L MCV MCH MCHC RDW Plt Count MPV Immature Gran % (Auto) Neut % (Auto) Lymph % (Auto) [place] % (Auto) Eos % (Auto) Baso % (Auto) Lymph # (Auto) [place] # (Auto) Eos # (Auto) Baso # (Auto) Abs Immat Gran (auto) Absolute Neuts (auto) Absolute Nucleated RBC Nucleated RBC % (auto) Neutrophils % (Manual) Band Neutrophils % Lymphocytes % (Manual) Monocytes % (Manual) Metamyelocytes % Myelocytes % Abs Neuts (Manual) Lymphocytes # (Manual) Monocytes # (Manual) Metamyelocytes # Myelocytes # Nucleated RBCs Toxic Vacuolation Dohle Bodies Platelet Estimate Large Platelets Plt Morphology Comment RBC Morphology Polychromasia Hypochromasia Macrocytosis Target Cells [place] Cells Acanthocytes (Spur) Smear Tech's Comments PT INR O2 Saturation 94.0 ABG pH at Pt Temp 7.16 L* ABG pH (Temp Correct) 7.16 L* ABG pCO2 at Pt Temp 37 ABG pCO2 (Temp Corrct 38 ABG pO2 at Pt Temp 99 ABG pO2 (Temp Correct 101 ABG HCO3 14 L ABG Base Excess (Actual) -13.5 VBG pH VBG pCO2 VBG pO2 VBG HCO3 VBG O2 Saturation VBG Base Excess Sodium Potassium Chloride Carbon Dioxide Anion Gap BUN Creatinine Estim Creat Clear Calc Estimated GFR POC Glucose 90 Random Glucose Lactic Acid Lactic Acid Fup @ 2Hr Uric Acid Calcium Phosphorus Magnesium Total Bilirubin AST ALT Alkaline Phosphatase Lactate Dehydrogenase Total Creatine Kinase Troponin I High Sens C-Reactive Protein B-Natriuretic Peptide Total Protein Albumin Procalcitonin Cortisol Urine Color Urine Appearance Urine pH Ur Specific [place] Urine Protein Urine Glucose (UA) Urine Ketones Urine Blood Urine Nitrite Ur Leukocyte Esterase Urine RBC Urine WBC Ur Squamous Epith Cells Urine Bacteria C. difficile Toxin A&B C. difficile Antigen C. difficile Interpret Blood Type Antibody Screen Crossmatch 11/15/20 11/15/20 11/15/20 00:25 00:30 01:55 WBC RBC Hgb Hct MCV MCH MCHC RDW Plt Count MPV Immature Gran % (Auto) Neut % (Auto) Lymph % (Auto) [place] % (Auto) Eos % (Auto) Baso % (Auto) Lymph # (Auto) [place] # (Auto) Eos # (Auto) Baso # (Auto) Abs Immat Gran (auto) Absolute Neuts (auto) Absolute Nucleated RBC Nucleated RBC % (auto) Neutrophils % (Manual) Band Neutrophils % Lymphocytes % (Manual) Monocytes % (Manual) Metamyelocytes % Myelocytes % Abs Neuts (Manual) Lymphocytes # (Manual) Monocytes # (Manual) Metamyelocytes # Myelocytes # Nucleated RBCs Toxic Vacuolation Dohle Bodies Platelet Estimate Large Platelets Plt Morphology Comment RBC Morphology Polychromasia Hypochromasia Macrocytosis Target Cells [place] Cells Acanthocytes (Spur) Smear Tech's Comments PT INR O2 Saturation 96.0 ABG pH at Pt Temp 7.24 L ABG pH (Temp Correct) 7.23 L ABG pCO2 at Pt Temp 21 L ABG pCO2 (Temp Corrct 22 L ABG pO2 at Pt Temp 92 ABG pO2 (Temp Correct 93 ABG HCO3 9 L ABG Base Excess (Actual) -15.7 VBG pH VBG pCO2 VBG pO2 VBG HCO3 VBG O2 Saturation VBG Base Excess Sodium Potassium Chloride Carbon Dioxide Anion Gap BUN Creatinine Estim Creat Clear Calc Estimated GFR POC Glucose 70 155 H Random Glucose Lactic Acid Lactic Acid Fup @ 2Hr Uric Acid Calcium Phosphorus Magnesium Total Bilirubin AST ALT Alkaline Phosphatase Lactate Dehydrogenase Total Creatine Kinase Troponin I High Sens C-Reactive Protein B-Natriuretic Peptide Total Protein Albumin Procalcitonin Cortisol Urine Color Urine Appearance Urine pH Ur Specific [place] Urine Protein Urine Glucose (UA) Urine Ketones Urine Blood Urine Nitrite Ur Leukocyte Esterase Urine RBC Urine WBC Ur Squamous Epith Cells Urine Bacteria C. difficile Toxin A&B C. difficile Antigen C. difficile Interpret Blood Type Antibody Screen Crossmatch 11/15/20 11/15/20 11/15/20 04:34 05:23 05:23 WBC 41.8 H* RBC 2.31 L Hgb 8.4 L Hct 25.7 L MCV 111.3 H MCH 36.4 H MCHC 32.7 RDW 19.6 H Plt Count 125 L MPV 11.9 Immature Gran % (Auto) Neut % (Auto) Lymph % (Auto) [place] % (Auto) Eos % (Auto) Baso % (Auto) Lymph # (Auto) [place] # (Auto) Eos # (Auto) Baso # (Auto) Abs Immat Gran (auto) Absolute Neuts (auto) Absolute Nucleated RBC 0.320 H Nucleated RBC % (auto) 0.8 H Neutrophils % (Manual) 66 Band Neutrophils % 20 H Lymphocytes % (Manual) 10 L Monocytes % (Manual) 4 Metamyelocytes % Myelocytes % Abs Neuts (Manual) 35.9 H Lymphocytes # (Manual) 4.2 Monocytes # (Manual) 1.7 H Metamyelocytes # Myelocytes # Nucleated RBCs Toxic Vacuolation PRESENT Dohle Bodies Platelet Estimate SLIGHTLY DECREASED Large Platelets Plt Morphology Comment NORMAL RBC Morphology NOTED Polychromasia 1+ (0-2) Hypochromasia 1+ (5-14) Macrocytosis 2+ (15-30) Target Cells [place] Cells Acanthocytes (Spur) 2+ (3-5) Smear Tech's Comments PT 35.7 H INR 3.0 H O2 Saturation 98.0 ABG pH at Pt Temp 7.15 L* ABG pH (Temp Correct) 7.14 L* ABG pCO2 at Pt Temp 26 L ABG pCO2 (Temp Corrct 27 L ABG pO2 at Pt Temp 129 H ABG pO2 (Temp Correct 134 H ABG HCO3 9 L ABG Base Excess (Actual) -17.6 VBG pH VBG pCO2 VBG pO2 VBG HCO3 VBG O2 Saturation VBG Base Excess Sodium Potassium Chloride Carbon Dioxide Anion Gap BUN Creatinine Estim Creat Clear Calc Estimated GFR POC Glucose Random Glucose Lactic Acid Lactic Acid Fup @ 2Hr Uric Acid Calcium Phosphorus Magnesium Total Bilirubin AST ALT Alkaline Phosphatase Lactate Dehydrogenase Total Creatine Kinase Troponin I High Sens C-Reactive Protein B-Natriuretic Peptide Total Protein Albumin Procalcitonin Cortisol Urine Color Urine Appearance Urine pH Ur Specific [place] Urine Protein Urine Glucose (UA) Urine Ketones Urine Blood Urine Nitrite Ur Leukocyte Esterase Urine RBC Urine WBC Ur Squamous Epith Cells Urine Bacteria C. difficile Toxin A&B C. difficile Antigen C. difficile Interpret Blood Type Antibody Screen Crossmatch 11/15/20 11/15/20 11/15/20 05:23 05:23 06:16 WBC RBC Hgb Hct MCV MCH MCHC RDW Plt Count MPV Immature Gran % (Auto) Neut % (Auto) Lymph % (Auto) [place] % (Auto) Eos % (Auto) Baso % (Auto) Lymph # (Auto) [place] # (Auto) Eos # (Auto) Baso # (Auto) Abs Immat Gran (auto) Absolute Neuts (auto) Absolute Nucleated RBC Nucleated RBC % (auto) Neutrophils % (Manual) Band Neutrophils % Lymphocytes % (Manual) Monocytes % (Manual) Metamyelocytes % Myelocytes % Abs Neuts (Manual) Lymphocytes # (Manual) Monocytes # (Manual) Metamyelocytes # Myelocytes # Nucleated RBCs Toxic Vacuolation Dohle Bodies Platelet Estimate Large Platelets Plt Morphology Comment RBC Morphology Polychromasia Hypochromasia Macrocytosis Target Cells [place] Cells Acanthocytes (Spur) Smear Tech's Comments PT INR O2 Saturation 98.0 ABG pH at Pt Temp 7.26 L ABG pH (Temp Correct) 7.25 L ABG pCO2 at Pt Temp 27 L ABG pCO2 (Temp Corrct 28 L ABG pO2 at Pt Temp 127 H ABG pO2 (Temp Correct 132 H ABG HCO3 12 L ABG Base Excess (Actual) -13.0 VBG pH VBG pCO2 VBG pO2 VBG HCO3 VBG O2 Saturation VBG Base Excess Sodium 153 H Potassium 4.1 Chloride 92 L Carbon Dioxide 13 L Anion Gap 52 H BUN 31 H Creatinine 4.86 H* Estim Creat Clear Calc 13.4 Estimated GFR 10 POC Glucose Random Glucose 99 D Lactic Acid Lactic Acid Fup @ 2Hr Uric Acid 17.2 H Calcium 6.4 L D Phosphorus 11.2 H Magnesium Total Bilirubin 4.0 H AST 690 H ALT 145 H Alkaline Phosphatase 112 Lactate Dehydrogenase 1597 H Total Creatine Kinase 2396 H D Troponin I High Sens 83116.5 H D C-Reactive Protein 14.93 H B-Natriuretic Peptide 3532 H Total Protein 5.2 L Albumin 2.9 L Procalcitonin Cortisol Urine Color Urine Appearance Urine pH Ur Specific [place] Urine Protein Urine Glucose (UA) Urine Ketones Urine Blood Urine Nitrite Ur Leukocyte Esterase Urine RBC Urine WBC Ur Squamous Epith Cells Urine Bacteria C. difficile Toxin A&B C. difficile Antigen C. difficile Interpret Blood Type Antibody Screen Crossmatch 11/15/20 11/15/20 11/15/20 10:15 10:49 11:23 WBC RBC Hgb Hct MCV MCH MCHC RDW Plt Count MPV Immature Gran % (Auto) Neut % (Auto) Lymph % (Auto) [place] % (Auto) Eos % (Auto) Baso % (Auto) Lymph # (Auto) [place] # (Auto) Eos # (Auto) Baso # (Auto) Abs Immat Gran (auto) Absolute Neuts (auto) Absolute Nucleated RBC Nucleated RBC % (auto) Neutrophils % (Manual) Band Neutrophils % Lymphocytes % (Manual) Monocytes % (Manual) Metamyelocytes % Myelocytes % Abs Neuts (Manual) Lymphocytes # (Manual) Monocytes # (Manual) Metamyelocytes # Myelocytes # Nucleated RBCs Toxic Vacuolation Dohle Bodies Platelet Estimate Large Platelets Plt Morphology Comment RBC Morphology Polychromasia Hypochromasia Macrocytosis Target Cells Dina Cells Acanthocytes (Spur) Smear Tech's Comments PT INR O2 Saturation 98.0 ABG pH at Pt Temp 7.17 L* ABG pH (Temp Correct) 7.15 L* ABG pCO2 at Pt Temp 19 L* ABG pCO2 (Temp Corrct 21 L ABG pO2 at Pt Temp 137 H ABG pO2 (Temp Correct 147 H ABG HCO3 7 L ABG Base Excess (Actual) -19.0 VBG pH VBG pCO2 VBG pO2 VBG HCO3 VBG O2 Saturation VBG Base Excess Sodium Potassium Chloride Carbon Dioxide Anion Gap BUN Creatinine Estim Creat Clear Calc Estimated GFR POC Glucose 25 L* Random Glucose Lactic Acid 34.7 H* Lactic Acid Fup @ 2Hr Uric Acid Calcium Phosphorus Magnesium Total Bilirubin AST ALT Alkaline Phosphatase Lactate Dehydrogenase Total Creatine Kinase Troponin I High Sens C-Reactive Protein B-Natriuretic Peptide Total Protein Albumin Procalcitonin Cortisol Urine Color Urine Appearance Urine pH Ur Specific [place] Urine Protein Urine Glucose (UA) Urine Ketones Urine Blood Urine Nitrite Ur Leukocyte Esterase Urine RBC Urine WBC Ur Squamous Epith Cells Urine Bacteria C. difficile Toxin A&B C. difficile Antigen C. difficile Interpret Blood Type Antibody Screen Crossmatch Imaging Radiologist's impression: Impressions Chest X-Ray 11/14/20 13:57 IMPRESSION: New likely developing infiltrates in both lung bases and left upper lobe. Chest X-Ray 11/14/20 16:12 IMPRESSION: New support lines and catheters as described above. Advanced enteric tube by 10 cm. No change in bilateral infiltrates. Abdomen/Pelvis CT 11/14/20 19:15 IMPRESSION: 1. Enlarged fatty liver 2. Abnormal colon with mucosal thickening throughout suggesting colitis, possibly C. difficile. This findings appears worse than at the time of the prior study. 3. A small to moderate amount of ascites is present, decreased in amount when compared to the prior exam. 4. New thickening of adrenal glands. Could this patient have adrenal hemorrhage and adrenal insufficiency? This critical result was discussed with Galdino Cueva MD@8:08pm and it was ascertained that the content and urgency of the report was understood at the time of direct communication. Progress Note: A&P Assessment and plan (1) Shock: Status: Acute (2) Arterial hypotension: Status: Acute (3) NSTEMI (non-ST elevated myocardial infarction): Status: Acute (4) Ischemic cardiomyopathy: Status: Acute Assessment and Plan: Discussed with master carpenter, Nephrology as well as General surgery. 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 This has however been chronic. Troponin elevation at this time is most likely from under perfusion. I highly doubt if she had a new acute plaque rupture causing infarction. 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 Her white cell count is markedly high. She has got neutrophilic predominance and she also has bandemia. Her hypotension is somewhat chronic but this is much worse than her baseline. Most likely she has some systemic infection, possibly C diff. There is also suspicion of adrenal hemorrhage. Overall, from cardiac standpoint if there is no medical contraindication, then may consider IV heparin use. Otherwise I do not really see any clear indication for mechanical assist support. Discussed with master carpenter about transferring her to [facility] ICU and he is agreeing for the same. Will also need to update her family. Total critical care time spent in this encounter including review of all the labs, imaging studies, discussing with specialists, coordinating care -45 minutes Fall Risk Details Current Medications: Current Medications Generic Name Dose Route Start Last Admin Trade Name Freq PRN Reason Stop Dose Admin Fludrocortisone Acetate 0.2 mg 11/14/20 10:35 11/15/20 11:30 Fludrocortisone Acetate 0.1 Mg Tablet PO 0.2 mg DAILY LOC Administration Hydrocortisone Sodium Succinate 100 mg 11/14/20 20:15 11/15/20 03:13 Hydrocortisone Sod Succ/Pf 100 Mg Vial IVPUSH 100 mg Q8H LOC Administration Epinephrine 5 mg/ Dextrose 255 mls @ 0 mls/hr 11/14/20 14:30 IVCONT .Q0M LOC Protocol Per Protocol Norepinephrine Bitartrate 8 mg in 250 mls @ 0 mls/hr 11/14/20 14:48 11/15/20 10:09 Levophed IVCONT 0.3 mcg/kg/min .Q0M LOC 31.16 mls/hr Titration Protocol Per Protocol Propofol 1,000 mg in 100 mls @ 0 mls/hr 11/14/20 15:00 11/15/20 06:28 Diprivan IVCONT 20 mcg/kg/min .Q0M LOC 6.65 mls/hr Titration Protocol Per Protocol Phytonadione 10 mg/ Sodium 51 mls @ 51 mls/hr 11/14/20 21:00 11/15/20 10:43 Chloride IV 11/15/20 15:59 51 mls/hr Q6H LOC Administration Fentanyl 1,000 mcg in 100 mls @ 0 mls/hr 11/15/20 00:45 11/15/20 11:03 Sublimaze/Ns IVCONT 200 mcg/hr .Q0M LOC 20 mls/hr Administration Protocol Per Protocol Vasopressin 20 unit/ Sodium 101 mls @ 3.03 mls/hr 11/15/20 00:45 11/15/20 10:08 Chloride IVCONT 0.04 unit/min .Q24H LOC 12.12 mls/hr Infusion 0.01 UNIT/MIN Sodium Bicarbonate 150 meq/ 1,000 mls @ 100 mls/hr 11/15/20 09:00 11/15/20 09:30 Dextrose IV 100 mls/hr .Q10H LOC Administration Naloxone HCl 0.2 mg 11/15/20 00:41 Naloxone Hcl 0.4 Mg/Ml Vial IVPUSH Q2M PRN Excessive sedation or RR < 8 Sodium Chloride 3 ml 11/13/20 00:00 11/15/20 07:03 0.9 % Sodium Chloride Flush 3 Ml Syringe IVFLUSH 3 ml QSHIFT LOC Administration Thiamine HCl 100 mg 11/15/20 09:00 11/15/20 10:50 Thiamine Hcl 200 Mg/2 Ml Vial IVPUSH 100 mg DAILY LOC Administration Vancomycin HCl 250 mg 11/15/20 00:00 11/15/20 06:00 Vancomycin Hcl Oral Solution 125 Mg/5 Ml Soln.Recon PO 250 mg Q6H LOC Administration Time Spent With Patient Time: Total time spent is greater than 50% in coordination of care (as documented) at patient's floor/unit and/or counseling patient: Time with patient: 25 - 35 minutes
[2020-11-15 11:42] LABS: Glucose, Whole Blood 313 mg/dL (60-115)
--- NOTE | 2020-11-15 11:50 | PM.DS ---
DS: Providers Provider Date of Service: 11/15/20 Date of admission: 11/12/20 19:57 Primary care physician: Unknown Physician Consults: 11/13/20 19:25 Consult to Cardiology Stat Consulting Provider: Rashad Castaneda Reason for consultation: [id number]; Wall motion abnortmality on ECho;p Hypotension 11/13/20 19:28 Consult to Nephrology Routine Consulting Provider: Peter Lopez Reason for consultation: CANDICE 11/14/20 19:43 Consult to General Surgery Stat Consulting Provider: Franky Hanna Reason for consultation: Severe shock w lactic acidosis; r/o ischemic bowel Has provider been notified: Yes DS: Diagnosis Discharge Diagnosis (1) Shock: Status: Acute (2) Arterial hypotension: Status: Acute (3) NSTEMI (non-ST elevated myocardial infarction): Status: Acute (4) Ischemic cardiomyopathy: Status: Acute DS: Medications Discharge Medications Home Medications: Home Medications Medication Instructions Recorded Confirmed aspirin 1 tab PO DAILY 07/17/20 11/12/20 digoxin 1 tab PO DAILY 07/17/20 11/12/20 folic acid 1 tab PO DAILY 07/17/20 11/12/20 gabapentin 1 cap PO BID 07/17/20 11/12/20 potassium chloride 1 tab PO BID 07/17/20 11/12/20 sacubitril-valsartan [Entresto] 1 tab PO BID 07/17/20 11/12/20 thiamine HCl (vitamin B1) [Vitamin 1 tab PO DAILY 07/17/20 11/12/20 B-1] DS: Summary Hospital Course Hospital Course: Ms. Bhatt was admitted to the hospital and the ICU on the night of November 12 bec of hypovolemic shock. No evidence of sepsis. The patient is a 39-year-old female with history of coronary artery disease status post STEMI 12/2017 at [facility]. Catheterization showed single-vessel LAD disease. Echo showed a large LAD infarct with apical LV thrombus. The patient was put on Coumadin. Follow-up echo March, showed normal LV size, LV EF 40-45%, apical thrombus, RV normal size and function, no significant valvular disease. In July of last year, while on Coumadin, she had abnormal uterine bleeding, and the Coumadin was therefore discontinued. She also has chronic hypotension, chronic macrocytic anemia, h/o alcohol abuse without given diagnosis of cirrhosis. She is s/p cholecystectomy in November,. At that time, liver biopsy showed hepatic steatosis. I spoke with the patient's sister who told me that the patient drinks a lot, and doesn?t take care of herself. Two years ago, she had a similar episode where she was deathly ill. The patient lives w her 17 yo daughter. The patient presented to the emergency room at [facility] on November 12 with weakness, confusion, nausea and vomit x several days. No diarrhea. Patient stated that sometimes she will get nauseous mostly retching and then acid reflux will promote further retching. No clear etiology for her N&V. In the ED, she was confused and grossly dehydrated, with initial blood pressure about 70/40 (usual BP per our chart records is in the 90?s), Sat 100% on RA. Lactic acid was 6.0, Hb 7.8, stool guiac neg. No signs of infection although her white count was slightly elevated at 13K. She was anuric, chest x-ray was negative. Her creatinine was 3.7 (baseline is 0.6). Albumin was 2.1. Trop 25, BNP 109. Covid negative. The patient was given 30 mL/kg crystalloids, one unit of RBCs, and empiric abx. After the fluids, her mental status improved markedly. She had a transient increase in BP. She was admitted to ICU. She refused a Hernandez catheter. Vol resusc continued with albumin. Repeat lactic acid was 1.7, and she was no longer tachycardic. She started making urine. U/a was negative. Abx were not continued. The next morning 11/13, she was fully A&O and asking to go home to take care of her daughter. She was afebrile thruout. c/o being thirsty. BP running 90?s. (She usually runs 90?s). Breathing easy w Sat 99% RA. No JVD. Chest clear. Abdomen nondistended, nontender. No edema. F/u labs showed WBC 13, Hb 8.0, BUN/creat down to 28/2.5, tbili up to 5.0, BNP up to 990. K was 2.5. She was given potassium replacement. Follow-up chemistries later that afternoon showed BUN and creatinine down to 26/2.3, with potassium up to 3.3. ECHOCARDIOGRAM: 1. Moderate LV dysfunction, with overall EF about 35%. Notable septal and apical akinesis. 2. LV cavity size is upper limits of normal. 3. RV cavity size is normal. 4. Tricuspid jet measured 2.3 m/sec; gradient 21mm 5. IVC normal with minimal insp collapse. CVP estimate 8mm. RVSP estimate 29mm. The patient was transferred to the intermediate care unit. Early the next morning, November 14, she had a blood pressure of 70/40 and then repeat 64/34. She was given an albumin bolus. Blood pressure came up to 80/40. I want up to see her on IM. She was fully awake and oriented, still look fine and nontoxic. Abdomen was benign. I arranged for transfer back to ICU because of the hypotension. On arrival to the ICU a bit after noon, initial BP was 62/36. She was still fully A&O. She was tachypneic but nonlabored, Sat 90% on room air. Temp 99.5. 2cm JVD at 30?. Chest CTA. Abdomen soft, benign. No edema. We gave her a bolus of albumin and lakia labs. She was given 50mg hydrocortisone. Mult requests to allow a Hernandez catheter were refused. LABORATORY DATA: Notably, white count 31, hemoglobin was down to 7.1, INR up to 2.6, BUN and creatinine up to 29/4.2, bicarb down to 17, potassium still low, phosphorus 3.2, glucose 20, T bili steady at 4.5, AST up to 85, CRP up to 10, PCT up to 8.8, troponin 1730, BNP 2500, and lactic acid 9.4. EKG showed Q-waves in V1 and V2 an ST T-wave depression in leads V4-V6 (no significant change from previous tracing). CXR showed new hazy opacification in both LLs, with loss of left hemidiaph contour. Could be pneumonia, could be CHF, altho I don?t see PVRD. I wrote her for ceftriaxone and 1 unit RBCs. Repeat ECHOCARDIOGRAM: 1. Moderate LV dysfunction, with overall EF about 30%, looks slightly worse than yesterday. LV cavity looks slightly larger. Apical and septal akinesis, no change from yest. 2. RV cavity size is normal. ICU COURSE. I spent the entirety of over six hours with the patient. She was given D50 and a unit of blood. When it became clear that her condition was deteriorating, I told her that we would put her to sleep in order to do what we needed to do. She agreed to that. Marshall-Synephrine, and then Levophed were started. The trachea was intubated, without complications or hemodynamic deterioration. A central venous line was placed. I echo?d the patient again after intubation. EF about 30%, right ventricle probably normal. Tricuspid jet measured 2 m/sec; gradient 16mm. IVC measured 2.28cm, with no insp collapse. (CVP estimate from CVL insertion was 15mm.) RVSP estimate 31mm. Mitral valve flow looked slow, with bubbles. Post intubation CXR showed no infiltrate on the right, but loss of the hemidiaphr contour on the left, w a hint of air bronchograms. She put out a brown diarrheal stool mixed with blood. Repeat lactate was 12. I discussed and examined the patient at the bedside with Dr. Hanna from Surgery. With the patient up to Levophed 0.4 ug, an arterial line was placed (see separate procedure), an abdominal CT was arranged for, and stool sent for Cdiff. Stool came back positive for CDiff toxin and antigen. The patient was started on oral vanco. CT abdomen (noncontrast) showed: 1. Enlarged fatty liver 2. Abnormal colon with mucosal thickening throughout suggesting colitis, possibly C. difficile. This findings appears worse than at the time of the prior study. 3. A small to moderate amount of ascites is present, decreased in amount when compared to the prior exam. 4. New thickening of adrenal glands. Could this patient have adrenal hemorrhage and adrenal insufficiency? Hydrocortisone was bumped up to 100mg tid. She continued to be acidotic, with high lactates, troponin up to 3600. She became mottled. Started on a bicarb drip overnight. This morning, she?s mottled up to her upper abdomen. Sedated on prop and fentanyl, overbreathing the ventilator. Temp 100.9. HR 105, BP 109/43 on vasopressin 0.02u, Levophed at 0.4ug. On assist control 14/10 100/50%/+10, respiratory rate is 20, sat is 96%. Bicarb drip at 100cc/hr (3 amps in D5W). 2cm JVD. Chest w few light crackles. Abd slightly rotund, no different than previously. Few bowel sounds if any (definitely hypoactive). Otherwise soft; upper part of her abdomen with the large liver is more firm. No edema. Repeat ECHOCARDIOGRAM: - Overall LVEF looks about 25%. Apical and septal akinesis unchanged. LV size unchanged. - RV size unchanged. - IVC dilated at 2.2 cm and non collapsing. LABORATORY DATA: Below. Notably, white count is 41.8. Hemoglobin is 8.4, platelet count is 486107. INR is 3.0. Last arterial blood gas after changing the ventilator to AC rate of 30/300/50%/+10 showed 7.17/19/137/-19. Lactic acid at 10:15 was 34. Sodium 153, potassium 4.1, BUN/creatinine 31/4.8, uric acid 17, calcium 6.4, phosphorus 11, total bili 4.0, AST 690, ALT 145, troponin 18,000, EKG this morning notable for maybe 1mm ST seg elevation in leads V1 and V2 new from yesterday. IMPRESSION: 1. Severe shock. Cause remains unclear. Urine cult negative. Pneumonia unlikely based on lack of sx and CXR. Bacteremia certainly possible, but four sets of BCs are negative.. Unlikely to be Staph. I?m covering her with ceftriaxone. CDiff is positive, but she is asymptomatic, except for one episode of minor bloody diarrhea yesterday. She?s on oral vanco. Worsening shock, met acidosis, and extreme hyperlactatemia now could also be 2? rafaela hepatic failure. 2. Underlying CMOP, with new troponin bump, suggestive of NSTEMI. Discussed at length with Dr. Castaneda, who looked at the echos from today and yest. In his opinion, she has LAD occlusion and prob has new demand and low flow ischemia, but not a new lesion. She?s not a candidate for anticoagulation or aspirin bec of Gi bleeding, or statin bec of liver disease. 3. CANDICE 2? shock. Echo indicates that she?s volume replete. No indication for further fluids. 4. ? adrenal insufficiency. Cortisol level sent, will take days to come back. Started on empiric hydrocortisone. 5. Hypoalbuminemia and probably at least mild protein calorie malnutrition. 6. Probably underlying cirrhosis (elevated bili, elevated INR, low albumin). The hyperlactatemia is undoubtedly exaggerated due to this, as is her chronic hypotension. 7. Anemia - r/o GI bleeding. OG aspirate is negative for any gross blood or coffee grounds. No further blood in her stool since yesterday. Hb is stable. Discussed this morning at length at the bedside with Dr. Castaneda, Dr. Quesada, and Dr. Hanna, along with the nurses. Will transfer to [facility] ICU for further mx. Spoke at length with [facility] Fellow, Dr. Patricia. Transfer to Dr. Gonzales?s service. [facility] transfer nurse. Time spent discussing smoking cessation with patient: 3 to 10 minutes Time Spent with Patient Time attestation: Total time spent providing and/or coordinating discharge services: Discharge coordination time: Less than 30 minutes Physical Exam Vital Signs: Vital Signs: Last Vital Signs Temp 101.5 F H 11/15/20 09:00 Pulse 99 11/15/20 09:00 Resp 20 11/15/20 09:00 BP 78/32 L 11/15/20 10:09 Pulse Ox 96 11/15/20 09:00 Body Mass Index 19.1 DS: Data Data Completed and Pending Completed studies during hospitalization [Text1]: Procedures Insertion of Infusion Device into Right Internal Jugular Vein, Percutaneous Approach (07/17/20) Transfusion of Nonautologous Frozen Plasma into Central Vein, Percutaneous Approach (07/17/20) Transfusion of Nonautologous Platelets into Central Vein, Percutaneous Approach (07/17/20) Transfusion of Nonautologous Red Blood Cells into Central Vein, Percutaneous Approach (07/17/20) Ultrasonography of Right Jugular Veins, Guidance (07/17/20) Labs on day of discharge: Laboratory Results - last 24 hr 11/12/20 11/14/20 11/14/20 18:54 08:15 12:29 WBC RBC Hgb Hct MCV MCH MCHC RDW Plt Count MPV Immature Gran % (Auto) Neut % (Auto) Lymph % (Auto) [place] % (Auto) Eos % (Auto) Baso % (Auto) Lymph # (Auto) [place] # (Auto) Eos # (Auto) Baso # (Auto) Abs Immat Gran (auto) Absolute Neuts (auto) Absolute Nucleated RBC Nucleated RBC % (auto) Neutrophils % (Manual) Band Neutrophils % Lymphocytes % (Manual) Monocytes % (Manual) Metamyelocytes % Myelocytes % Abs Neuts (Manual) Lymphocytes # (Manual) Monocytes # (Manual) Metamyelocytes # Myelocytes # Nucleated RBCs Toxic Vacuolation Dohle Bodies Platelet Estimate Large Platelets Plt Morphology Comment RBC Morphology Polychromasia Hypochromasia Macrocytosis Target Cells Dina Cells Acanthocytes (Spur) Smear Tech's Comments PT INR O2 Saturation ABG pH at Pt Temp ABG pH (Temp Correct) ABG pCO2 at Pt Temp ABG pCO2 (Temp Corrct ABG pO2 at Pt Temp ABG pO2 (Temp Correct ABG HCO3 ABG Base Excess (Actual) VBG pH VBG pCO2 VBG pO2 VBG HCO3 VBG O2 Saturation VBG Base Excess Sodium 140 Potassium 2.9 L Chloride 98 Carbon Dioxide 17 L Anion Gap 28 H BUN 29 H Creatinine 4.26 H* Estim Creat Clear Calc 15.3 Estimated GFR 12 POC Glucose Random Glucose 20 L* Lactic Acid Lactic Acid Fup @ 2Hr Uric Acid Calcium 7.3 L Phosphorus 3.2 Magnesium 2.0 Total Bilirubin 4.5 H AST 85 H ALT 22 Alkaline Phosphatase 113 D Lactate Dehydrogenase Total Creatine Kinase Troponin I High Sens C-Reactive Protein 10.01 H B-Natriuretic Peptide Total Protein 5.9 L Albumin 3.3 L Procalcitonin Cortisol 39.0 H Urine Color Urine Appearance Urine pH Ur Specific [place] Urine Protein Urine Glucose (UA) Urine Ketones Urine Blood Urine Nitrite Ur Leukocyte Esterase Urine RBC Urine WBC Ur Squamous Epith Cells Urine Bacteria C. difficile Toxin A&B C. difficile Antigen C. difficile Interpret Blood Type O Positive Antibody Screen NEGATIVE Crossmatch See Detail 11/14/20 11/14/20 11/14/20 13:05 13:05 13:05 WBC 31.2 H* RBC 1.98 L Hgb 7.1 L Hct 21.3 L MCV 107.6 H MCH 35.9 H MCHC 33.3 RDW 18.9 H Plt Count 133 L MPV 11.0 Immature Gran % (Auto) 4.2 H Neut % (Auto) 81.5 H Lymph % (Auto) 5.8 L [place] % (Auto) 8.2 Eos % (Auto) 0.1 Baso % (Auto) 0.2 Lymph # (Auto) 1.8 [place] # (Auto) 2.6 H Eos # (Auto) 0.0 Baso # (Auto) 0.1 Abs Immat Gran (auto) 1.30 H Absolute Neuts (auto) 25.4 H Absolute Nucleated RBC 0.000 Nucleated RBC % (auto) 0.0 Neutrophils % (Manual) Band Neutrophils % Lymphocytes % (Manual) Monocytes % (Manual) Metamyelocytes % Myelocytes % Abs Neuts (Manual) Lymphocytes # (Manual) Monocytes # (Manual) Metamyelocytes # Myelocytes # Nucleated RBCs Toxic Vacuolation Dohle Bodies Platelet Estimate Large Platelets Plt Morphology Comment RBC Morphology Polychromasia Hypochromasia Macrocytosis Target Cells Dina Cells Acanthocytes (Spur) Smear Tech's Comments VERIFIED PT 31.6 H D INR 2.6 H O2 Saturation ABG pH at Pt Temp ABG pH (Temp Correct) ABG pCO2 at Pt Temp ABG pCO2 (Temp Corrct ABG pO2 at Pt Temp ABG pO2 (Temp Correct ABG HCO3 ABG Base Excess (Actual) VBG pH VBG pCO2 VBG pO2 VBG HCO3 VBG O2 Saturation VBG Base Excess Sodium Potassium Chloride Carbon Dioxide Anion Gap BUN Creatinine Estim Creat Clear Calc Estimated GFR POC Glucose Random Glucose Lactic Acid 9.4 H* Lactic Acid Fup @ 2Hr Uric Acid Calcium Phosphorus Magnesium Total Bilirubin AST ALT Alkaline Phosphatase Lactate Dehydrogenase Total Creatine Kinase Troponin I High Sens C-Reactive Protein B-Natriuretic Peptide Total Protein Albumin Procalcitonin Cortisol Urine Color Urine Appearance Urine pH Ur Specific [place] Urine Protein Urine Glucose (UA) Urine Ketones Urine Blood Urine Nitrite Ur Leukocyte Esterase Urine RBC Urine WBC Ur Squamous Epith Cells Urine Bacteria C. difficile Toxin A&B C. difficile Antigen C. difficile Interpret Blood Type Antibody Screen Crossmatch 11/14/20 11/14/20 11/14/20 13:06 13:06 14:08 WBC RBC Hgb Hct MCV MCH MCHC RDW Plt Count MPV Immature Gran % (Auto) Neut % (Auto) Lymph % (Auto) [place] % (Auto) Eos % (Auto) Baso % (Auto) Lymph # (Auto) [place] # (Auto) Eos # (Auto) Baso # (Auto) Abs Immat Gran (auto) Absolute Neuts (auto) Absolute Nucleated RBC Nucleated RBC % (auto) Neutrophils % (Manual) Band Neutrophils % Lymphocytes % (Manual) Monocytes % (Manual) Metamyelocytes % Myelocytes % Abs Neuts (Manual) Lymphocytes # (Manual) Monocytes # (Manual) Metamyelocytes # Myelocytes # Nucleated RBCs Toxic Vacuolation Dohle Bodies Platelet Estimate Large Platelets Plt Morphology Comment RBC Morphology Polychromasia Hypochromasia Macrocytosis Target Cells Dina Cells Acanthocytes (Spur) Smear Tech's Comments PT INR O2 Saturation ABG pH at Pt Temp ABG pH (Temp Correct) ABG pCO2 at Pt Temp ABG pCO2 (Temp Corrct ABG pO2 at Pt Temp ABG pO2 (Temp Correct ABG HCO3 ABG Base Excess (Actual) VBG pH VBG pCO2 VBG pO2 VBG HCO3 VBG O2 Saturation VBG Base Excess Sodium Potassium Chloride Carbon Dioxide Anion Gap BUN Creatinine Estim Creat Clear Calc Estimated GFR POC Glucose 128 H Random Glucose Lactic Acid Lactic Acid Fup @ 2Hr Uric Acid Calcium Phosphorus Magnesium Total Bilirubin AST ALT Alkaline Phosphatase Lactate Dehydrogenase Total Creatine Kinase Troponin I High Sens 1734.1 H D C-Reactive Protein B-Natriuretic Peptide 2524 H Total Protein Albumin Procalcitonin 8.80 Cortisol Urine Color Urine Appearance Urine pH Ur Specific [place] Urine Protein Urine Glucose (UA) Urine Ketones Urine Blood Urine Nitrite Ur Leukocyte Esterase Urine RBC Urine WBC Ur Squamous Epith Cells Urine Bacteria C. difficile Toxin A&B C. difficile Antigen C. difficile Interpret Blood Type Antibody Screen Crossmatch 11/14/20 11/14/20 11/14/20 16:29 16:33 16:34 WBC RBC Hgb Hct MCV MCH MCHC RDW Plt Count MPV Immature Gran % (Auto) Neut % (Auto) Lymph % (Auto) [place] % (Auto) Eos % (Auto) Baso % (Auto) Lymph # (Auto) [place] # (Auto) Eos # (Auto) Baso # (Auto) Abs Immat Gran (auto) Absolute Neuts (auto) Absolute Nucleated RBC Nucleated RBC % (auto) Neutrophils % (Manual) Band Neutrophils % Lymphocytes % (Manual) Monocytes % (Manual) Metamyelocytes % Myelocytes % Abs Neuts (Manual) Lymphocytes # (Manual) Monocytes # (Manual) Metamyelocytes # Myelocytes # Nucleated RBCs Toxic Vacuolation Dohle Bodies Platelet Estimate Large Platelets Plt Morphology Comment RBC Morphology Polychromasia Hypochromasia Macrocytosis Target Cells Dina Cells Acanthocytes (Spur) Smear Tech's Comments PT INR O2 Saturation < 30.0 ABG pH at Pt Temp 7.09 L* ABG pH (Temp Correct) 7.08 L* ABG pCO2 at Pt Temp 54 H ABG pCO2 (Temp Corrct 55 H ABG pO2 at Pt Temp 23 L* ABG pO2 (Temp Correct 24 L* ABG HCO3 16 L ABG Base Excess (Actual) -12.7 VBG pH 7.17 L* VBG pCO2 38 VBG pO2 51 VBG HCO3 14 L VBG O2 Saturation 67.0 VBG Base Excess -13.0 Sodium Potassium Chloride Carbon Dioxide Anion Gap BUN Creatinine Estim Creat Clear Calc Estimated GFR POC Glucose Random Glucose Lactic Acid 12.2 H* Lactic Acid Fup @ 2Hr Uric Acid Calcium Phosphorus Magnesium Total Bilirubin AST ALT Alkaline Phosphatase Lactate Dehydrogenase Total Creatine Kinase Troponin I High Sens C-Reactive Protein B-Natriuretic Peptide Total Protein Albumin Procalcitonin Cortisol Urine Color Urine Appearance Urine pH Ur Specific [place] Urine Protein Urine Glucose (UA) Urine Ketones Urine Blood Urine Nitrite Ur Leukocyte Esterase Urine RBC Urine WBC Ur Squamous Epith Cells Urine Bacteria C. difficile Toxin A&B C. difficile Antigen C. difficile Interpret Blood Type Antibody Screen Crossmatch 11/14/20 11/14/20 11/14/20 16:34 16:48 16:56 WBC RBC Hgb Hct MCV MCH MCHC RDW Plt Count MPV Immature Gran % (Auto) Neut % (Auto) Lymph % (Auto) [place] % (Auto) Eos % (Auto) Baso % (Auto) Lymph # (Auto) [place] # (Auto) Eos # (Auto) Baso # (Auto) Abs Immat Gran (auto) Absolute Neuts (auto) Absolute Nucleated RBC Nucleated RBC % (auto) Neutrophils % (Manual) Band Neutrophils % Lymphocytes % (Manual) Monocytes % (Manual) Metamyelocytes % Myelocytes % Abs Neuts (Manual) Lymphocytes # (Manual) Monocytes # (Manual) Metamyelocytes # Myelocytes # Nucleated RBCs Toxic Vacuolation Dohle Bodies Platelet Estimate Large Platelets Plt Morphology Comment RBC Morphology Polychromasia Hypochromasia Macrocytosis Target Cells [place] Cells Acanthocytes (Spur) Smear Tech's Comments PT INR O2 Saturation 85.0 ABG pH at Pt Temp 7.24 L ABG pH (Temp Correct) 7.23 L ABG pCO2 at Pt Temp 30 L ABG pCO2 (Temp Corrct 31 L ABG pO2 at Pt Temp 66 L ABG pO2 (Temp Correct 70 L ABG HCO3 13 L ABG Base Excess (Actual) -12.4 VBG pH 7.20 L* VBG pCO2 35 VBG pO2 45 VBG HCO3 14 L VBG O2 Saturation 59.0 VBG Base Excess -12.4 Sodium Potassium Chloride Carbon Dioxide Anion Gap BUN Creatinine Estim Creat Clear Calc Estimated GFR POC Glucose Random Glucose Lactic Acid Lactic Acid Fup @ 2Hr Uric Acid Calcium Phosphorus Magnesium Total Bilirubin AST ALT Alkaline Phosphatase Lactate Dehydrogenase Total Creatine Kinase Troponin I High Sens 3635.0 H D C-Reactive Protein B-Natriuretic Peptide Total Protein Albumin Procalcitonin Cortisol Urine Color Urine Appearance Urine pH Ur Specific [place] Urine Protein Urine Glucose (UA) Urine Ketones Urine Blood Urine Nitrite Ur Leukocyte Esterase Urine RBC Urine WBC Ur Squamous Epith Cells Urine Bacteria C. difficile Toxin A&B C. difficile Antigen C. difficile Interpret Blood Type Antibody Screen Crossmatch 11/14/20 11/14/20 11/14/20 17:03 18:08 18:08 WBC RBC Hgb 6.2 L* Hct 18.8 L* MCV MCH MCHC RDW Plt Count MPV Immature Gran % (Auto) Neut % (Auto) Lymph % (Auto) [place] % (Auto) Eos % (Auto) Baso % (Auto) Lymph # (Auto) [place] # (Auto) Eos # (Auto) Baso # (Auto) Abs Immat Gran (auto) Absolute Neuts (auto) Absolute Nucleated RBC Nucleated RBC % (auto) Neutrophils % (Manual) Band Neutrophils % Lymphocytes % (Manual) Monocytes % (Manual) Metamyelocytes % Myelocytes % Abs Neuts (Manual) Lymphocytes # (Manual) Monocytes # (Manual) Metamyelocytes # Myelocytes # Nucleated RBCs Toxic Vacuolation Dohle Bodies Platelet Estimate Large Platelets Plt Morphology Comment RBC Morphology Polychromasia Hypochromasia Macrocytosis Target Cells Dina Cells Acanthocytes (Spur) Smear Tech's Comments PT INR O2 Saturation ABG pH at Pt Temp ABG pH (Temp Correct) ABG pCO2 at Pt Temp ABG pCO2 (Temp Corrct ABG pO2 at Pt Temp ABG pO2 (Temp Correct ABG HCO3 ABG Base Excess (Actual) VBG pH VBG pCO2 VBG pO2 VBG HCO3 VBG O2 Saturation VBG Base Excess Sodium Potassium Chloride Carbon Dioxide Anion Gap BUN Creatinine Estim Creat Clear Calc Estimated GFR POC Glucose Random Glucose Lactic Acid Lactic Acid Fup @ 2Hr Uric Acid Calcium Phosphorus Magnesium Total Bilirubin AST ALT Alkaline Phosphatase Lactate Dehydrogenase Total Creatine Kinase Troponin I High Sens C-Reactive Protein B-Natriuretic Peptide Total Protein Albumin Procalcitonin Cortisol Urine Color GABRIEL Urine Appearance HAZY Urine pH 5.5 Ur Specific [place] 1.025 Urine Protein 2+ H Urine Glucose (UA) NEG Urine Ketones NEG Urine Blood TRACE Urine Nitrite NEG Ur Leukocyte Esterase NEG Urine RBC 5-9 H Urine WBC 10-14 H Ur Squamous Epith Cells 2+ Urine Bacteria 1+ C. difficile Toxin A&B Positive A C. difficile Antigen Positive A C. difficile Interpret SEE NOTE Blood Type Antibody Screen Crossmatch 11/14/20 11/14/20 11/14/20 19:32 19:55 19:55 WBC 42.9 H* RBC 2.56 L D Hgb 9.2 L D Hct 27.6 L D MCV 107.8 H MCH 35.9 H MCHC 33.3 RDW 18.5 H Plt Count 134 L MPV 11.5 Immature Gran % (Auto) Cancelled Neut % (Auto) Cancelled Lymph % (Auto) Cancelled [place] % (Auto) Cancelled Eos % (Auto) Cancelled Baso % (Auto) Cancelled Lymph # (Auto) Cancelled [place] # (Auto) Cancelled Eos # (Auto) Cancelled Baso # (Auto) Cancelled Abs Immat Gran (auto) Cancelled Absolute Neuts (auto) Cancelled Absolute Nucleated RBC 0.230 H Nucleated RBC % (auto) 0.5 H Neutrophils % (Manual) 71 Band Neutrophils % 17 H Lymphocytes % (Manual) 4 L Monocytes % (Manual) 3 Metamyelocytes % 4 Myelocytes % 1 Abs Neuts (Manual) 37.8 H Lymphocytes # (Manual) 1.7 Monocytes # (Manual) 1.3 H Metamyelocytes # 1.7 Myelocytes # 0.4 Nucleated RBCs 1 H Toxic Vacuolation PRESENT Dohle Bodies PRESENT Platelet Estimate SLIGHTLY DECREASED Large Platelets PRESENT Plt Morphology Comment NOTE RBC Morphology NOTED Polychromasia 1+ (0-2) Hypochromasia 1+ (5-14) Macrocytosis 1+ (5-14) Target Cells 1+ (5-14) [place] Cells 1+ (0-2) Acanthocytes (Spur) Smear Tech's Comments PT INR O2 Saturation ABG pH at Pt Temp ABG pH (Temp Correct) ABG pCO2 at Pt Temp ABG pCO2 (Temp Corrct ABG pO2 at Pt Temp ABG pO2 (Temp Correct ABG HCO3 ABG Base Excess (Actual) VBG pH VBG pCO2 VBG pO2 VBG HCO3 VBG O2 Saturation VBG Base Excess Sodium 143 Potassium 4.0 D Chloride 98 Carbon Dioxide 15 L Anion Gap 34 H BUN 30 H Creatinine 4.58 H* Estim Creat Clear Calc 14.3 Estimated GFR 11 POC Glucose Random Glucose 32 L* Lactic Acid Lactic Acid Fup @ 2Hr 13.9 H* Uric Acid Calcium 7.1 L Phosphorus Magnesium Total Bilirubin 4.4 H AST 180 H ALT 37 H Alkaline Phosphatase 120 H Lactate Dehydrogenase Total Creatine Kinase Troponin I High Sens C-Reactive Protein B-Natriuretic Peptide Total Protein 6.4 L Albumin 3.5 Procalcitonin Cortisol Urine Color Urine Appearance Urine pH Ur Specific [place] Urine Protein Urine Glucose (UA) Urine Ketones Urine Blood Urine Nitrite Ur Leukocyte Esterase Urine RBC Urine WBC Ur Squamous Epith Cells Urine Bacteria C. difficile Toxin A&B C. difficile Antigen C. difficile Interpret Blood Type Antibody Screen Crossmatch 11/14/20 11/14/20 11/15/20 19:59 21:38 00:23 WBC RBC Hgb 9.6 L Hct 29.6 L MCV MCH MCHC RDW Plt Count MPV Immature Gran % (Auto) Neut % (Auto) Lymph % (Auto) [place] % (Auto) Eos % (Auto) Baso % (Auto) Lymph # (Auto) [place] # (Auto) Eos # (Auto) Baso # (Auto) Abs Immat Gran (auto) Absolute Neuts (auto) Absolute Nucleated RBC Nucleated RBC % (auto) Neutrophils % (Manual) Band Neutrophils % Lymphocytes % (Manual) Monocytes % (Manual) Metamyelocytes % Myelocytes % Abs Neuts (Manual) Lymphocytes # (Manual) Monocytes # (Manual) Metamyelocytes # Myelocytes # Nucleated RBCs Toxic Vacuolation Dohle Bodies Platelet Estimate Large Platelets Plt Morphology Comment RBC Morphology Polychromasia Hypochromasia Macrocytosis Target Cells [place] Cells Acanthocytes (Spur) Smear Tech's Comments PT INR O2 Saturation 94.0 ABG pH at Pt Temp 7.16 L* ABG pH (Temp Correct) 7.16 L* ABG pCO2 at Pt Temp 37 ABG pCO2 (Temp Corrct 38 ABG pO2 at Pt Temp 99 ABG pO2 (Temp Correct 101 ABG HCO3 14 L ABG Base Excess (Actual) -13.5 VBG pH VBG pCO2 VBG pO2 VBG HCO3 VBG O2 Saturation VBG Base Excess Sodium Potassium Chloride Carbon Dioxide Anion Gap BUN Creatinine Estim Creat Clear Calc Estimated GFR POC Glucose 90 Random Glucose Lactic Acid Lactic Acid Fup @ 2Hr Uric Acid Calcium Phosphorus Magnesium Total Bilirubin AST ALT Alkaline Phosphatase Lactate Dehydrogenase Total Creatine Kinase Troponin I High Sens C-Reactive Protein B-Natriuretic Peptide Total Protein Albumin Procalcitonin Cortisol Urine Color Urine Appearance Urine pH Ur Specific [place] Urine Protein Urine Glucose (UA) Urine Ketones Urine Blood Urine Nitrite Ur Leukocyte Esterase Urine RBC Urine WBC Ur Squamous Epith Cells Urine Bacteria C. difficile Toxin A&B C. difficile Antigen C. difficile Interpret Blood Type Antibody Screen Crossmatch 11/15/20 11/15/20 11/15/20 00:25 00:30 01:55 WBC RBC Hgb Hct MCV MCH MCHC RDW Plt Count MPV Immature Gran % (Auto) Neut % (Auto) Lymph % (Auto) [place] % (Auto) Eos % (Auto) Baso % (Auto) Lymph # (Auto) [place] # (Auto) Eos # (Auto) Baso # (Auto) Abs Immat Gran (auto) Absolute Neuts (auto) Absolute Nucleated RBC Nucleated RBC % (auto) Neutrophils % (Manual) Band Neutrophils % Lymphocytes % (Manual) Monocytes % (Manual) Metamyelocytes % Myelocytes % Abs Neuts (Manual) Lymphocytes # (Manual) Monocytes # (Manual) Metamyelocytes # Myelocytes # Nucleated RBCs Toxic Vacuolation Dohle Bodies Platelet Estimate Large Platelets Plt Morphology Comment RBC Morphology Polychromasia Hypochromasia Macrocytosis Target Cells [place] Cells Acanthocytes (Spur) Smear Tech's Comments PT INR O2 Saturation 96.0 ABG pH at Pt Temp 7.24 L ABG pH (Temp Correct) 7.23 L ABG pCO2 at Pt Temp 21 L ABG pCO2 (Temp Corrct 22 L ABG pO2 at Pt Temp 92 ABG pO2 (Temp Correct 93 ABG HCO3 9 L ABG Base Excess (Actual) -15.7 VBG pH VBG pCO2 VBG pO2 VBG HCO3 VBG O2 Saturation VBG Base Excess Sodium Potassium Chloride Carbon Dioxide Anion Gap BUN Creatinine Estim Creat Clear Calc Estimated GFR POC Glucose 70 155 H Random Glucose Lactic Acid Lactic Acid Fup @ 2Hr Uric Acid Calcium Phosphorus Magnesium Total Bilirubin AST ALT Alkaline Phosphatase Lactate Dehydrogenase Total Creatine Kinase Troponin I High Sens C-Reactive Protein B-Natriuretic Peptide Total Protein Albumin Procalcitonin Cortisol Urine Color Urine Appearance Urine pH Ur Specific [place] Urine Protein Urine Glucose (UA) Urine Ketones Urine Blood Urine Nitrite Ur Leukocyte Esterase Urine RBC Urine WBC Ur Squamous Epith Cells Urine Bacteria C. difficile Toxin A&B C. difficile Antigen C. difficile Interpret Blood Type Antibody Screen Crossmatch 11/15/20 11/15/20 11/15/20 04:34 05:23 05:23 WBC 41.8 H* RBC 2.31 L Hgb 8.4 L Hct 25.7 L MCV 111.3 H MCH 36.4 H MCHC 32.7 RDW 19.6 H Plt Count 125 L MPV 11.9 Immature Gran % (Auto) Neut % (Auto) Lymph % (Auto) [place] % (Auto) Eos % (Auto) Baso % (Auto) Lymph # (Auto) [place] # (Auto) Eos # (Auto) Baso # (Auto) Abs Immat Gran (auto) Absolute Neuts (auto) Absolute Nucleated RBC 0.320 H Nucleated RBC % (auto) 0.8 H Neutrophils % (Manual) 66 Band Neutrophils % 20 H Lymphocytes % (Manual) 10 L Monocytes % (Manual) 4 Metamyelocytes % Myelocytes % Abs Neuts (Manual) 35.9 H Lymphocytes # (Manual) 4.2 Monocytes # (Manual) 1.7 H Metamyelocytes # Myelocytes # Nucleated RBCs Toxic Vacuolation PRESENT Dohle Bodies Platelet Estimate SLIGHTLY DECREASED Large Platelets Plt Morphology Comment NORMAL RBC Morphology NOTED Polychromasia 1+ (0-2) Hypochromasia 1+ (5-14) Macrocytosis 2+ (15-30) Target Cells [place] Cells Acanthocytes (Spur) 2+ (3-5) Smear Tech's Comments PT 35.7 H INR 3.0 H O2 Saturation 98.0 ABG pH at Pt Temp 7.15 L* ABG pH (Temp Correct) 7.14 L* ABG pCO2 at Pt Temp 26 L ABG pCO2 (Temp Corrct 27 L ABG pO2 at Pt Temp 129 H ABG pO2 (Temp Correct 134 H ABG HCO3 9 L ABG Base Excess (Actual) -17.6 VBG pH VBG pCO2 VBG pO2 VBG HCO3 VBG O2 Saturation VBG Base Excess Sodium Potassium Chloride Carbon Dioxide Anion Gap BUN Creatinine Estim Creat Clear Calc Estimated GFR POC Glucose Random Glucose Lactic Acid Lactic Acid Fup @ 2Hr Uric Acid Calcium Phosphorus Magnesium Total Bilirubin AST ALT Alkaline Phosphatase Lactate Dehydrogenase Total Creatine Kinase Troponin I High Sens C-Reactive Protein B-Natriuretic Peptide Total Protein Albumin Procalcitonin Cortisol Urine Color Urine Appearance Urine pH Ur Specific [place] Urine Protein Urine Glucose (UA) Urine Ketones Urine Blood Urine Nitrite Ur Leukocyte Esterase Urine RBC Urine WBC Ur Squamous Epith Cells Urine Bacteria C. difficile Toxin A&B C. difficile Antigen C. difficile Interpret Blood Type Antibody Screen Crossmatch 11/15/20 11/15/20 11/15/20 05:23 05:23 06:16 WBC RBC Hgb Hct MCV MCH MCHC RDW Plt Count MPV Immature Gran % (Auto) Neut % (Auto) Lymph % (Auto) [place] % (Auto) Eos % (Auto) Baso % (Auto) Lymph # (Auto) [place] # (Auto) Eos # (Auto) Baso # (Auto) Abs Immat Gran (auto) Absolute Neuts (auto) Absolute Nucleated RBC Nucleated RBC % (auto) Neutrophils % (Manual) Band Neutrophils % Lymphocytes % (Manual) Monocytes % (Manual) Metamyelocytes % Myelocytes % Abs Neuts (Manual) Lymphocytes # (Manual) Monocytes # (Manual) Metamyelocytes # Myelocytes # Nucleated RBCs Toxic Vacuolation Dohle Bodies Platelet Estimate Large Platelets Plt Morphology Comment RBC Morphology Polychromasia Hypochromasia Macrocytosis Target Cells [place] Cells Acanthocytes (Spur) Smear Tech's Comments PT INR O2 Saturation 98.0 ABG pH at Pt Temp 7.26 L ABG pH (Temp Correct) 7.25 L ABG pCO2 at Pt Temp 27 L ABG pCO2 (Temp Corrct 28 L ABG pO2 at Pt Temp 127 H ABG pO2 (Temp Correct 132 H ABG HCO3 12 L ABG Base Excess (Actual) -13.0 VBG pH VBG pCO2 VBG pO2 VBG HCO3 VBG O2 Saturation VBG Base Excess Sodium 153 H Potassium 4.1 Chloride 92 L Carbon Dioxide 13 L Anion Gap 52 H BUN 31 H Creatinine 4.86 H* Estim Creat Clear Calc 13.4 Estimated GFR 10 POC Glucose Random Glucose 99 D Lactic Acid Lactic Acid Fup @ 2Hr Uric Acid 17.2 H Calcium 6.4 L D Phosphorus 11.2 H Magnesium Total Bilirubin 4.0 H AST 690 H ALT 145 H Alkaline Phosphatase 112 Lactate Dehydrogenase 1597 H Total Creatine Kinase 2396 H D Troponin I High Sens 75365.5 H D C-Reactive Protein 14.93 H B-Natriuretic Peptide 3532 H Total Protein 5.2 L Albumin 2.9 L Procalcitonin Cortisol Urine Color Urine Appearance Urine pH Ur Specific [place] Urine Protein Urine Glucose (UA) Urine Ketones Urine Blood Urine Nitrite Ur Leukocyte Esterase Urine RBC Urine WBC Ur Squamous Epith Cells Urine Bacteria C. difficile Toxin A&B C. difficile Antigen C. difficile Interpret Blood Type Antibody Screen Crossmatch 11/15/20 11/15/20 11/15/20 10:15 10:49 11:23 WBC RBC Hgb Hct MCV MCH MCHC RDW Plt Count MPV Immature Gran % (Auto) Neut % (Auto) Lymph % (Auto) [place] % (Auto) Eos % (Auto) Baso % (Auto) Lymph # (Auto) [place] # (Auto) Eos # (Auto) Baso # (Auto) Abs Immat Gran (auto) Absolute Neuts (auto) Absolute Nucleated RBC Nucleated RBC % (auto) Neutrophils % (Manual) Band Neutrophils % Lymphocytes % (Manual) Monocytes % (Manual) Metamyelocytes % Myelocytes % Abs Neuts (Manual) Lymphocytes # (Manual) Monocytes # (Manual) Metamyelocytes # Myelocytes # Nucleated RBCs Toxic Vacuolation Dohle Bodies Platelet Estimate Large Platelets Plt Morphology Comment RBC Morphology Polychromasia Hypochromasia Macrocytosis Target Cells [place] Cells Acanthocytes (Spur) Smear Tech's Comments PT INR O2 Saturation 98.0 ABG pH at Pt Temp 7.17 L* ABG pH (Temp Correct) 7.15 L* ABG pCO2 at Pt Temp 19 L* ABG pCO2 (Temp Corrct 21 L ABG pO2 at Pt Temp 137 H ABG pO2 (Temp Correct 147 H ABG HCO3 7 L ABG Base Excess (Actual) -19.0 VBG pH VBG pCO2 VBG pO2 VBG HCO3 VBG O2 Saturation VBG Base Excess Sodium Potassium Chloride Carbon Dioxide Anion Gap BUN Creatinine Estim Creat Clear Calc Estimated GFR POC Glucose 25 L* Random Glucose Lactic Acid 34.7 H* Lactic Acid Fup @ 2Hr Uric Acid Calcium Phosphorus Magnesium Total Bilirubin AST ALT Alkaline Phosphatase Lactate Dehydrogenase Total Creatine Kinase Troponin I High Sens C-Reactive Protein B-Natriuretic Peptide Total Protein Albumin Procalcitonin Cortisol Urine Color Urine Appearance Urine pH Ur Specific [place] Urine Protein Urine Glucose (UA) Urine Ketones Urine Blood Urine Nitrite Ur Leukocyte Esterase Urine RBC Urine WBC Ur Squamous Epith Cells Urine Bacteria C. difficile Toxin A&B C. difficile Antigen C. difficile Interpret Blood Type Antibody Screen Crossmatch 11/15/20 11:35 WBC RBC Hgb Hct MCV MCH MCHC RDW Plt Count MPV Immature Gran % (Auto) Neut % (Auto) Lymph % (Auto) [place] % (Auto) Eos % (Auto) Baso % (Auto) Lymph # (Auto) [place] # (Auto) Eos # (Auto) Baso # (Auto) Abs Immat Gran (auto) Absolute Neuts (auto) Absolute Nucleated RBC Nucleated RBC % (auto) Neutrophils % (Manual) Band Neutrophils % Lymphocytes % (Manual) Monocytes % (Manual) Metamyelocytes % Myelocytes % Abs Neuts (Manual) Lymphocytes # (Manual) Monocytes # (Manual) Metamyelocytes # Myelocytes # Nucleated RBCs Toxic Vacuolation Dohle Bodies Platelet Estimate Large Platelets Plt Morphology Comment RBC Morphology Polychromasia Hypochromasia Macrocytosis Target Cells [place] Cells Acanthocytes (Spur) Smear Tech's Comments PT INR O2 Saturation ABG pH at Pt Temp ABG pH (Temp Correct) ABG pCO2 at Pt Temp ABG pCO2 (Temp Corrct ABG pO2 at Pt Temp ABG pO2 (Temp Correct ABG HCO3 ABG Base Excess (Actual) VBG pH VBG pCO2 VBG pO2 VBG HCO3 VBG O2 Saturation VBG Base Excess Sodium Potassium Chloride Carbon Dioxide Anion Gap BUN Creatinine Estim Creat Clear Calc Estimated GFR POC Glucose 313 H Random Glucose Lactic Acid Lactic Acid Fup @ 2Hr Uric Acid Calcium Phosphorus Magnesium Total Bilirubin AST ALT Alkaline Phosphatase Lactate Dehydrogenase Total Creatine Kinase Troponin I High Sens C-Reactive Protein B-Natriuretic Peptide Total Protein Albumin Procalcitonin Cortisol Urine Color Urine Appearance Urine pH Ur Specific [place] Urine Protein Urine Glucose (UA) Urine Ketones Urine Blood Urine Nitrite Ur Leukocyte Esterase Urine RBC Urine WBC Ur Squamous Epith Cells Urine Bacteria C. difficile Toxin A&B C. difficile Antigen C. difficile Interpret Blood Type Antibody Screen Crossmatch Preliminary micro results at discharge 11/14/20 17:03 Urine Culture - Preliminary Urine [place] No growth to date. 11/12/20 17:41 Blood Culture - Preliminary Blood - Venous No growth after 48 hours. 11/12/20 17:03 Blood Culture - Preliminary Blood - Venous No growth after 48 hours. Discharge Plan Discharge Patient Disposition: [facility] Discharge Diagnosis: Shock Acute renal failure Acute hepatic failure C Diff colitis Referrals: Physician,Unknown [Primary Care Provider] - Discharge Medications: Discontinued thiamine HCl (vitamin B1) [Vitamin B-1] 100 mg tablet 1 tab PO DAILY RF: 0 aspirin 81 mg tablet,delayed release (DR/EC) 1 tab PO DAILY RF: 0 folic acid 1 mg tablet 1 tab PO DAILY RF: 0 digoxin 125 mcg (0.125 mg) tablet 1 tab PO DAILY RF: 0 gabapentin 100 mg capsule 1 cap PO BID RF: 0 potassium chloride 20 mEq tablet extended release 1 tab PO BID RF: 0 Entresto 24-26 mg tablet 1 tab PO BID RF: 0 Discharge Orders: Discharge Order (Routine); Ordered 11/15/20 Ordered By: Galdino Cueva Activity on Discharge: As tolerated Stand Alone Forms: Patient Portal Discharge page Care Plan Goals: As directed Health Concerns: Recovery from critical illness Plan of Treatment: Per [facility] ICU Assessment: Critically ill in shock. Transfer to [facility] ICU. Discharge Date/Time: 11/15/20 11:50
--- NOTE | 2020-11-15 11:51 | MHC.CM.PN ---
Pt requires complex and urgent medical care that [facility] is able to provide. She will transfer immediately via ALS ambulance transport to be arranged by ICU.
[2020-11-15 12:23] LABS: Reflex Lactate? Lactic Acid Added
[2020-11-15 13:16] LABS: ABG Refer to POC result
[2020-11-15 13:16] LABS: ABG Refer to POC result
--- NOTE | 2020-11-15 15:10 | PC.NURSE ---
Addendum entered by Pauline Serna RN 11/15/20 16:17: Pt belongings, clothes and 2 cell phones sent to security Original Note: upon initial assessment, pt on levo 0.4 and vaso 0.02, haris bp trending 100-110s systollically, pt mottled throughout body, cold to touch, temp via core temp 101.5/ md at bedside, per MD Sodium bicarb drip stopped and order changed, vasopressin titrated off and levophed titrated down (see drug titration), bps slowly trending down to 70s systollically after a short time, md at bedside, levophed titrated back to 0.3 and vasopressin turned back on at 0.04/ pt not making urine, md aware/ vent settings changed to ac 14 TV 300 Peep 10 and 50% per MD, abgs drawn and reported to MD/ call made to [facility], pt accepted to [facility] and report given to ABDELRAHMAN Glover/ critical lactic of 39 reported to MD/ vent settings again adjusted per MD order to ac 26, TV 300, Peep 10 and 50%, abgs drawn 30 minutes after vent changes and reported to MD/ Life flight at bedside, pt taken off monitor and hooked up to life flight zoll, pt BP starting to trend down to 70s systollically while setting up transport on Zoll monitor, stat bicarb given by life flight team, 2 amps bicarb removed from pyxsis and given to life flight for transport per their request, stat glucose drawn per life flight request and dextrose pulled and given for glucose of 29, aware, extra amp of dextrose pulled for life flight request for travel, 2 amps of epi pulled for life flight as well, repeat glucose drawn 300/ Left pupil noted to be fixed and 4mm while right pupil 3 and sluggish/ aware/ pt transported out of unit at 1130 with life flight crew/ [facility] RN called and updated regarding patient status Pt sister called and updated by this RN regarding transfer to [facility] given sister number by this RN
[2020-11-16 13:12] LABS: Complement C3 33 mg/dL (83-193); Myeloperoxidase Antibody <1.0 AI; Proteinase 3 PR3 Antibodies <1.0 AI
[2020-11-16 14:01] LABS: Anti Nuclear Antibody Screen NEGATIVE (NEGATIVE)
[2020-11-19 13:51] LABS: DRVVT Confirmation NEGATIVE (NEGATIVE); Hexagonal Phase Neutralization NEGATIVE (NEGATIVE); PTT (LAC) Screen 62 sec (< OR = 40)
[2020-11-23 05:42] LABS: Cryoglobulin, Qual Negative (Negative)
== END 2020-11-15 11:50 | disposition short-term general hospital (02) | DRG 673 ==
LOC: HO.ED 20:03 → HO.EDOVER 20:24 → HO.ICU 11-13 00:17 → HO.IMC 11-13 16:08 → HO.ICU 11-14 10:58
PROVIDERS: Internal Medicine Nephrology; Physician Assistant Medical; Admitting Provider Hospitalist; Emergency Provider Emergency Medicine; Visit Provider Anesthesiology
DX: N17.0 Acute kidney failure with tubular necrosis (principal); R57.1 Hypovolemic shock; I21.09 ST elevation (STEMI) myocardial infarction involving other coronary artery of anterior wall; G93.41 Metabolic encephalopathy; E87.2 Acidosis; I23.6 Thrombosis of atrium, auricular appendage, and ventricle as current complications following acute myocardial infarction; E44.1 Mild protein-calorie malnutrition; A04.72 Enterocolitis due to Clostridium difficile, not specified as recurrent; I95.89 Other hypotension; F17.210 Nicotine dependence, cigarettes, uncomplicated; I25.5 Ischemic cardiomyopathy; K74.60 Unspecified cirrhosis of liver; D63.1 Anemia in chronic kidney disease; N18.9 Chronic kidney disease, unspecified; Z71.6 Tobacco abuse counseling; E86.0 Dehydration; E87.6 Hypokalemia; I25.10 Atherosclerotic heart disease of native coronary artery without angina pectoris; I25.2 Old myocardial infarction; Z79.82 Long term (current) use of aspirin; Z79.899 Other long term (current) drug therapy
CPT/HCPCS: 36415; 36600; 71045; 74176; 80048; 80053; 80076; 80162; 81001; 81003; 81025; 82247; 82272; 82533; 82550; 82595; 82607; 82746; 82947; 83605; 83615; 83690; 83735; 83880; 84100; 84145; 84484; 84550; 84702; 85007; 85014; 85018; 85025; 85027; 85597; 85610; 85613; 85730; 86021; 86038; 86039; 86140; 86160; 86850; 86900; 86923; 87040; 87086; 87324; 87449; 87635; 93005; 93306; 93308; 94002; 94003; 94799; 99285; 99291; C1758; J0696; J2250; J2370; J2405; J2765; J3010; J3411; J3430; J3475; P9016; P9047